=== PATIENT | male | born 1960 | race Caucasian/White ===

== ENCOUNTER 2019-11-27 06:21 | Outpatient (REF) | payer OTHER, SELFPAY ==
[2019-11-27 07:02] LABS: MANUAL DIFF FLAG NO
[2019-11-27 07:06] LABS: Basophils Percent Auto 0.3 % (0-2); Eosinophils Absolute Auto 0.1 X10*3/uL (0.0-0.4); Eosinophils Percent Auto 1.1 % (0-4); Hematocrit 39.8 % (42-52); Hemoglobin 14.1 g/dl (14.0-18.0); Imm Gran Abs Auto 0.03 X10*3/uL (0.00-0.03); Imm Gran Pct Auto 0.4 % (0.0-0.4); Lymphocytes Absolute Auto 1.5 X10*3/uL (1.2-4.9); Lymphocytes Percent Auto 20.4 % (20-40); Mean Corpuscular HGB Conc 35.4 g/dl (31.0-36.0); Mean Corpuscular Hemoglobin 32.8 pg (27.0-33.0); Mean Corpuscular Volume 92.6 fL (80-98); Mean Platelet Volume 10.3 fL (9.4-12.4); Monocytes Absolute Auto 0.7 X10*3/uL (0.1-1.2); Monocytes Percent Auto 9.4 % (2-11); Neutrophils Absolute Auto 4.9 X10*3/uL (2.0-8.3); Neutrophils Percent Auto 68.4 % (45-73); Platelet Count 193 X10*3/uL (160-400); Red Cell Distribution Width 11.6 % (11.0-16.0); White Blood Count 7.1 X10*3/uL (4.8-10.8)
[2019-11-27 07:11] LABS: Glucose Urine UA NEG (NEG); Leukocyte Esterase Urine NEG (NEG); Nitrite Urine NEG (NEG); Specific Gravity - Urine 1.025 (1.005-1.025); Urine Blood NEG (NEG); Urine Ketones NEG (NEG); Urine Protein NEG (NEG-TRACE)
[2019-11-27 07:12] LABS: Appearance Urine CLEAR; Color Urine YELLOW
[2019-11-27 07:33] LABS: Carbon Dioxide 27 mmol/L (22-29); Chloride 104 mmol/L (96-108); Potassium 4.3 mmol/l (3.3-5.1); Sodium 138 mmol/L (135-145)
[2019-11-27 07:34] LABS: Alanine Aminotransferase 32 U/L (0-40); Albumin Level 4.5 g/dL (3.5-5.0); Alkaline Phosphatase 63 U/L (39-117); Anion Gap 11 (12-20); Aspartate Amino Transferase 20 U/L (5-37); Blood Urea Nitrogen 22 mg/dL (9-16); Calcium 9.4 mg/dL (8.4-10.2); Cholesterol 148 mg/dL; Estimated Glomerular Filt Rate > 60; Glucose Fasting 100 mg/dL (60-99); HDL Cholesterol 37 mg/dL; LDL Cholesterol Calculated 91 mg/dl; Total Protein 7.2 g/dL (6.5-8.0); Triglycerides 103 mg/dL
[2019-11-27 07:55] LABS: Prostate Specific Antigen Scr 0.42 ng/mL (<0.05-4.0)
== END 2019-11-27 06:22 | disposition home or self-care (01) ==
LOC: HO.LAB 06:21
PROVIDERS: PCP Internal Medicine; Visit Provider Internal Medicine
DX: Z00.00 Encounter for general adult medical examination without abnormal findings (principal); R79.89 Other specified abnormal findings of blood chemistry; K21.9 Gastro-esophageal reflux disease without esophagitis; I10 Essential (primary) hypertension; E78.00 Pure hypercholesterolemia, unspecified; Z12.5 Encounter for screening for malignant neoplasm of prostate
CPT/HCPCS: 36415; 80053; 80061; 81003; 84153; 85025

== ENCOUNTER 2019-12-04 15:34 | Outpatient (REF) | payer OTHER, SELFPAY ==
--- NOTE | 2019-12-04 15:40 | XR_ITS ---
EXAMINATION: XR CERVICAL SPINE CLINICAL INFORMATION: Neck pain. COMPARISON: None. TECHNIQUE: Cervical spine 5 views; AP, lateral, bilateral oblique and open-mouth views. FINDINGS: Vertebral body heights and alignment are maintained. Atlantoaxial distance is normal. Pezv-jm-[id number] disc space narrowing is noted at C5-C6 and C6-C7. Small marginal endplate osteophytes are noted. Multilevel bilateral facet arthropathy is noted, more severe on the left compared to the right. There is severe neural foraminal narrowing noted on the left at C3-C4 and C4-C5 levels and [id number] neural foraminal narrowing noted at C5-C6. Moderate right neural foraminal stenosis at C5-C6. No evidence of prevertebral soft tissue swelling. Airways patent. Open-mouth view is unremarkable. No evidence of cervical ribs. Visualized lung apices are clear. IMPRESSION: Bilateral facet arthropathy, moderate to severe on the left. Multiple bilateral neural foraminal narrowing as detailed above.
== END 2019-12-04 15:35 | disposition home or self-care (01) ==
LOC: HO.XRAY 15:34
PROVIDERS: PCP Internal Medicine; Visit Provider Internal Medicine
DX: M54.2 Cervicalgia (principal)
CPT/HCPCS: 72050

== ENCOUNTER 2020-12-02 10:39 | Outpatient (REF) | payer OTHER, SELFPAY ==
[2020-12-02 10:44] LABS: MANUAL DIFF FLAG NO
[2020-12-02 10:59] LABS: Basophils Percent Auto 0.1 % (0-2); Eosinophils Absolute Auto 0.1 X10*3/uL (0.0-0.4); Eosinophils Percent Auto 1.2 % (0-4); Hematocrit 40.1 % (42-52); Hemoglobin 13.9 g/dl (14.0-18.0); Imm Gran Abs Auto 0.02 X10*3/uL (0.00-0.03); Imm Gran Pct Auto 0.3 % (0.0-0.4); Lymphocytes Absolute Auto 1.7 X10*3/uL (1.2-4.9); Lymphocytes Percent Auto 24.7 % (20-40); Mean Corpuscular HGB Conc 34.7 g/dl (31.0-36.0); Mean Corpuscular Hemoglobin 32.3 pg (27.0-33.0); Mean Platelet Volume 10.6 fL (9.4-12.4); Monocytes Absolute Auto 0.5 X10*3/uL (0.1-1.2); Monocytes Percent Auto 7.6 % (2-11); Neutrophils Absolute Auto 4.5 X10*3/uL (2.0-8.3); Neutrophils Percent Auto 66.1 % (45-73); Platelet Count 205 X10*3/uL (160-400); Red Blood Count 4.31 X10*6/uL (4.60-5.80); Red Cell Distribution Width 12.1 % (11.0-16.0); White Blood Count 6.9 X10*3/uL (4.8-10.8)
[2020-12-02 11:18] LABS: Alanine Aminotransferase 32 U/L (0-40); Albumin Level 4.4 g/dL (3.5-5.0); Alkaline Phosphatase 63 U/L (39-117); Anion Gap 12 (12-20); Aspartate Amino Transferase 22 U/L (5-37); Blood Urea Nitrogen 12 mg/dL (9-16); Calcium 9.1 mg/dL (8.4-10.2); Carbon Dioxide 27 mmol/L (22-29); Chloride 105 mmol/L (96-108); Cholesterol 163 mg/dL; Estimated Glomerular Filt Rate > 60; Glucose Fasting 110 mg/dL (60-99); HDL Cholesterol 51 mg/dL; LDL Cholesterol Calculated 87 mg/dl; Potassium 4.2 mmol/L (3.3-5.1); Sodium 140 mmol/L (135-145); Total Protein 7.1 g/dL (6.5-8.0); Triglycerides 129 mg/dL
[2020-12-02 11:23] LABS: Reflex LDLD? No
[2020-12-02 11:31] LABS: Appearance Urine CLEAR; Color Urine YELLOW; Glucose Urine UA NEG (NEG); Leukocyte Esterase Urine NEG (NEG); Nitrite Urine NEG (NEG); Specific Gravity - Urine 1.025 (1.005-1.025); Urine Blood NEG (NEG); Urine Ketones NEG (NEG); Urine Protein TRACE MG/DL (NEG-TRACE)
[2020-12-02 11:37] LABS: PSA,Total (Free>4and<10) 0.49 ng/mL (0.00-4.00)
== END 2020-12-02 10:40 | disposition home or self-care (01) ==
LOC: HO.LNP 10:39
PROVIDERS: Visit Provider Internal Medicine
DX: Z00.00 Encounter for general adult medical examination without abnormal findings (principal); Z12.5 Encounter for screening for malignant neoplasm of prostate; I73.00 Raynaud's syndrome without gangrene; R79.89 Other specified abnormal findings of blood chemistry; I10 Essential (primary) hypertension; E78.00 Pure hypercholesterolemia, unspecified
CPT/HCPCS: 80053; 80061; 81003; 84153; 85025

== ENCOUNTER 2021-05-28 11:41 | Outpatient (REF) | payer OTHER, SELFPAY ==
[2021-05-28 12:12] LABS: Alanine Aminotransferase 50 U/L (0-40); Albumin Level 4.2 g/dL (3.5-5.0); Alkaline Phosphatase 76 U/L (39-117); Aspartate Amino Transferase 37 U/L (5-37); Bilirubin Direct 0.4 mg/dL (0.0-0.5); Cholesterol 163 mg/dL; HDL Cholesterol 72 mg/dL; LDL Cholesterol Calculated 82 mg/dl; Total Protein 6.8 g/dL (6.5-8.0); Triglycerides 47 mg/dL
[2021-05-28 12:40] LABS: Reflex LDLD? No
== END 2021-05-28 11:42 | disposition home or self-care (01) ==
LOC: HO.LNP 11:41
PROVIDERS: Visit Provider Internal Medicine
DX: E78.00 Pure hypercholesterolemia, unspecified (principal)
CPT/HCPCS: 80061; 80076

== ENCOUNTER 2021-07-09 16:03 | Outpatient (REF) | payer OTHER, SELFPAY ==
[2021-07-11 05:10] LABS: Lyme Abs Screen <0.90 index
== END 2021-07-09 16:04 | disposition home or self-care (01) ==
LOC: HO.LNP 16:03
PROVIDERS: Visit Provider Internal Medicine
DX: M25.50 Pain in unspecified joint (principal)
CPT/HCPCS: 82550; 86617; 86618

== ENCOUNTER 2021-07-10 12:16 | Outpatient (REF) | payer OTHER, SELFPAY ==
[2021-07-10 13:00] LABS: Erythrocyte Sedimentation Rate 53 MM/HR (0-15)
== END 2021-07-10 12:17 | disposition home or self-care (01) ==
LOC: HO.LNP 12:16
PROVIDERS: Visit Provider Internal Medicine
DX: M25.50 Pain in unspecified joint (principal)
CPT/HCPCS: 85652

== ENCOUNTER 2021-12-03 11:26 | Outpatient (REF) | payer OTHER, SELFPAY ==
[2021-12-03 11:29] LABS: MANUAL DIFF FLAG NO
[2021-12-03 11:49] LABS: Basophils Percent Auto 0.3 % (0-2); Eosinophils Absolute Auto 0.1 X10*3/uL (0.0-0.4); Eosinophils Percent Auto 1.2 % (0-4); Hemoglobin 13.1 g/dl (14.0-18.0); Imm Gran Abs Auto 0.03 X10*3/uL (0.00-0.03); Imm Gran Pct Auto 0.5 % (0.0-0.4); Lymphocytes Percent Auto 34.8 % (20-40); Mean Corpuscular HGB Conc 35.4 g/dl (31.0-36.0); Mean Corpuscular Hemoglobin 32.3 pg (27.0-33.0); Mean Corpuscular Volume 91.1 fL (80.0-98.0); Mean Platelet Volume 10.2 fL (9.4-12.4); Monocytes Absolute Auto 0.6 X10*3/uL (0.1-1.2); Neutrophils Absolute Auto 3.1 x10*3/uL (2.0-8.3); Neutrophils Percent Auto 53.2 % (45-73); Platelet Count 192 X10*3/uL (160-400); Red Blood Count 4.06 X10*6/uL (4.60-5.80); Red Cell Distribution Width 12.3 % (11.0-16.0); White Blood Count 5.8 X10*3/uL (4.8-10.8)
[2021-12-03 11:51] LABS: Appearance Urine Clear; Color Urine Yellow; Glucose Urine UA Negative (Negative); Leukocyte Esterase Urine Negative (Negative); Nitrite Urine Negative (Negative); PH 5.5 (5.0-9.0); Specific Gravity - Urine 1.015 (1.005-1.025); Urine Blood Negative (Negative); Urine Ketones Negative (Negative); Urine Protein Negative (Neg-Trace)
[2021-12-03 11:54] LABS: Bacteria Urine None Seen (None Seen); Hyaline Casts Urine 0-2 /LPF (0-2); RBC Urine 0-2 /HPF (0-2); Squamous Epithelial Cell Urine 0-2 /HPF (0-2); WBC Urine 0-5 /HPF (0-5)
[2021-12-03 12:04] LABS: Alanine Aminotransferase 29 U/L (0-40); Albumin Level 4.4 g/dL (3.5-5.0); Alkaline Phosphatase 67 U/L (39-117); Anion Gap 15 (12-20); Aspartate Amino Transferase 23 U/L (5-37); Bilirubin Total 0.7 mg/dL (0.0-1.0); Blood Urea Nitrogen 13 mg/dL (9-16); Calcium 8.9 mg/dL (8.4-10.2); Carbon Dioxide 25 mmol/L (22-29); Chloride 102 mmol/L (96-108); Cholesterol 166 mg/dL; Estimated Glomerular Filt Rate > 60; Glucose Fasting 74 mg/dL (60-99); HDL Cholesterol 63 mg/dL; LDL Cholesterol Calculated 88 mg/dl; Potassium 3.9 mmol/L (3.3-5.1); Sodium 138 mmol/L (135-145); Total Protein 7.1 g/dL (6.5-8.0); Triglycerides 79 mg/dL
[2021-12-03 12:26] LABS: PSA,Total (Free>4and<10) 0.48 ng/mL (0.00-4.00)
== END 2021-12-03 11:27 | disposition home or self-care (01) ==
LOC: HO.LNP 11:26
PROVIDERS: Visit Provider Internal Medicine
DX: Z00.00 Encounter for general adult medical examination without abnormal findings (principal); Z12.5 Encounter for screening for malignant neoplasm of prostate; R79.89 Other specified abnormal findings of blood chemistry; I10 Essential (primary) hypertension; E78.00 Pure hypercholesterolemia, unspecified
CPT/HCPCS: 80053; 80061; 81001; 84153; 85025

== ENCOUNTER 2022-09-06 12:49 | Outpatient (REF) | payer OTHER, SELFPAY ==
[2022-09-06 13:43] LABS: Cholesterol 203 mg/dL; HDL Cholesterol 80 mg/dL; LDL Cholesterol Calculated 112 mg/dl; Triglycerides 59 mg/dL
[2022-09-06 13:44] LABS: Alanine Aminotransferase 26 U/L (0-40); Albumin Level 4.8 g/dL (3.5-5.0); Alkaline Phosphatase 57 U/L (39-117); Aspartate Amino Transferase 23 U/L (5-37); Bilirubin Direct 0.4 mg/dL (0.0-0.5); Bilirubin Total 1.2 mg/dL (0.0-1.0); Total Protein 7.7 g/dL (6.5-8.0)
[2022-09-06 16:10] LABS: Reflex LDLD? No
== END 2022-09-06 12:50 | disposition home or self-care (01) ==
LOC: HO.LNP 12:49
PROVIDERS: Visit Provider Internal Medicine
DX: E78.00 Pure hypercholesterolemia, unspecified (principal)
CPT/HCPCS: 80061; 80076

== ENCOUNTER 2022-09-12 05:53 | Inpatient (IN) | payer OTHER, SELFPAY ==
[2022-09-12] VITALS (7 sets, daily range): BP systolic 139–196; BP diastolic 61–92; PULSE 91–110; RESP 12–17; TEMP 36.4–37.1; O2SAT 97–100; BMI 27.7; BMI 27.1
--- NOTE | 2022-09-12 | ECG_ITS ---
Test Reason : CHEST PAIN Blood Pressure : / mmHG Vent. Rate : 094 BPM Atrial Rate : 094 BPM P-R Int : 192 ms QRS Dur : 102 ms QT Int : 382 ms P-R-T Axes : 073 033 023 degrees QTc Int : 477 ms Normal sinus rhythm Normal ECG When compared with ECG of 06-MAY-2014 15:55, No significant change was found Referred By: Generic ED Physician Electronically Signed By:Gregory Valera
--- NOTE | ~2022-09-12 | CT_ITS ---
EXAMINATION: CT ABDOMEN AND PELVIS WITH CONTRAST CLINICAL INFORMATION: Epigastric and left upper quadrant pain COMPARISON: Previous CT of the abdomen and pelvis from 2017 TECHNIQUE: Multidetector volumetric images were obtained from the superior aspect of the liver through the pubic symphysis following administration 85 mL of Omnipaque 350 intravenous contrast. Sagittal and coronal reformatted images were obtained on the technologist's workstation. Oral contrast: Yes This CT examination was performed using dose optimization techniques as appropriate, variously including the following: *Automated exposure control *Adjustment of mA and/or kV according to patient size (this includes techniques or standardized protocols for targeted exams where dose is matched to indication/reason for exam; i.e. extremities or head) *Use of iterative reconstruction technique DLP: 570 mGy-cm FINDINGS: LUNG BASES: The visualized lung bases are unremarkable. LIVER, GALLBLADDER, AND BILIARY TREE: The liver is normal in size, shape, and attenuation. No focal hepatic lesion or biliary ductal dilatation is present. The gallbladder is upper normal in size. There are small gallstones. PANCREAS: Stranding of the peripancreatic fat and small amount of fluid suggestive of mild pancreatitis. No mass or duct dilatation. Probable small calcifications in the tail the pancreas. SPLEEN: Unremarkable. ADRENAL GLANDS: Unremarkable. KIDNEYS AND URETERS: The kidneys are normal in size, shape, and attenuation. No hydronephrosis, hydroureter, or calculi seen. No perinephric stranding. BLADDER: Not optimally distended. Question mild diffuse bladder wall thickening. GASTROINTESTINAL TRACT: Diverticulosis of the colon. No evidence of diverticulitis. Cecum located in the right upper quadrant. The small and large bowel are otherwise unremarkable. The appendix is unremarkable. ABDOMINAL WALL: Diastasis of the rectus muscles and mild bulge. LYMPH NODES: Normal. VASCULAR: Unremarkable. PELVIC VISCERA: Unremarkable. OSSEOUS STRUCTURES: Postsurgical changes at L4-L5. Degenerative changes of the spine and hip joints. CT/CT abdomen pelvis w IV con IMPRESSION: Mild pancreatitis. Upper normal-size gallbladder and small gallstones. Diverticulosis. Fleischner guidelines were followed.
[2022-09-12 06:27] LABS: MANUAL DIFF FLAG NO
[2022-09-12 06:32] LABS: Basophils Percent Auto 0.3 % (0-2); Eosinophils Absolute Auto 0.1 X10*3/uL (0.0-0.4); Eosinophils Percent Auto 1.3 % (0-4); Hematocrit 36.1 % (42.0-52.0); Hemoglobin 13.1 g/dl (14.0-18.0); Imm Gran Abs Auto 0.03 X10*3/uL (0.00-0.03); Imm Gran Pct Auto 0.5 % (0.0-0.4); Lymphocytes Percent Auto 32.3 % (20-40); Mean Corpuscular HGB Conc 36.3 g/dl (31.0-36.0); Mean Corpuscular Volume 90.9 fL (80.0-98.0); Mean Platelet Volume 10.1 fL (9.4-12.4); Monocytes Absolute Auto 0.6 X10*3/uL (0.1-1.2); Monocytes Percent Auto 10.2 % (2-11); Neutrophils Absolute Auto 3.4 x10*3/uL (2.0-8.3); Neutrophils Percent Auto 55.4 % (45-73); Platelet Count 186 X10*3/uL (160-400); Red Blood Count 3.97 X10*6/uL (4.60-5.80); Red Cell Distribution Width 12.1 % (11.0-16.0); White Blood Count 6.1 X10*3/uL (4.8-10.8)
[2022-09-12 06:48] LABS: Alanine Aminotransferase 101 U/L (0-40); Albumin Level 4.5 g/dL (3.5-5.0); Alkaline Phosphatase 81 U/L (39-117); Anion Gap 15 (12-20); Aspartate Amino Transferase 201 U/L (5-37); Bilirubin Total 1.1 mg/dL (0.0-1.0); Blood Urea Nitrogen 14 mg/dL (9-16); Calcium 9.6 mg/dL (8.4-10.2); Carbon Dioxide 23 mmol/L (22-29); Chloride 102 mmol/L (96-108); Creatinine Clr Calc Pharmacy 102.8; Estimated Glomerular Filt Rate > 60; Glucose Random 99 mg/dL (60-115); Sodium 136 mmol/L (135-145); Total Protein 7.3 g/dL (6.5-8.0); Troponin-I High Sensitivity < 2.7 ng/L (<3.5-35.0)
--- NOTE | 2022-09-12 06:48 | ED_ITS ---
HPI - Chest Pain General Chief Complaint: Chest Pain Stated Complaint: Chest/Abdominal Pain Time Seen by Provider: 09/12/22 06:39 Source: patient Mode of arrival: ambulatory Limitations: no limitations History of Present Illness HPI narrative: Patient is a 62-year-old male no past medical history presenting via EMS to the emergency department after waking up a little over an hour ago with severe chest pain/epigastric pain descibed as a constant pressure w/ intermittent stabbing. Patient reports he was very sweaty at the time symptoms started. Patient reports that he would try to rest to see if that would help his pain and it did not help so he came to the emergency department. Patient is a current daily drinker reporting 4-5 beers daily and sometimes hard liquor. 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 Patient reports a family history of his father having a heart attack and then getting bypass surgery. Patient denies fever, chills, headache, dizziness, vision changes, nausea, vomiting, shortness of breath, numbness.Not tollerating PO Related Data Allergies Allergy/AdvReac Type Severity Reaction Status Date / Time codeine [CODEINE] Allergy Unknown NAUSEA Unverified 11/08/19 14:42 Codeine Sulfate Allergy Unknown Uncoded 09/01/18 00:00 Review of Systems Review of Systems: Constitutional : No Weight loss, No Fever, No Chills, No Fatigue, No Malaise ENT/Mouth : No sore throat, No Rhinorrhea Eyes: No Eye Pain, No Swelling, No Redness Cardiovascular : + Chest Pain, No SOB, No Dyspnea on Exertion, No Orthopnea, No Edema, No Palpitations Respiratory : No Cough, No Sputum, No Wheezing Gastrointestinal : No Nausea, No Vomiting, No Diarrhea, No Constipation, + abdominal Pain, No Hematochezia, No Melena Genitourinary : No Dysuria, No Urinary Frequency, No Hematuria, Musculoskeletal : No joint pain, No Myalgias, No Joint Swelling Skin : No Skin Lesions, No rash Neuro : No Weakness, No Numbness, No Dizziness, No Headache All other systems reviewed and are negative Yes all other systems are reviewed and are negative [facility] Past Medical History Attestation statement: The following information was validated with the patient. [facility] Narrative: History of heart attack in father Source: old records reviewed and nursing notes reviewed Social History Social History Alcohol intake: current Alcohol intake frequency: a few times a week Smoked in Last 30 Days: No Use of substances other than those prescribed or required for medical reasons: No Advance Directives: No Advance Directives Information Provided: No Physical Exam Vital Signs: Vital Signs: Last Vital Signs Temp 98.0 F 09/12/22 06:17 Pulse 110 H 09/12/22 07:05 Resp 12 09/12/22 07:51 BP 139/61 09/12/22 07:05 Pulse Ox 100 09/12/22 07:05 O2 Del Method Room Air 09/12/22 07:05 BMI result Body Mass Index 27.7 vss Appearance: Alert.? Oriented X3.? No acute distress.? Head: Normocephalic, atraumatic, no step-offs or deformities Eyes: Pupils equal, round and reactive to light.? Neck: Normal inspection.? Neck supple.? CVS: Normal heart rate and rhythm.? Pulses normal.? Respiratory: No respiratory distress.? Breath sounds normal.? Abdomen: Soft and + epigastric pain .? Skin: Skin warm and dry.? Normal skin color.? Normal skin turgor.? Extremities: No lower extremity edema.? No calf ttp. 5/5 strength to bilateral upper and lower extremities Neuro: Oriented X 3.? No motor deficit.? No sensory deficit. CN 2-12 intact Course Reevaluation(s) Reevaluation #1: CBC appears to be around patient's baseline with a normocytic anemia. Chemistry unremarkable, transaminases elevated in a 2-1 fashion, likely secondary to chronic alcohol use, troponin negative, EKG nonischemic unlikely ACS. Patient's lipase 1696 consistent with acute pancreatitis. Time: 07:14 Reevaluation #2: CT with mild case of pancreatitis. At this time patient to be admitted to the hospitalist team. Fluids, morphine for pain and Zofran ordered. Patient tolerating these medications well. Time: 08:23 Medications Administered Discontinued Medications Generic Name Dose Route Start Last Admin Trade Name Freq PRN Reason Stop Dose Admin Al Hydroxide/Mg Hydroxide 15 ml 09/12/22 06:43 09/12/22 07:01 Magnesium Hydrox/Alum Hydrox 30 Ml Oral.Susp PO 09/12/22 06:44 15 ml ONCE ONE Administration Belladonna Alkaloids/Phenobarbital 10 ml 09/12/22 06:43 09/12/22 07:01 Phenobarb/Hyoscy/Atropine/Scop 10 Ml Elixir PO 09/12/22 06:44 10 ml ONCE ONE Administration Sodium Chloride 1,000 mls @ 999 mls/hr 09/12/22 07:15 09/12/22 07:50 Ns IV 09/12/22 08:15 999 mls/hr .Q1H1M [facility] Administration Iohexol 85 ml 09/12/22 07:50 09/12/22 07:50 Iohexol 350 Mg/Ml 100 Ml Infus..Btl IV 09/12/22 07:51 85 ml ONCE ONE Administration Morphine Sulfate 4 mg 09/12/22 07:08 09/12/22 07:51 Morphine Sulfate 4 Mg/Ml Cartridge IVPUSH 09/12/22 07:09 4 mg ONCE ONE Administration Protocol Ondansetron HCl 4 mg 09/12/22 07:08 09/12/22 07:24 Ondansetron Hcl 4 Mg/2 Ml Vial IVPUSH 09/12/22 07:09 4 mg ONCE ONE Administration Medical Decision Making Medical Decision Making MDM Narrative: 62-year-old male presenting with chest pain/ epigastric pain that woke him up this morningat 0500 Physical exam epigastric tenderness. Likely GERD vs pancreatitis Vs angina versus anxiety. Unlikely, ACS, PE, aortic dissection, ruptured aneurysm. Plan: EKG, troponin, labs, chest x-ray Differential Diagnosis Differential Diagnoses: The differential diagnosis associated with the presentation includes Likely GERD vs pancreatitis Vs angina versus anxiety. Unlikely, ACS, PE, aortic dissection, ruptured aneurysm. Admission/Observation Consideration of admission/observation: Escalation of care including admission/observation considered Possible Consult Healthcare Provider Management of the patient was discussed with: Hospitalist Lab Data [facility] Lab Attestation statement: I reviewed the patient's lab results. 09/12/22 06:08 09/12/22 06:08 Labs: Lab Results 09/12/22 09/12/22 09/12/22 Range/Units 06:08 06:08 06:08 WBC 6.1 (4.8-10.8) X10*3/uL RBC 3.97 L (4.60-5.80) X10*6/uL Hgb 13.1 L (14.0-18.0) g/dl Hct 36.1 L (42.0-52.0) % MCV 90.9 (80.0-98.0) fL MCH 33.0 (27.0-33.0) pg MCHC 36.3 H (31.0-36.0) g/dl RDW 12.1 (11.0-16.0) % Plt Count 186 (160-400) X10*3/uL MPV 10.1 (9.4-12.4) fL Immature Gran % (Auto) 0.5 H (0.0-0.4) % Neut % (Auto) 55.4 (45-73) % Lymph % (Auto) 32.3 (20-40) % [place] % (Auto) 10.2 (2-11) % Eos % (Auto) 1.3 (0-4) % Baso % (Auto) 0.3 (0-2) % Lymph # (Auto) 2.0 (1.2-4.9) X10*3/uL [place] # (Auto) 0.6 (0.1-1.2) X10*3/uL Eos # (Auto) 0.1 (0.0-0.4) X10*3/uL Baso # (Auto) 0.0 (0.0-0.2) X10*3/uL Abs Immat Gran (auto) 0.03 (0.00-0.03) X10*3/uL Absolute Neuts (auto) 3.4 (2.0-8.3) x10*3/uL Absolute Nucleated RBC 0.000 (0.0-0.012) X10*3/uL Nucleated RBC % (auto) 0.0 (0.0-0.2) /100WBC Sodium 136 (135-145) mmol/L Potassium 4.0 (3.3-5.1) mmol/L Chloride 102 (96-108) mmol/L Carbon Dioxide 23 (22-29) mmol/L Anion Gap 15 (12-20) BUN 14 (9-16) mg/dL Creatinine 0.82 (0.5-1.4) mg/dL Estim Creat Clear Calc 102.8 Estimated GFR > 60 Random Glucose 99 (60-115) mg/dL Calcium 9.6 D (8.4-10.2) mg/dL Total Bilirubin 1.1 H (0.0-1.0) mg/dL AST 201 H (5-37) U/L ALT 101 H (0-40) U/L Alkaline Phosphatase 81 (39-117) U/L Troponin I High Sens < 2.7 (<3.5-35.0) ng/L Total Protein 7.3 (6.5-8.0) g/dL Albumin 4.5 (3.5-5.0) g/dL Lipase 1696 H (8-78) U/L Independent Interpretation I performed an independent interpretation of an: EKG (94 beats per minute, normal FL interval, normal QRS duration, normal sinus rhythm. No QT or QTC prolongation.) and Plain X-Ray Radiology Impression Discussion of test interpretation with radiology: I have reviewed the radio logist's reading. Core Measures AMI core measures followed: Yes Measure exclusions: not indicated Critical Care Time Critical Care Time Critical Care Time: No Discharge Plan Discharge Clinical Impression: Pancreatitis Patient Disposition: Admitted As Inpatient
[2022-09-12 06:57] LABS: Lipase 1696 U/L (8-78)
[2022-09-12] MEDS: PHENobarb/Hyoscy/Atropine/Scop 10 ML ELIXIR PO (07:01)
[2022-09-12] MEDS: Magnesium Hydrox/Alum Hydrox 30 ML ORAL.SUSP 15 ML PO (07:01)
[2022-09-12] MEDS: ondansetron HCL 4 MG/2 ML VIAL IVPUSH (07:24)
[2022-09-12] MEDS: iohexoL 350 MG/ML 100 ML INFUS..BTL 85 ML IV (07:50)
[2022-09-12] MEDS: 0.9 % Sodium Chloride 1,000 ML 999 ML IV ×3 (07:50→08:58)
[2022-09-12] MEDS: Morphine Sulfate 4 MG/ML CARTRIDGE IVPUSH (07:51)
--- NOTE | 2022-09-12 08:25 | PC.NURSE ---
assumed care of pt at 0700. pt a&o x4, pleasant, calm, and cooperative. pt medicated per apr. resting quietly on stretcher with at bedside. [email or web address]
[2022-09-12 08:42] LABS: Triglycerides 88 mg/dL
--- NOTE | 2022-09-12 09:01 | PHA.MEDREC ---
Pharmacy Consult ? Medication Reconciliation Pharmacy has completed the medication reconciliation. Completed by Teresa Davies
[2022-09-12] MEDS: Lactated Ringers 1,000 ML 100 ML IVCONT ×2 (11:14→22:53)
--- NOTE | 2022-09-12 11:19 | PM.IMHP ---
History of Present Illness Date of Service: 09/12/22 Chief Complaint: Abdominal pain 62 year old man presenting with sharp abdominal pain and nausea that started suddenly last night. He denied any recent illness, improperly cooked foods, recent travel. He reported that he had been in his usual state of health. 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 He denies any history of alcohol withdrawal symptoms or seizures. He denied chest pain, shortness breath, vomiting, diarrhea. Abdominal CT showed mild pancreatitis with lipase of 1696. In the ER, he was given a dose of morphine, IV fluids, Zofran. He will be admitted for further management and treatment of acute pancreatitis. Review of Systems Review of Systems: Denies any recent fever chills or decrease in appetite respiratory denies any shortness of breath coverage production cardiovascular denied chest pain gastrointestinal see HPI genitourinary denies any dysuria frequency or hematuria musculoskeletal denies any joint pain or swelling neuropsych denies any weakness or seizures all other systems reviewed are negative [facility] Medical History (Updated 09/12/22 @ 11:40 by Greta Hsu NP) Hyperlipidemia Hypertension Pertinent family history: Cardiac disease Surgical History (Updated 09/12/22 @ 11:40 by Greta Hsu NP) H/O spinal fusion Social History (Updated 09/12/22 @ 11:41 by Greta Hsu NP) Alcohol intake: current Alcohol intake frequency: 3 or more drinks per day Meds Allergies Allergy/AdvReac Type Severity Reaction Status Date / Time codeine [CODEINE] Allergy Unknown NAUSEA Unverified 11/08/19 14:42 Codeine Sulfate Allergy Unknown Uncoded 09/01/18 00:00 Active Medications: Current Medications Acetaminophen (Acetaminophen 325 Mg Tablet) 650 mg PO Q6H PRN PRN Reason: Pain, Mild (Pain Scale 1-3) Amlodipine Besylate (Amlodipine Besylate 5 Mg Tablet) 5 mg PO DAILY [facility]; Protocol Enoxaparin Sodium (Enoxaparin Sodium 40 Mg/0.4 Ml Syringe) 40 mg SUBCUT Q24H [facility] Last Admin: 09/12/22 11:16 Dose: Not Given Hydrochlorothiazide (Hydrochlorothiazide 12.5 Mg Tablet) 12.5 mg PO DAILY [facility] Lactated Ringer's (Lr) 1,000 mls @ 100 mls/hr IVCONT .Q10H [facility] Last Admin: 09/12/22 11:14 Dose: 100 mls/hr Lisinopril (Lisinopril 20 Mg Tablet) 20 mg PO DAILY [facility] Morphine Sulfate (Morphine Sulfate 2 Mg/Ml Cartridge) 2 mg IVPUSH Q4H PRN; Protocol PRN Reason: Pain, Mild (Pain Scale 1-3) Ondansetron HCl (Ondansetron Hcl 4 Mg/2 Ml Vial) 4 mg IVPUSH Q8H PRN PRN Reason: Nausea and Vomiting Pharmacy Consult (Consult Rx Perform Med Rec) 1 each MISCELLANE ONCE PRN PRN Reason: Consult order Sodium Chloride (0.9 % Sodium Chloride Flush 3 Ml Syringe) 3 ml IVFLUSH QSHIFT [facility] Vitamin D (Cholecalciferol (Vitamin D3) 25 Mcg Tablet) 25 mcg PO DAILY [facility] Home Medications Medication Instructions Recorded Confirmed Last Taken Type amlodipine 5 mg tablet 5 mg PO DAILY 09/12/22 09/12/22 Unknown History atorvastatin 40 mg tablet 40 mg PO DAILY 09/12/22 09/12/22 Unknown History cholecalciferol (vitamin D3) 25 25 mcg PO DAILY 09/12/22 09/12/22 Unknown History mcg (1,000 unit) tablet ibuprofen 800 mg tablet 800 mg PO DAILY PRN Pain 09/12/22 09/12/22 Unknown History lisinopril 20 1 tab PO DAILY 09/12/22 09/12/22 Unknown History mg-hydrochlorothiazide 12.5 mg tablet Physical Exam Vital Signs and Narrative: Vital Signs: Last Vital Signs Temp 98.1 F 09/12/22 11:16 Pulse 98 09/12/22 11:16 Resp 17 09/12/22 11:16 BP 153/68 H 09/12/22 11:16 Pulse Ox 97 09/12/22 11:16 O2 Del Method Room Air 09/12/22 11:16 BMI result Body Mass Index 27.7 Appearing in no acute distress head is normocephalic atraumatic eyes pupils are PERRLA sclera is anicteric mouth throat mucous membranes are intact and moist neck is supple no lymphadenopathy, no JVD noted lung sounds are clear to auscultation heart regular rate rhythm, clear S1, S2 positive bowel sounds, abdomen is soft, nontender neuro patient is alert x3, no focal deficits Results Labs 09/12/22 06:08 09/12/22 06:08 Labs: Laboratory Results - last 24 hr 09/12/22 09/12/22 09/12/22 06:08 06:08 06:08 MCV 90.9 MCH 33.0 MCHC 36.3 H RDW 12.1 Plt Count 186 MPV 10.1 Immature Gran % (Auto) 0.5 H Neut % (Auto) 55.4 Lymph % (Auto) 32.3 [place] % (Auto) 10.2 Eos % (Auto) 1.3 Baso % (Auto) 0.3 Lymph # (Auto) 2.0 [place] # (Auto) 0.6 Eos # (Auto) 0.1 Baso # (Auto) 0.0 Abs Immat Gran (auto) 0.03 Absolute Neuts (auto) 3.4 Absolute Nucleated RBC 0.000 Nucleated RBC % (auto) 0.0 Anion Gap 15 Estim Creat Clear Calc 102.8 Estimated GFR > 60 Random Glucose 99 Calcium 9.6 D Total Bilirubin 1.1 H AST 201 H ALT 101 H Alkaline Phosphatase 81 Troponin I High Sens < 2.7 Total Protein 7.3 Albumin 4.5 Triglycerides 88 Lipase 1696 H Imaging Radiologist's Impressions: Impressions Abdomen/Pelvis CT 09/12/22 07:50 IMPRESSION: Mild pancreatitis. Upper normal-size gallbladder and small gallstones. Diverticulosis. Fleischner guidelines were followed. Assessment and Plan (1) Pancreatitis: Status: Acute Plan 62 year old man admitted with pancreatitis Pancreatitis secondary to alcohol use new onset IV fluids pain management clear liquid diet for now Alcohol use no signs of withdrawal ciwa scale Hypertension continue amlodipine lisinopril/hctz HLD hold statin DVT prophylaxis with Lovenox Full code 2 midnights for treatment of pancreatitis requiring IV fluids and pain medications Time Spent With Patient Time: Total time managing care of this patient today ____ minutes. Quality Stroke Does the patient have a stroke diagnosis?: No VTE Prior VTE?: No VTE Risk Level:: Medical - moderate - high VTE Device Contraindication: Treatment Not Indicated VTE Drug Contraindication: N/A - Med Ordered
[2022-09-13 03:20] VITALS: BP 169/80; PULSE 83; RESP 16; TEMP 36.2; O2SAT 98
[2022-09-13 06:15] LABS: Hematocrit 34.6 % (42.0-52.0); Hemoglobin 12.1 g/dl (14.0-18.0); Mean Corpuscular Hemoglobin 32.4 pg (27.0-33.0); Mean Corpuscular Volume 92.8 fL (80.0-98.0); Mean Platelet Volume 10.4 fL (9.4-12.4); Platelet Count 141 X10*3/uL (160-400); Red Blood Count 3.73 X10*6/uL (4.60-5.80); Red Cell Distribution Width 12.3 % (11.0-16.0); White Blood Count 8.8 X10*3/uL (4.8-10.8)
[2022-09-13 06:31] LABS: Anion Gap 12 (12-20); Blood Urea Nitrogen 6 mg/dL (9-16); Calcium 8.5 mg/dL (8.4-10.2); Carbon Dioxide 24 mmol/L (22-29); Chloride 105 mmol/L (96-108); Creatinine Clr Calc Pharmacy 127.7; Estimated Glomerular Filt Rate > 60; Glucose Random 97 mg/dL (60-115); Potassium 3.6 mmol/L (3.3-5.1); Sodium 137 mmol/L (135-145)
[2022-09-13] MEDS: Lactated Ringers 1,000 ML 100 ML IVCONT ×2 (06:37→15:49)
[2022-09-13] MEDS: Morphine Sulfate 2 MG/ML CARTRIDGE IVPUSH (06:40)
[2022-09-13 07:24] VITALS: BP 157/72; PULSE 80; RESP 18; TEMP 36.8; O2SAT 99
[2022-09-13 08:09] LABS: Lipase 739 U/L (8-78)
[2022-09-13] MEDS: Cholecalciferol (Vitamin D3) 25 MCG TABLET PO (08:11)
[2022-09-13] MEDS: hydroCHLOROthiazide 12.5 MG TABLET PO (08:11)
[2022-09-13] MEDS: amLODIPine Besylate 5 MG TABLET PO (08:11)
[2022-09-13] MEDS: lisinopriL 20 MG TABLET PO (08:11)
--- NOTE | 2022-09-13 08:21 | HO.PM.IMPN ---
Subjective Subjective Date of Service: 09/13/22 Review of Systems Follow up pancreatitis still with some epigastric pain taking clears fine Physical Exam Vital Signs: Vital Signs: Last Vital Signs Temp 98.2 F 09/13/22 07:24 Pulse 80 09/13/22 07:24 Resp 18 09/13/22 07:24 BP 157/72 H 09/13/22 07:24 Pulse Ox 99 09/13/22 07:24 O2 Del Method Room Air 09/13/22 07:24 BMI result Body Mass Index 27.1 Appearing in no acute distress lung sounds are clear to auscultation heart regular rate rhythm, clear S1, S2 positive bowel sounds, abdomen is soft, epigastric tenderness neuro patient is alert x3, no focal deficits Objective Data Active Medications Acetaminophen (Acetaminophen 325 Mg Tablet) 650 mg PO Q6H PRN PRN Reason: Pain, Mild (Pain Scale 1-3) Amlodipine Besylate (Amlodipine Besylate 5 Mg Tablet) 5 mg PO DAILY [facility]; Protocol Last Admin: 09/13/22 08:11 Dose: 5 mg Documented By: EDWINA Enoxaparin Sodium (Enoxaparin Sodium 40 Mg/0.4 Ml Syringe) 40 mg SUBCUT Q24H [facility] Last Admin: 09/12/22 11:16 Dose: Not Given Documented By: ANDREY Non-Admin Reason: Patient Refused Hydrochlorothiazide (Hydrochlorothiazide 12.5 Mg Tablet) 12.5 mg PO DAILY [facility] Last Admin: 09/13/22 08:11 Dose: 12.5 mg Documented By: EDWINA Lactated Ringer's (Lr) 1,000 mls @ 100 mls/hr IVCONT .Q10H [facility] Last Admin: 09/13/22 06:37 Dose: 100 mls/hr Documented By: ALYSON Lisinopril (Lisinopril 20 Mg Tablet) 20 mg PO DAILY [facility] Last Admin: 09/13/22 08:11 Dose: 20 mg Documented By: EDWINA Morphine Sulfate (Morphine Sulfate 2 Mg/Ml Cartridge) 2 mg IVPUSH Q4H PRN; Protocol PRN Reason: Pain, Mild (Pain Scale 1-3) Last Admin: 09/13/22 06:40 Dose: 2 mg Documented By: ALYSON Ondansetron HCl (Ondansetron Hcl 4 Mg/2 Ml Vial) 4 mg IVPUSH Q8H PRN PRN Reason: Nausea and Vomiting Pharmacy Consult (Consult Rx Perform Med Rec) 1 each MISCELLANE ONCE PRN PRN Reason: Consult order Sodium Chloride (0.9 % Sodium Chloride Flush 3 Ml Syringe) 3 ml IVFLUSH QSHIFT [facility] Last Admin: 09/13/22 07:08 Dose: Not Given Documented By: EDWINA Non-Admin Reason: IV Running Vitamin D (Cholecalciferol (Vitamin D3) 25 Mcg Tablet) 25 mcg PO DAILY [facility] Last Admin: 09/13/22 08:11 Dose: 25 mcg Documented By: EDWINA Labs 09/13/22 05:41 09/13/22 05:41 Labs: Laboratory Results - last 24 hr 09/12/22 09/13/22 09/13/22 06:08 05:41 05:41 MCV 92.8 MCH 32.4 MCHC 35.0 RDW 12.3 Plt Count 141 L MPV 10.4 Absolute Nucleated RBC 0.000 Nucleated RBC % (auto) 0.0 Anion Gap 12 Estim Creat Clear Calc 127.7 Estimated GFR > 60 Random Glucose 97 Calcium 8.5 D Triglycerides 88 Lipase 739 H Assessment and Plan (1) Pancreatitis: Status: Acute Plan 62 year old man admitted with acute pancreatitis, likely secondary to alcohol abuse Pancreatitis lipase down to 739 today secondary to alcohol use, drinks 3-4 drinks a day new onset continue IV fluids pain management advance diet to full liquid Alcohol use no signs of withdrawal ciwa scale Hypertension continue amlodipine, lisinopril/hctz HLD hold statin DVT prophylaxis with Lovenox Full code attending Dr. Mcneil continued hospital stay for treatment of pancreatitis requiring IV fluids and pain medications Time Spent With Patient Time: Total time managing care of this patient today ____ minutes. Quality Stroke Does the patient have a stroke diagnosis?: No VTE Prior VTE?: No VTE Risk Level:: Medical - moderate - high VTE Device Contraindication: Treatment Not Indicated VTE Drug Contraindication: N/A - Med Ordered
[2022-09-13] MEDS: Enoxaparin Sodium 40 MG/0.4 ML SYRINGE SUBCUT (10:34)
--- NOTE | 2022-09-13 11:47 | MHC.CM.PN ---
pt lives with is indepedent working no servceis needed will drive self home
[2022-09-13 15:04] VITALS: BP 162/70; PULSE 89; RESP 18; TEMP 37.2; O2SAT 99
[2022-09-13 19:18] VITALS: BP 162/77; PULSE 85; RESP 18; TEMP 37.1; O2SAT 98
[2022-09-14] MEDS: Lactated Ringers 1,000 ML 100 ML IVCONT (00:51)
[2022-09-14] MEDS: Morphine Sulfate 2 MG/ML CARTRIDGE IVPUSH (01:42)
[2022-09-14 04:00] VITALS: BP 157/79; PULSE 96; RESP 18; TEMP 36.9; O2SAT 97
[2022-09-14 06:51] LABS: Alanine Aminotransferase 101 U/L (0-40); Albumin Level 3.4 g/dL (3.5-5.0); Alkaline Phosphatase 90 U/L (39-117); Anion Gap 10 (12-20); Aspartate Amino Transferase 38 U/L (5-37); Bilirubin Direct 0.4 mg/dL (0.0-0.5); Bilirubin Total 1.1 mg/dL (0.0-1.0); Blood Urea Nitrogen 3 mg/dL (9-16); Calcium 8.7 mg/dL (8.4-10.2); Carbon Dioxide 27 mmol/L (22-29); Chloride 101 mmol/L (96-108); Estimated Glomerular Filt Rate > 60; Glucose Random 92 mg/dL (60-115); Lipase 131 U/L (8-78); Potassium 3.2 mmol/L (3.3-5.1); Sodium 135 mmol/L (135-145); Total Protein 5.8 g/dL (6.5-8.0)
[2022-09-14 07:35] VITALS: BP 175/83; PULSE 87; RESP 18; TEMP 37.1; O2SAT 97
[2022-09-14] MEDS: lisinopriL 20 MG TABLET PO (07:57)
[2022-09-14] MEDS: amLODIPine Besylate 5 MG TABLET PO (07:57)
[2022-09-14] MEDS: hydroCHLOROthiazide 12.5 MG TABLET PO (07:57)
[2022-09-14] MEDS: Cholecalciferol (Vitamin D3) 25 MCG TABLET PO (07:57)
[2022-09-14] MEDS: Potassium Chloride ER 20 MEQ TAB.ER.PRT 40 MEQ PO (07:57)
--- NOTE | 2022-09-14 09:09 | PM.DS ---
DS: Providers Provider Date of Service: 09/14/22 Date of admission: 09/12/22 10:53 Primary care physician: Rodrigue Mcdonald MD DS: Diagnosis Discharge Diagnosis (1) Pancreatitis: Status: Acute DS: Summary Hospital Course Hospital Course: 62 year old man presenting with sharp abdominal pain and nausea that started suddenly last night. He denied any recent illness, improperly cooked foods, recent travel.? He reported that he had been in his usual state of health.? 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 He denies any history of alcohol withdrawal symptoms or seizures.? He denied chest pain, shortness breath, vomiting, diarrhea.? Abdominal CT showed mild pancreatitis with lipase of 1696.? In the ER, he was given a dose of morphine, IV fluids, Zofran.? He will be admitted for further management and treatment of acute pancreatitis. 62-year-old man treated for pancreatitis secondary to alcohol use, drinking 3-4 drinks a day. Abdominal CT showed mild pancreatitis with no abscess. Initial lipase 1696 down to 131 today with improvement in his liver enzymes and pain. Patient was placed on regular diet without any issues. Did have an episode of hypokalemia with potassium 3.2, this was repleted and likely secondary to the IV fluids. Patient also has a history of hypertension he may continue his amlodipine, lisinopril and hydrochlorothiazide and atorvastatin for hyperlipidemia. Patient was encouraged to stop drinking alcohol. Time Spent with Patient Time attestation: Total time managing care of this patient today ____ minutes. Discharge coordination time: Greater than 30 minutes Quality: Safe Use of Opioids Does Pt have an Active Cancer Diagnosis on the Problem List?: No Quality: Stroke Does the patient have a stroke diagnosis?: No Physical Exam Vital Signs: Vital Signs: Last Vital Signs Temp 98.8 F 09/14/22 07:35 Pulse 87 09/14/22 07:35 Resp 18 09/14/22 07:35 BP 175/83 H 09/14/22 07:35 Pulse Ox 97 09/14/22 07:35 O2 Del Method Room Air 09/14/22 07:35 BMI result Body Mass Index 27.1 Appearing in no acute distress head is normocephalic atraumatic eyes pupils are PERRLA sclera is anicteric mouth throat mucous membranes are intact and moist neck is supple no lymphadenopathy, no JVD noted lung sounds are clear to auscultation heart regular rate rhythm, clear S1, S2 positive bowel sounds, abdomen is soft, nontender neuro patient is alert x3, no focal deficits DS: Data Data Completed and Pending Labs on day of discharge: Laboratory Results - last 24 hr 09/14/22 09/14/22 05:53 05:53 Sodium 135 Potassium 3.2 L Chloride 101 Carbon Dioxide 27 Anion Gap 10 L BUN 3 L Creatinine 0.68 Estim Creat Clear Calc 124.0 Estimated GFR > 60 Random Glucose 92 Calcium 8.7 Total Bilirubin 1.1 H Cancelled Direct Bilirubin 0.4 Cancelled AST 38 H Cancelled ALT 101 H Cancelled Alkaline Phosphatase 90 Cancelled Total Protein 5.8 L Cancelled Albumin 3.4 L Cancelled Lipase 131 H Cancelled Discharge Plan Discharge Anticipated Discharge Date/Time: 09/14/22 09:07 Patient Disposition: Home, Self-Care Discharge Diagnosis: Pancreatitis Referrals: Rodrigue Mcdonald MD [Primary Care Provider] - 1 Week Discharge Medications: Continued atorvastatin 40 mg tablet 40 mg PO DAILY lisinopril-hydrochlorothiazide 20-12.5 mg tablet 1 tab PO DAILY ibuprofen 800 mg tablet 800 mg PO DAILY PRN (Reason: Pain) amlodipine 5 mg tablet 5 mg PO DAILY cholecalciferol (vitamin D3) 25 mcg (1,000 unit) Tablet 25 mcg PO DAILY Discharge Orders: Discharge Order (Routine); Ordered 09/14/22 Ordered By: Greta Hsu Diet: Advance to usual diet Activity on Discharge: As tolerated Stand Alone Forms: Patient Portal Discharge page Care Plan Goals: Complete resolution of symptoms Health Concerns: Pancreatitis Plan of Treatment: Follow-up with primary care provider as needed Take all medications as prescribed Avoid drinking alcohol Assessment: See discharge summary
--- NOTE | 2022-09-14 09:14 | MHC.CM.PN ---
pt dcd home no skilled services ordered by
== END 2022-09-14 10:40 | disposition home or self-care (01) | DRG 282 ==
LOC: HO.ED 08:24 → HO.EDOVER 11:05 → HO.S3 16:54
PROVIDERS: Physician Assistant; Admitting Provider Nurse Practitioner Acute Care; Emergency Provider Emergency Medicine Emergency Medical Services; PCP Internal Medicine; Visit Provider Nurse Practitioner Acute Care
DX: K85.20 Alcohol induced acute pancreatitis without necrosis or infection (principal); E78.5 Hyperlipidemia, unspecified; I10 Essential (primary) hypertension; F10.90 Alcohol use, unspecified, uncomplicated; E87.6 Hypokalemia; Z98.1 Arthrodesis status; Z79.899 Other long term (current) drug therapy
CPT/HCPCS: 36415; 74177; 80048; 80053; 80076; 83690; 84478; 84484; 85025; 85027; 93005; 99221; 99285; J1650; J2270; J2405; Q9967

== ENCOUNTER → 2022-09-12 06:07 | Outpatient (BNV) | payer OTHER, SELFPAY | PROVIDERS: Admitting Provider Nurse Practitioner Acute Care; Emergency Provider Emergency Medicine Emergency Medical Services; PCP Internal Medicine; Visit Provider Internal Medicine Cardiovascular Disease | DX: R07.9 Chest pain, unspecified (principal) | CPT/HCPCS: 93010 ==

== ENCOUNTER → 2022-09-12 10:53 | Outpatient (BNV) | payer OTHER, SELFPAY | PROVIDERS: Admitting Provider Nurse Practitioner Acute Care; Emergency Provider Emergency Medicine Emergency Medical Services; PCP Internal Medicine; Visit Provider Nurse Practitioner Acute Care | DX: K85.90 Acute pancreatitis without necrosis or infection, unspecified (principal) | CPT/HCPCS: 99223; 99232; 99239 ==

== ENCOUNTER 2022-12-02 11:34 | Outpatient (REF) | payer OTHER, SELFPAY ==
[2022-12-02 11:39] LABS: MANUAL DIFF FLAG NO
[2022-12-02 11:55] LABS: Appearance Urine Clear; Color Urine Yellow; Glucose Urine UA Negative (Negative); Leukocyte Esterase Urine Negative (Negative); Nitrite Urine Negative (Negative); Specific Gravity - Urine 1.015 (1.005-1.025); Urine Blood Negative (Negative); Urine Ketones Negative (Negative); Urine Protein Negative (Neg-Trace)
[2022-12-02 11:58] LABS: Bacteria Urine None Seen (None Seen); Hyaline Casts Urine 0-2 /LPF (0-2); RBC Urine 0-2 /HPF (0-2); Squamous Epithelial Cell Urine 0-2 /HPF (0-2); WBC Urine 0-5 /HPF (0-5)
[2022-12-02 12:04] LABS: Basophils Percent Auto 0.3 % (0-2); Eosinophils Absolute Auto 0.1 X10*3/uL (0.0-0.4); Hematocrit 42.7 % (42.0-52.0); Hemoglobin 14.7 g/dl (14.0-18.0); Imm Gran Abs Auto 0.03 X10*3/uL (0.00-0.03); Imm Gran Pct Auto 0.4 % (0.0-0.4); Lymphocytes Absolute Auto 1.8 X10*3/uL (1.2-4.9); Lymphocytes Percent Auto 25.2 % (20-40); Mean Corpuscular HGB Conc 34.4 g/dl (31.0-36.0); Mean Corpuscular Hemoglobin 31.9 pg (27.0-33.0); Mean Corpuscular Volume 92.6 fL (80.0-98.0); Mean Platelet Volume 10.5 fL (9.4-12.4); Monocytes Absolute Auto 0.5 X10*3/uL (0.1-1.2); Monocytes Percent Auto 7.1 % (2-11); Neutrophils Absolute Auto 4.8 x10*3/uL (2.0-8.3); Platelet Count 202 X10*3/uL (160-400); Red Blood Count 4.61 X10*6/uL (4.60-5.80); Red Cell Distribution Width 12.7 % (11.0-16.0); White Blood Count 7.3 X10*3/uL (4.8-10.8)
[2022-12-02 12:17] LABS: Alanine Aminotransferase 22 U/L (0-40); Albumin Level 4.7 g/dL (3.5-5.0); Alkaline Phosphatase 57 U/L (39-117); Anion Gap 14 (12-20); Aspartate Amino Transferase 20 U/L (5-37); Bilirubin Direct 0.3 mg/dL (0.0-0.5); Bilirubin Total 0.8 mg/dL (0.0-1.0); Blood Urea Nitrogen 14 mg/dL (9-16); Calcium 9.8 mg/dL (8.4-10.2); Carbon Dioxide 26 mmol/L (22-29); Chloride 102 mmol/L (96-108); Cholesterol 151 mg/dL (<200); Estimated Glomerular Filt Rate > 60; Glucose Fasting 106 mg/dL (60-99); HDL Cholesterol 50 mg/dL (>40); LDL Cholesterol Calculated 83 mg/dL (<100); Potassium 3.9 mmol/L (3.3-5.1); Sodium 138 mmol/L (135-145); Total Protein 7.8 g/dL (6.5-8.0); Triglycerides 94 mg/dL (<150)
[2022-12-02 12:36] LABS: PSA,Total (Free>4and<10) 0.56 ng/mL (0.00-4.00)
== END 2022-12-02 11:35 | disposition home or self-care (01) ==
LOC: HO.LNP 11:34
PROVIDERS: Visit Provider Internal Medicine
DX: Z00.00 Encounter for general adult medical examination without abnormal findings (principal); R79.89 Other specified abnormal findings of blood chemistry; I10 Essential (primary) hypertension; E78.00 Pure hypercholesterolemia, unspecified; Z12.5 Encounter for screening for malignant neoplasm of prostate
CPT/HCPCS: 80053; 80061; 80076; 81001; 82248; 84153; 85025

== ENCOUNTER 2023-06-02 10:42 | Outpatient (REF) | payer OTHER, SELFPAY ==
[2023-06-02 11:46] LABS: Alanine Aminotransferase 33 U/L (0-40); Albumin Level 4.4 g/dL (3.5-5.0); Alkaline Phosphatase 62 U/L (39-117); Aspartate Amino Transferase 28 U/L (5-37); Bilirubin Direct 0.4 mg/dL (0.0-0.5); Cholesterol 164 mg/dL (<200); HDL Cholesterol 70 mg/dL (>40); LDL Cholesterol Calculated 78 mg/dL (<100); Total Protein 7.3 g/dL (6.5-8.0); Triglycerides 84 mg/dL (<150)
[2023-06-02 12:10] LABS: Reflex LDLD? No
== END 2023-06-02 10:43 | disposition home or self-care (01) ==
LOC: HO.LNP 10:42
PROVIDERS: Visit Provider Internal Medicine
DX: E78.00 Pure hypercholesterolemia, unspecified (principal)
CPT/HCPCS: 80061; 80076

== ENCOUNTER 2023-09-27 07:08 | Outpatient (REF) | payer OTHER, SELFPAY | END 2023-09-27 07:09 | disposition home or self-care (01) | LOC: HO.MRI 07:08 | PROVIDERS: PCP Internal Medicine; Visit Provider Internal Medicine | DX: Z13.89 Encounter for screening for other disorder (principal) ==

== ENCOUNTER 2023-12-06 10:40 | Outpatient (REF) | payer OTHER, SELFPAY ==
[2023-12-06 10:45] LABS: MANUAL DIFF FLAG NO
[2023-12-06 11:41] LABS: Basophils Percent Auto 0.4 % (0-2); Eosinophils Absolute Auto 0.1 X10*3/uL (0.0-0.4); Eosinophils Percent Auto 1.4 % (0-4); Hematocrit 41.6 % (42.0-52.0); Hemoglobin 14.4 g/dl (14.0-18.0); Imm Gran Abs Auto 0.03 X10*3/uL (0.00-0.03); Imm Gran Pct Auto 0.4 % (0.0-0.4); Lymphocytes Absolute Auto 1.8 X10*3/uL (1.2-4.9); Lymphocytes Percent Auto 23.3 % (20-40); Mean Corpuscular HGB Conc 34.6 g/dl (31.0-36.0); Mean Corpuscular Hemoglobin 33.5 pg (27.0-33.0); Mean Corpuscular Volume 96.7 fL (80.0-98.0); Monocytes Absolute Auto 0.5 X10*3/uL (0.1-1.2); Monocytes Percent Auto 6.8 % (2-11); Neutrophils Absolute Auto 5.2 x10*3/uL (2.0-8.3); Neutrophils Percent Auto 67.7 % (45-73); Platelet Count 186 X10*3/uL (160-400); Red Cell Distribution Width 12.4 % (11.0-16.0); White Blood Count 7.7 X10*3/uL (4.8-10.8)
[2023-12-06 11:47] LABS: Appearance Urine Clear; Color Urine Yellow; Glucose Urine UA Negative (Negative); Leukocyte Esterase Urine Negative (Negative); Nitrite Urine Negative (Negative); Urine Blood Negative (Negative); Urine Ketones Negative (Negative); Urine Protein Negative (Neg-Trace)
[2023-12-06 11:57] LABS: Bacteria Urine None Seen (None Seen); Hyaline Casts Urine 0-2 /LPF (0-2); RBC Urine 0-2 /HPF (0-2); Squamous Epithelial Cell Urine 0-2 /HPF (0-2); WBC Urine 0-5 /HPF (0-5)
[2023-12-06 12:00] LABS: Alanine Aminotransferase 26 U/L (0-40); Albumin Level 4.5 g/dL (3.5-5.0); Alkaline Phosphatase 55 U/L (39-117); Anion Gap 9 (12-20); Aspartate Amino Transferase 21 U/L (5-37); Bilirubin Direct 0.3 mg/dL (0.0-0.5); Bilirubin Total 0.9 mg/dL (0.0-1.0); Blood Urea Nitrogen 14 mg/dL (9-16); Calcium 9.8 mg/dL (8.4-10.2); Carbon Dioxide 30 mmol/L (22-29); Chloride 105 mmol/L (96-108); Cholesterol 172 mg/dL (<200); Estimated Glomerular Filt Rate > 60; Glucose Fasting 104 mg/dL (60-99); HDL Cholesterol 63 mg/dL (>40); LDL Cholesterol Calculated 88 mg/dL (<100); Potassium 3.9 mmol/L (3.3-5.1); Sodium 140 mmol/L (135-145); Total Protein 7.4 g/dL (6.5-8.0); Triglycerides 106 mg/dL (<150)
[2023-12-06 12:10] LABS: PSA,Total (Free>4and<10) 0.47 ng/mL (0.00-4.00)
== END 2023-12-06 10:41 | disposition home or self-care (01) ==
LOC: HO.LNP 10:40
PROVIDERS: Visit Provider Internal Medicine
DX: Z00.00 Encounter for general adult medical examination without abnormal findings (principal); R79.89 Other specified abnormal findings of blood chemistry; I10 Essential (primary) hypertension; E78.00 Pure hypercholesterolemia, unspecified; Z12.5 Encounter for screening for malignant neoplasm of prostate
CPT/HCPCS: 80053; 80061; 80076; 81001; 82248; 84153; 85025

== ENCOUNTER 2023-12-19 10:35 | Outpatient (REF) | payer OTHER, SELFPAY ==
--- NOTE | ~2023-12-19 | XR_ITS ---
EXAMINATION: XR LEFT HIP XR RIGHT HIP CLINICAL INFORMATION: Bilateral hip pain for 2 months. COMPARISON: None available. TECHNIQUE: 2 views of each hip. FINDINGS: RIGHT HIP: Moderate degenerative changes with joint space narrowing and hypertrophic change. Alignment maintained. Moderate degenerative changes on limited views of the sacroiliac joint. LEFT HIP: Moderate degenerative changes with joint space narrowing and hypertrophic change. Alignment maintained. Moderate degenerative changes on the limited views of the sacroiliac joint. XR/XR hip LT min 2V IMPRESSION: Moderate degenerative changes bilateral hips. Electronically signed by: Rukhsana Cisneros MD 12/19/2023 12:22 PM EDT
--- NOTE | ~2023-12-19 | XR_ITS ---
EXAMINATION: XR LEFT HIP XR RIGHT HIP CLINICAL INFORMATION: Bilateral hip pain for 2 months. COMPARISON: None available. TECHNIQUE: 2 views of each hip. FINDINGS: RIGHT HIP: Moderate degenerative changes with joint space narrowing and hypertrophic change. Alignment maintained. Moderate degenerative changes on limited views of the sacroiliac joint. LEFT HIP: Moderate degenerative changes with joint space narrowing and hypertrophic change. Alignment maintained. Moderate degenerative changes on the limited views of the sacroiliac joint. XR/XR hip RT min 2V IMPRESSION: Moderate degenerative changes bilateral hips. Electronically signed by: Rukhsana Cisneros MD 12/19/2023 12:22 PM EDT
== END 2023-12-19 10:36 | disposition home or self-care (01) ==
LOC: HO.XRAY 10:35
PROVIDERS: PCP Internal Medicine; Visit Provider Internal Medicine
DX: M25.551 Pain in right hip (principal); M25.552 Pain in left hip
CPT/HCPCS: 73502

== ENCOUNTER → 2024-01-11 14:53 | Outpatient (REF) | payer OTHER, SELFPAY ==
--- NOTE | 2024-01-11 14:58 | CA_ITS ---
Transthoracic Echocardiogram Patient (Last, First, Middle): Kevin Burrell, Gender: Male Date of : 1960 Age: 63 Procedure Date: 01/11/2024 Procedure Type: Transthoracic Echocardiogram Location: OP Height: 182.88 cm Weight: 94.8 kg BSA: 2.17 m2 Heart Rate: bpm BP: 150 / 70 mmHg Railroad Detective: ERICA Referring MD: Rodrigue Mcdonald MD Ad Operations Coordinator: Yfn Valdez MD Symptoms: R01.1 HEART MURMUR Study Quality: Adequate ECG Rhythm: Sinus Conclusions: - 1. Normal LV ejection fraction of 60 65% with impaired relaxation filling pattern 2. Mild calcific aortic stenosis 3. Mildly dilated ascending aortic root at 3.8 cm 4. No gross pericardial effusion Findings Left Ventricle Normal left ventricular size, thickness, and systolic function. The visually estimated ejection fraction is between 60-65%. Spectral Doppler is indicative of an impaired relaxation filling pattern. E/E prime ratio is between 8 and 15 consistent with indeterminate filling pressures. Right Ventricle Normal right ventricular cavity size and systolic function. Atria Both atria are normal in size. There is lipomatous hypertrophy of the interatrial septum. There is no evidence of interatrial shunt. Aortic Valve The aortic valve was not well visualized. There is moderate calcification of the aortic valve. There is mild aortic valve stenosis. The peak aortic gradient is 28 mmHg.The mean gradient is 13 mmHg. The aortic valve area is 1.58 cm2. There is no aortic valve regurgitation. Mitral Valve There is mild anterior and posterior mitral leaflet thickening. There is mild mitral annular calcification. There is trace mitral valve regurgitation. There is no mitral valve stenosis. Pulmonic Valve The pulmonic valve was not well visualized. Tricuspid Valve Likely normal tricuspid valve structure and function. Tricuspid regurgitation envelope is inadequate for calculation of right ventricular systolic pressure. Great Vessels The pulmonary artery was not well visualized. There is mild dilatation of the sinuses of Valsalva measuring 3.85 cm. Small plaque is seen in the sino tubular ridge. Venous The inferior vena cava is normal in size and collapses greater than 50% with inspiration. Pericardium/Pleural There is no evidence of pericardial effusion. Prior Study Comparison No prior study available for comparison. Measurements 2D Linear Measurements IVSd: 0.99 0.6-0.9/0.6-1.0 cm LVIDd: 5.34 3.9-5.3/4.2-5.9 cm LVIDd Index: 2.46 2.4-3.2/2.2-3.1 cm/m2 LVIDs: 3.66 2.0-3.6 cm LVPWd: 0.94 0.7-1.1 cm LA Diam: 3.40 2.7-3.8/3.0-4.0 cm LAIDs Index: 1.57 1.5-2.3 cm/m2 LV Mass: 240.75 67-162/88-224 g LV Mass Index: 110.95 43-95/49-115 g/m2 LVOT Diam: 2.20 3.0+(-)1.3 cm 2D Systolic Function EF 4C: 58.20 >55% EF 2C: 69.80 >55% EF BiP: 64.00 >55% Mitral Valve MV Pk E: 0.84 MV PK A: 0.90 MV Decel Time: 246.00 E/A: 0.90 E'Lateral: 7.62 E'Medial: 5.66 E/E' Med: 14.80 E/E' Lat: 11.00 PHT: 72.00 MVA PHT: 3.06 Decel [place]: 3.41 Aortic Valve AoV Pk Leobardo: 2.64 AoV Mn Leobardo: 1.66 AoV VTI: 0.63 AoV Pk Grad: 28.00 Aov Mn Grad: 13.00 RADHA Cont.VTI: 1.58 LVOT LVOT Pk Leobardo: 1.21 LVOT Mn Leobardo: 0.85 LVOT VTI: 0.26 LVOT Pk Grad: 6.00 LVOT Mn Grad: 3.00 LVOT Diam: 2.20 LVOT Area: 3.80 Diastolic Function MV Pk E: 0.84 MV Pk A: 0.90 E/A: 0.90 E'Medial: 5.66 E/E' Med: 14.80 E' Laterial: 7.62 E/E' Lat: 11.00 Right Ventricle TAPSE (mm): 30.90 TVS' Leobardo: 14.80 Tricuspid Valve RA Press: 3.00 Great Vessels Aorta Sinus of Valsalva: 3.85 2.0-3.[address] [place]: 2.28 1.7-3.4 cm Ao Asc: 3.30 2.1-3.4 cm Updated in Other Vendor System with Status of Final Yfn Valdez MD electronically signed on 01/11/2024 5:17:49 PM with status of Final
== END ==
LOC: HO.CARD 14:53
PROVIDERS: PCP Internal Medicine; Visit Provider Internal Medicine
DX: R01.1 Cardiac murmur, unspecified (principal)
CPT/HCPCS: 93306

== ENCOUNTER → 2024-01-11 14:58 | Outpatient (BNV) | payer OTHER, SELFPAY | PROVIDERS: PCP Internal Medicine; Visit Provider Internal Medicine Cardiovascular Disease | DX: I35.0 Nonrheumatic aortic (valve) stenosis (principal); I35.8 Other nonrheumatic aortic valve disorders; I34.81 Nonrheumatic mitral (valve) annulus calcification | CPT/HCPCS: 93306 ==

== ENCOUNTER 2024-01-27 22:54 | Emergency (ER) | payer OTHER, SELFPAY ==
[2024-01-27 22:58] VITALS: BP 132/80; BP 188/100; PULSE 97; PULSE 98; RESP 18; TEMP 36.4; O2SAT 97; O2SAT 98; BMI 24.4
--- NOTE | 2024-01-27 23:13 | PC.NURSE ---
pt unloaded into triage room by ems, allowed this RN to take vitals but refused all other care. states i dont even know why they brought me here, im mikayla pt has visitor with him at time of triage. pt insists that he goes home with visitor and does not wish to seek medical attn. zinc furnace charger aware. pt ambulated out of triage room with steady gait, vitals stable.
--- OUTSIDE RECORDS SUMMARY | 2024-02-01 11:31 | XMS_ITS ---
Author Organization Rodrigue Mcdonald MD Address [address] [place] [phone] Care Team Providers Care Booker Name Role Phone Rodrigue Mcdonald Primary Care Provider [phone] ALLERGIES Allergen (clinical drug ingredient) Drug/Non Drug Allergy documented on EMR Reaction Allergy Type Onset Date Status codeine Codeine Sulfate vomiting/headach e Drug Allergy Active REASON FOR VISIT 2 month MEDICATIONS Medication SIG (Take, Route, Frequency, Duration) Notes [...] A DAY Orally every 8 hrs Active PROBLEMS Problem Type ICD Code Onset Dates Problem Status W/U Status Risk SNOMED Code Notes Problem Mild aortic stenosis (I35.0) Active confirmed [id number] VITAL SIGNS BMI 27.15 kg/m2 01/30/2024 Blood pressure systolic 152 mm Hg 01/30/20 24 Blood pressure diastolic 60 mm Hg 024 Height 72.50 in 01/30/2024 Weight 203 lbs 01/30/2024 weight is down 6 pounds [facility] 01-03-24 Encounters Encounter Location Date Provider Diagnosis Rodrigue Mcdonald MD [address] [place], [place] [phone] 01/30/2024 Rodrigue Mcdonald Essential hypertension I10 ; Lumbago with sciatica, right side M54.41 and Mild aortic stenosis I35.0 ASSESSMENTS Encounter Date Diagnosis Assessment Notes Treatment Notes Treatment Clinical Notes 01/30/2024 Essential hypertension (ICD-10 - I10) slighty high, will contnue to monitor and will continue current regiment 01/30/2024 Lumbago with sciatica, right side (ICD-10 - M54.41) waiting to see dr knowles, will continue current regiment 01/30/2024 Mild aortic stenosis (ICD-10 - I35.0) is 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, will continue to monitor PLAN OF TREATMENT Medication Medication Name Sig Start Date Stop [...] 01/29/2025 Next Appt Details Provider Name:Rodrigue chambers, 05/31/2024 07:30:00 AM, [address], [address], [place], [place], [phone], Provider Name:Rodrigue P Ky chambers, 06/07/2024 09:00:00 AM, [address] [place] [address] Drive, [address], [place], [phone], Provider Name:Rodrigue Akins Ky chambers, 12/11/2024 07:00:00 AM, [address] [place] [address], [address], [place], [phone], Provider Name:Rodrigue Tashi Ky chambers, 12/18/2024 09:30:00 AM, [address] [place] [address] Drive, [address], [place], [phone], Progress Notes * Examination Category Sub-Category Detail Notes General Examination GENERAL APPEARANCE: alert, w ell hydrated, in no distress HEART: grade 2/6 systolic m urmur at left sternal border
--- OUTSIDE RECORDS SUMMARY | 2024-02-01 11:32 | XMS_ITS ---
Author Organization Rodrigue Mcdonald MD Address [address] [place] [phone] Care Team Providers Care Senior Account Executive Name Role Phone Rodrigue Mcdonald Primary Care Provider ALLERGIES Allergen (clinical drug ingredient) Drug/Non Drug Allergy documented on EMR Reaction Allergy Type Onset Date Status codeine Codeine Sulfate vomiting/headach e Drug Allergy Active RESULTS Component Value Reference Range Notes Occult Blood, Stool, Guaiac Reviewed date:12/16/2023 11:26:07 AM Interpretation:Negative Performing Lab: Notes/Report: Negative Occult Blood, Stool, Guaiac Neg XR hip LT min 2V Reviewed date:12/19/2023 12:37:43 PM Interpretation: Performing Lab: Notes/Report: [facility] [address] [place] [id number] XRay Report Signed Patient: Kevin Burrell MR#: [id number] 2 : 1960 Acct:[id number] Age/Sex: 63 / M ADM Date: 12/19/23 Loc: HO.XRAY Attending Dr: Rodrigue Mcdonald MD Ordering Physician: Rodrigue Mcdonald MD Date of Service: 12/19/23 Procedure(s): XR hip LT min 2V Accession Number(s): [id number] cc: Rodrigue Mcdonald MD EXAMINATION: XR LEFT [...] 12/19/23 1222 DD/ 1047 TD/TT: 12/19/23 1102 Records Management Associate: XR hip RT min 2V Reviewed date:12/19/2023 12:29:22 PM Interpretation: Performing Lab: Notes/Report: [address] [address] XRay Report Signed Patient: Kevin Burrell MR#: [id number] 2 : 1960 Acct:[id number] Age/Sex: 63 / M ADM Date: 12/19/23 Loc: HO.XRAY Attending Dr: Rodrigue Mcdonald MD Ordering Physician: Rodrigue Mcdonald MD Date of Service: 12/19/23 Procedure(s): XR hip RT min 2V Accession Number(s): [id number] cc: Rodrigue Mcdonald MD EXAMINATION: XR LEFT [...] OV> 12/19/23 1222 DD/ 1048 TD/TT: 12/19/23 1102 Records Management Associate: REASON FOR VISIT annual visits MEDICATIONS Medication SIG (Take, Route, Frequency, Duration) [...] D AILY Orally Once a day Active SOCIAL HISTORY Tobacco Use: Social History Observation Description Date Details (start date - stop date) Never Smoker NA - NA Sex Assigned At : Social History Observation Description Sex Assigned At Unknown Tobacco Use/Smoking Question Answer Notes Patient is [...] Never (0 point) Points 3 Interpretation Negative VITAL SIGNS BMI 27.95 kg/m2 12/16/2023 Blood pressure systolic 172 mm Hg 12/16/19 24 Blood pressure diastolic 68 mm Hg 024 Height 72.50 in 12/16/2023 Weight 209 lbs 12/16/2023 weight is up 6 pounds since 08-12-23 Encounters Encounter Location Date Provider Diagnosis Rodrigue Mcdonald MD [address] [place], [place] [phone] 12/16/2023 Rodrigue Mcdonald Heart murmur R01.1 ; Annual physical exam Z00.00 ; Essential hypertension I10 ; Pure hypercholesterolemia E78.00 ; Lumbago with sciatica, right side M54.41 ; Panic F41.0 ; Pain in right hip M25.551 ; Pain in left hip M25.552 ; Colon cancer screening Z12.11 and Depression screening Z13.31 ASSESSMENTS Encounter Date Diagnosis Assessment Notes Treatment Notes Treatment Clinical Notes 12/16/2023 Heart murmur (ICD-10 - R01.1) [place] [facility] [place] diagnostic testing 12/16/2023 Annual physical exam (ICD-10 - Z00.00) labs reviewed and discused with patient 12/16/2023 Essential hypertensi on (ICD-10 - I10) stable, will continue current regiment 12/16/2023 Pure hypercholestero lemia (ICD-10 - E78.00) doing well, will continue current regiment 12/16/2023 Lumbago with sciatic a, right side (ICD-10 - M54.41) order faxed to [facility] for open MRI, pending diagnostic testing 12/16/2023 Panic (ICD-10 - F41.0) is al ways cholstrophobic. has trouble with the mri. will reschedule with some ativen and open mri 12/16/2023 Pain in right hip (I CD-10 - M25.551) order faxed [place] [facility], pending diagnostic testing 12/16/2023 Pain in left hip (IC D-10 - M25.552) ORDER FAXED TO [facility] 12/16/2023 Colon cancer screeni ng (ICD-10 - Z12.11) guaiac negative 12/16/2023 Depression screening (ICD-10 - Z13.31) negative screen PLAN OF TREATMENT Medication Medication Name Sig [...] Assessment Notes Heart murmur order [place] [facility] [place] [facility] [place], pendnf diagnostic testing Annual physical exam labs reviewed and d iscused with patient Essential hypertension stable, will cont inue current regiment Pure hypercholesterolemia doing well, wi ll continue current regiment Lumbago with sciatica, right side order faxed to [facility] for open MRI, pending diagnostic testing Panic is always cholstroph obic. has trouble with the mri. will reschedule with some ativen and open mri Pain in right hip order faxed [place] [facility] [place] [place] [facility], pending diagnostic testing Pain in left hip ORDER FAXED TO [facility] Colon cancer screening guaiac negative Depression screening negative screen Pending Test Test Name Order Date ECHO 12/16/2023 MR lumbar spine wo con 12/16/2023 Next Appt Details Follow Up: 2 Months, Reason: Provider Name:Rodrigue chambers, 05/31/2024 07:30:00 AM, [address] [place] [address], [address], [place], [place], [phone], Provider Name:Rodrigue chambers, 06/07/2024 09:00:00 AM, [address] [place] [address], [address], [place], [place], [phone], Provider Name:Rodrigue chambers, 12/11/2024 07:00:00 AM, [address] [place] [address], [address], [place], [place], [phone], Provider Name:Rodrigue chambers, 12/18/2024 09:30:00 AM, [address], [address], [place], [place], [phone], Progress Notes * Examination Category Sub-Category Detail Notes General Examination GENERAL APPEARANCE: well dev eloped, well nourished, in no acute distress HEAD: normocephalic, atrau matic EYES: pupils equal, round, reactive to light and accommodation, sclera non- icteric EARS: normal THROAT: clear NECK/THYROID: neck supple, [...] stool guaiac negative ORAL CAVITY: mucosa moist History and Physical Notes * HPI (History of Present Illness) Category Sub-Category Detail Notes Depression Screening PHQ-9 Little inte rest or [...] Total Score: 0 Interpretation and Intervention Depression Scree anita Findings: Negative Follow-Up for Depression: : review [...] Have you had any falls with injury in the past year?: No Have you had two or more falls in the year?: No Communication Needs Communication Needs Does the patient have a hearing impairment: No Does the patient have a vision impairmen t?: Yes ?If yes, what is the vision impairment?: Glasses Does the patient have a cognition impair ment?: No
--- OUTSIDE RECORDS SUMMARY | 2024-02-01 11:32 | XMS_ITS ---
Author Organization Rodrigue Mcdonald MD Address [address] [place] [phone] Care Team Providers Care Lozenge Maker Helper Name Role Phone Rodrigue Mcdonald Primary Care Provider ALLERGIES Allergen (clinical drug ingredient) Drug/Non Drug Allergy documented on EMR Reaction Allergy Type Onset Date Status codeine Codeine Sulfate vomiting/headach e Drug Allergy Active REASON FOR VISIT DISCUSS MRI MEDICATIONS Medication SIG (Take, Route, Frequency, Duration) [...] a day for 1 days 12/16/2023 Active VITAL SIGNS BMI 27.95 kg/m2 01/03/2024 Blood pressure systolic 142 mm Hg 01/03/20 24 Blood pressure diastolic 60 mm Hg 024 Height 72.50 in 01/03/2024 Weight 209 lbs 01/03/2024 Encounters Encounter Location Date Provider Diagnosis Rodrigue Mcdonald MD [address] [place] [phone] 01/03/2024 Rodrigue Mcdonald Spinal stenosis of lumbosacral region M48.07 ASSESSMENTS Encounter Date Diagnosis Assessment Notes Treatment Notes Treatment Clinical Notes 01/03/2024 Spinal stenosis of lumbosacral region (ICD-10 - M48.07) discussed treatment options. is going to call dr knowles PLAN OF TREATMENT Treatment Notes Assessment Notes Spinal stenosis of lumbosacral region di scussed treatment options. is going to call dr knowles Next Appt Details Provider Name:Rodrigue chambers, 05/31/2024 07:30:00 AM, [address] [place] [address], [phone], Provider Name:Rodrigue chambers, 06/07/2024 09:00:00 AM, [address] [place] [address], [phone], Provider Name:Rodrigue chambers, 12/11/2024 07:00:00 AM, [address] [place] [address], [phone], Provider Name:Rodrigue chambers, 12/18/2024 09:30:00 AM, [address] [place] [address], [phone], Progress Notes * Examination Category Sub-Category Detail Notes General Examination GENERAL APPEARANCE: alert, w ell hydrated, in no distress
--- OUTSIDE RECORDS SUMMARY | 2024-02-01 11:32 | XMS_ITS | Patient Health Record ---
Author Organization Rodrigue Mcdonald MD Address [address] [place] [phone] Care Team Providers Care Computer Science Intern Name Role Phone Rodrigue Mcdonald Primary Care Provider ALLERGIES Allergen (clinical drug ingredient) Drug/Non Drug Allergy documented on EMR Reaction Allergy Type Onset Date Status codeine Codeine Sulfate vomiting/headach e Drug Allergy Active RESULTS Component Value Reference Range Notes Glenn Stratton Reviewed date:06/02/2023 01:25:27 PM Interpretation: Performing Lab:[facility], [address] [place] [phone] Notes/Report: Glenn Stratton See Note Specimen held untested for 24 hours; Call to request Chemistry testing. Liver Panel Reviewed date:06/02/2023 01:31:45 PM Interpretation: Performing Lab:[address] [phone] Notes/Report: Bilirubin Total 1.0 0.0-1.0 mg/dL Bilirubin Direct 0.4 0.0-0.5 mg/dL Aspartate Amino Transferase 28 5-37 U/L Alanine Aminotransferase 33 0-40 U/L Total Protein 7.3 6.5-8.0 g/dL Albumin Level 4.4 3.5-5.0 g/dL Alkaline Phosphatase 62 39-117 U/L Lipid Panel with Reflex Reviewed date:06/02/2023 03:18:21 PM Interpretation: Performing Lab:[facility], [address] [place] [phone] Notes/Report: Triglycerides 84 <150 mg/dL Desirable Triglyceride: less than 150 mg/dL Borderline High Triglyceride 150-199 mg/dL High Triglyceride: 200-499 mg/dL Very High Triglyceride: greater than or equal to 5OO mg/dL Cholesterol 164 <200 mg/dL Desirable Cholesterol: less than 200 mg/dL Borderline High Cholesterol: 200-239 mg/dL High Cholesterol: greater than 239 mg/dL LDL Cholesterol Calculated 78 <100 mg/dL Desirable LDL: less than 100 mg/dL Near Optimal/Above Optimal LDL: 110-129 mg/dL Borderline High LDL: 130-159 mg/dL High LDL: 160-189 mg/dL Very High LDL: greater than or equal to 190 mg/dL HDL Cholesterol 70 >40 mg/dL Desirable HDL: greater than 40 mg/dL Note: This HDL assay may give artificially low results in patients with liver disease. Complete Blood Count Auto Di ff Reviewed date:12/07/2023 06:52:37 PM Interpretation: Performing Lab:[facility], [address] [place] [phone] Notes/Report: White Blood Count 7.7 4.8-10.8 X10*3/uL Red Blood Count 4.30 4.60-5.80 X10*6/uL Hemoglobin 14.4 14.0-18.0 g/dl Hematocrit 41.6 42.0-52.0 % Mean Corpuscular Volume 96.7 80.0-98.0 fL Mean Corpuscular Hemoglobin 33.5 27.0-33.0 pg Mean Corpuscular HGB Conc 34.6 31.0-36.0 g/dl Red Cell Distribution Width 12.4 11.0-16.0 % Platelet Count 186 160-400 X10*3/uL Mean Platelet Volume 11.0 9.4-12.4 fL Neutrophils Percent Auto 67.7 45-73 % Imm Gran Pct Auto 0.4 0.0-0.4 % Lymphocytes Percent Auto 23.3 20-40 % Monocytes Percent Auto 6.8 2-11 % Eosinophils Percent Auto 1.4 0-4 % Basophils Percent Auto 0.4 0-2 % NRBC Pct Auto 0.0 0.0-0.2 /100WBC Neutrophils Absolute Auto 5.2 2.0-8.3 x10*3/u L Imm Gran Abs Auto 0.03 0.00-0.03 X10*3/uL Lymphocytes Absolute Auto 1.8 1.2-4.9 X10*3/u L Monocytes Absolute Auto 0.5 0.1-1.2 X10*3/uL Eosinophils Absolute Auto 0.1 0.0-0.4 X10*3/u L Basophils Absolute Auto 0.0 0.0-0.2 X10*3/uL NRBC Abs Auto 0.000 0.0-0.012 X10*3/uL Comprehensive [place]. Panel Fa st Reviewed date:12/07/2023 06:52:04 PM Interpretation: Performing Lab:[facility], [address] [place] [phone] Notes/Report: Sodium 140 135-145 mmol/L Potassium 3.9 3.3-5.1 mmol/L Chloride 105 96-108 mmol/L Carbon Dioxide 30 22-29 mmol/L Anion Gap 9 12-20 Blood Urea Nitrogen 14 9-16 mg/dL Creatinine 0.90 0.5-1.4 mg/dL Estimated Glomerular Filt Rate > 60 NOTE: For -[place] individuals, multiply the result by 1.210. Chronic Kidney Disease: Estimated GFR < 60 mL/min/1.73m2 Severe Kidney Disease: Estimated GFR < 15 mL/min/1.73m2 Glucose Fasting 104 60-99 mg/dL A fasting glucose from 100-125 mg/dl is considered impaired (pre-diabetes). Calcium 9.8 8.4-10.2 mg/dL Bilirubin Total 0.9 0.0-1.0 mg/dL Aspartate Amino Transferase 21 5-37 U/L Alanine Aminotransferase 26 0-40 U/L Total Protein 7.4 6.5-8.0 g/dL Albumin Level 4.5 3.5-5.0 g/dL Alkaline Phosphatase 55 39-117 U/L Liver Panel Reviewed date:12/07/2023 02:20:27 PM Interpretation: Performing Lab:[facility], [address] [place] [phone] Notes/Report: Bilirubin Direct 0.3 0.0-0.5 mg/dL Lipid Panel Reviewed date:12/07/2023 02:20:17 PM Interpretation: Performing Lab:[facility], [address] [place] [phone] Notes/Report: Triglycerides 106 <150 mg/dL Desirable Triglyceride: less than 150 mg/dL Borderline High Triglyceride 150-199 mg/dL High Triglyceride: 200-499 mg/dL Very High Triglyceride: greater than or equal to 5OO mg/dL Cholesterol 172 <200 mg/dL Desirable Cholesterol: less than 200 mg/dL Borderline High Cholesterol: 200-239 mg/dL High Cholesterol: greater than 239 mg/dL LDL Cholesterol Calculated 88 <100 mg/dL Desirable LDL: less than 100 mg/dL Near Optimal/Above Optimal LDL: 110-129 mg/dL Borderline High LDL: 130-159 mg/dL High LDL: 160-189 mg/dL Very High LDL: greater than or equal to 190 mg/dL HDL Cholesterol 63 >40 mg/dL Desirable HDL: greater than 40 mg/dL Note: This HDL assay may give artificially low results in patients with liver disease. PSA,Total (Free>4and<10) Reviewed date:12/07/2023 02:19:48 PM Interpretation: Performing Lab:[facility], [address] [place] [phone] Notes/Report: PSA,Total (Free>4and<10) 0.47 0.00-4.00 ng/mL A Free PSA was not performed: The percentage of Free PSA can be used to enhance the differentiation of prostate cancer from benign prostatic disease in subjects whose PSA levels are between 4.0 and 10.0 ng/mL. For subjects whose PSA levels are below 4.0 or above 10.0 ng/mL, the risk of prostate cancer is determined on the basis of the PSA alone. Therefore the % Free PSA is recommended only for those subjects whose PSA levels are between 4.0 and 10.0 ng/mL. PSA methodology: Wetzel Alinity i Chemiluminescent Microparticle Immunoassay (CMIA) UA ClnCatch+Micro w/rflx Cul t Reviewed date:12/07/2023 06:52:54 PM Interpretation: Performing Lab:[facility], [address] [place] [phone] Notes/Report: Urine, Clean Catch Color Urine Yellow Appearance Urine Clear PH 6.0 5.0-9.0 Glucose Urine UA Negative Negative mg/dL Urine Blood Negative Negative Specific [place] - Urine 1.010 1.005-1.025 Urine Protein Negative Neg-Trace mg/dL Urine Ketones Negative Negative mg/dL Nitrite Urine Negative Negative Leukocyte Esterase Urine Negative Negative RBC Urine 0-2 0-2 /HPF WBC Urine 0-5 0-5 /HPF Squamous Epithelial Cell Urine 0-2 0-2 /HPF Bacteria Urine None Seen None Seen Hyaline Casts Urine 0-2 0-2 /LPF Occult Blood, Stool, Guaiac Reviewed date:12/16/2023 11:26:07 AM Interpretation:Negative Performing Lab: Notes/Report: Negative Occult Blood, Stool, Guaiac Neg XR hip LT min 2V Reviewed date:12/19/2023 12:37:43 PM Interpretation: Performing Lab: Notes/Report: [address] [address] XRay Report Signed Patient: Kevin Burrell MR#: [id number] 2 : 1960 Acct:[id number] Age/Sex: 63 / M ADM Date: 12/19/23 Loc: HO.XRAY Attending Dr: Rodrigue Mcdonald MD Ordering Physician: Rodrigue Mcdonald MD Date of Service: 12/19/23 Procedure(s): XR hip LT min 2V Accession Number(s): [id number] cc: Rodrigue Mcdonald MD EXAMINATION: XR LEFT [...] 12/19/23 1222 DD/ 1047 TD/TT: 12/19/23 1102 Associate Partner: XR hip RT min 2V Reviewed date:12/19/2023 12:29:22 PM Interpretation: Performing Lab: Notes/Report: [address] [address] XRay Report Signed Patient: Kevin Burrell MR#: [id number] 2 : 1960 Acct:[id number] Age/Sex: 63 / M ADM Date: 12/19/23 Loc: HO.XRAY Attending Dr: Rodrigue Mcdonald MD Ordering Physician: Rodrigue Mcdonald MD Date of Service: 12/19/23 Procedure(s): XR hip RT min 2V Accession Number(s): [id number] cc: Rodrigue Mcdonald MD EXAMINATION: XR LEFT [...] 12/19/23 1222 DD/ 1048 TD/TT: 12/19/23 1102 Associate Partner: REASON FOR REFERRAL Reason SPINAL STENOSIS OF L UMBOSCARAL REGION Diagnosis 1 Spinal stenosis of l umbosacral region (M48.07) Referral Organization Rodrigue Mcdonald MD Referring Provider First Name Rodrigue Referring Provider Last Name Harry Referring Provider Speciality Internal M edicine Referred Provider Dakotah Knowles Referred Provider Specialty Neurological Surgery General Notes Juan CSamBethany Hopperjames Ames 01/12/2024 11:45:39 AM EST > REFFERRAL AND NOTES FAXED TO DR PERDOMO OFFICE, Blanche Dumont 01/12/2024 11:48:14 AM EST > REQUEST MADE TO [facility] TO DOWNLOAD MRI TO [facility] AT , NO LONGER USING [facility] Referral Priority Routine Referral Appointment Date 03/15/2024 MEDICATIONS Medication SIG (Take, Route, Frequency, Duration) Notes Start Date End Date Status Lisinopril-hydroCHLOROthi azide 20-12.5 mg TAKE 1 TABLET DAILY Orally Once a day Active Atorvastatin Calcium 40 MG TAKE 1 TABLET BY MOUTH EVERY DAY Active amLODIPine Besylate 5 MG TAKE 1 TABLET [...] A DAY Orally every 8 hrs Active IMMUNIZATIONS Vaccine Route Administration Date Status Comme nts Flu Vaccine IM Intramuscular 01/07/2012 Administered DECLINED, FLU Unknown 04/19/2013 Administered Fluarix Quadrivalent IM Intramuscular 11/20/2013 Administe red Fluarix Quadrivalent IM Intramuscular 12/03/2014 Administe red Fluarix Quadrivalent IM Intramuscular 11/11/2015 Administe red Fluarix Quadrivalent IM Intramuscular 11/30/2016 Administe red PPSV23 (Pnemovax) IM Intramuscular 07/01/2017 Administered Fluarix Quadrivalent IM Intramuscular 01/03/2018 Administe red TDaP Unknown 12/13/2018 Administered [facility] Fluarix Quadrivalent IM Intramuscular 01/02/2019 Administe red Tetanus Unknown 12/13/2018 Administered Fluarix Quadrivalent IM Intramuscular 11/23/2019 Administe red Covid Vaccine Unknown 05/08/2020 Administered Moderna Covid Vaccine Unknown 2020 Administered Moderna SARS-COV-2 Moderna Unknown 2020 Administered Fluarix Quadrivalent IM Intramuscular 12/03/2021 Administe red Fluarix Quadrivalent IM Intramuscular 12/02/2022 Administe red PPSV23 (Pnemovax) Unknown 06/21/2017 Refused Fluarix Quadrivalent Unknown 12/02/2020 Others Flu Vaccine Unknown 11/20/2013 Pending SOCIAL HISTORY Tobacco Use: Social History Observation [...] Never (0 point) Points 3 Interpretation Negative PROBLEMS Problem Type ICD Code Onset Dates Problem Status W/U Status Risk SNOMED Code Notes Problem Lumbago with sciatic a, right side (M54.41) Active confirmed 104514933 Problem Elevated LFTs (R79.89) Active confirmed 419528462 Problem Gastroesophageal reflux disease without esophagitis (K21.9) Active confirmed 734764385 Problem Essential hypertensi on (I10) Active confirmed 00629765 Problem Raynauds phenomenon without gangrene (I73.00) Active confirmed 732505645 Problem Cervical disc diseas e with myelopathy (M50.00) Active confirmed 85972463 Problem Mild aortic stenosis (I35.0) Active confirmed 258677564 Problem Tinea versicolor (B36.0) Active confirmed 90647835 Problem Cervical neuropathy (G54.2) Active confirmed 1770015173956 Problem Sciatica of right si de (M54.31) Active confirmed 473786733514452 Problem Pure hypercholesterolemia (E78.00) Active confirmed 013267760 Problem Arthritis of knee (M17.10) Active confirmed 791865827 Problem Acute idiopathic gou t of left hand (M10.042) Active confirmed Problem Arthritis of both knees (M17.0) Active confirmed Arthritis of both knees (679673022541390 8) Problem Nonrheumatic mitral valve regurgitation (I34.0) Active confirmed 743897793 Problem Raynaud''s phenomeno n without gangrene (I73.00) Active confirmed Raynaud's disease (851447084) VITAL SIGNS Blood pressure diastolic 60 mm Hg 01/30/2024 sylvester ght is down 6 pounds since 01-03-24 Height 72.50 in 01/30/2024 weight is down 6 pounds since 01-03-24 Blood pressure systolic 152 mm Hg 01/30/2024 weig ht is down 6 pounds since 01-03-24 Weight 203 lbs 01/30/2024 weight is down 6 pounds since 01-03-24 BMI 27.15 kg/m2 01/30/2024 weight is down 6 pounds since 01-03-24 Encounters Encounter Location Date Provider Diagnosis Rodrigue Mcdonald MD [address] [place] [id number] 12/16/2023 Rodrigue Mcdonald Heart murmur R01.1 ; Annual physical exam Z00.00 ; Essential hypertension I10 ; Pure hypercholesterolemia E78.00 ; Lumbago with sciatica, right side M54.41 ; Panic F41.0 ; Pain in right hip M25.551 ; Pain in left hip M25.552 ; Colon cancer screening Z12.11 and Depression screening Z13.31 Rodrigue Mcdonald MD [address] [place] [id number] 06/02/2023 Rodrigue Mcdonald Pure hypercholestero lemia E78.00 Rodrigue Mcdonald MD [address] [place] [id number] 12/06/2023 Rodrigue Mcdonald Blood tests for rout ine general physical examination Z00.00 ; Elevated LFTs R79.89 ; Essential hypertension I10 and Pure hypercholesterolemia E78.00 Rodrigue Mcdonald MD [address] [place] [id number] 06/30/2023 Rodrigue Mcdonald Essential hypertensi on I10 and Sciatica of right side M54.31 Rodrigue Mcdonald MD [address] [place] [id number] 07/21/2023 Rodrigue Mcdonald Sciatica of right si de M54.31 Rodrigue Mcdonald MD [address] [place] [id number] 08/12/2023 Rodrigueandrea Mcdonald Sciatica of right si de M54.31 Rodrigue Mcdonald MD [address] [place] [id number] 01/30/2024 Rodrigue Mcdonald Essential hypertensi on I10 ; Lumbago with sciatica, right side M54.41 and Mild aortic stenosis I35.0 Rodrigue Mcdonald MD [address] [place] [id number] 01/03/2024 Rodrigue Mcdonald Spinal stenosis of lumbosacral region M48.07 Rodrigue Mcdonald MD [address] [place] [id number] 07/05/2023 Rodrigue Mcdonald MD [address] [place] [id number] 09/22/2023 Rodrigueandrea Mcdonald Essential hypertensi on I10 Rodrigue Mcdonald MD [address] [place] [address] [id number] 09/29/2023 Rodrigue Mcdonald MD [address] [place] [id number] 11/18/2023 Rodrigue Mcdonald Sciatica of right si de M54.31 Rodrigue Mcdonald MD [address] [place] [id number] 02/17/2023 Rodrigue Mcdonald Essential hypertensi on I10 Rodrigue Mcdonald MD [address] [place] [id number] 08/17/2023 Rodrigue Ferrerardiakbar Arthritis of both kn ees M17.0 Rodrigue Mcdonald MD [address] [place] [id number] 11/17/2023 Rodrigue Ferrerardiakbar Sciatica of right si de M54.31 Rodrigue Mcdonald MD [address] [place] [address] [id number] 11/18/2023 Rodrigue Mcdonald ASSESSMENTS Encounter Date Diagnosis Assessment Notes Treatment Notes Treatment Clinical Notes 12/16/2023 Annual physical exam (ICD-10 - Z00.00) labs reviewed and discused with patient 12/16/2023 Heart murmur (ICD-10 - R01.1) order faxed to [facility], pendnf diagnostic testing 06/02/2023 Pure hypercholestero lemia (ICD-10 - E78.00) 12/06/2023 Elevated LFTs (ICD-1 0 - R79.89) 12/06/[address] ine general physical examination (ICD-10 - Z00.00) 06/30/2023 Essential hypertensi on (ICD-10 - I10) 06/30/2023 Sciatica of right si de (ICD-10 - M54.31) order faxed to [facility], patient verbalized understanding of medication and directions for use 07/21/2023 Sciatica of right si de (ICD-10 - M54.31) has tried and failed gabapentin and steroids / will try for mri, pending diagnostic testing 08/12/2023 Sciatica of right si de (ICD-10 - M54.31) has been over 6 weeks of therapy with no improvement/ auth pending, pending diagnostic testing 01/30/2024 Lumbago with sciatic a, right side (ICD-10 - M54.41) waiting to see dr knowles, will continue current regiment 01/30/2024 Essential hypertensi on (ICD-10 - I10) slighty high, will contnue to monitor and will continue current regiment 01/03/2024 Spinal stenosis of lumbosacral region (ICD-10 - M48.07) discussed treatment options. 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 has trouble with the mri. will reschedule with some ativen and open mri 12/16/2023 Pain in right hip (I CD-10 - M25.551) order faxed to [facility], pending diagnostic testing 12/16/2023 Pain in left hip (IC D-10 - M25.552) ORDER FAXED TO [facility] 12/16/2023 Colon cancer screeni ng (ICD-10 - Z12.11) guaiac negative 12/16/2023 Depression screening (ICD-10 - Z13.31) negative screen PLAN OF TREATMENT Pending Test Test Name Order Date Electrocardiogram (EKG) 06/04/2016 Electrocardiogram (EKG) 07/01/2017 Electrocardiogram (EKG) 03/26/2011 Electrocardiogram (EKG) 04/07/2012 Electrocardiogram (EKG) 05/16/2015 CT CHEST ARTERIOGRAM 05/09/2014 MRI CERVICAL SPINE NO CONTRAST 1 MRI CERVICAL SPINE NO CONTRAST 1 MRI LUMBAR SPINE NO CONTRAST 06/30/2023 MRI LUMBAR SPINE NO CONTRAST 07/21/2023 MRI LUMBAR SPINE NO CONTRAST 08/12/2023 XR CERVICAL SPINE 4+ VIEWS 11/30/2019 ECHO 12/16/2023 MR lumbar spine wo con 12/16/2023 Future Test Test Name Order Date ECHO 01/29/2025 Next Appt Details Provider Name:Rodrigue chambers, 05/31/2024 07:30:00 AM, [address] [facility] [address], [address], [place], [place], [phone], Provider Name:Rodrigue Mcpherson ier, 06/07/2024 09:00:00 AM, [address], [address], [place], [phone], Provider Name:Rodrigue Mcpherson ier, 12/11/2024 07:00:00 AM, [address], [address], [place], [place], [phone], Provider Name:Rodrigue Mcpherson ier, 12/18/2024 09:30:00 AM, [address] [place] [address] Drive, [address], [place], [phone], Insurance Providers Payer Name Payer Address Payer Phone Subscriber Number Group Number Insured Name Patient Relationship to Insured Coverage Start Date Coverage End Date [address] [facility] [phone] [id number] Kevin Burrell Self - patient is the insured MEDICAL (GENERAL) HISTORY Medical History History ICD Code 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 Negron - repeat 10 years have to be on diuretic in cooler months and stop in hot months
== END 2024-01-27 23:25 | disposition left against medical advice (07) ==
LOC: HO.ED 23:16
PROVIDERS: Emergency Provider Emergency Medicine
DX: Z04.1 Encounter for examination and observation following transport accident (principal)
CPT/HCPCS: 99281

== ENCOUNTER 2024-05-31 09:48 | Outpatient (REF) | payer OTHER, SELFPAY ==
[2024-05-31 10:42] LABS: Alanine Aminotransferase 34 U/L (0-40); Albumin Level 4.6 g/dL (3.5-5.0); Alkaline Phosphatase 64 U/L (39-117); Aspartate Amino Transferase 35 U/L (5-37); Bilirubin Direct 0.4 mg/dL (0.0-0.5); Bilirubin Total 1.5 mg/dL (0.0-1.0); Cholesterol 155 mg/dL (<200); HDL Cholesterol 70 mg/dL (>40); LDL Cholesterol Calculated 69 mg/dL (<100); Total Protein 7.5 g/dL (6.5-8.0); Triglycerides 81 mg/dL (<150)
--- OUTSIDE RECORDS SUMMARY | 2024-05-31 11:07 | XMS_ITS | Patient Health Record ---
Author Organization Rodrigue Mcdonald MD Address [address] [place] [phone] Care Team Providers Care Forepart Rounder Name Role Phone Rodrigue Mcdonald Primary Care Provider Allergies Allergen (clinical drug ingredient) Drug/Non Drug Allergy documented on EMR Reaction Allergy Type Onset Date Status codeine Codeine Sulfate vomiting/headach e Drug Allergy Active Results Component Value Reference Range Notes Liver Panel Reviewed date:06/02/2023 01:31:45 PM Interpretation: Performing Lab:[facility], [address] [place] [phone] Notes/Report: Bilirubin Total 1.0 0.0-1.0 mg/dL Bilirubin Direct 0.4 0.0-0.5 mg/dL Aspartate Amino Transferase 28 5-37 U/L Alanine Aminotransferase 33 0-40 U/L Total Protein 7.3 6.5-8.0 g/dL Albumin Level 4.4 3.5-5.0 g/dL Alkaline Phosphatase 62 39-117 U/L Lipid Panel with Reflex Reviewed date:06/02/2023 03:18:21 PM Interpretation: Performing Lab:[facility], [address] [place] [phone] Notes/Report: Triglycerides 84 <150 mg/dL Desirable Triglyceride: [...] ff Reviewed date:12/07/2023 06:52:37 PM Interpretation: Performing Lab:[facility], [address] [place] [phone] Notes/Report: White Blood Count 7.7 4.8-10.8 X10*3/uL [...] NRBC Abs Auto 0.000 0.0-0.012 X10*3/uL Comprehensive Purcell. Panel Fa st Reviewed date:12/07/2023 06:52:04 PM Interpretation: Performing Lab:[facility], [address] [place] [phone] Notes/Report: Sodium 140 135-145 mmol/L Potassium 3.9 3.3-5.1 mmol/L Chloride 105 96-108 mmol/L Carbon Dioxide 30 22-29 mmol/L Anion Gap 9 12-20 Blood Urea Nitrogen 14 9-16 mg/dL Creatinine 0.90 0.5-1.4 mg/dL Estimated Glomerular Filt Rate > 60 NOTE: For -[place]yr[place] individuals, multiply the result by 1.210. Chronic [...] Panel Reviewed date:12/07/2023 02:20:27 PM Interpretation: Performing Lab:[facility], [address] [place] [phone] Notes/Report: Bilirubin Direct 0.3 0.0-0.5 mg/dL Lipid Panel Reviewed date:12/07/2023 02:20:17 PM Interpretation: Performing Lab:[facility], [address] [place] [phone] Notes/Report: Triglycerides 106 <150 mg/dL Desirable Triglyceride: [...] (Free>4and<10) Reviewed date:12/07/2023 02:19:48 PM Interpretation: Performing Lab:[facility], [address] [place] [phone] Notes/Report: PSA,Total (Free>4and<10) 0.47 0.00-4.00 ng/mL A [...] t Reviewed date:12/07/2023 06:52:54 PM Interpretation: Performing Lab:[facility], [address] [place] [phone] Notes/Report: Urine, Clean Catch Color Urine Yellow Appearance Urine Clear PH 6.0 5.0-9.0 Glucose Urine UA Negative Negative mg/dL Urine Blood Negative Negative Specific [place] - Urine 1.010 1.005-1.025 Urine Protein Negative [...] date:12/19/2023 12:37:43 PM Interpretation: Performing Lab: Notes/Report: [address] [address] XRay Report Signed Patient: Kevin Burrell MR#: [id number] 2 : 1960 Acct:[id number] Age/Sex: 63 / M ADM Date: 12/19/23 Loc: HO.XRAY Attending Dr: Rodrigue Mcdonald MD Ordering Physician: Rodrigue Mcdonald MD Date of Service: 12/19/23 Procedure(s): XR hip LT min 2V Accession Number(s): [id number] cc: Rodrigue Mcdonald MD EXAMINATION: XR LEFT [...] 12/19/23 1222 DD/ 1047 TD/TT: 12/19/23 1102 Auto Body Estimator: [address] [address] XRay Report Signed Patient: Parish Burrell MR#: [id number] 2 : 1960 Acct:[id number] Age/Sex: 63 / M ADM Date: 12/19/23 Loc: HO.XRAY Attending Dr: Rodrigue Mcdonald MD Ordering Physician: Rodrigue Mcdonald MD Date of Service: 12/19/23 Procedure(s): XR hip LT min 2V Accession Number(s): [id number] cc: Rodrigue Mcdonald MD EXAMINATION: XR LEFT HIP XR RIGHT HIP CLINICAL INFORMATION: Bilateral hip pain f or 2 months. COMPARISON: None available. TECHNIQUE: 2 views of each hip. FINDINGS: RIGHT HIP: Moderate degenerative changes with joint space narrowing and hypertrophic change. Alignment maintained. Moderate degenerative changes on limited views of the sacroiliac joint. LEFT HIP: Moderate degenerative changes with joint space narrowing and hypertrophic change. Alignment maintained. Moderate degenerative changes on the limit ed views of the sacroiliac joint. XR/XR hip LT min 2V IMPRESSION: Moderate degenerativ e changes bilateral hips. Electronically kurt d by: Rukhsana Cisneros MD 12/19/2023 12:22 PM EDT Dictated By: Rukhsana Cisneros MD Signed By: <Electronically signed by Rukhsana Cisneros MD in OV> 12/19/23 1222 DD/ 1047 TD/TT: 12/19/23 1102 Auto Body Estimator: XR hip RT min 2V Reviewed date:12/19/2023 12:29:22 PM Interpretation: Performing Lab: Notes/Report: [address] [address] XRay Report Signed Patient: Kevin Burrell MR#: [id number] 2 : 1960 Acct:[id number] Age/Sex: 63 / M ADM Date: 12/19/23 Loc: HO.XRAY Attending Dr: Rodrigue Mcdonald MD Ordering Physician: Rodrigue Mcdonald MD Date of Service: 12/19/23 Procedure(s): XR hip RT min 2V Accession Number(s): [id number] cc: Rodrigue Mcdonald MD EXAMINATION: XR LEFT [...] 12/19/23 1222 DD/ 1048 TD/TT: 12/19/23 1102 Auto Body Estimator: [place] [address] XRay Report Signed Patient: Parish Burrell MR#: [id number] 2 : 1960 Acct:[id number] Age/Sex: 63 / M ADM Date: 12/19/23 Loc: HO.[facility] Attending Dr: Rodrigue Mcdonald MD Ordering Physician: Rodrigue Mcdonald MD Date of Service: 12/19/23 Procedure(s): XR hip RT min 2V Accession Number(s): [id number] cc: Rodrigue Mcdonald MD EXAMINATION: XR LEFT HIP XR RIGHT HIP CLINICAL INFORMATION: Bilateral hip pain f or 2 months. COMPARISON: None available. TECHNIQUE: 2 views of each hip. FINDINGS: RIGHT HIP: Moderate degenerative changes with joint space narrowing and hypertrophic change. Alignment maintained. Moderate degenerative changes on limited views of the sacroiliac joint. LEFT HIP: Moderate degenerative changes with joint space narrowing and hypertrophic change. Alignment maintained. Moderate degenerative changes on the limit ed views of the sacroiliac joint. XR/XR hip RT min 2V IMPRESSION: Moderate degenerativ e changes bilateral hips. Electronically kurt d by: Rukhsana Cisneros MD 12/19/2023 12:22 PM EDT RP Dictated By: Rukhsana Cisneros MD Signed By: <Electronically signed by Rukhsana Cisneros MD in OV> 12/19/23 1222 DD/ 1048 TD/TT: 12/19/23 1102 Auto Body Estimator: Glenn Stratton Reviewed date:06/02/2023 01:25:27 PM Interpretation: Performing Lab:[facility], [address] [place] [phone] Notes/Report: Glenn Stratton See Note Specimen held untested for 24 hours; Call to request Chemistry testing. Glenn Stratton (Not yet reviewed by provider) Interpretation: Performing Lab:[facility], [address] [place] [phone] Notes/Report: Glenn Stratton See Note Specimen held untested for 24 hours; Call to request Chemistry testing. Reason For Referral Reason SPINAL STENOSIS OF L UMBOSCARAL REGION Diagnosis 1 Spinal stenosis of l umbosacral region (M48.07) Referral Organization Rodrigue Mcdonald MD Referring Provider First Name Rodrigue Referring Provider Last Name Harry Referring Provider Speciality Internal M edicine Referred Provider Dakotah Knowles Referred Provider Specialty Neurological Surgery General Notes Blanche Dumont 01/12/2024 11:45:39 AM EST > REFFERRAL AND NOTES FAXED TO DR PERDOMO OFFICETim Patti A 01/12/2024 11:48:14 AM EST > REQUEST MADE TO RAY TO DOWNLOAD MRI TO [facility] AT , NO LONGER USING Tim MARQUEZ Patti A 03/15/2024 03:25:23 PM >OFFICE NOTES RECDFROM 03/15/VISIT Referral Priority Routine Referral Appointment Date 03/15/2024 Medications Medication SIG (Take, Route, Frequency, Duration) [...] for 10 days 06/30/2023 Not-Taking Ibuprofen 800 MG TAKE 1 TABLET THREE TIMES A DAY ORALLY EVERY 8 HRS 30 DAYS for 30 Active Immunizations Vaccine Route Administration Date Status Comme nts [...] 12/02/2020 Others Flu Vaccine Unknown 11/20/2013 Pending Social History Tobacco Use: Social History Observation [...] Never (0 point) Points 3 Interpretation Negative Problems Problem Type SNOMED Code ICD Code Onset Dates Problem Status W/U Status Risk Notes Problem 564484152 Lumbago with sci atica, right side (M54.41) Active confirmed Problem 698601896 Elevated LFTs (R79.89) Active confirm ed Problem 696529496 Gastroesophageal reflux disease without esophagitis (K21.9) Active confirmed Problem 44896721 Essential hypert ension (I10) Active confirmed Problem 206533182 Raynauds phenome non without gangrene (I73.00) Active confirmed Problem 53765848 Cervical disc di sease with myelopathy (M50.00) Active confirmed Problem 984116197 Mild aortic sten osis (I35.0) Active confirmed Problem 60490827 Tinea versicolor (B36.0) Active confirmed Problem 1745712570847 Cervical neuropa thy (G54.2) Active confirmed Problem 911475538918006 Sciatica of righ t side (M54.31) Active confirmed Problem 920369240 Pure hypercholesterolemia (E78.00) Active confirmed Problem 160328201 Arthritis of kne e (M17.10) Active confirmed Problem 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) Active confirmed Problem Arthritis of both knees (5406195767112808 ) Arthritis of both knees (M17.0) Active confirmed Problem 300851251 Nonrheumatic mak ral valve regurgitation (I34.0) Active confirmed Problem Raynaud's disease (876317049) Raynaud''s phenomenon without gangrene (I73.00) Active confirmed Vital Signs Blood pressure diastolic 60 mm Hg 01/30/2024 [...] Rodrigue Mcdonald MD [address] [place] [id number] 06/02/2023 Rodrigue Mcdonald Pure hypercholestero lemia E78.00 Rodrigue Mcdonald MD [address] [place] [id number] 05/31/2024 Rodrigue Mcdonald Pure hypercholestero lemia E78.00 Rodrigue Mcdonald MD [address] [place] [id number] 06/30/2023 Rodrigue Mcdonald Essential hypertensi on I10 and Sciatica of right side M54.31 Rodrigue Mcdonald MD [address] [place] [id number] 07/21/2023 Rodrigue Mcdonald Sciatica of right si de M54.31 Rodrigue Mcdonald MD [address] [place] [id number] 08/12/2023 Rodrigue Mcdonald Sciatica of right si de M54.31 Rodrigue Mcdonald MD [address] [place] [id number] 12/06/2023 Rodrigue Mcdonald Blood tests for rout ine general physical examination Z00.00 ; Elevated LFTs R79.89 ; Essential hypertension I10 and Pure hypercholesterolemia E78.00 Rodrigue Mcdonald MD [address] [place] [id number] 12/16/2023 Rodrigue Mcdonald Heart murmur R01.1 ; Annual physical exam Z00.00 ; Essential hypertension I10 ; Pure hypercholesterolemia E78.00 ; Lumbago with sciatica, right side M54.41 ; Panic F41.0 ; Pain in right hip M25.551 ; Pain in left hip M25.552 ; Colon cancer screening Z12.11 and Depression screening Z13.31 Rodrigue Mcdonald MD [address] [place] [id number] 01/03/2024 Rodrigue Mcdonald Spinal stenosis of lumbosacral region M48.07 Rodrigue Mcdonald MD [address] [place] [id number] 01/30/2024 Rodrigue Mcdonald Essential hypertensi on I10 ; Lumbago with sciatica, right side M54.41 and Mild aortic stenosis I35.0 Rodrigue Mcdonald MD [address] [place] [id number] 07/05/2023 Rodrigue Mcdonald MD [address] [place] [id number] 09/22/2023 Rodrigue Mcdonald Essential hypertensi on I10 Rodrigue Mcdonald MD [address] [place] [id number] 09/29/2023 Rodrigue Mcdonald MD [address] [place] [id number] 11/18/2023 Rodrigue Mcdonald Sciatica of right si de M54.31 Rodrigue Mcdonald MD [address] [place] [id number] 08/17/2023 Rodrigue Mcdonald Arthritis of both kn ees M17.0 Rodrigue Mcdonald MD [address] [place] [id number] 11/17/2023 Rodrigue Mcdonald Sciatica of right si de M54.31 Rodrigue Mcdonald MD [address] [place] [id number] 11/18/2023 Rodrigue Mcdonald Assessments Encounter Date Diagnosis (ICD Code) Assessment Notes Treatment Notes Treatment Clinical Notes Section Notes 06/02/2023 Pure hypercholesterolemia (ICD-10 - E78.00) 05/31/2024 Pure hypercholesterolemia (ICD-10 - E78.00) 06/30/2023 Essential hypertensi on (ICD-10 - I10) [...] no improvement/ auth pending, pending diagnostic testing 12/06/[address] ine general physical examination (ICD-10 - Z00.00) 12/06/2023 Elevated LFTs (ICD-1 0 - R79.89) 12/16/2023 Heart murmur (ICD-10 - R01.1) order faxed to [facility], pendnf diagnostic testing 12/16/2023 Annual physical exam (ICD-10 - Z00.00) labs reviewed and discused with patient 01/03/2024 Spinal stenosis of lumbosacral region (ICD-10 - M48.07) discussed treatment options. is going to call dr knowles 01/30/2024 Essential hypertensi on (ICD-10 - I10) slighty high, will contnue to monitor and will continue current regiment 01/30/2024 Lumbago with sciatic a, right side (ICD-10 - M54.41) waiting to see dr knowles, will continue current regiment 09/22/2023 Essential hypertensi on (ICD-10 - I10) 11/18/2023 Sciatica of right si de (ICD-10 - M54.31) 08/17/2023 Arthritis of both kn ees (ICD-10 - M17.0) 11/17/2023 Sciatica of right si de (ICD-10 - M54.31) 12/06/2023 Essential hypertensi on (ICD-10 - I10) 12/16/2023 Essential hypertensi on (ICD-10 - I10) stable, will continue current regiment 01/30/2024 Mild aortic stenosis (ICD-10 - I35.0) is 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, will continue to monitor 12/06/2023 Pure hypercholesterolemia (ICD-10 - E78.00) 12/16/2023 Pure hypercholesterolemia (ICD-10 - E78.00) doing [...] hip (ICD-10 - M25.551) order faxed to [facility], pending diagnostic testing 12/16/2023 Pain in left hip (ICD-10 - M25.552) ORDER FAXED TO [facility] 12/16/2023 Colon cancer screeni ng (ICD-10 - Z12.11) guaiac negative 12/16/2023 Depression screening (ICD-10 - Z13.31) negative screen Plan Of Treatment Pending Test Test Name Order Date Electrocardiogram (EKG) 03/26/2011 Electrocardiogram (EKG) 05/16/2015 Electrocardiogram (EKG) 06/04/2016 Electrocardiogram (EKG) 07/01/2017 Electrocardiogram (EKG) 04/07/2012 CT CHEST ARTERIOGRAM 05/09/2014 MRI CERVICAL SPINE NO CONTRAST 1 MRI CERVICAL SPINE NO CONTRAST 1 MRI LUMBAR SPINE NO CONTRAST 08/12/2023 MRI LUMBAR SPINE NO CONTRAST 06/30/2023 MRI LUMBAR SPINE NO CONTRAST 07/21/2023 XR CERVICAL SPINE 4+ VIEWS 11/30/2019 ECHO 12/16/2023 Liver Panel 05/31/2024 Lipid Panel with Reflex 05/31/2024 Hold Gold 05/31/2024 MR lumbar spine wo con 12/16/2023 Next Appt Details Provider Name:Rodrigue Mcpherson ier, 06/07/2024 07:30:00 AM, [address] [place] [address], [address], [phone], Provider Name:Rodrigue Mcpherson ier, 12/11/2024 07:00:00 AM, [address] [place] [address], [address], [phone], Provider Name:Rodrigue Mcpherson ier, 12/18/2024 09:30:00 AM, [address] [place] [address], [address], [phone], Insurance Providers Payer Name Payer Address Payer Phone Subscriber Number Group Number Insured Name Patient Relationship to Insured Coverage Start Date Coverage End Date [address] [facility] [place] [phone] [id number] Kevin Burrell Self - patient is the insured Medical (General) History Medical History History ICD Code 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 Negron - repeat 10 years have to be on diuretic in cooler months and stop in hot months
--- OUTSIDE RECORDS SUMMARY | 2024-05-31 11:07 | XMS_ITS ---
Author Organization Rodrigue Mcdonald MD Address [address] [place] [phone] Care Team Providers Care Production Planner Scheduler Name Role Phone Rodrigue Mcdonald Primary Care Provider [phone] Allergies Allergen (clinical drug ingredient) Drug/Non Drug [...] Problem Status W/U Status Risk Notes Problem [id number] Mild aortic stenosis (I35.0) Active confirmed Vital Signs Blood pressure systolic 152 mm Hg 01/30/20 24 Blood pressure diastolic 60 mm Hg 024 Height 72.50 in 01/30/2024 Weight 203 lbs 01/30/2024 BMI 27.15 kg/m2 01/30/2024 weight is down 6 pounds [facility] 01-03-24 Encounters Encounter Location Date Provider Diagnosis Rodrigue Mcdonald MD [address] [place], [place] [phone] 01/30/2024 Rodrigue Mcdonald Essential hypertension I10 ; [...] 01/29/2025 Next Appt Details Provider Name:Rodrigue chambers, 06/07/2024 07:30:00 AM, [address], [address], [place], [place], [phone], Provider Name:Rodrigue Mcpherson ier, 12/11/2024 07:00:00 AM, [address], [address], [place], [phone], Provider Name:Rodrigue Mcpherson ier, 12/18/2024 09:30:00 AM, [address], [address], [place], [phone], Progress Notes * INDRA Kevin JrDOB: [birth year] (63 yo M)Acc No.[id number]:01/30/2024 Progress Notes Patient:?Indra Kevin Provider:?Rodrigue Mcdonald MD :1960???Age:63 Y???Sex:Male Hardeep e:01/30/2024 Address:[address] [place], [place] [phone] Subjective: * Chief Complaints: * ???2 month * HPI: ???Symptom(s):? patient is a 63 yo male here for 2 month follow up visit, still with a lot of back pain. is going to see dr knowles in february. * ROS:?General/Constitutional:?Denies?Chills.?Denies?Fatigue.?Denies?Fever.?Denies?Headache.?ENT:?Patient denies?decreased sense of smell , any loss of taste , sore throat.?Denies?Sore throat.?Respiratory:?Denies?Cough.?Denies?Shortness of breath at rest.?Denies?Shortness of breath with exertion.?Gastrointestinal:?Denies?Diarrhea.?Denies?Nausea.?Musculoskeletal:?Patient denies?muscle aches.?Peripheral Vascular:?Patient denies?red and blue toes.? * Medical History:? * Surgical History:? * Hospitalization/Major Diagno stic Procedure:? * Medications:?TakingIbuprofen 800 mg Tablet TAKE 1 TABLET THREE [...] reviewed and reconciled with the patient * Allergies:?Codeine Sulfate: vomiting/headacheyes[Allergies Verified] Objective: * Vitals:?Ht: 72.50, Wt:203, B AR:27.15, BP:152/60, Repeat BP:150/65 weight is down 6 pounds since 01-03-24. * Examination: ???General Examination: ?GENERAL APPEARANCE:?alert, well hydrated, in no distress.?HEART:?grade 2/6 systolic murmur at left sternal border.? Assessment: * Assessment: 1.?Essential hypertension - I10?2.?Lumbago with sciatica, right side - M54.41?3.?Mild aortic stenosis - I35.0? Plan: * Treatment: 2.?Lumbago with sciatica, ri ght side? Continue Ibuprofen Tablet, 800 mg, TAKE 1 TABLET THREE TIMES A DAY, Orally, every 8 hrs;?Continue Gabapentin Tablet, 800 MG, take 1 tablet by mouth twice a day for 30 days, Orally, twice a day.?? Notes: waiting to see dr knowles, will continue current regiment?? 3.?Mild aortic stenosis?Imaging: ECHO (Ordered for 01/29/2025) Notes: is 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, will continue to monitor?? * Procedure Codes:? * * Sign off status: Completed true * Provider:?Rodrigue Mcdonald MD Date:?04/01/2023 Generated for Hong méndez/Annette/Cornellitting on:?05/31/2024 11:07 AM EDT History and Physical Notes * HPI [...]
--- OUTSIDE RECORDS SUMMARY | 2024-05-31 11:07 | XMS_ITS ---
Author Organization Rodrigue Mcdonald MD Address [address] [place] [phone] Care Team Providers Care Chemistry Faculty Member Name Role Phone Rodrigue Mcdonald Primary Care Provider [phone] Allergies Allergen (clinical drug ingredient) Drug/Non Drug [...] Location Date Provider Diagnosis Rodrigue Mcdonald MD [address] [place] [phone] 01/03/2024 Rodrigue Mcdonald Spinal stenosis of lumbosacral [...] knowles Next Appt Details Provider Name:Rodrigue chambers, 06/07/2024 07:30:00 AM, [address] [place] [address], [phone], Provider Name:Rodrigue chambers, 12/11/2024 07:00:00 AM, [address] [place] [address], [phone], Provider Name:Rodrigue chambers, 12/18/2024 09:30:00 AM, [address] [place] [address], [phone], Progress Notes * Kevin BURRELL JrDOB: [birth year] (63 yo M)Acc No.[id number]:01/03/2024 Progress Notes Patient:?Kevin Burrell Provider:?Rodrigue Mcdonald MD :1960???Age:63 Y???Sex:Male Hardeep e:01/03/2024 Address:[address] [place], [place] [phone] Subjective: * Chief Complaints: * ???DISCUSS MRI * HPI: ???Symptom(s):? patient is a 63 yo male here to discuss recent MRI. * ROS:?General/Constitutional:?Denies?Chills.?Denies?Fatigue.?Denies?Fever.?Denies?Headache.?ENT:?Patient denies?decreased sense of smell , any loss of taste , sore throat.?Denies?Sore throat.?Respiratory:?Denies?Cough.?Denies?Shortness of breath at rest.?Denies?Shortness of breath with exertion.?Gastrointestinal:?Denies?Diarrhea.?Denies?Nausea.?Musculoskeletal:?Patient denies?muscle aches.?Peripheral Vascular:?Patient denies?red and blue toes.? * Medical History:? * Surgical History:? * Hospitalization/Major Diagno stic Procedure:? * Medications:?TakingLORazepam 1 MG Tablet 1 tablet at bedtime [...] Sulfate: vomiting/headacheyes[Allergies Verified] Objective: * Vitals:?Ht: 72.50, Wt:209, B MA:27.95, BP:142/60. * Examination: ???General Examination: ?GENERAL APPEARANCE:?alert, well hydrated, in no distress.? Assessment: * Assessment: 1.?Spinal stenosis of lumbos acral region - M48.07 (Primary)? Plan: * Treatment: * Procedure Codes:? * * Sign off status: Completed true * Provider:?Rodrigue Mcdonald MD Date:?1 03/04/2023 Generated for Hong méndez/Annette/eTransmitting on:?05/31/2024 11:07 AM EDT History and Physical Notes * HPI (History of Present Illness) Category Sub-Category Detail Notes Category Not es Symptom(s) patient is a 63 yo male here to discuss recent MRI Examination Category Sub-Category Detail Notes Category Not es General Examination GENERAL APPEARANCE: alert, w ell hydrated, in no distress
--- OUTSIDE RECORDS SUMMARY | 2024-05-31 11:08 | XMS_ITS ---
Author Organization Rodrigue Mcdonald MD Address [address] [facility] [address] [place] [phone] Care Team Providers Care Potline Monitor Name Role Phone Rodrigue Mcdonald Primary Care Provider [phone] REASON FOR VISIT fasting lipids Encounters Encounter Location Date Provider Diagnosis Rodrigue Mcdonald MD [address] [facility] [address] [place] [phone] 05/31/2024 Rodrigue Mcdonald Pure hypercholestero lemia E78.00 Assessments Encounter Date Diagnosis (ICD Code) Assessment Notes Treatment Notes Treatment Clinical Notes Section Notes 05/31/2024 Pure hypercholesterolemia (ICD-10 - E78.00) Plan Of Treatment Pending Test Test Name Order Date Liver Panel 05/31/2024 Lipid Panel with Reflex 05/31/2024 Next Appt Details Provider Name:Rodrigue chambers, 06/07/2024 07:30:00 AM, [address] [facility], [address] [place] [address], [phone], Provider Name:Rodrigue chambers, 12/11/2024 07:00:00 AM, [address] [facility], [address], [place], [place], [phone], Provider Name:Rodrigue Mcpherson ier, 12/18/2024 09:30:00 AM, [address] [facility], [address], [place], [phone], Progress Notes * Kevin BURRELL JrDOB: [birth year] (63 yo M)Acc No.[id number]:05/31/2024 Progress Note Patient:?Kevin BURRELL Jr Provider:?Rodrigue Mcdonald MD :1960???Age:63 Y???Sex:Male Hardeep e:05/31/2024 Address:[address] [place] [address] [place]ia [id number] Subjective: * Chief Complaints: * ???1. Fasting lipids. * Medical History:? Objective: * Vitals:? Assessment: * Assessment: 1.?Pure hypercholesterolemia - E78.00 (Primary)??? Plan: * Treatment: * Procedure Codes:?86725 VENIP UNCT, ROUTINE* * * The named appointment provid er may or may not be the originator of this progress note, and it is not deemed complete until electronically signed by the appointment provider. Sign off status: Pending * Provider:?Rodrigue Mcdonald MD Date:?0 05/31/2024 Generated for Hong méndez/Annette/eTpanchosmitting on:?05/31/2024 11:07 AM EDT
[2024-05-31 11:57] LABS: Reflex LDLD? No
== END 2024-05-31 09:49 | disposition home or self-care (01) ==
LOC: HO.LNP 09:48
PROVIDERS: Visit Provider Internal Medicine
DX: E78.00 Pure hypercholesterolemia, unspecified (principal)
CPT/HCPCS: 80061; 80076

== ENCOUNTER 2024-11-20 20:40 | Inpatient (IN) | payer OTHER, SELFPAY ==
--- OUTSIDE RECORDS SUMMARY | 2023-12-16 04:00 | XMS_ITS ---
Author Organization Rodrigue Mcdonald MD Address [address] [place] [id number] Care Team Providers Care Clinical Trial Coordinator Name Role Phone Rodrigue Mcdonald Primary Care Provider [phone] Allergies Allergen (clinical drug ingredient) Drug/Non Drug Allergy documented on EMR Reaction Allergy Type Onset Date Status Information temporarily unavailable Codeine Sulfate vomiting/headach e Drug Allergy Active Results Component Value Reference Range Notes Occult Blood, Stool, Guaiac Reviewed date:12/16/2023 11:26:07 AM Interpretation:Negative Performing Lab: Notes/Report: Negative Occult Blood, Stool, Guaiac Neg XR hip LT min 2V Reviewed date:12/19/2023 12:37:43 PM Interpretation: Performing Lab: Notes/Report: [facility] [address] [place] [address] XRay Report Signed Patient: Kevin Burrell MR#: [id number] 2 : 1960 Acct:[id number] Age/Sex: 63 / M ADM Date: 12/19/23 Loc: HO.XRAY Attending Dr: Rodrigue Mcdonald MD Ordering Physician: Rodrigue Mcdonald MD Date of Service: 12/19/23 Procedure(s): XR hip LT min 2V Accession Number(s): [id number] cc: Rodrigue Mcdonald MD EXAMINATION: XR LEFT HIP XR RIGHT HIP CLINICAL INFORMATION: Bilateral hip pain for 2 months. COMPARISON: None available. TECHNIQUE: 2 views of each hip. FINDINGS: RIGHT HIP: Moderate degenerative changes with joint space narrowing and hypertrophic change. Alignment maintained. Moderate degenerative changes on limited views of the sacroiliac joint. LEFT HIP: Moderate degenerative changes with joint space narrowing and hypertrophic change. Alignment maintained. Moderate degenerative changes on the limited views of the sacroiliac joint. XR/XR hip LT min 2V IMPRESSION: Moderate degenerative changes bilateral hips. Electronically signed by: Rukhsana Cisneros MD 12/19/2023 12:22 PM EDT RP Dictated By: Rukhsana Cisneros MD Signed By: <Electronically signed by Rukhsana Cisneros MD in OV> 12/19/23 1222 DD/ 1047 TD/TT: 12/19/23 1102 [employer] Assistant Principal: [place] [id number] XRay Report Signed Patient: Parish Burrell MR#: [id number] 2 : 1960 Acct:[id number] Age/Sex: 63 / M ADM Date: 12/19/23 Loc: TUAN Attending Dr: Rodrigue Mcdonald MD Ordering Physician: Rodrigue Mcdonald MD Date of Service: 12/19/23 Procedure(s): XR hip LT min 2V Accession Number(s): [id number] cc: Rodrigue Mcdonald MD EXAMINATION: XR LEFT HIP XR RIGHT HIP CLINICAL INFORMATION: Bilateral hip pain for 2 months. COMPARISON: None available. TECHNIQUE: 2 views of each hip. FINDINGS: RIGHT HIP: Moderate degenerative changes with joint space narrowing and hypertrophic change. Alignment maintained. Moderate degenerative changes on limited v iews of the sacroiliac joint. LEFT HIP: Moderate d egenerative changes with joint space narrowing and hypertrophic change. Alignment maintained. Moderate degenerative changes on the limit ed views of the sacroiliac joint. X R/XR hip LT min 2V IMPRESSION: Moderate degenerativ e changes bilateral hips. Electronically kurt d by: Rukhsana Cisneros MD 12/19/2023 12:22 PM EDT RP Dictated By: Rukhsana Cisneros MD Signed By: <Electron icasandee signed by Rukhsana Cisneros MD in OV> 12/19/23 1222 DD/ 1047 TD/TT: 12/19/23 1102 [employer] Assistant Principal: XR hip RT min 2V Reviewed date:12/19/2023 12:29:22 PM Interpretation: Performing Lab: Notes/Report: [address] [address] XRay Report Signed Patient: Kevin Burrell MR#: [id number] 2 : 1960 Acct:[id number] Age/Sex: 63 / M ADM Date: 12/19/23 Loc: HO.XRAY Attending Dr: Rodrigue Mcdonald MD Ordering Physician: Rodrigue Mcdonald MD Date of Service: 12/19/23 Procedure(s): XR hip RT min 2V Accession Number(s): [id number] cc: Rodrigue Mcdonald MD EXAMINATION: XR LEFT HIP XR RIGHT HIP CLINICAL INFORMATION: Bilateral hip pain for 2 months. COMPARISON: None available. TECHNIQUE: 2 views of each hip. FINDINGS: RIGHT HIP: Moderate degenerative changes with joint space narrowing and hypertrophic change. Alignment maintained. Moderate degenerative changes on limited views of the sacroiliac joint. LEFT HIP: Moderate degenerative changes with joint space narrowing and hypertrophic change. Alignment maintained. Moderate degenerative changes on the limited views of the sacroiliac joint. XR/XR hip RT min 2V IMPRESSION: Moderate degenerative changes bilateral hips. Electronically signed by: Rukhsana Cisneros MD 12/19/2023 12:22 PM EDT RP Dictated By: Rukhsana Cisneros MD Signed By: <Electronically signed by Rukhsana Cisneros MD in OV> 12/19/23 1222 DD/ 1048 TD/TT: 12/19/23 110 [employer] Assistant Principal: [place] [id number] XRay Report Signed Patient: Parish Burrell MR#: [id number] 2 : 1960 Acct:[id number] Age/Sex: 63 / M ADM Date: 12/19/23 Loc: HO.XRAY Attending Dr: Rodrigue Mcdonald MD Ordering Physician: Rodrigue Mcdonald MD Date of Service: 12/19/23 Procedure(s): XR hip RT min 2V Accession Number(s): [id number] cc: Rodrigue Mcdonald MD EXAMINATION: XR LEFT HIP XR RIGHT HIP CLINICAL INFORMATION: Bilateral hip pain for 2 months. COMPARISON: None available. TECHNIQUE: 2 views of each hip. FINDINGS: RIGHT HIP: Moderate degenerative changes with joint space narrowing and hypertrophic change. Alignment maintained. Moderate degenerative changes on limited v iews of the sacroiliac joint. LEFT HIP: Moderate d egenerative changes with joint space narrowing and hypertrophic change. Alignment maintained. Moderate degenerative changes on the limit ed views of the sacroiliac joint. X R/XR hip RT min 2V IMPRESSION: Moderate degenerativ e changes bilateral hips. Electronically ukrt d by: Rukhsana Cisneros MD 12/19/2023 12:22 PM EDT Dictated By: Rukhsana Cisneros MD Signed By: <Stevo francis signed by Rukhsana Cisneros MD in OV> 12/19/23 1222 DD/ 1048 TD/TT: 12/19/23 110 [employer] Assistant Principal: REASON FOR VISIT annual visits Medications Medication SIG (Take, Route, Frequency, Duration) Notes Start Date End Date Status Lisinopril-hydroCHLOROthi azide 20-12.5 mg TAKE 1 TABLET DAILY Orally Once a day Active Atorvastatin Calcium 40 MG TAKE 1 TABLET BY MOUTH EVERY DAY Active Gabapentin 800 MG take 1 tablet by sorin th twice a day for 30 days Orally twice a day Active predniSONE 20 MG 1 tablet Orally Once a day for 10 days 06/30/2023 Not-Taking Colchicine 0.6 MG 1 tablet Orally twic e a day for 10 days 07/11/2017 Not-Taking Ibuprofen 800 mg TAKE 1 TABLET THREE TIMES A DAY Orally every 8 hrs Active LORazepam 1 MG 1 tablet at bedtime as needed Orally Once a day for 1 days 12/16/2023 Active amLODIPine Besylate 5 mg TAKE 1 TABLET D AILY Orally Once a day Active Social History Tobacco Use: Social History Observation Description Date Details (start date - stop date) Never Smoker NA - NA Tobacco Use/Smoking Question Answer Notes Patient is a nonsmoker Additional Findings: Tobacco Non-User Cu rrent non-smoker, currently using no form of tobacco Alcohol Screen Question Answer Notes Did you have a drink contain ing alcohol in the past year? Yes How often did you have a dri nk containing alcohol in the past year? 2 to 3 times a week (3 points) How many drinks did you have on a typical day when you were drinking in the past year? 1 or 2 drinks (0 point) How often did you have 6 or more drinks on one occasion in the past year? Never (0 point) Points 3 Interpretation Negative Vital Signs Blood pressure systolic 172 mm Hg 12/16/19 24 Blood pressure diastolic 68 mm Hg 024 Height 72.50 in 12/16/2023 Weight 209 lbs 12/16/2023 BMI 27.95 kg/m2 12/16/2023 weight is up 6 pounds since 08-12-23 Encounters Encounter Location Date Provider Diagnosis Rodrigue Mcdonald MD [address] [facility] [address] [place], [place] [id number] 12/16/2023 Rodrigue Mcdonald Heart murmur R01.1 ; Annual physical exam Z00.00 ; Essential hypertension I10 ; Pure hypercholesterolemia E78.00 ; Lumbago with sciatica, right side M54.41 ; Panic F41.0 ; Pain in right hip M25.551 ; Pain in left hip M25.552 ; Colon cancer screening Z12.11 and Depression screening Z13.31 Assessments Encounter Date Diagnosis (ICD Code) Assessment Notes Treatment Notes Treatment Clinical Notes Section Notes 12/16/2023 Heart murmur (ICD-10 - R01.1) order faxed to [facility] CS dept, pendnf diagnostic testing 12/16/2023 Annual physical exam (ICD-10 - Z00.00) labs reviewed and discused with patient 12/16/2023 Essential hypertensi on (ICD-10 - I10) stable, will continue current regiment 12/16/2023 Pure hypercholesterolemia (ICD-10 - E78.00) doing well, will continue current regiment 12/16/2023 Lumbago with sciatic a, right side (ICD-10 - M54.41) order faxed to [facility] for open MRI, pending diagnostic testing 12/16/2023 Panic (ICD-10 - F41.0) is al ways cholstrophobi c. has trouble with the mri. will reschedule with some ativen and open mri 12/16/2023 Pain in right hip (ICD-10 - M25.551) order faxed to [facility] PT Reg, pending diagnostic testing 12/16/2023 Pain in left hip (IC D-10 - M25.552) ORDER FAXED TO [facility] PT REG 12/16/2023 Colon cancer screeni ng (ICD-10 - Z12.11) guaiac negative 12/16/2023 Depression screening (ICD-10 - Z13.31) negative screen Plan Of Treatment Medication Medication Name Sig Start Date Stop Date Notes Lisinopril-hydroCHLOROthiazi de 20-12.5 mg TAKE 1 TABLET DAILY Orally Once a day Atorvastatin Calcium 40 MG TAKE 1 TABLET BY MOUTH EVERY DAY Gabapentin 800 MG take 1 tablet by sorin th twice a day for 30 days Orally twice a day Ibuprofen 800 mg TAKE 1 TABLET THREE TIMES A DAY Orally every 8 hrs LORazepam 1 MG 1 tablet at bedtime as needed Orally Once a day for 1 days 12/16/2023 amLODIPine Besylate 5 mg TAKE 1 TABLET D AILY Orally Once a day Treatment Notes Assessment Notes Heart murmur order faxed to [facility] S dept, pendnf diagnostic testing Annual physical exam labs reviewed and d iscused with patient Essential hypertension stable, will cont inue current regiment Pure hypercholesterolemia doing well, wi ll continue current regiment Lumbago with sciatica, right side order faxed to [facility] for open MRI, pending diagnostic testing Panic is always cholstroph obic. has trouble with the mri. will reschedule with some ativen and open mri Pain in right hip order faxed to [facility] P T Reg, pending diagnostic testing Pain in left hip ORDER FAXED TO [facility] P T REG Colon cancer screening guaiac negative Depression screening negative screen Pending Test Test Name Order Date ECHO 12/16/2023 MR lumbar spine wo con 12/16/2023 Next Appt Details Follow Up: 2 Months, Reason: Provider Name:Rodrigue Mcpherson ier, 12/11/2024 07:00:00 AM, [address] [place] [address], [address], [place], [place], [phone], Provider Name:Rodrigue Mcpherson ier, 12/18/2024 09:30:00 AM, [address] [place] [address], [address], [place], [place], [phone], Progress Notes * Kevin BURRELL JrDOB: [birth year] (63 yo M)Acc No.[id number]:12/16/2023 Progress Notes Patient: Kevin Perry Provider: Lilliam Mcdonald MD :1960 A ge:63 Y S ex:Male Date:12/16/2023 Address:[address] [place] [address] [id number] Subjective: * Chief Complaints: * A nnual visits * HPI: D epression Screening: PHQ-9 L ittle interest or pleasure in doing things N ot at all, F eeling down, depressed, or hopeless N ot at all, T rouble falling or staying asleep, or sleeping too much N ot at all, F eeling tired or having little energy N ot at all, P oor appetite or overeating N ot at all, F eeling bad about yourself or that you are a failure, or have let yourself or your family down N ot at all, T rouble concentrating on things, such as reading the newspaper or watching television N ot at all, M oving or speaking so slowly that other people could have noticed; or the opposite, being so fidgety or restless that you have been moving around a lot more than usual N ot at all, T houghts that you would be better off or of hurting yourself in some way N ot at all, T otal Score 0 . I nterpretation and Intervention D epression Screening Findings N egative, F ollow-Up for Depression : review of PHQ-9 found negative result, no follow-up needed. C ommunication Needs: Communication Needs D oes the patient have a hearing impairment N o, D oes the patient have a vision impairment? Y es, I f yes, what is the vision impairment? G lasses, D oes the patient have a cognition impairment? N o. F all Risk: History H ave you had any falls with injury in the past year? N o, H ave you had two or more falls in the past year? N o. S ANDRES Questions: SDOH Questions I n the past year have you been worried about losing housing? N o, I n the past year have you or any family members you live with been unable to get any of the following when it was really needed? Check all that apply: N one. S ymptom(s): patient is a 63 yo male here for yearly exam with review of recent labs and follow up of chronic issues. . has been sick./ had panic attack in the machine. has. * ROS: G eneral/Constitutional: Change in appetite d enies. D enies C hills, d enies. A dmits F atigue. D enies F ever, d enies. D enies H eadache.? O phthalmologic: Blurred vision d enies. D ischarge d enies. P ain d enies. E NT: Patient denies d ecreased sense of smell , any loss of taste , sore throat. P atient complaining of c /o runny nose. D ecreased hearing d enies. D enies S ore throat, d enies. S wollen glands d enies. E ndocrine: Cold intolerance d enies. E xcessive thirst d enies. H eat intolerance d enies. W eight loss d enies. R espiratory: Admits C ough, d enies. D enies S hortness of breath at rest, d enies. D enies S hortness of breath with exertion, d enies. D enies S putum production. W heezing d enies. C ardiovascular: Chest pain at rest d enies. C hest pain with exertion?denies. I rregular heartbeat d enies. S hortness of breath d enies. ? G astrointestinal: Abdominal pain d enies. C hange in bowel habits d enies. D enies D iarrhea, d enies. D enies N ausea, d enies. R ectal bleeding d enies. V omiting d enies . G enitourinary: Blood in urine d enies. D ifficulty urinating d enies. F requent urination d enies. M usculoskeletal: Patient denies m uscle aches. P ainful joints d enies. W eakness d enies. P eripheral Vascular: Patient denies r ed and blue toes. S kin: Dry skin d enies. I tching d enies. D enies?Mole(s), changes in moles, new moles or any lesions of concern. D enies P hotosensitivity. R mae d enies. N eurologic: Dizziness d enies. F ainting d enies. H eadache?denies. * Medical History: * Surgical History: * Hospitalization/Major Diagno stic Procedure: * Family History: F ather: 80 yrs, type II diabetes, coronary artery disease, diagnosed with Diabetes, Hypertension. M other: 86 yrs, diagnosed with Alzheimer disease. P aternal uncle: alive, coronary artery disease. 2 brother(s) , 2 sister(s) - healthy. 1 son(s) , 1 daughter(s) - healthy. . Denies mental health/substance abuse family history, No pertinent family medical history, No pertinent family medical history, No pertinent family medical history. * Social History: T obacco Use: T obacco Use/Smoking P atient is a n onsmoker, A dditional Findings: Tobacco Non-User C urrent non-smoker, currently using no form of tobacco. D rugs/Alcohol: A lcohol Screen D id you have a drink containing alcohol in the past year? Y es, H ow often did you have a drink containing alcohol in the past year? 2 to 3 times a week (3 points), H ow many drinks did you have on a typical day when you were drinking in the past year? 1 or 2 drinks (0 point), H ow often did you have 6 or more drinks on one occasion in the past year? N ever (0 point), P oints 3 , I nterpretation N egative. M iscellaneous: C affeine: yes, frequency:, 1-2 cups per day. Children: yes. Community involvements: yes. no Exercise, none. Home smoke detector use: yes. Housing: owning. Living with: spouse. Marital status: . Occupation: weeks/months/years, works full- time. Pets: cats: dogs:dog. no Travel outside of the [place]. * Medications: T akingamLODIPine Besylate 5 mg Tablet TAKE 1 TABLET DAILY Orally Once a dayIbuprofen 800 mg Tablet TAKE 1 TABLET THREE TIMES A DAY Orally every 8 hrsLisinopril-hydroCHLOROthiazide 20-12.5 mg Tablet TAKE 1 TABLET DAILY Orally Once a dayAtorvastatin Calcium 40 MG Tablet TAKE 1 TABLET BY MOUTH EVERY DAY Gabapentin 800 MG Tablet take 1 tablet by mouth twice a day for 30 days Orally twice a dayTaking amLODIPine Besylate 5 mg Tablet TAKE 1 TABLET DAILY Orally Once a dayTaking Ibuprofen 800 mg Tablet TAKE 1 TABLET THREE TIMES A DAY Orally every 8 hrsTaking Lisinopril-hydroCHLOROthiazide 20-12.5 mg Tablet TAKE 1 TABLET DAILY Orally Once a dayTaking Atorvastatin Calcium 40 MG Tablet TAKE 1 TABLET BY MOUTH EVERY DAY Taking Gabapentin 800 MG Tablet take 1 tablet by mouth twice a day for 30 days Orally twice a dayNot-Taking/PRNpredniSONE 20 MG Tablet 1 tablet Orally Once a dayColchicine 0.6 MG Tablet 1 tablet Orally twice a dayMedication List reviewed and reconciled with the patientNot-Taking/PRN predniSONE 20 MG Tablet 1 tablet Orally Once a dayNot-Taking/PRN Colchicine 0.6 MG Tablet 1 tablet Orally twice a dayMedication List reviewed and reconciled with the patient * Allergies: C odeine Sulfate: vomiting/headacheyes[Allergies Verified] Objective: * Vitals: H t: 72.50, Wt:209, BMI:27.95, BP:172/68, Repeat BP:160/80 weight is up 6 pounds since 08-12-23. * P ast Orders: L ab:Liver Panel (Order Date - 12/06/2023) (Collection Date - 12/06/2023) Value Reference Range Bilirubin Direct 0.3 0.0-0.5 - mg/dL L ab:Lipid Panel (Order Date - 12/06/2023) (Collection Date - 12/06/2023) Value Reference Range Triglycerides 106 <150 - mg/dL Cholesterol 172 <200 - mg/dL LDL Cholesterol Calculated 88 <100 - mg/dL HDL Cholesterol 63 >40 - mg/dL L ab:PSA,Total (Free>4and<10) (Order Date - 12/06/2023) (Collection Date - 12/06/2023) Value Reference Range PSA,Total (Free>4and<10) 0.47 0.00-4.00 - ng/ mL L ab:UA ClnCatch+Micro w/rflx Cult (Order Date - 12/06/2023) (Collection Date - 12/06/2023) Value Reference Range Color Urine Yellow - Appearance Urine Clear - PH 6.0 5.0-9.0 - Glucose Urine UA Negative Negative - mg/dL Urine Blood Negative Negative - Specific [place] - Urine 1.010 1.005-1.025 - Urine Protein Negative Neg-Trace - mg/dL Urine Ketones Negative Negative - mg/dL Nitrite Urine Negative Negative - Leukocyte Esterase Urine Negative Negative - RBC Urine 0-2 0-2 - /HPF WBC Urine 0-5 0-5 - /HPF Squamous Epithelial Cell Urine 0-2 0-2 - /HP F Bacteria Urine None Seen None Seen - Hyaline Casts Urine 0-2 0-2 - /LPF L ab:Complete Blood Count Auto Diff (Order Date - 12/06/2023) (Collection Date - 12/06/2023) Value Reference Range White Blood Count 7.7 4.8-10.8 - X10*3/uL Red Blood Count 4.30 L 4.60-5.80 - X10*6/uL Hemoglobin 14.4 14.0-18.0 - g/dl Hematocrit 41.6 L 42.0-52.0 - % Mean Corpuscular Volume 96.7 80.0-98.0 - fL Mean Corpuscular Hemoglobin 33.5 H 27.0-33.0 - pg Mean Corpuscular HGB Conc 34.6 31.0-36.0 - g/ dl Red Cell Distribution Width 12.4 11.0-16.0 - % Platelet Count 186 160-400 - X10*3/uL Mean Platelet Volume 11.0 9.4-12.4 - fL Neutrophils Percent Auto 67.7 45-73 - % Imm Gran Pct Auto 0.4 0.0-0.4 - % Lymphocytes Percent Auto 23.3 20-40 - % Monocytes Percent Auto 6.8 2-11 - % Eosinophils Percent Auto 1.4 0-4 - % Basophils Percent Auto 0.4 0-2 - % NRBC Pct Auto 0.0 0.0-0.2 - /100WBC Neutrophils Absolute Auto 5.2 2.0-8.3 - x10* 3/uL Imm Gran Abs Auto 0.03 0.00-0.03 - X10*3/uL Lymphocytes Absolute Auto 1.8 1.2-4.9 - X10* 3/uL Monocytes Absolute Auto 0.5 0.1-1.2 - X10*3/ uL Eosinophils Absolute Auto 0.1 0.0-0.4 - X10* 3/uL Basophils Absolute Auto 0.0 0.0-0.2 - X10*3/ uL NRBC Abs Auto 0.000 0.0-0.012 - X10*3/uL L ab:Comprehensive [place]. Panel Fast (Order Date - 12/06/2023) (Collection Date - 12/06/2023) Value Reference Range Sodium 140 135-145 - mmol/L Bilirubin Total 0.9 0.0-1.0 - mg/dL Aspartate Amino Transferase 21 5-37 - U/L Alanine Aminotransferase 26 0-40 - U/L Total Protein 7.4 6.5-8.0 - g/dL Albumin Level 4.5 3.5-5.0 - g/dL Alkaline Phosphatase 55 39-117 - U/L Potassium 3.9 3.3-5.1 - mmol/L Chloride 105 96-108 - mmol/L Carbon Dioxide 30 H 22-29 - mmol/L Anion Gap 9 L 12-20 - Blood Urea Nitrogen 14 9-16 - mg/dL Creatinine 0.90 0.5-1.4 - mg/dL Estimated Glomerular Filt Rate > 60 - Glucose Fasting 104 H 60-99 - mg/dL Calcium 9.8 8.4-10.2 - mg/dL * Examination: G eneral Examination: GENERAL APPEARANCE: w ell developed, well nourished, in no acute distress. HEAD: n ormocephalic, atraumatic. EYES: p upils equal, round, reactive to light and accommodation, sclera non-icteric. EARS: n ormal. ORAL CAVITY: m ucosa moist. THROAT: c lear. NECK/THYROID: n du supple, full range of motion, no cervical lymphadenopathy, no bruits. SKIN: w arm and dry, no suspicious lesions. HEART: r egular rate and rhythm, S1, S2 normal, , abnormal 2/6 irvin . LUNGS: c lear to auscultation bilaterally. ABDOMEN: s oft, nontender, nondistended, bowel sounds present, normal, no organomegaly , no masses palpable. RECTAL EXAM: n ormal tone, no external hemorrhoids, no masses palpable, prostate normal, stool guaiac negative. MALE GENITOURINARY: n ot examined. EXTREMITIES: n o clubbing, cyanosis, or edema. NEUROLOGIC: n onfocal, motor strength normal upper and lower extremities, sensory exam intact. Assessment: * Assessment: 1. A nnual physical exam - Z00.00 (Primary) 2 . H eart murmur - R01.1 3 . E ssential hypertension - I10 4 . P ure hypercholesterolemia - E78.00 5 . L umbago with sciatica, right side - M54.41 6 . P anic - F41.0 7 . P ain in right hip - M25.551 8. P ain in left hip - M25.552 9 . C olon cancer screening - Z12.11 1 0. D epression screening - Z13.31 Plan: * Treatment: 2. H eart murmur I maging: ECHO Notes: order faxed to [facility] CS dept, pendnf diagnostic testing 3. E ssential hypertension Start LORazepam Tablet, 1 MG, 1 tablet at bedtime as needed, Orally, Once a day, 1 days, 2 Tablet;?Continue amLODIPine Besylate Tablet, 5 mg, TAKE 1 TABLET DAILY, Orally, Once a day; C ontinue Lisinopril-hydroCHLOROthiazide Tablet, 20-12.5 mg, TAKE 1 TABLET DAILY, Orally, Once a day. ? Notes: stable, will continue current regiment 4. P ure hypercholesterolemia Continue Atorvastatin Calcium Tablet, 40 MG, TAKE 1 TABLET BY MOUTH EVERY DAY. Notes: doing well, will continue current regiment 5. L umbago with sciatica, right side Continue Gabapentin Tablet, 800 MG, take 1 tablet by mouth twice a day for 30 days, Orally, twice a day. I maging: MR lumbar spine wo con Notes: order faxed to [facility] for open MRI, pending diagnostic testing 6. P anic Notes: is always cholstrophobic. has trouble with the mri. will reschedule with some ativen and open mri 7. P ain in right hip Continue Ibuprofen Tablet, 800 mg, TAKE 1 TABLET THREE TIMES A DAY, Orally, every 8 hrs. I maging: XR hip RT min 2V Notes: order faxed to [facility] PT Reg, pending diagnostic testing 8. P ain in left hip I maging: XR hip LT min 2V Notes: ORDER FAXED TO [facility] PT REG??9.?Colon cancer screening?LAB: Occult Blood, Stool, Guaiac?Negative* Value Reference Range O ccult Blood, Stool, Guaiac Neg Notes: guaiac negative??10.?Depression screening? Notes: negative screen?? * Procedure Codes: 8 2270 TEST FOR BLOOD, FECES * Follow Up: 2 Months * * Sign off status: Completed true * Provider: Lilliam Mcdonald MD Date: Generated for Hong méndez/Annette/eTpanchosmitting on: 0 11/20/2024 09:09 PM EDT History and Physical Notes * HPI (History of Present Illness) Category Sub-Category Detail Notes Category Not es Symptom(s) patient is a 63 yo male here for yearly exam with review of recent labs and follow up of chronic issues. . has been sick./ had panic attack in the machine. has Depression Screening PHQ-9 Little inte rest or pleasure in doing things: Not at all Feeling down, depressed, or hopeless: No t at all Trouble falling or staying asleep, or sl eeping too much: Not at all Feeling tired or having little energy: N ot at all Poor appetite or overeating: Not at all Feeling bad about yourself o r that you are a failure, or have let yourself or your family down: Not at all Trouble concentrating on thi ngs, such as reading the newspaper or watching television: Not at all Moving or speaking so slowly that other people could have noticed; or the opposite, being so fidgety or restless that you have been moving around a lot more than usual: Not at all Thoughts that you would be b dhruv off or of hurting yourself in some way: Not at all Total Score: 0 Interpretation and Intervention Depression Serena howard Findings: Negative Follow-Up for Depression: : review of PH Q-9 found negative result, no follow-up needed SDOH Questions SDOH Questions In the past year have you been worried about losing housing?: No In the past year have you or any family members you live with been unable to get any of the following when it was really needed? Check all that apply:: None Fall Risk History Have you had any falls with injury i n the past year?: No Have you had two or more falls in the year?: No Communication Needs Communication Needs Does the patient have a hearing impairment: No Does the patient have a vision impairmen t?: Yes If yes, what is the vision impairment?: Glasses Does the patient have a cognition impair ment?: No Examination Category Sub-Category Detail Notes Category Not es General Examination GENERAL APPEARANCE: well dev eloped, well nourished, in no acute distress HEAD: normocephalic, atrau matic EYES: pupils equal, round, reactive to light and accommodation, sclera non-icteric EARS: normal THROAT: clear NECK/THYROID: neck supple, full ra nge of motion, no cervical lymphadenopathy, no bruits HEART: regular rate and rhy thm, S1, S2 normal, , abnormal 2/6 irvin LUNGS: clear to auscultatio n bilaterally ABDOMEN: soft, nontender, non distended, bowel sounds present, normal, no organomegaly , no masses palpable NEUROLOGIC: nonfocal, motor stre ngth normal upper and lower extremities, sensory exam intact SKIN: warm and dry, no prosper picious lesions EXTREMITIES: no clubbing, cyanosi s, or edema MALE GENITOURINARY: not examined RECTAL EXAM: normal tone, no exte rnal hemorrhoids, no masses palpable, prostate normal, stool guaiac negative ORAL CAVITY: mucosa moist
--- OUTSIDE RECORDS SUMMARY | 2024-01-03 11:00 | XMS_ITS ---
Author Organization Rodrigue Mcdonald MD Address [address] [place] [phone] Care Team Providers Care Worm Grower Name Role Phone Rodrigue Mcdonald Primary Care [...] Location Date Provider Diagnosis Rodrigue Mcdonald MD [address] [place] [address] [place] [phone] 01/03/2024 Rodrigue Mcdonald Spinal stenosis of lumbosacral [...] knowles Next Appt Details Provider Name:Rodrigue chambers, 12/11/2024 07:00:00 AM, [address] [place] [address], [place] [address], [place], [place], [phone], Provider Name:Rodrigue chambers, 12/18/2024 09:30:00 AM, [address] [place] [address], [place] [address], [place], [place], [phone], Progress Notes * ALEKS Kevin JrDOB: [birth year] (63 yo M)Acc No.[id number]:01/03/2024 Progress Notes Patient: Kevin Perry Provider: Lilliam Mcdonald MD :1960 A ge:63 Y S ex:Male Date:01/03/2024 Address:[address] [place] [address] Gretchen Blayne tonyaANTONY [id number] Subjective: * Chief Complaints: * D ISCUSS [...] true * Provider: Lilliam Mcdonald MD Date: 1 03/04/2023 Generated for Hong méndez/Annette/Cornellitting on: 0 11/20/2024 09:11 PM EDT History and Physical Notes * HPI (History of Present Illness) Category Sub-Category Detail Notes Category Not es Symptom(s) patient is a 63 yo male here to discuss recent MRI Examination Category Sub-Category Detail Notes Category Not es General Examination GENERAL APPEARANCE: alert, w ell hydrated, in no distress
--- OUTSIDE RECORDS SUMMARY | 2024-01-30 04:45 | XMS_ITS ---
Author Organization Rodrigue Mcdonald MD Address [address] [place] [phone] Care Team Providers Care Mortgage Operations Manager Name Role Phone Rodrigue Mcdonald Primary Care [...] Problem Status W/U Status Risk Notes Problem [id number] Mild aortic stenosis (I35.0) Active confirmed Vital Signs Blood pressure systolic 152 mm Hg 01/30/20 24 Blood pressure diastolic 60 mm Hg 024 Height 72.50 in 01/30/2024 Weight 203 lbs 01/30/2024 BMI 27.15 kg/m2 01/30/2024 weight is down 6 pounds [facility] 01-03-24 Encounters Encounter Location Date Provider Diagnosis Rodrigue Mcdonald MD [address] [place], [place] [phone] 01/30/2024 Rodrigue Mcdonald Essential hypertension I10 ; [...] 01/29/2025 Next Appt Details Provider Name:Rodrigue chambers, 12/11/2024 07:00:00 AM, [address], [address], [place], [place], [phone], Provider Name:Rodrigue Mcpherson ier, 12/18/2024 09:30:00 AM, [address], [address], [place], [place], [phone], Progress Notes * Kevin BURRELL JrDOB: [birth year] (63 yo M)Acc No.[id number]:01/30/2024 Progress Notes Patient: Kevin Perry Provider: Lilliam Mcdonald MD :1960 A ge:63 Y S ex:Male Date:01/30/2024 Address:[address] [place], [place] [phone] Subjective: * Chief Complaints: * 2 month [...] * Provider: Lilliam Mcdonald MD Date: 1 04/01/2023 Generated for Hong méndez/Annette/Cornellitting on: 0 11/20/2024 09:12 PM EDT History and Physical Notes * [...]
--- OUTSIDE RECORDS SUMMARY | 2024-05-31 03:30 | XMS_ITS ---
Author Organization Rodrigue Mcdonald MD Address [address] [place] [phone] Care Team Providers Care Business Planning Manager Name Role Phone Rodrigue Mcdonald Primary Care Provider [phone] Results Component Value Reference Range Notes Liver Panel Reviewed date:05/31/2024 06:24:23 PM Interpretation: Performing Lab:[facility], [address] [place] [phone] Notes/Report: Bilirubin Total 1.5 0.0-1.0 mg/dL Bilirubin Direct 0.4 0.0-0.5 mg/dL Aspartate Amino Transferase 35 5-37 U/L Alanine Aminotransferase 34 0-40 U/L Total Protein 7.5 6.5-8.0 g/dL Albumin Level 4.6 3.5-5.0 g/dL Alkaline Phosphatase 64 39-117 U/L Lipid Panel with Reflex Reviewed date:05/31/2024 06:23:58 PM Interpretation: Performing Lab:[facility], [address] [place] [phone] Notes/Report: Triglycerides 81 <150 mg/dL Desirable Triglyceride: [...] Location Date Provider Diagnosis Rodrigue Mcdonald MD [address] [place] [phone] 05/31/2024 Rodrigue Mcdonald Pure hypercholestero lemia E78.00 Assessments Encounter Date Diagnosis (ICD Code) Assessment Notes Treatment Notes Treatment Clinical Notes Section Notes 05/31/2024 Pure hypercholesterolemia (ICD-10 - E78.00) Plan Of Treatment Next Appt Details Provider Name:Rodrigue chambers, 12/11/2024 07:00:00 AM, [address] [place] [address], [address], [phone], Provider Name:Rodrigue chambers, 12/18/2024 09:30:00 AM, [address] [place] [address], [place] [address], [place], [place], [phone], Progress Notes * Kevin BURRELL JrDOB: [birth year] (64 yo M)Acc No.[id number]:05/31/2024 Progress Note Patient: Declan ORTEZKevin Jr Provider: Lilliam Mcdonald MD :1960 A ge:63 Y S ex:Male Date:05/31/2024 Address:[address] [place], [place] [phone] Subjective: * Chief Complaints: * 1 . [...] MD Date: 0 05/31/2024 Generated for Hong méndez/Annette/Noah on: 0 11/20/2024 09:11 PM EDT
--- OUTSIDE RECORDS SUMMARY | 2024-06-07 03:30 | XMS_ITS ---
Author Organization Rodrigue Mcdonald MD Address [address] [place] [phone] Care Team Providers Care Garage Door Service Technician Name Role Phone Rodrigue Mcdonald Primary Care Provider [phone] Allergies Allergen (clinical drug ingredient) Drug/Non Drug [...] Location Date Provider Diagnosis Rodrigue Mcdonald MD [address] [place] [address] Drive [address] [place], [place] [phone] 06/07/2024 Rodrigue Mcodnald Pure hypercholestero lemia E78.00 ; Lumbago with [...] regiment Next Appt Details Provider Name:Rodrigue chambers, 12/11/2024 07:00:00 AM, [address] [place] [address], [address], [place], [place], [phone], Provider Name:Rodrigue chambers, 12/18/2024 09:30:00 AM, [address] [place] [address], [address], [place], [place], [phone], Progress Notes * Kevin BURRELL: [birth year] (64 yo M)Acc No.[id number]:06/07/2024 Progress Notes Patient: Kevin ALFARO Jr Provider: Lilliam Mcdonald MD :1960 A ge:64 Y S ex:Male Date:06/07/2024 Address:[address] [place] [address] [id number] Subjective: * Chief Complaints: * 6 month * HPI: S ymptom(s): patient is a 63 yo malehere for 6 month follow up visit/still with a lot of back pain. * ROS: G eneral/Constitutional: Denies C hills. D enies F atigue. D enies F ever. D enies H eadache. E NT: Denies S ore throat. R espiratory: Denies Declan ough. G astrointestinal: Denies D iarrhea. D [...] MD Date: 0 06/07/2024 Generated for Hong méndez/Annette/Noah on: 0 11/20/2024 09:10 PM EDT History and Physical Notes * [...]
--- NOTE | ~2024-11-20 | US_ITS ---
EXAMINATION: US ABDOMEN LIMITED CLINICAL INFORMATION: Right upper quadrant pain,? Cholelithiasis. COMPARISON: No prior ultrasound. CT abdomen and pelvis 11/20/2024. TECHNIQUE: Real-time imaging of the gallbladder and bile ducts was performed. FINDINGS: GALLBLADDER: Gallbladder is physiologically distended. There are numerous layering gallstones intraluminally. No wall thickening, or pericholecystic fluid collection. Negative sonographic Mar's sign. COMMON BILE DUCT: Normal in caliber measuring 0.5 cm in diameter. FREE FLUID: None. US/US abdomen limited IMPRESSION: 1. Cholelithiasis without evidence of gallbladder inflammation. 2. No biliary dilatation. Electronically signed by: Jama Del Toro MD 11/21/2024 02:09 PM EDT
--- NOTE | ~2024-11-20 | CT_ITS ---
EXAMINATION: CT ABDOMEN AND PELVIS WITH CONTRAST CLINICAL INFORMATION: Concerning peripancreatic abscess. COMPARISON: November 20, 2024 reporting acute pancreatitis. TECHNIQUE: Multidetector volumetric images were obtained from the superior aspect of the liver through the pubic symphysis following administration 85 mL of Omnipaque 350 intravenous contrast. Sagittal and coronal reformatted images were obtained on the technologist's workstation. Oral contrast: No This CT examination was performed using dose optimization techniques as appropriate, variously including the following: *Automated exposure control *Adjustment of mA and/or kV according to patient size (this includes techniques or standardized protocols for targeted exams where dose is matched to indication/reason for exam; i.e. extremities or head) *Use of iterative reconstruction technique DLP: 740 mGy centimeter. FINDINGS: LUNG BASES: Bilateral small pleural effusions and compression atelectasis. LIVER, GALLBLADDER, AND BILIARY TREE: Liver measures 17 cm with decreased enhancement pattern. No focal mass. Main portal veins and hepatic veins and intrahepatic portion of the IVC are patent. Cholelithiasis without pericholecystic fluid collection or gallbladder wall thickening. No intrahepatic or extrahepatic biliary ductal dilatation. PANCREAS: [There is peripancreatic edema pattern. No peripancreatic fluid collections. Enhancement of the pancreatic parenchyma no main pancreatic ductal dilatation. SPLEEN: 11 cm. No focal mass. ADRENAL GLANDS: No nodular lesions. KIDNEYS AND URETERS: No hydronephrosis. No gross nephrolithiasis. No enhancing lesion. Normal enhancement of the renal parenchyma. Bilateral perinephric edema pattern. Extrarenal pelvises, bilaterally. BLADDER: Fluid-filled. GASTROINTESTINAL TRACT: Moderate amount of ascites measuring 15 Hounsfield units, in the pelvic peritoneal cavity without peripheral enhancing fluid collections. Gas and fluid-filled prominent small bowel loops. No pneumatosis intestinalis. Collapsed appearance of the distal ileal loops. Intraluminal fluid in the right hemicolon. Collapsed appearance of the left hemicolon. Numerous diverticula, left hemicolon. No gross pneumoperitoneum. ABDOMINAL WALL: Small fat-containing umbilical hernia. LYMPH NODES: Prominent, less than 11 mm mesenteric and retroperitoneal lymph nodes, likely reactive. VASCULAR: Calcified plaques in the splenic artery without vascular irregularity to suggest pseudoaneurysm and or active leak. Main splenic vein is patent without gross intraluminal filling defects. Calcified plaques in the abdominal aorta wall and iliac arteries without aneurysm or dissection. Calcified plaques in the origin of the celiac trunk, SMA, main renal arteries, KARL. Calcified plaques in the aortic valve. PELVIC VISCERA: Not enlarged prostate gland. OSSEOUS STRUCTURES: Multilevel thoracolumbar spondylosis. Status post bilateral laminectomies and posterior fusion L4-5 with arthrodesis/intervertebral disc spacer placement. No lytic or blastic lesions. Mild degenerative changes in the coxofemoral joints. 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 Regional ileus. Overall worsening since prior exam. No main splenic vein thrombosis. No main splenic artery pseudoaneurysm. Bilateral small volume pleural effusions and compression atelectasis, new. Hepatomegaly, mild and steatosis. Cholelithiasis. Diverticular disease, left hemicolon.. Fleischner guidelines were followed. Electronically signed by: Joseph Chong MD 11/23/2024 02:28 PM EDT
--- NOTE | ~2024-11-20 | CT_ITS ---
CLINICAL HISTORY: epigastric abdominal pain CT abdomen and pelvis with contrast Comparison: CT of the abdomen and pelvis from 09/12/2022. Findings: Mild bibasilar atelectasis and/or pneumonitis. Mild cardiomegaly partially imaged. Iggvbxqf-sg-wqacwa fluid about the pancreas is concerning for acute and/or recurrent pancreatitis. Moderate volume loss of the pancreas as can be seen with chronic and/or prior pancreatitis. The adrenal glands are normal. Spleen approaches the upper limits of normal. Gallbladder is distended with multiple cholelithiasis by CT. Imaged CBD measures [address] Mild fat deposition of the liver. No hydronephrosis. Mild perinephric stranding is nonspecific. Mild small bowel dilatation as can be seen with sentinel loop ileus from adjacent separate inflammation. No small bowel obstruction. Fluid in the large intestine can be seen with diarrhea type illnesses and colitis. Wall thickening of the large intestine is nonspecific and may reflect colitis, including splenic flexure, descending colon, and sigmoid colon. Imaged appendix is within normal limits (image 42 of series 7). Calcified and noncalcified plaque involving the imaged aorta and its branches. The prostate gland measures 5.2 cm transverse. Emrvphxz-hs-pufahs wall thickening of the urinary bladder is nonspecific. No definite hardware loosening of the L4-L5. Adjacent segment changes at L3-L4 and L5-S1. Facet arthropathy is multifocal. 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 IMPRESSION: 1. Fluid surrounding of the pancreas, concerning for acute pancreatitis. 2. Cholelithiasis by CT. 3. Wall thickening of the urinary bladder is nonspecific. This document has been electronically signed by: Facundo Gross MD on 11/20/2024 22:54:27
--- NOTE | 2024-11-20 20:42 | ECG_ITS ---
Test Reason : CP Blood Pressure : */* mmHG Vent. Rate : 59 BPM Atrial Rate : 59 BPM P-R Int : 188 ms QRS Dur : 98 ms QT Int : 450 ms P-R-T Axes : 62 3 25 degrees QTcB Int : 445 ms Sinus bradycardia Cannot rule out Inferior infarct , age undetermined Cannot rule out Anterior infarct , age undetermined Abnormal ECG When compared with ECG of 12-Sep-2022 06:07, Vent. rate has decreased by 35 bpm Minimal criteria for Inferior infarct are now Present Referred By: Generic ED Physician Electronically Signed By: DEREK MENDOZA
--- NOTE | 2024-11-20 20:51 | PC.NURSE ---
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 delay in ekg.
[2024-11-20 20:59] VITALS: BP 108/51; PULSE 72; RESP 13; TEMP 36.6; O2SAT 98; BMI 27.9
--- OUTSIDE RECORDS SUMMARY | 2024-11-20 21:11 | XMS_ITS | Patient Health Record ---
Author Organization [facility] Address [address] [place] [address] Care Team Providers Care Linux Server Administrator Name Role Phone Rodrigue Mcdonald MD Primary Care Provider Je Powell Unavailable [phone] Allergies Allergen (clinical drug ingredient) Drug/Non Drug Allergy documented on EMR Reaction Allergy Type Onset Date Status Information temporarily unavailable Codeine Sulfate Unknown Drug Allergy Active Reason For Referral No Information Medications Medication SIG (Take, Route, Frequency, Duration) Notes Start Date End Date Status Lisinopril-hydroCHLOROthiaz cynthia Active Atorvastatin Calcium Active amLODIPine Besylate Active Ibuprofen 800 MG 1 tablet Orally prn Active Suprep Bowel Prep 1 as directed Orally 1 for 1 dose 12/18/2014 Active Problems Problem Type SNOMED Code ICD Code Onset Dates Problem Status W/U Status Risk Notes Problem 564163869 Colon cancer screening (Z12.11) Active confirmed Problem 728681153 correction current use of non-steroidal anti-inflammato marcelino (NSAID) (Z79.1) Active confirmed Plan Of Treatment Future Test Test Name Order Date COLONOSCOPY 12/18/2014 Insurance Providers Payer Name Payer Address Payer Phone Subscriber Number Group Number Insured Name Patient Relationship to Insured Coverage Start Date Coverage End Date [facility] [address] [place] [phone] [id number] ARLETH FINK Self - patient is the insured Medical (General) History Medical History History ICD Code hypertension Denies DE,DM,CVA,Lung disease,renal dise ase Surgical History Surgery Date(Month/Year) back surgery 2000
--- OUTSIDE RECORDS SUMMARY | 2024-11-20 21:12 | XMS_ITS | Patient Health Record ---
Author Organization Rodrigue Mcdonald MD Address [address] [place] [phone] Care Team Providers Care Photographic Press Screwmaker Name Role Phone Rodrigue Mcdonald Primary Care Provider [phone] Allergies Allergen (clinical drug ingredient) Drug/Non Drug Allergy documented on EMR Reaction Allergy Type Onset Date Status Information temporarily unavailable Codeine Sulfate vomiting/headach e Drug Allergy Active Results Component Value Reference Range Notes Liver Panel Reviewed date:05/31/2024 06:24:23 PM Interpretation: Performing Lab:[facility], [address] [place] [phone] Notes/Report: Bilirubin Total 1.5 0.0-1.0 mg/dL Bilirubin Direct 0.4 0.0-0.5 mg/dL Aspartate Amino Transferase 35 5-37 U/L Alanine Aminotransferase 34 0-40 U/L Total Protein 7.5 6.5-8.0 g/dL Albumin Level 4.6 3.5-5.0 g/dL Alkaline Phosphatase 64 39-117 U/L Lipid Panel with Reflex Reviewed date:05/31/2024 06:23:58 PM Interpretation: Performing Lab:[facility], [address] [place] [phone] Notes/Report: Triglycerides 81 <150 mg/dL Desirable Triglyceride: [...] ff Reviewed date:12/07/2023 06:52:37 PM Interpretation: Performing Lab:[facility], [address] [place] [phone] Notes/Report: White Blood Count 7.7 4.8-10.8 X10*3/uL [...] NRBC Abs Auto 0.000 0.0-0.012 X10*3/uL Comprehensive Hawley. Panel Fa st Reviewed date:12/07/2023 06:52:04 PM Interpretation: Performing Lab:[facility], [address] [place] [phone] Notes/Report: Sodium 140 135-145 mmol/L Potassium 3.9 3.3-5.1 mmol/L Chloride 105 96-108 mmol/L Carbon Dioxide 30 22-29 mmol/L Anion Gap 9 12-20 Blood Urea Nitrogen 14 9-16 mg/dL Creatinine 0.90 0.5-1.4 mg/dL Estimated Glomerular Filt Rate > 60 NOTE: For -[place] Citizen individuals, multiply the result by 1.210. Chronic [...] Panel Reviewed date:12/07/2023 02:20:27 PM Interpretation: Performing Lab:[facility], [address] [place] [phone] Notes/Report: Bilirubin Direct 0.3 0.0-0.5 mg/dL Lipid Panel Reviewed date:12/07/2023 02:20:17 PM Interpretation: Performing Lab:[facility], [address] [place] [phone] Notes/Report: Triglycerides 106 <150 mg/dL Desirable Triglyceride: [...] (Free>4and<10) Reviewed date:12/07/2023 02:19:48 PM Interpretation: Performing Lab:[facility], [address] [place] [phone] Notes/Report: PSA,Total (Free>4and<10) 0.47 0.00-4.00 ng/mL A [...] t Reviewed date:12/07/2023 06:52:54 PM Interpretation: Performing Lab:[facility], [address] [place] [phone] Notes/Report: Urine, Clean Catch Color Urine Yellow Appearance Urine Clear PH 6.0 5.0-9.0 Glucose Urine UA Negative Negative mg/dL Urine Blood Negative Negative Specific Rosman - Urine 1.010 1.005-1.025 Urine Protein Negative [...] date:12/19/2023 12:37:43 PM Interpretation: Performing Lab: Notes/Report: [address] [address] XRay Report Signed Patient: Kevin Burrell MR#: [id number] 2 : 1960 Acct:[id number] Age/Sex: 63 / M ADM Date: 12/19/23 Loc: HO.XRAY Attending Dr: Rodrigue Mcdonald MD Ordering Physician: Rodrigue Mcdonald MD Date of Service: 12/19/23 Procedure(s): XR hip LT min 2V Accession Number(s): [id number] cc: Rodrigue Mcdonald MD EXAMINATION: XR LEFT [...] signed by Rukhsana Cisneros MD in OV> 10/28/24 1222 DD/ 1047 TD/TT: 12/19/23 1102 Movie Extra: [address] [address] XRay Report Signed Patient: Parish Burrell MR#: [id number] 2 : 1960 Acct:[id number] Age/Sex: 63 / M ADM Date: 12/19/23 Loc: HO.XRAY Attending Dr: Rodrigue Mcdonald MD Ordering Physician: Rodrigue Mcdonald MD Date of Service: 12/19/23 Procedure(s): XR hip LT min 2V Accession Number(s): [id number] cc: Rodrigue Mcdonald MD EXAMINATION: XR LEFT [...] 12/19/23 1222 DD/ 1047 TD/TT: 12/19/23 1102 Movie Extra: XR hip RT min 2V Reviewed date:12/19/2023 12:29:22 PM Interpretation: Performing Lab: Notes/Report: [address] [address] XRay Report Signed Patient: Kevin Burrell MR#: [id number] 2 : 1960 Acct:[id number] Age/Sex: 63 / M ADM Date: 12/19/23 Loc: HO.XRAY Attending Dr: Rodrigue Mcdonald MD Ordering Physician: Rodrigue Mcdonald MD Date of Service: 12/19/23 Procedure(s): XR hip RT min 2V Accession Number(s): [id number] cc: Rodrigue Mcdonald MD EXAMINATION: XR LEFT [...] 12/19/23 1222 DD/ 1048 TD/TT: 12/19/23 1102 Movie Extra: [place] [address] XRay Report Signed Patient: Parish Burrell MR#: [id number] 2 : 1960 Acct:[id number] Age/Sex: 63 / M ADM Date: 12/19/23 Loc: HO.MUKESHAY Attending Dr: Rodrigue Mcdonald MD Ordering Physician: Rodrigue Mcdonald MD Date of Service: 12/19/23 Procedure(s): XR hip RT min 2V Accession Number(s): [id number] cc: Rodrigue Mcdonald MD EXAMINATION: XR LEFT [...] 12/19/23 1222 DD/ 1048 TD/TT: 12/19/23 1102 Movie Extra: Glenn Stratton Reviewed date:05/31/2024 06:24:31 PM Interpretation: Performing Lab:[facility], [address] [place] [phone] Notes/Report: Glenn Stratton See Note Specimen held [...] [facility] Tim MARQUEZ Patti A 03/15/2024 03:25:23 PM >OFFICE NOTES RECDFROM 03/15/VISIT Referral Priority Routine Referral Appointment Date 03/15/2024 Medications Medication SIG (Take, Route, Frequency, Duration) Notes Start Date End Date Status amLODIPine Besylate 5 MG TAKE 1 TABLET B Y MOUTH EVERY DAY Active Gabapentin 800 MG take 1 tablet by elaine twice a day for 30 days Orally twice a day Active Colchicine 0.6 MG 1 tablet Orally twic e a day for 10 days 07/11/2017 Not-Taking Lisinopril-hydroCHLOROthi azide 20-12.5 MG TAKE 1 TABLET BY MOUTH EVERY DAY for 90 Active predniSONE 20 MG 1 tablet Orally Once a day for 10 days 06/30/2023 Not-Taking Atorvastatin Calcium 40 MG TAKE 1 TABLET BY MOUTH EVERY DAY Active Ibuprofen 800 MG TAKE 1 TABLET BY ELAINE TH EVERY 8 HOURS FOR 30 DAYS for 30 Active Immunizations Vaccine [...] Problem Status W/U Status Risk Notes Problem 595650040 Lumbago with sci atica, right side (M54.41) Active confirmed Problem 799675406 Elevated LFTs (R79.89) Active confirm ed Problem 414851123 Gastroesophageal reflux disease without esophagitis (K21.9) Active confirmed Problem 53590314 Essential hypert ension (I10) Active confirmed Problem 489085091 Raynauds phenome non without gangrene (I73.00) Active confirmed Problem 51544549 Cervical disc di sease with myelopathy (M50.00) Active confirmed Problem 173928394 Mild aortic sten osis (I35.0) Active confirmed Problem 01092191 Tinea versicolor (B36.0) Active confirmed Problem 8260322246608 Cervical neuropa thy (G54.2) Active confirmed Problem 746118215001448 Sciatica of righ t side (M54.31) Active confirmed Problem 938002543 Pure hypercholesterolemia (E78.00) Active confirmed Problem 602191714 Arthritis of kne e (M17.10) Active confirmed Problem Information temporarily unavailable 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) Active confirmed Problem Information temporarily unavailable Arthritis of both knees (M17.0) Active confirmed Problem 270193429 Nonrheumatic mak ral valve regurgitation (I34.0) Active confirmed Problem Information temporarily unavailable Raynaud''s phenomenon without gangrene (I73.00) Active confirmed Vital Signs Blood pressure diastolic 66 mm Hg 06/07/2024 sylvester ght is up 3 pounds since 01-30-24 Height 72.50 in 06/07/2024 weight is up 3 pounds since 01-30-24 Blood pressure systolic 158 mm Hg 06/07/2024 weig ht is up 3 pounds since 01-30-24 Weight 206 lbs 06/07/2024 weight is up 3 pounds since 01-30-24 BMI 27.55 kg/m2 06/07/2024 weight is up 3 pounds since 01-30-24 Encounters Encounter Location Date Provider Diagnosis Rodrigue Mcdonald MD [address] [place] [id number] 05/31/2024 Rodrigue Mcdonald Pure hypercholestero lemia E78.00 Rodrigue Mcdonald MD [address] [place], [place] [id number] 12/06/2023 Rodrigue Mcdonald Blood tests for rout ine general physical examination Z00.00 ; Elevated LFTs R79.89 ; Essential hypertension I10 and Pure hypercholesterolemia E78.00 Rodrigue Mcdonald MD [address] [place] [id number] 12/16/2023 Rodrigue Mcdonald Heart murmur R01.1 ; Annual physical exam Z00.00 ; Essential hypertension I10 ; Pure hypercholesterolemia E78.00 ; Lumbago with sciatica, right side M54.41 ; Panic F41.0 ; Pain in right hip M25.551 ; Pain in left hip M25.552 ; Colon cancer screening Z12.11 and Depression screening Z13.31 Rodrigue Mcdonald MD [address] [place] [id number] 01/03/2024 Rodrigue Mcdonald Spinal stenosis of lumbosacral region M48.07 Rodrigue Mcdonald MD [address] [place] [address] Drive [address] [place] [id number] 01/30/2024 Rodrigue Mcdonald Essential hypertensi on I10 ; Lumbago with sciatica, right side M54.41 and Mild aortic stenosis I35.0 Rodrigue Mcdonald MD [address] [place] [id number] 06/07/2024 Rodrigue Mcdonald Pure hypercholestero lemia E78.00 ; Lumbago with sciatica, right side M54.41 and Essential hypertension I10 Assessments Encounter Date Diagnosis (ICD Code) Assessment Notes Treatment Notes Treatment Clinical Notes Section Notes 05/31/2024 Pure hypercholesterolemia (ICD-10 - E78.00) 12/06/2023 [address] tests [address] ine general physical examination (ICD-10 - Z00.00) 12/06/2023 Elevated LFTs (ICD-1 0 - R79.89) 12/16/2023 Heart murmur (ICD-10 - R01.1) order faxed to [facility] CS dept, pendnf diagnostic testing 12/16/2023 Annual [...] see dr knowles, will continue current regiment 06/07/2024 Pure hypercholesterolemia (ICD-10 - E78.00) doing well on meds, will continue curent regiment 12/06/2023 Essential hypertensi on (ICD-10 - I10) 12/16/2023 Essential hypertensi on (ICD-10 - I10) stable, will continue current regiment 01/30/2024 Mild aortic stenosis (ICD-10 - I35.0) is 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 has trouble with the mri. will reschedule with some ativen and open mri 12/16/2023 Pain in right hip (ICD-10 - M25.551) order faxed to [facility] PT Reg, pending diagnostic testing 12/16/2023 Pain in left hip (IC D-10 - M25.552) ORDER FAXED TO [facility] PT REG 12/16/2023 Colon cancer screeni ng (ICD-10 - Z12.11) guaiac negative 12/16/2023 Depression screening (ICD-10 - Z13.31) negative screen Plan Of Treatment Pending Test Test Name Order Date Electrocardiogram (EKG) 06/04/2016 Electrocardiogram (EKG) 03/26/2011 Electrocardiogram (EKG) 07/01/2017 Electrocardiogram (EKG) 04/07/2012 Electrocardiogram (EKG) 05/16/2015 CT CHEST ARTERIOGRAM 05/09/2014 MRI CERVICAL SPINE NO CONTRAST 1 MRI CERVICAL SPINE NO CONTRAST 1 MRI LUMBAR SPINE NO CONTRAST 06/30/2023 MRI LUMBAR SPINE NO CONTRAST 07/21/2023 MRI LUMBAR SPINE NO CONTRAST 08/12/2023 XR CERVICAL SPINE 4+ VIEWS 11/30/2019 ECHO 12/16/2023 MR lumbar spine wo con 12/16/2023 Next Appt Details Provider Name:Rodrigue Mcpherson ier, 12/11/2024 07:00:00 AM, [address] [facility], [address], [place], [phone], Provider Name:Rodrigue Mcpherson ier, 12/18/2024 09:30:00 AM, [address] [facility], [address], [place], [phone], Insurance Providers Payer Name Payer Address Payer Phone Subscriber Number Group Number Insured Name Patient Relationship to Insured Coverage Start Date Coverage End Date [facility] [address] [facility] [address] [facility] [place] [phone] [id number] Kevin Burrell Self - patient is the insured Medical (General) History Medical History History ICD Code 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 Negron - repeat 10 years have to be on diuretic in cooler months and stop in hot months
--- NOTE | 2024-11-20 21:16 | ED.CHESTPAIN ---
HPI - Chest Pain General Chief Complaint: Chest Pain Stated Complaint: Chest pain/ Diff breathing/ Vomiting Time Seen by Provider: 11/20/24 21:02 Source: patient, RN notes reviewed and old records reviewed Mode of arrival: ambulatory Limitations: no limitations History of Present Illness ED Provider: Umer ANTOINE narrative: 64-year-old male presents for evaluation of upper abdominal pain. He reports that he developed epigastric abdominal pain around 4:00 p.m. today in his in the center of his upper abdomen. His pain is 10/10. He states that about an hour ago he developed nausea and vomiting prompting him to come to the emergency department. He has a history of a hiatal hernia. He reports drinking alcohol but not daily, his last drink was 3 days ago. He denies any history of alcohol withdrawal. He has never had any abdominal surgeries in the past. No fevers or chills pain Denies any recent travel outside of the [place] His daughter was recently diagnosed with COVID-19 but the patient denies any coughing or shortness of breath. The patient endorses nonbloody diarrhea as well Related Data Home Medications ?Medication ?Instructions ?Recorded ?Confirmed amlodipine 5 mg tablet 5 mg PO DAILY 09/12/22 09/12/22 atorvastatin 40 mg tablet 40 mg PO DAILY 09/12/22 09/12/22 cholecalciferol (vitamin D3) 25 25 mcg PO DAILY 09/12/22 09/12/22 mcg (1,000 unit) tablet ibuprofen 800 mg tablet 800 mg PO DAILY PRN Pain 09/12/22 09/12/22 lisinopril 20 1 tab PO DAILY 09/12/22 09/12/22 mg-hydrochlorothiazide 12.5 mg tablet Allergies Allergy/AdvReac Type Severity Reaction Status Date / Time codeine (CODEINE) Allergy Unknown NAUSEA Verified 11/20/24 21:00 Codeine Sulfate Allergy Unknown Unknown Uncoded 11/20/24 21:00 Review of Systems Constitutional: Constitutional: Denies body ache(s), Denies chills, Denies fever(s), Denies headache(s), Reports malaise and Denies weakness Eyes: Eyes: Denies exophthalmos ENT: Denies vertigo and Denies headache(s) Cardiovascular: Cardiovascular: Denies chest pain and Denies dyspnea on exertion Respiratory: Respiratory: Denies cough and Denies dyspnea on exertion Gastrointestinal: Gastrointestinal: Reports abdominal pain, Denies melena, Denies hematochezia, Denies coffee ground emesis, Reports diarrhea, Reports loose stools, Reports nausea and Reports vomiting Musculoskeletal: Musculoskeletal: Denies back pain Integumentary/Breasts: Skin/Breast: Denies rash Neurologic: Denies vertigo, Denies headache(s) and Denies weakness PMFSH Past Medical History Medical History (Updated 11/21/24 @ 00:06 by Rod Owusu) Hyperlipidemia Hypertension Surgical History (Updated 09/12/22 @ 11:40 by Greta Hsu NP) H/O spinal fusion Social History Social History (Updated 09/12/22 @ 11:41 by Greta Hsu NP) Household Members: Spouse and Children Housing: House Alcohol intake: current Alcohol intake frequency: a few times a week Patient Tobacco Use Status: Never used Tobacco Smoked in Last 30 Days: No e-Cigarette/Vaping Use: Never Used Use of substances other than those prescribed or required for medical reasons: No Advance Directives: No Advance Directives Information Provided: No Do you have a plan to hurt others: No Plan service: No Physical Exam Vital Signs: Vital Signs: Last Vital Signs Temp 97.9 F 11/20/24 22:58 Pulse 68 11/20/24 22:58 Resp 14 11/20/24 22:58 BP 138/62 11/20/24 22:58 Pulse Ox 98 11/20/24 22:58 O2 Del Method Room Air 11/20/24 22:58 BMI result Body Mass Index 27.9 Const: General: cooperative, alert, awake and diaphoretic Nutritional Appearance: well nourished Orientation/consciousness: patient oriented x3 HEENT: Head: Yes normocephalic and Yes atraumatic Eyes: Eyelids: Yes eyelids normal Conjunctivae: conjunctivae normal Sclerae: sclerae normal Corneas: corneas normal Pupils: Equal, round and reactive pupils present EOM: EOMs intact bilaterally Neck: Neck: Yes full ROM Resp: Effort & Inspection: normal respiratory effort, able to speak in complete sentences and not labored Cardio: Rate: regular rate Rhythm: regular rhythm GI: Inspection: No distended Palpation (GI): not firm, Tenderness to palpation present (GI) in the epigastrum, Guarding due to palpation present (GI) and not rigid Auscultation: normoactive bowel sounds Skin: General skin exam: elasticity normal Neuro: General: patient oriented x3 Cranial nerves: Yes Equal, round and reactive pupils present and Yes Bilaterally intact EOM present Cognition (Neuro): normal cognition Medications Administered Generic Name Dose Route Start Last Admin Trade Name Marlene PRN Reason Stop Dose Admin Enoxaparin Sodium 40 mg 11/20/24 23:30 11/21/24 00:00 Enoxaparin Sodium 40 Mg/0.4 Ml Syringe SUBCUT 40 mg Q24H PARKER Administration Lactated Ringer's 1,000 mls @ 125 mls/hr 11/20/24 23:30 11/21/24 00:00 Lr IVCONT 125 mls/hr .Q8H PARKER Administration Piperacillin Sod/Tazobactam 100 mls @ 200 mls/hr 11/20/24 23:30 11/20/24 23:59 Sod 4.5 gm/ Sodium Chloride IV 200 mls/hr Q6H PARKER Administration Sodium Chloride 3 ml 11/21/24 00:00 11/21/24 00:00 0.9 % Sodium Chloride Flush 3 Ml Syringe IVFLUSH Not Given QSHIFT PARKER Discontinued Medications Generic Name Dose Route Start Last Admin Trade Name Marlene PRN Reason Stop Dose Admin Hydromorphone HCl 1 mg 11/20/24 22:46 11/20/24 22:57 Hydromorphone Hcl 1 Mg/Ml Syringe IVPUSH 11/20/24 22:47 1 mg ONCE ONE Administration Protocol Sodium Chloride 1,000 mls @ 999 mls/hr 11/20/24 21:15 11/20/24 22:57 Ns IV 11/20/24 22:15 Infused .Q1H1M PARKER Infusion Lactated Ringer's 1,000 mls @ 999 mls/hr 11/20/24 23:00 11/20/24 23:46 Lr IV 11/21/24 00:00 Infused .Q1H1M PARKER Infusion Iohexol 85 ml 11/20/24 21:57 11/20/24 21:58 Iohexol 350 Mg/Ml 100 Ml Infus..Btl IV 11/20/24 21:58 85 ml ONCE ONE Administration Morphine Sulfate 4 mg 11/20/24 21:06 11/20/24 21:23 Morphine Sulfate 4 Mg/Ml Cartridge IVPUSH 11/20/24 21:07 4 mg ONCE ONE Administration Protocol Ondansetron HCl 4 mg 11/20/24 21:02 11/20/24 21:23 Ondansetron Hcl 4 Mg/2 Ml Vial IVPUSH 11/20/24 21:03 4 mg ONCE ONE Administration Medical Decision Making Medical Decision Making [facility] Narrative: This 64-year-old male past medical history as above presents for evaluation of abdominal pain. He started with pain about 5 hours prior to my evaluation and developed nausea and vomiting about an hour ago. He has no history abdominal surgeries, this is less likely to be an obstruction but not completely ruled out. He does drink alcohol and pancreatitis on differential. His pain is epigastric and could also be biliary colic, cholecystitis or cholelithiasis. His EKG does not appear ischemic and the patient has no chest pain. I feel that ACS is less likely but we will still obtain a troponin. He has a history of hiatal hernia and gastritis. We will treat with IV fluids, morphine and Zofran we will get a CT scan of the abdomen pelvis with IV contrast. Differential Diagnosis Differential Diagnoses: The differential diagnosis associated with the presentation includes As above Admission/Observation Consideration of admission/observation: Escalation of care including admission/observation considered Lab Data [facility] Lab Attestation statement: I reviewed the patient's lab results. Leukocytosis to 15.9 which could be related to vomiting. There was a mild anemia consistent with the patient's baseline with a hemoglobin 13.8 hematocrit 37.7. No significant chemistry abnormalities. The patient's lipase is over 3000 indicative of pancreatitis. Slight elevation of bilirubin to 2.1, 1.1 of in his direct and 1.0 is indirect. Slight elevation of AST and ALT which all could be related to acute pancreatitis 11/20/24 21:21 11/20/24 21:21 Labs: Lab Results 11/20/24 Range/Units 21:21 WBC 15.9 H (4.8-10.8) X10*3/uL RBC 4.23 L (4.60-5.80) X10*6/uL Hgb 13.8 L (14.0-18.0) g/dl Hct 37.7 L (42.0-52.0) % MCV 89.1 (80.0-98.0) fL MCH 32.6 (27.0-33.0) pg MCHC 36.6 H (31.0-36.0) g/dl RDW 12.3 (11.0-16.0) % Plt Count 230 (160-400) X10*3/uL MPV 9.3 L (9.4-12.4) fL Immature Gran % (Auto) 0.4 (0.0-0.4) % Neut % (Auto) 77.8 H (45-73) % Lymph % (Auto) 15.5 L (20-40) % Anson % (Auto) 5.4 (2-11) % Eos % (Auto) 0.6 (0-4) % Baso % (Auto) 0.3 (0-2) % Lymph # (Auto) 2.5 (1.2-4.9) X10*3/uL Anson # (Auto) 0.9 (0.1-1.2) X10*3/uL Eos # (Auto) 0.1 (0.0-0.4) X10*3/uL Baso # (Auto) 0.0 (0.0-0.2) X10*3/uL Abs Immat Gran (auto) 0.06 H (0.00-0.03) X10*3/uL Absolute Neuts (auto) 12.4 H (2.0-8.3) x10*3/uL Absolute Nucleated RBC 0.000 (0.0-0.012) X10*3/uL Nucleated RBC % (auto) 0.0 (0.0-0.2) /100WBC Sodium 137 (135-145) mmol/L Potassium 3.5 (3.3-5.1) mmol/L Chloride 100 (96-108) mmol/L Carbon Dioxide 24 (22-29) mmol/L Anion Gap 17 (12-20) BUN 17 H (9-16) mg/dL Creatinine 1.10 (0.5-1.4) mg/dL Estim Creat Clear Calc 78.4 Estimated GFR > 60 Random Glucose 175 H (60-115) mg/dL Calcium 9.7 (8.4-10.2) mg/dL Magnesium 1.9 (1.6-2.6) mg/dL Total Bilirubin 2.1 H (0.0-1.0) mg/dL Direct Bilirubin 1.1 H (0.0-0.5) mg/dL AST 240 H (5-37) U/L ALT 152 H (0-40) U/L Alkaline Phosphatase 115 (39-117) U/L Troponin I High Sens < 2.7 (<3.5-35.0) ng/L Total Protein 7.4 (6.5-8.0) g/dL Albumin 4.9 (3.5-5.0) g/dL Lipase > 3000 H (8-78) U/L Ethyl Alcohol < 10 mg/dL Independent Interpretation I performed an independent interpretation of an: CT Scan (Peripancreatic inflammation) Radiology Impression Discussion of test interpretation with radiology: I have reviewed the radiologist's reading. Radiologist Impression: Findings: Mild bibasilar atelectasis and/or pneumonitis. Mild cardiomegaly partially imaged. Frdoesjr-pc-iplyef fluid about the pancreas is concerning for acute and/or recurrent pancreatitis. Moderate volume loss of the pancreas as can be seen with chronic and/or prior pancreatitis. The adrenal glands are normal. Spleen approaches the upper limits of normal. Gallbladder is distended with multiple cholelithiasis by CT. Imaged CBD measures [address] Mild fat deposition of the liver. No hydronephrosis. Mild perinephric stranding is nonspecific. Mild small bowel dilatation as can be seen with sentinel loop ileus from adjacent separate inflammation. No small bowel obstruction. Fluid in the large intestine can be seen with diarrhea type illnesses and colitis. Wall thickening of the large intestine is nonspecific and may reflect colitis, including splenic flexure, descending colon, and sigmoid colon. Imaged appendix is within normal limits (image 42 of series 7). Calcified and noncalcified plaque involving the imaged aorta and its branches. The prostate gland measures 5.2 cm transverse. Pnepqlfa-ui-pyakiw wall thickening of the urinary bladder is nonspecific. No definite hardware loosening of the L4-L5. Adjacent segment changes at L3-L4 and L5-S1. Facet arthropathy is multifocal. 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 IMPRESSION: 1. Fluid surrounding of the pancreas, concerning for acute pancreatitis. 2. Cholelithiasis by CT. 3. Wall thickening of the urinary bladder is nonspecific. This document has been electronically signed by: Facundo Gross MD on 11/20/2024 22:54:27 Discharge Plan Discharge Clinical Impression: Acute pancreatitis Patient Disposition: Admitted As Inpatient
[2024-11-20 21:25] LABS: MANUAL DIFF FLAG NO
[2024-11-20 21:28] LABS: Hematocrit 37.7 % (42.0-52.0); Hemoglobin 13.8 g/dl (14.0-18.0); Imm Gran Abs Auto 0.06 X10*3/uL (0.00-0.03); Imm Gran Pct Auto 0.4 % (0.0-0.4); Lymphocytes Absolute Auto 2.5 X10*3/uL (1.2-4.9); Mean Corpuscular HGB Conc 36.6 g/dl (31.0-36.0); Mean Corpuscular Hemoglobin 32.6 pg (27.0-33.0); Mean Corpuscular Volume 89.1 fL (80.0-98.0); NRBC Abs Auto 0.000 X10*3/uL (0.0-0.012); NRBC Pct Auto 0.0 /100WBC (0.0-0.2); Platelet Count 230 X10*3/uL (160-400); Red Blood Count 4.23 X10*6/uL (4.60-5.80); White Blood Count 15.9 X10*3/uL (4.8-10.8)
[2024-11-20 21:41] LABS: Alanine Aminotransferase 152 U/L (0-40); Albumin Level 4.9 g/dL (3.5-5.0); Alkaline Phosphatase 115 U/L (39-117); Anion Gap 17 (12-20); Aspartate Amino Transferase 240 U/L (5-37); Blood Urea Nitrogen 17 mg/dL (9-16); Calcium 9.7 mg/dL (8.4-10.2); Carbon Dioxide 24 mmol/L (22-29); Chloride 100 mmol/L (96-108); Creatinine Clr Calc Pharmacy 78.4; Estimated Glomerular Filt Rate > 60; Magnesium 1.9 mg/dL (1.6-2.6); Potassium 3.5 mmol/L (3.3-5.1); Sodium 137 mmol/L (135-145); Total Protein 7.4 g/dL (6.5-8.0)
[2024-11-20 21:48] LABS: Troponin-I High Sensitivity < 2.7 ng/L (<3.5-35.0)
[2024-11-20 21:54] LABS: Lipase > 3000 U/L (8-78)
[2024-11-20] MEDS: iohexoL 350 MG/ML 100 ML INFUS..BTL 85 ML IV (21:58)
[2024-11-20 22:58] VITALS: BP 138/62; PULSE 68; RESP 14; TEMP 36.6; O2SAT 98
[2024-11-20] MEDS: Lactated Ringers 1,000 ML 999 ML IV (22:58)
--- NOTE | 2024-11-20 23:22 | PM.IMHP ---
History of Present Illness Date of Service: 11/20/24 Attending physician on admission: Yazan Lugo Chief Complaint: chest pain Patient is a 64-year-old male with past medical history hypertension, hyperlipidemia, gout, diverticulosis, all use regularly, acute pancreatitis 2022, cholelithiasis, chronic cervical and lumbar spine degeneration with past cervical fusion and lumbar fusion, chronic neuropathy, sciatica presents to the emergency room with midepigastric abdominal pain and suspected chest pain that started at 16:00 while patient was at work. 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 Patient began vomiting upon arrival at home. Pt was also having intermittent chills, felt warm. Patient called spouse and spouse arrived and drove patient to the ED. Patient lives very close to the emergency department. Patient also had intermittent diarrhea for the last week and denies any diarrhea today. In regards to patient's alcohol use, patient refrains from drinking on Sundays, Mondays and Tuesdays. On all other days patient has max 2 cocktails per day. Patient denies any history of alcohol withdrawal or seizure activity. Workup in the ED identified acute pancreatitis via CT scan of the abdomen with a common bile duct of 8 mm, fluid surrounding the pancreas and cholelithiasis. Fluid also noted in the large intestine indicating possible colitis. Lipase greater than 3000. AST 240, ALT 152, T bili 2.1 and direct bilirubin 1.1. Magnesium 1.9. White count 15.9. Patient states his last drink was this past Tuesday. Cardiac workup negative including negative troponins, EKG with nonischemic changes. Hemodynamics currently stable and no evidence of sepsis. Request for admission for acute pancreatitis likely gallstone induced with history of alcohol use regularly. Review of Systems Review of Systems: Patient currently denies any chest pain or abdominal pain. Patient had received Dilaudid with good effect. Patient denies any current nausea or vomiting. Patient's last episode of vomiting was in the ED during triage. Patient reports chronic back pain occasional numbness to the lower legs which is common. Patient denies any issues with voiding and or burning or pain with urination. Patient is not having any issues with GERD reflux or gout symptoms. Patient denies any issues with dysphagia Yes all other systems are reviewed and are negative [facility] Medical History Anxiety Diverticulosis Alcohol use disorder Cholelithiasis Neuropathy Degenerative joint disease of spine Gout Hyperlipidemia Hypertension Cognitive capacity: Alert and orientated x3 Functional capacity: independent ambulation Surgical History S/P cervical spinal fusion History of lumbar fusion H/O spinal fusion Social History (Updated 11/21/24 @ 00:25 by MARIANA Herrera) Household Members: Spouse and Children Housing: House Alcohol intake: current Alcohol intake frequency: a few times a week Comment: Patient drinks on Tuesday through Tuesday and refrain from using alcohol Patient Tobacco Use Status: Never used Tobacco Smoked in Last 30 Days: No e-Cigarette/Vaping Use: Never Used Use of substances other than those prescribed or required for medical reasons: No Advance Directives: No Advance Directives Information Provided: No Do you have a plan to hurt others: No Plan service: No Ebola Risk: Travel/Contact With Anyone From Affected Area/s: No Has Patient Experienced Ebola Symptoms: No Meds Allergies Allergy/AdvReac Type Severity Reaction Status Date / Time codeine (CODEINE) Allergy Unknown NAUSEA Verified 11/20/24 21:00 Codeine Sulfate Allergy Unknown Unknown Uncoded 11/20/24 21:00 Active Medications: Current Medications Lactated Ringer's (Lr) 1,000 mls @ 999 mls/hr IV .Q1H1M PARKER Stop: 11/21/24 00:00 Last Admin: 11/20/24 22:58 Dose: 999 mls/hr Home Medications ?Medication ?Instructions ?Recorded ?Confirmed ?Last Taken ?Type amlodipine 5 mg tablet 5 mg PO DAILY 09/12/22 09/12/22 Unknown History atorvastatin 40 mg tablet 40 mg PO DAILY 09/12/22 09/12/22 Unknown History cholecalciferol (vitamin D3) 25 25 mcg PO DAILY 09/12/22 09/12/22 Unknown History mcg (1,000 unit) tablet ibuprofen 800 mg tablet 800 mg PO DAILY PRN Pain 09/12/22 09/12/22 Unknown History lisinopril 20 1 tab PO DAILY 09/12/22 09/12/22 Unknown History mg-hydrochlorothiazide 12.5 mg tablet Physical Exam Vital Signs and Narrative: Vital Signs: Last Vital Signs Temp 97.9 F 11/20/24 22:58 Pulse 68 11/20/24 22:58 Resp 14 11/20/24 22:58 BP 138/62 11/20/24 22:58 Pulse Ox 98 11/20/24 22:58 O2 Del Method Room Air 11/20/24 22:58 BMI result Body Mass Index 27.9 Alert and orientated X3, able to give good history. Neuro: CN II-X11 intact, no deficits, visual acuity intact EYES: PERRLA, EOM intact, sclerae nonicteric ENT: hearing intact, no issues with swallowing, uvula midline, lips moist, nares patent no epistaxis Cardiac: S1 S2 RRR, no murmur, no JVD, no edema in Lower ext Pulmonary: lungs clear to auscultation B Abdominal: BS active in all 4 quadrants, no guarding, tenderness, rebounding currently, distention noted MSK: strength 5/5 upper and lower extremities : no CVA tenderness no bladder distension Extremities: no edema in lower extremities, PT and DP pulses palpable +2 Psych: mood stable, judgement and insight good Skin: No new rashes or lesions Results Labs 11/20/24 21:21 11/20/24 21:21 Labs: Laboratory Results - last 24 hr 11/20/24 21:21 MCV 89.1 MCH 32.6 MCHC 36.6 H RDW 12.3 Plt Count 230 MPV 9.3 L Immature Gran % (Auto) 0.4 Neut % (Auto) 77.8 H Lymph % (Auto) 15.5 L [place] % (Auto) 5.4 Eos % (Auto) 0.6 Baso % (Auto) 0.3 Lymph # (Auto) 2.5 [place] # (Auto) 0.9 Eos # (Auto) 0.1 Baso # (Auto) 0.0 Abs Immat Gran (auto) 0.06 H Absolute Neuts (auto) 12.4 H Absolute Nucleated RBC 0.000 Nucleated RBC % (auto) 0.0 Anion Gap 17 Estim Creat Clear Calc 78.4 Estimated GFR > 60 Random Glucose 175 H Calcium 9.7 Magnesium 1.9 Total Bilirubin 2.1 H Direct Bilirubin 1.1 H AST 240 H ALT 152 H Alkaline Phosphatase 115 Troponin I High Sens < 2.7 Total Protein 7.4 Albumin 4.9 Lipase > 3000 H Ethyl Alcohol < 10 Imaging Radiologist's Impressions: CT ABD Findings: Mild bibasilar atelectasis and/or pneumonitis. Mild cardiomegaly partially imaged. Htwibgxz-fk-eaxrnw fluid about the pancreas is concerning for acute and/or recurrent pancreatitis. Moderate volume loss of the pancreas as can be seen with chronic and/or prior pancreatitis. The adrenal glands are normal. Spleen approaches the upper limits of normal. Gallbladder is distended with multiple cholelithiasis by CT. Imaged CBD measures [address] Mild fat deposition of the liver. No hydronephrosis. Mild perinephric stranding is nonspecific. Mild small bowel dilatation as can be seen with sentinel loop ileus from adjacent separate inflammation. No small bowel obstruction. Fluid in the large intestine can be seen with diarrhea type illnesses and colitis. Wall thickening of the large intestine is nonspecific and may reflect colitis, including splenic flexure, descending colon, and sigmoid colon. Imaged appendix is within normal limits (image 42 of series 7). Calcified and noncalcified plaque involving the imaged aorta and its branches. The prostate gland measures 5.2 cm transverse. Ydhgmphq-ee-fsmbmh wall thickening of the urinary bladder is nonspecific. No definite hardware loosening of the L4-L5. Adjacent segment changes at L3-L4 and L5-S1. Facet arthropathy is multifocal. 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 IMPRESSION: 1. Fluid surrounding of the pancreas, concerning for acute pancreatitis. 2. Cholelithiasis by CT. 3. Wall thickening of the urinary bladder is nonspecific. Assessment and Plan (1) Acute pancreatitis: Qualifiers: Acute pancreatitis complication: unspecified Pancreatitis type: unspecified pancreatitis type Qualified Code(s): K85.90 - Acute pancreatitis without necrosis or infection, unspecified Status: Acute (2) Colitis: Status: Acute (3) Cholelithiasis: Qualifiers: Biliary obstruction: with biliary obstruction Cholecystitis acuity: acute and chronic Cholecystitis presence: with cholecystitis Cholelithiasis location: gallbladder and bile duct Qualified Code(s): K80.67 - Calculus of gallbladder and bile duct with acute and chronic cholecystitis with obstruction Status: Acute (4) Alcohol use disorder: Status: Acute Plan Patient is a 64-year-old male with past medical history hypertension, hyperlipidemia, gout, diverticulosis, all use regularly, acute pancreatitis 2022, cholelithiasis, chronic cervical and lumbar spine degeneration with past cervical fusion and lumbar fusion, chronic neuropathy, sciatica presents to the emergency room with midepigastric abdominal pain and suspected chest pain that started at 16:00 while patient was at work. Pt being admitted for acute pancreatitis induced by gallstones, colitis and alcohol use disorder. Acute pancreatitis likely induced by gallstones with known alcohol use disorder, evidence of colitis on CT scan as well Lipase > 3000, trend daily and prn Noted leukocytosis, does not meet criteria for sepsis on admission Zosyn started Q6H, possible colitis on CT scan as well BC X2 pending CBD 8mm via CT GI cosulted Likely MRCP in AM, await review by credit balance specialist IVF bolus and hourly rate NPO Dilaudid for pain, effective for pain relief Antiemetics for nausea Chest pain initial symptom EKG negative for ischemic changes Troponin negative Chest pain currently resolved Alcohol use disorder Patient drinks Tuesday through Tuesday, 2 cocktails per day and patient refrain from drinking on Tuesday through Tuesday Pt deferred need for addictions consultation No history of alcohol withdrawal or seizures CIWA ordered Patient does not require phenobarbital protocol Valium p.r.n. as patient expresses mild anxiety Thiamine and folic acid ordered Telemetry Magnesium 1.9 Uric acid pending noting patient has history of gout although patient is currently asymptomatic Hypertension Continue amlodipine and lisinopril once med rec completed Hyperlipidemia Statin held due to transaminitis secondary to gallstone induced pancreatitis History of gout Uric acid pending Patient does not take allopurinol daily and has had no recent flares DVT prophylaxis: Lovenox Med rec pending Full code status Quality Stroke Does the patient have a stroke diagnosis?: No Reason for No Anti-thrombotic by Day Two: N/A - Med Ordered VTE Prior VTE?: No VTE Risk Level:: Medical - moderate - high VTE Device Contraindication: N/A - Device Ordered VTE Drug Contraindication: N/A - Med Ordered
[2024-11-21] VITALS (13 sets, daily range): BP systolic 133–184; BP diastolic 56–91; PULSE 65–94; RESP 12–21; TEMP 36.6–37.8; O2SAT 94–98; BMI 28.0
[2024-11-21 00:49] LABS: Uric Acid 7.2 mg/dL (3.4-7.0)
[2024-11-21] MEDS: diazePAM 10 MG/2 ML CARTRIDGE IVPUSH ×2 (01:03→14:31)
[2024-11-21 07:13] LABS: Hematocrit 37.2 % (42.0-52.0); Hemoglobin 13.2 g/dl (14.0-18.0); Imm Gran Abs Auto 0.08 X10*3/uL (0.00-0.03); Imm Gran Pct Auto 0.6 % (0.0-0.4); Lymphocytes Absolute Auto 0.6 X10*3/uL (1.2-4.9); MANUAL DIFF FLAG SCAN; Mean Corpuscular HGB Conc 35.5 g/dl (31.0-36.0); Mean Corpuscular Hemoglobin 32.4 pg (27.0-33.0); Mean Corpuscular Volume 91.4 fL (80.0-98.0); NRBC Abs Auto 0.000 X10*3/uL (0.0-0.012); NRBC Pct Auto 0.0 /100WBC (0.0-0.2); Platelet Count 170 X10*3/uL (160-400); Red Blood Count 4.07 X10*6/uL (4.60-5.80); SCAN SMEAR FLAG 1; White Blood Count 13.0 X10*3/uL (4.8-10.8)
[2024-11-21 07:18] LABS: INTERNATIONAL NORM RATIO 1.0 (0.9-1.1); Prothrombin Time 11.0 SEC (10.9-12.4)
[2024-11-21 07:33] LABS: Alanine Aminotransferase 160 U/L (0-40); Albumin Level 4.3 g/dL (3.5-5.0); Alkaline Phosphatase 110 U/L (39-117); Anion Gap 13 (12-20); Aspartate Amino Transferase 133 U/L (5-37); Blood Urea Nitrogen 15 mg/dL (9-16); Calcium 8.6 mg/dL (8.4-10.2); Carbon Dioxide 24 mmol/L (22-29); Chloride 104 mmol/L (96-108); Creatinine Clr Calc Pharmacy 105.1; Estimated Glomerular Filt Rate > 60; Magnesium 1.9 mg/dL (1.6-2.6); Potassium 4.1 mmol/L (3.3-5.1); Sodium 137 mmol/L (135-145); Total Protein 6.8 g/dL (6.5-8.0)
[2024-11-21 07:36] LABS: Lipase 1044 U/L (8-78)
--- NOTE | 2024-11-21 07:56 | PHA.MEDREC ---
Addendum entered by Jordyn Grant [facility] 11/21/24 08:04: reviewed by [facility] Addendum entered by Rosaline Rivera 11/21/24 08:02: Patient states he takes his Ibuprofen 800mg tabs once daily if needed for pain. Original Note: Pharmacy Consult ? Medication Reconciliation Pharmacy has completed the medication reconciliation. Spoke with pt and he confirmed his medications.
[2024-11-21] MEDS: Thiamine HCL 100 MG in 0.9 % Sodium Chloride 100 ML 202 MG IV (08:20)
--- NOTE | 2024-11-21 08:36 | P.PNIM_ITS ---
Subjective Subjective Date of Service: 11/21/24 Interval History: ETOH prophylaxis switched to Phenobarb Pt not the best historian Daughter was in room - she left the room at the time of asking KYM Review of Systems Review of Systems: Yes all other systems are reviewed and are negative Physical Exam 2 Exam: Exam: General: AOx3, mild distress - N/V, tremulous Resp: CTA bilaterally CVS: S1, S2, RRR GI: +BS, NT, no distention Neuro: Motor grossly intact bilaterally Extremities: No edema Psych: Flat and anxious affect Vital Signs: Vital Signs: Last Vital Signs Temp 98.4 F 11/21/24 07:00 Pulse 77 11/21/24 07:00 Resp 19 11/21/24 07:00 BP 156/75 H 11/21/24 07:00 Pulse Ox 96 11/21/24 07:00 O2 Del Method Room Air 11/21/24 07:00 BMI result Body Mass Index 27.9 Objective Data Active Medications Acetaminophen (Acetaminophen 325 Mg Tablet) 650 mg PO Q6H PRN PRN Reason: Pain, Mild 1-3,fever,headache Albuterol/Ipratropium (Albuterol/Iprat 2.5/0.5mg 3 Ml Ampul.Neb) 3 ml INHALE Q4H PRN PRN Reason: Shortness of Breath/Wheezing Calcium Carbonate (Calcium Carbonate 750 Mg Tab.Chew) 750 mg PO Q4H PRN PRN Reason: Heartburn Diazepam (Diazepam 10 Mg/2 Ml Cartridge) 10 mg IVPUSH Q6H PRN PRN Reason: Alcohol Withdrawal Last Admin: 11/21/24 01:03 Dose: 10 mg Documented By: PRABHU Enoxaparin Sodium (Enoxaparin Sodium 40 Mg/0.4 Ml Syringe) 40 mg SUBCUT Q24H PARKER Last Admin: 11/21/24 00:00 Dose: 40 mg Documented By: PRABHU Hydromorphone HCl (Hydromorphone Hcl 1 Mg/Ml Syringe) 1 mg IVPUSH Q4H PRN; Protocol PRN Reason: Pain, Severe (Pain Scale 7-10) Last Admin: 11/21/24 05:22 Dose: 1 mg Documented By: RENEE Lactated Ringer's (Lr) 1,000 mls @ 125 mls/hr IVCONT .Q8H [facility] Last Infusion: 11/21/24 05:53 Dose: 125 mls/hr Documented By: RENEE Piperacillin Sod/Tazobactam (Sod 4.5 gm/ Sodium Chloride) 100 mls @ 200 mls/hr IV Q6H [facility] Last Infusion: 11/21/24 05:53 Dose: Infused Documented By: RENEE Thiamine HCl 100 mg/ Sodium (Chloride) 101 mls @ 202 mls/hr IV DAILY [facility] Last Admin: 11/21/24 08:20 Dose: 202 mls/hr Documented By: CHANTELL Folic Acid 1 mg/ Sodium (Chloride) 50.2 mls @ 100.4 mls/hr IV DAILY [facility] Magnesium Hydroxide (Milk Of Magnesia 30 Ml Oral.Susp) 30 ml PO DAILY PRN PRN Reason: Constipation Melatonin (Melatonin 3 Mg Tablet) 6 mg PO BEDTIME PRN PRN Reason: Insomnia Ondansetron HCl (Ondansetron Hcl 4 Mg/2 Ml Vial) 4 mg IVPUSH Q8H PRN PRN Reason: Nausea and Vomiting Last Admin: 11/21/24 05:27 Dose: 4 mg Documented By: RENEE Polyethylene Glycol (Polyethylene Glycol 3350 17 Gm Powd.Pack) 17 gm PO DAILY PRN PRN Reason: Constipation Sodium Chloride (0.9 % Sodium Chloride Flush 3 Ml Syringe) 3 ml IVFLUSH QSHIFT [facility] Last Admin: 11/21/24 08:27 Dose: Not Given Documented By: CHANTELL Non-Admin Reason: IV Running Labs 11/21/24 06:54 11/21/24 06:54 Labs: Laboratory Results - last 24 hr 11/20/24 11/20/24 11/21/24 21:21 23:56 06:54 MCV 89.1 91.4 MCH 32.6 32.4 MCHC 36.6 H 35.5 RDW 12.3 12.2 Plt Count 230 170 D MPV 9.3 L 10.0 Immature Gran % (Auto) 0.4 0.6 H Neut % (Auto) 77.8 H 90.1 H Lymph % (Auto) 15.5 L 4.8 L [place] % (Auto) 5.4 4.4 Eos % (Auto) 0.6 0.0 Baso % (Auto) 0.3 0.1 Lymph # (Auto) 2.5 0.6 L [place] # (Auto) 0.9 0.6 Eos # (Auto) 0.1 0.0 Baso # (Auto) 0.0 0.0 Abs Immat Gran (auto) 0.06 H 0.08 H Absolute Neuts (auto) 12.4 H 11.7 H Absolute Nucleated RBC 0.000 0.000 Nucleated RBC % (auto) 0.0 0.0 Smear Tech's Comments VERIFIED PT 11.0 INR 1.0 Anion Gap 17 13 Estim Creat Clear Calc 78.4 105.1 Estimated GFR > 60 > 60 Random Glucose 175 H 121 H Lactic Acid 1.2 Uric Acid 7.2 H Calcium 9.7 8.6 D Magnesium 1.9 1.9 Total Bilirubin 2.1 H 1.9 H Direct Bilirubin 1.1 H AST 240 H 133 H ALT 152 H 160 H Alkaline Phosphatase 115 110 Troponin I High Sens < 2.7 C-Reactive Protein 0.41 Total Protein 7.4 6.8 Albumin 4.9 4.3 Lipase > 3000 H 1044 H Ethyl Alcohol < 10 Assessment and Plan (1) Alcohol use disorder: Status: Acute Plan hypertension, hyperlipidemia, gout, diverticulosis, acute pancreatitis 2022, cholelithiasis, chronic cervical and lumbar spine degeneration with past cervical fusion and lumbar fusion, chronic neuropathy, sciatica presented to the ED with [place] onset radiating abd epigastric pain was found to have acute pancreatitis 2/2 cholelithiasis and AUD Epigastric pain 2/2 choledocholithiasis + AUD Cont zosyn 2/2 oncern for gallstone peripancreatic abscess- will deescalate based on response pain control challenge with po intake iv fluids gi consulted by night team - no indication for acute intervention AUD Will escalae to phenobarb 2/2 poor response to Valium Addiction med consult .dvt px with lovenox This note is constructed using voice recognition software. While every effort has been made to ensure accuracy, fig caprifier errors may have been included. Quality Stroke Does the patient have a stroke diagnosis?: No Reason for No Anti-thrombotic by Day Two: N/A - Med Ordered VTE Prior VTE?: No VTE Risk Level:: Medical - moderate - high VTE Device Contraindication: N/A - Device Ordered VTE Drug Contraindication: N/A - Med Ordered
--- NOTE | 2024-11-21 11:34 | PC.NURSE ---
Patient continually bending left arm causing IV fluids to stop infusing. x 2 attempts by previous nurse to place 2nd line unsuccessful. 22g placed in left hand, iv fluids infusing but are behind schedule.
--- NOTE | 2024-11-21 12:24 | PM.GICN ---
History of Present Illness Data of Consult Service Date: 11/21/24 Primary Care Provider: Rodrigue Mcdonald MD HPI Reason for consult: pancreatitis 64-year-old male with hx of hypertension, hyperlipidemia, gout, diverticulosis, acute pancreatitis 2022, cholelithiasis, chronic cervical and lumbar spine degeneration with past cervical fusion and lumbar fusion, chronic neuropathy, sciatica who I am seeing for assessment for pancreatitis. He intially presented with 1 d hx of severe 10/10 crampy epigastric pain without radiation, sudden onset with nausea and worse with food without relieving factors. He had one episode of emesis here in the ED but no blood or coffee grounds seen. He denies constipation or diarrhea, no melena or rectal bleeding, Patient does drink alcohol beers and vodaka but takes breaks during the week. He had pancreatitis in the past but this was worse than before. He also says he avoids greasy and fat foods for a while because it upsets his stomach. He also says his kids had a diarrheal illness last week and he also had few days of diarrhea. Imaging: CT scan of the abdomen with a common bile duct of 8 mm, pancreatitis, with fluid surrounding the pancreas and cholelithiasis, possible colitis. LABS: Lipase greater than 3000. AST 240, ALT 152, T bili 2.1 and direct bilirubin 1.1. Magnesium 1.9. White count 15.9. Review of Systems Review of Systems: Constitutional : No Weight loss, No Fever, No Chills ENT/Mouth : No sore throat, No Rhinorrhea Eyes: No Swelling, No Redness Cardiovascular : No Chest Pain, No SOB, No Edema Respiratory : No Cough, No Sputum, No Wheezing Gastrointestinal : see HPI Genitourinary : NO Dysuria, No Urinary Frequency, No Hematuria, No Urgency Musculoskeletal : no joint pain, No Myalgias, No Joint Swelling Skin : No Skin Lesions, No rash Neuro : No Weakness, No Numbness, No Dizziness, No Headache Psych : No Anxiety/Panic, No Depression Heme/Lymph: No Bruising, No Lymphadenopathy Endocrine : No Polyuria, No Polydipsia All other systems reviewed and are negative. [facility] Past Medical History Medical History Anxiety Diverticulosis Alcohol use disorder Cholelithiasis Neuropathy Degenerative joint disease of spine Gout Hyperlipidemia Hypertension Family History Pertinent family history: no Fh of [pancreas issues Surgical History Surgical History S/P cervical spinal fusion History of lumbar fusion H/O spinal fusion Social History Social History (Updated 11/21/24 @ 00:25 by MARIANA Herrera) Household Members: Spouse and Children Housing: House Alcohol intake: current Alcohol intake frequency: a few times a week Comment: Patient drinks on Tuesday through Tuesday and refrain from using alcohol Patient Tobacco Use Status: Never used Tobacco Smoked in Last 30 Days: No e-Cigarette/Vaping Use: Never Used Use of substances other than those prescribed or required for medical reasons: No Advance Directives: No Advance Directives Information Provided: No Do you have a plan to hurt others: No Plan service: No Travel History Ebola Risk: Travel/Contact With Anyone From Affected Area/s: No Has Patient Experienced Ebola Symptoms: No Meds Allergies Allergy/AdvReac Type Severity Reaction Status Date / Time codeine (CODEINE) Allergy Unknown NAUSEA Verified 11/20/24 21:00 Codeine Sulfate Allergy Unknown Unknown Uncoded 11/20/24 21:00 Active Medications: Current Medications Acetaminophen (Acetaminophen 325 Mg Tablet) 650 mg PO Q6H PRN PRN Reason: Pain, Mild 1-3,fever,headache Albuterol/Ipratropium (Albuterol/Iprat 2.5/0.5mg 3 Ml Ampul.Neb) 3 ml INHALE Q4H PRN PRN Reason: Shortness of Breath/Wheezing Calcium Carbonate (Calcium Carbonate 750 Mg Tab.Chew) 750 mg PO Q4H PRN PRN Reason: Heartburn Diazepam (Diazepam 10 Mg/2 Ml Cartridge) 10 mg IVPUSH Q6H PRN PRN Reason: Alcohol Withdrawal Last Admin: 11/21/24 01:03 Dose: 10 mg Enoxaparin Sodium (Enoxaparin Sodium 40 Mg/0.4 Ml Syringe) 40 mg SUBCUT Q24H [facility] Last Admin: 11/21/24 00:00 Dose: 40 mg Hydromorphone HCl (Hydromorphone Hcl 1 Mg/Ml Syringe) 1 mg IVPUSH Q4H PRN; Protocol PRN Reason: Pain, Severe (Pain Scale 7-10) Last Admin: 11/21/24 05:22 Dose: 1 mg Lactated Ringer's (Lr) 1,000 mls @ 125 mls/hr IVCONT .Q8H [facility] Last Admin: 11/21/24 11:34 Dose: Not Given Piperacillin Sod/Tazobactam (Sod 4.5 gm/ Sodium Chloride) 100 mls @ 200 mls/hr IV Q6H [facility] Last Admin: 11/21/24 12:00 Dose: 200 mls/hr Thiamine HCl 100 mg/ Sodium (Chloride) 101 mls @ 202 mls/hr IV DAILY [facility] Last Infusion: 11/21/24 09:42 Dose: Infused Folic Acid 1 mg/ Sodium (Chloride) 50.2 mls @ 100.4 mls/hr IV DAILY [facility] Last Infusion: 11/21/24 09:42 Dose: Infused Magnesium Hydroxide (Milk Of Magnesia 30 Ml Oral.Susp) 30 ml PO DAILY PRN PRN Reason: Constipation Melatonin (Melatonin 3 Mg Tablet) 6 mg PO BEDTIME PRN PRN Reason: Insomnia Ondansetron HCl (Ondansetron Hcl 4 Mg/2 Ml Vial) 4 mg IVPUSH Q8H PRN PRN Reason: Nausea and Vomiting Last Admin: 11/21/24 05:27 Dose: 4 mg Polyethylene Glycol (Polyethylene Glycol 3350 17 Gm Powd.Pack) 17 gm PO DAILY PRN PRN Reason: Constipation Sodium Chloride (0.9 % Sodium Chloride Flush 3 Ml Syringe) 3 ml IVFLUSH QSHIFT [facility] Last Admin: 11/21/24 08:27 Dose: Not Given Home Medications ?Medication ?Instructions ?Recorded ?Confirmed ?Last Taken ?Type amlodipine 5 mg tablet 5 mg PO DAILY 09/12/22 11/21/24 11/20/24 History atorvastatin 40 mg tablet 40 mg PO DAILY 09/12/22 11/21/24 11/20/24 History cholecalciferol (vitamin D3) 25 25 mcg PO DAILY 09/12/22 11/21/24 11/20/24 History mcg (1,000 unit) tablet ibuprofen 800 mg tablet 800 mg PO DAILY PRN Pain 09/12/22 11/21/24 11/20/24 History lisinopril 20 1 tab PO DAILY 09/12/22 11/21/24 11/20/24 History mg-hydrochlorothiazide 12.5 mg tablet gabapentin 800 mg tablet 800 mg PO BID 11/21/24 11/21/24 11/20/24 History Physical Exam Exam: Exam: EXAM: GENERAL: The patient is well developed and nontoxic. VITAL SIGNS:see workflow HEENT: Nonicteric sclerae, PERRLA, EOMI. Oropharynx clear. Moist mucous membranes. Conjunctivae appear well perfused. No thyroid mass. CHEST: Chest wall is nontender. HEART: Regular rate and rhythm without murmurs. LUNGS: Clear to auscultation bilaterally. ABDOMEN: Soft, positive bowel sounds, nontender, no organomegaly.no flank tenderness SKIN: No rash, no excessive bruising, petechiae, or purpura. NEUROLOGIC: Cranial nerves II-XII intact without motor/sensory deficit. Psych: normal affect Vital Signs: Vital Signs: Last Vital Signs Temp 99 F 11/21/24 12:10 Pulse 81 11/21/24 12:10 Resp 12 11/21/24 12:10 BP 178/82 H 11/21/24 12:10 Pulse Ox 98 11/21/24 12:10 O2 Del Method Room Air 11/21/24 12:10 BMI result Body Mass Index 27.9 Results Labs 11/21/24 06:54 11/21/24 06:54 Labs: Short CBC 11/20/24 11/21/24 Range/Units 21:21 06:54 WBC 15.9 H 13.0 H (4.8-10.8) X10*3/uL Hgb 13.8 L 13.2 L (14.0-18.0) g/dl Hct 37.7 L 37.2 L (42.0-52.0) % Plt Count 230 170 D (160-400) X10*3/uL BMP 11/20/24 11/21/24 21:21 06:54 Sodium 137 137 Potassium 3.5 4.1 Chloride 100 104 Carbon Dioxide 24 24 BUN 17 H 15 Creatinine 1.10 0.82 Calcium 9.7 8.6 D Liver Function 11/20/24 11/21/24 Range/Units 21:21 06:54 Total Bilirubin 2.1 H 1.9 H (0.0-1.0) mg/dL Direct Bilirubin 1.1 H (0.0-0.5) mg/dL AST 240 H 133 H (5-37) U/L ALT 152 H 160 H (0-40) U/L Alkaline Phosphatase 115 110 (39-117) U/L Albumin 4.9 4.3 (3.5-5.0) g/dL Imaging CT scan - abdomen: Attestation: I personally reviewed and interpreted this imaging study as follows: (fluid around pancreas, edema, cholelithiasis ) Assessment and Plan (1) Acute pancreatitis: Qualifiers: Pancreatitis type: biliary Acute pancreatitis complication: unspecified Qualified Code(s): K85.10 - Biliary acute pancreatitis without necrosis or infection Status: Acute Plan 1/ Acute interstitial pancreatitis, likely gallstone related, sounds like he has also been symptomatic from gallstones. LFt elevation may be due to passage of stones, trending down so far PLAN: /1 - cont with fluids, analgesia, PO diet as tolerated 2/ surgical consult 3/ if LFT trending up or pain worsens then MRI--(will need sedation due to claustrophobia) 4/ advised on alcohol moderation Procedures Date of Service Date of Service: 11/21/24
--- NOTE | 2024-11-21 13:08 | MHC.CM.PN ---
Pt. lives with his , PCP confirmed: Rodrigue Gardner, HCP is his [facility], copy requested. Pt. does not use home health services or DME. He can arrange a ride home at [place], DCP: home, self care, CM to follow for DC needs.
--- NOTE | 2024-11-21 14:46 | PC.NURSE ---
Patient tremulous and vomiting, medicated per mar, remains tremulous. Message sent to hospital who stated will order phenobarb
--- NOTE | 2024-11-21 14:49 | PC.NURSE ---
assumed care while primary care was on break, patient noted to be violently vomiting in room. patient noted to be tremulous, anxious, CIWA scored 17. patient medicated per MAR with prn valium. patient is alert and oriented x4, denies any hx of alcohol wd prior to hospitalization.
[2024-11-21] MEDS: Lactated Ringers 1,000 ML 125 ML IVCONT ×2 (16:42)
[2024-11-21] MEDS: PHENobarbitaL sodium 130 MG/ML IM ONCE 310 MG IM (16:53)
--- NOTE | 2024-11-21 17:10 | PC.NURSE ---
Pt has mild headache and nausea (had zofran at 1330). CIWA score is only 3. No other withdrawal sx today except vomiting earlier. Phenobarb given IM after clarifying physician order.
--- NOTE | 2024-11-21 18:36 | PC.NURSE ---
Pt admitted for pancreatitis and ETOH withdrawal. A&Ox4, independent to toilet. Pt c/o abdominal pain, devon after palpation. He has been resting quietly, mild nausea, vomitingx1. Has not scored above 3 on CIWA. IM phenobarb protocol initiated.
[2024-11-21] MEDS: PHENobarbitaL sodium 130 MG/ML VIAL IM Q3Hx2 233 MG IM ×2 (19:39→23:19)
[2024-11-21] MEDS: 0.9 % Sodium Chloride Flush 3 ML SYRINGE IVFLUSH (23:20)
[2024-11-22] VITALS (8 sets, daily range): BP systolic 153–182; BP diastolic 71–85; PULSE 72–88; RESP 14–20; TEMP 36.2–36.8; O2SAT 93–99; BMI 43.9
[2024-11-22] MEDS: Lactated Ringers 1,000 ML 125 ML IVCONT ×3 (02:04→17:56)
--- NOTE | 2024-11-22 07:28 | P.PNIM_ITS ---
Subjective Subjective Date of Service: 11/22/24 Interval History: Patient appeared rather irritable, appears to be noncompliant with care-tele, having poor p.o. intake Initiated diet We will continue phenobarb protocol Initiated home meds if patient is able to tolerate p.o., we will likely be discharged tomorrow Physical Exam 2 Exam: Exam: General: AOx3, no acute distress Resp: CTA bilaterally CVS: S1, S2, RRR GI: +BS, NT, no distention Skin: Warm, dry Neuro: Cranial nerves II-XII grossly intact bilaterally. Motor grossly intact bilaterally Extremities: No edema Psych: Appropriate affect Vital Signs: Vital Signs: Last Vital Signs Temp 97.1 F 11/22/24 07:24 Pulse 76 11/22/24 07:24 Resp 14 11/22/24 07:24 BP 172/79 H 11/22/24 07:24 Pulse Ox 95 11/22/24 07:24 O2 Del Method Room Air 11/22/24 07:24 BMI result Body Mass Index 28.0 Objective Data Active Medications Acetaminophen (Acetaminophen 325 Mg Tablet) 650 mg PO Q6H PRN PRN Reason: Pain, Mild 1-3,fever,headache Last Admin: 11/21/24 18:43 Dose: 650 mg Documented By: CHANTELL Albuterol/Ipratropium (Albuterol/Iprat 2.5/0.5mg 3 Ml Ampul.Neb) 3 ml INHALE Q4H PRN PRN Reason: Shortness of Breath/Wheezing Calcium Carbonate (Calcium Carbonate 750 Mg Tab.Chew) 750 mg PO Q4H PRN PRN Reason: Heartburn Enoxaparin Sodium (Enoxaparin Sodium 40 Mg/0.4 Ml Syringe) 40 mg SUBCUT Q24H [facility] Last Admin: 11/21/24 23:20 Dose: 40 mg Documented By: ISELA Hydromorphone HCl (Hydromorphone Hcl 1 Mg/Ml Syringe) 1 mg IVPUSH Q4H PRN; Protocol PRN Reason: Pain, Severe (Pain Scale 7-10) Last Admin: 11/22/24 06:43 Dose: 1 mg Documented By: ISELA Lactated Ringer's (Lr) 1,000 mls @ 125 mls/hr IVCONT .Q8H [facility] Last Admin: 11/22/24 02:04 Dose: 125 mls/hr Documented By: ISELA Piperacillin Sod/Tazobactam (Sod 4.5 gm/ Sodium Chloride) 100 mls @ 200 mls/hr IV Q6H [facility] Last Admin: 11/22/24 06:19 Dose: 200 mls/hr Documented By: ISELA Thiamine HCl 100 mg/ Sodium (Chloride) 101 mls @ 202 mls/hr IV DAILY [facility] Last Infusion: 11/21/24 09:42 Dose: Infused Documented By: GISELL Folic Acid 1 mg/ Sodium (Chloride) 50.2 mls @ 100.4 mls/hr IV DAILY [facility] Last Infusion: 11/21/24 09:42 Dose: Infused Documented By: GISELL Magnesium Hydroxide (Milk Of Magnesia 30 Ml Oral.Susp) 30 ml PO DAILY PRN PRN Reason: Constipation Melatonin (Melatonin 3 Mg Tablet) 6 mg PO BEDTIME PRN PRN Reason: Insomnia Ondansetron HCl (Ondansetron Hcl 4 Mg/2 Ml Vial) 4 mg IVPUSH Q8H PRN PRN Reason: Nausea and Vomiting Last Admin: 11/22/24 02:03 Dose: 4 mg Documented By: ISLEA Pharmacy Consult (Consult Rx Etoh Phenob Im/Po) 1 each MISCELLANE ONCE PRN; Protocol PRN Reason: Consult order Phenobarbital (Phenobarbital 30 Mg Tablet) 60 mg PO BID [facility] Stop: 11/23/24 21:01 Phenobarbital (Phenobarbital 30 Mg Tablet) 30 mg PO BID [facility] Stop: 11/25/24 21:01 Phenobarbital (Phenobarbital 30 Mg Tablet) 30 mg PO DAILY [facility] Stop: 11/27/24 09:01 Polyethylene Glycol (Polyethylene Glycol 3350 17 Gm Powd.Pack) 17 gm PO DAILY PRN PRN Reason: Constipation Sodium Chloride (0.9 % Sodium Chloride Flush 3 Ml Syringe) 3 ml IVFLUSH QSHIFT [facility] Last Admin: 11/21/24 23:20 Dose: 3 ml Documented By: ISELA Labs 11/22/24 06:32 11/22/24 06:32 Labs: Laboratory Results - last 24 hr 11/21/24 06:54 Immature Gran % (Auto) 0.6 H Neut % (Auto) 90.1 H Lymph % (Auto) 4.8 L [place] % (Auto) 4.4 Eos % (Auto) 0.0 Baso % (Auto) 0.1 Lymph # (Auto) 0.6 L [place] # (Auto) 0.6 Eos # (Auto) 0.0 Baso # (Auto) 0.0 Abs Immat Gran (auto) 0.08 H Absolute Neuts (auto) 11.7 H Absolute Nucleated RBC 0.000 Nucleated RBC % (auto) 0.0 Smear Tech's Comments VERIFIED Anion Gap 13 Estim Creat Clear Calc 105.1 Estimated GFR > 60 Random Glucose 121 H Calcium 8.6 D Magnesium 1.9 Total Bilirubin 1.9 H AST 133 H ALT 160 H Alkaline Phosphatase 110 Total Protein 6.8 Albumin 4.3 Lipase 1044 H Microbiology Microbiology Results: Microbiology 11/20/24 23:57 Blood Culture - Preliminary Blood - Venous No growth after 24 hours. 11/20/24 23:56 Blood Culture - Preliminary Blood - Venous No growth after 24 hours. Assessment and Plan (1) Alcohol use disorder: Status: Acute Plan hypertension, hyperlipidemia, gout, diverticulosis, acute pancreatitis 2022, cholelithiasis, chronic cervical and lumbar spine degeneration with past cervical fusion and lumbar fusion, chronic neuropathy, sciatica presented to the ED with [place] onset radiating abd epigastric pain was found to have acute pancreatitis 2/2 cholelithiasis and AUD Epigastric pain 2/2 choledocholithiasis + AUD resolving with pain meds Up trending leukocytosis unclear etiology-likely reactive as he is hemodynamically stable, quite irritable and otherwise clinically improving Given up trending leukocytosis without obvious etiology, given risk of sepsis, we will continue Zosyn for today, based on clinical status and lab workup, we will DC or deescalate antibiotics Optimizing pain control patient requiring IV pain meds Initiating diet No indication for acute GI intervention or surgical intervention Outpatient surgical follow-up for choledocholithiasis Cont zosyn 2/2 oncern for gallstone peripancreatic abscess- will deescalate based on response AUD Continue to escalae to phenobarb 2/2 poor response to Valium Addiction med consult .dvt px with lovenox This note is constructed using voice recognition software. While every effort has been made to ensure accuracy, biological science aide errors may have been included. Given up trending leukocytosis, and high-risk of decompensation and hemodynamic instability , he will need at least 1-2 more day of hospitalization, close monitoring of lab workup and vitals necessitating ongoing hospitalization Quality Stroke Does the patient have a stroke diagnosis?: No Reason for No Anti-thrombotic by Day Two: N/A - Med Ordered VTE Prior VTE?: No VTE Risk Level:: Medical - moderate - high VTE Device Contraindication: N/A - Device Ordered VTE Drug Contraindication: N/A - Med Ordered
[2024-11-22 07:30] LABS: Hematocrit 34.9 % (42.0-52.0); Hemoglobin 12.9 g/dl (14.0-18.0); Imm Gran Abs Auto 0.19 X10*3/uL (0.00-0.03); Imm Gran Pct Auto 0.9 % (0.0-0.4); Lymphocytes Absolute Auto 0.6 X10*3/uL (1.2-4.9); MANUAL DIFF FLAG SCAN; Mean Corpuscular HGB Conc 37.0 g/dl (31.0-36.0); Mean Corpuscular Hemoglobin 32.4 pg (27.0-33.0); Mean Corpuscular Volume 87.7 fL (80.0-98.0); NRBC Abs Auto 0.000 X10*3/uL (0.0-0.012); NRBC Pct Auto 0.0 /100WBC (0.0-0.2); PLT CLUMP 1; Red Blood Count 3.98 X10*6/uL (4.60-5.80); SCAN SMEAR FLAG 1
[2024-11-22 07:31] LABS: White Blood Count 21.0 X10*3/uL (4.8-10.8)
[2024-11-22 07:43] LABS: Alanine Aminotransferase 89 U/L (0-40); Albumin Level 4.1 g/dL (3.5-5.0); Alkaline Phosphatase 84 U/L (39-117); Anion Gap 14 (12-20); Aspartate Amino Transferase 60 U/L (5-37); Blood Urea Nitrogen 16 mg/dL (9-16); Calcium 8.8 mg/dL (8.4-10.2); Carbon Dioxide 25 mmol/L (22-29); Chloride 103 mmol/L (96-108); Creatinine Clr Calc Pharmacy 123.4; Estimated Glomerular Filt Rate > 60; Magnesium 1.9 mg/dL (1.6-2.6); Potassium 4.1 mmol/L (3.3-5.1); Sodium 138 mmol/L (135-145); Total Protein 6.5 g/dL (6.5-8.0)
[2024-11-22 08:01] LABS: Platelet Count 145 X10*3/uL (160-400)
[2024-11-22] MEDS: Thiamine HCL 100 MG in 0.9 % Sodium Chloride 100 ML 202 MG IV (09:20)
[2024-11-22] MEDS: 0.9 % Sodium Chloride Flush 3 ML SYRINGE IVFLUSH ×2 (09:22→22:50)
--- NOTE | 2024-11-22 14:04 | MHC.RECOVRN ---
Attempted to meet with pt in [id number] following a consult to Addcition Medicine for AUD Intention was to discuss alcohol use and recovery/support options. On approach pt was laying in bed eyes closed, in no apparent distress. Pt denies w/d symptoms. He is guarded with poor eye contact and states, So why are you here? Because I drink? Everyone drinks. It's not a problem Pt declines intervention, JOHN, or appt for tx related to AUD at this time but was agreeable to having resource & education information left at bedside/ TW available as needed
--- NOTE | 2024-11-22 16:55 | PM.EVENT ---
Event Note Date of Service: 11/22/24 Event Note: Addiction consult placed for patient admitted with pancreatitis and concern for AUD Chart reviewed and patient seen by filter pulp washer Phenobarbital taper in place, scoring very low on CIWA Declining consult with ACS, but agreeable to have resources left at bedside. No further intervention at this time Time Spent With Patient Time: Total time managing care of this patient today ____ minutes.
[2024-11-23] VITALS (8 sets, daily range): BP systolic 161–176; BP diastolic 70–78; PULSE 81–87; RESP 16–20; TEMP 36.7–37.3; O2SAT 93–96
[2024-11-23 06:53] LABS: MANUAL DIFF FLAG NO
[2024-11-23 07:10] LABS: Hematocrit 31.8 % (42.0-52.0); Hemoglobin 11.2 g/dl (14.0-18.0); Imm Gran Abs Auto 0.17 X10*3/uL (0.00-0.03); Imm Gran Pct Auto 1.0 % (0.0-0.4); Lymphocytes Absolute Auto 0.7 X10*3/uL (1.2-4.9); Mean Corpuscular HGB Conc 35.2 g/dl (31.0-36.0); Mean Corpuscular Hemoglobin 32.1 pg (27.0-33.0); Mean Corpuscular Volume 91.1 fL (80.0-98.0); NRBC Abs Auto 0.000 X10*3/uL (0.0-0.012); NRBC Pct Auto 0.0 /100WBC (0.0-0.2); Platelet Count 135 X10*3/uL (160-400); Red Blood Count 3.49 X10*6/uL (4.60-5.80); White Blood Count 17.8 X10*3/uL (4.8-10.8)
[2024-11-23 07:18] LABS: Alanine Aminotransferase 53 U/L (0-40); Albumin Level 3.8 g/dL (3.5-5.0); Alkaline Phosphatase 65 U/L (39-117); Aspartate Amino Transferase 41 U/L (5-37); Blood Urea Nitrogen 14 mg/dL (9-16); Calcium 8.5 mg/dL (8.4-10.2); Carbon Dioxide 26 mmol/L (22-29); Chloride 100 mmol/L (96-108); Creatinine Clr Calc Pharmacy 174.4; Estimated Glomerular Filt Rate > 60; Sodium 135 mmol/L (135-145); Total Protein 6.1 g/dL (6.5-8.0)
--- NOTE | 2024-11-23 07:18 | HO.PM.IMPN ---
Subjective Subjective Date of Service: 11/23/24 Interval History: patient was initially deemed to be a very difficult historian, and care has been challenging thus far, We were slightly confused given up trending leukocytosis, patient appears not to be compliant with neuro checks, tele, abdominal exam, very dismissive and rude to the staff Hence we have resorted to repeating a CT abdomen pelvis with contrast to rule out any peripancreatic abscess as abdomen appears to be benign This revealed : Acute interstitial erythematosus pancreatitis with moderate amount of ascites trace peripancreatic fluid edema. Regional ileus. Overall worsening since prior exam. No main splenic vein thrombosis. No main splenic artery pseudoaneurysm. Bilateral small volume pleural effusions and compression atelectasis, new. Hepatomegaly, mild and steatosis.Cholelithiasis. Diverticular disease, left hemicolon.. Surgery consulted awaiting to rule out any ileus/SBO Interestingly, he continues to be hypERtensive which could be secondary to the pain versus sepsis Patient was very angry that he is not being discharged Review of Systems Review of Systems: Yes all other systems are reviewed and are negative and Other (Patient's baseline behavioral issues) Physical Exam Exam: Exam: General: AOx3, rather dismissive and uninterested Resp: CTA bilaterally CVS: S1, S2, RRR GI: bs +, sluggish, no epigastric tenderness, benign exam overall Skin: Warm, dry Neuro: Cranial nerves II-XII grossly intact bilaterally. Motor grossly intact bilaterally Extremities: No edema Psych: Appropriate affect Vital Signs: Vital Signs: Last Vital Signs Temp 98.1 F 11/23/24 03:13 Pulse 81 11/23/24 03:13 Resp 20 11/23/24 03:13 BP 176/77 H 11/23/24 03:13 Pulse Ox 95 11/23/24 03:13 O2 Del Method Room Air 11/23/24 03:13 BMI result Body Mass Index 43.9 Objective Data Active Medications Acetaminophen (Acetaminophen 325 Mg Tablet) 650 mg PO Q6H PRN PRN Reason: Pain, Mild 1-3,fever,headache Last Admin: 11/21/24 18:43 Dose: 650 mg Documented By: CHANTELL Albuterol/Ipratropium (Albuterol/Iprat 2.5/0.5mg 3 Ml Ampul.Neb) 3 ml INHALE Q4H PRN PRN Reason: Shortness of Breath/Wheezing Amlodipine Besylate (Amlodipine Besylate 5 Mg Tablet) 5 mg PO DAILY [facility]; Protocol Last Admin: 11/22/24 16:48 Dose: 5 mg Documented By: JOSEPH Atorvastatin Calcium (Atorvastatin Calcium 40 Mg Tablet) 40 mg PO DAILY [facility] Calcium Carbonate (Calcium Carbonate 750 Mg Tab.Chew) 750 mg PO Q4H PRN PRN Reason: Heartburn Enoxaparin Sodium (Enoxaparin Sodium 40 Mg/0.4 Ml Syringe) 40 mg SUBCUT Q24H [facility] Last Admin: 11/22/24 22:49 Dose: 40 mg Documented By: ISELA Gabapentin (Gabapentin 400 Mg Capsule) 800 mg PO BID [facility] Last Admin: 11/22/24 22:49 Dose: 800 mg Documented By: ISELA Hydrochlorothiazide (Hydrochlorothiazide 12.5 Mg Tablet) 12.5 mg PO DAILY [facility] Hydromorphone HCl (Hydromorphone Hcl 1 Mg/Ml Syringe) 1 mg IVPUSH Q4H PRN; Protocol PRN Reason: Pain, Severe (Pain Scale 7-10) Last Admin: 11/23/24 05:05 Dose: 1 mg Documented By: ISELA Piperacillin Sod/Tazobactam (Sod 4.5 gm/ Sodium Chloride) 100 mls @ 200 mls/hr IV Q6H [facility] Last Infusion: 11/23/24 05:45 Dose: Infused Documented By: ISELA Thiamine HCl 100 mg/ Sodium (Chloride) 101 mls @ 202 mls/hr IV DAILY [facility] Last Infusion: 11/22/24 09:50 Dose: Infused Documented By: JOSEPH Folic Acid 1 mg/ Sodium (Chloride) 50.2 mls @ 100.4 mls/hr IV DAILY [facility] Last Infusion: 11/22/24 10:55 Dose: Infused Documented By: JOSEPH Lisinopril (Lisinopril 20 Mg Tablet) 20 mg PO DAILY [facility] Magnesium Hydroxide (Milk Of Magnesia 30 Ml Oral.Susp) 30 ml PO DAILY PRN PRN Reason: Constipation Melatonin (Melatonin 3 Mg Tablet) 6 mg PO BEDTIME PRN PRN Reason: Insomnia Ondansetron HCl (Ondansetron Hcl 4 Mg/2 Ml Vial) 4 mg IVPUSH Q8H PRN PRN Reason: Nausea and Vomiting Last Admin: 11/23/24 05:11 Dose: 4 mg Documented By: ISELA Pharmacy Consult (Consult Rx Etoh Phenob Im/Po) 1 each MISCELLANE ONCE PRN; Protocol PRN Reason: Consult order Phenobarbital (Phenobarbital 30 Mg Tablet) 60 mg PO BID [facility] Stop: 11/23/24 21:01 Last Admin: 11/22/24 22:49 Dose: 60 mg Documented By: ISELA Phenobarbital (Phenobarbital 30 Mg Tablet) 30 mg PO BID [facility] Stop: 11/25/24 21:01 Phenobarbital (Phenobarbital 30 Mg Tablet) 30 mg PO DAILY [facility] Stop: 11/27/24 09:01 Polyethylene Glycol (Polyethylene Glycol 3350 17 Gm Powd.Pack) 17 gm PO DAILY PRN PRN Reason: Constipation Sodium Chloride (0.9 % Sodium Chloride Flush 3 Ml Syringe) 3 ml IVFLUSH QSHIFT [facility] Last Admin: 11/22/24 22:50 Dose: 3 ml Documented By: ISELA Labs 11/23/24 06:23 11/23/24 06:23 Labs: Laboratory Results - last 24 hr 11/22/24 11/23/24 06:32 06:23 MCV 87.7 91.1 MCH 32.4 32.1 MCHC 37.0 H 35.2 RDW 12.3 12.2 Plt Count 145 L 135 L MPV 10.8 10.3 Immature Gran % (Auto) 0.9 H 1.0 H Neut % (Auto) 91.7 H 89.4 H Lymph % (Auto) 2.8 L 3.8 L [place] % (Auto) 4.5 5.6 Eos % (Auto) 0.0 0.0 Baso % (Auto) 0.1 0.2 Lymph # (Auto) 0.6 L 0.7 L [place] # (Auto) 0.9 1.0 Eos # (Auto) 0.0 0.0 Baso # (Auto) 0.0 0.0 Abs Immat Gran (auto) 0.19 H 0.17 H Absolute Neuts (auto) 19.2 H 15.9 H Absolute Nucleated RBC 0.000 0.000 Nucleated RBC % (auto) 0.0 0.0 Smear Tech's Comments VERIFIED Anion Gap 14 Estim Creat Clear Calc 123.4 174.4 Estimated GFR > 60 > 60 Random Glucose 107 91 Calcium 8.8 8.5 Magnesium 1.9 Total Bilirubin 1.6 H 1.3 H AST 60 H 41 H ALT 89 H 53 H Alkaline Phosphatase 84 65 Total Protein 6.5 6.1 L Albumin 4.1 3.8 Microbiology Microbiology Results: Microbiology 11/20/24 23:57 Blood Culture - Preliminary Blood - Venous No growth after 48 hours. 11/20/24 23:56 Blood Culture - Preliminary Blood - Venous No growth after 48 hours. Assessment and Plan (1) Acute pancreatitis: Status: Acute Plan hypertension, hyperlipidemia, gout, diverticulosis, acute pancreatitis 2022, cholelithiasis, chronic cervical and lumbar spine degeneration with past cervical fusion and lumbar fusion, chronic neuropathy, sciatica presented to the ED with [place] onset radiating abd epigastric pain was found to have acute pancreatitis 2/2 gall stones and AUD Epigastric pain 2/2 choledocholithiasis + AUD resolved with pain meds Up trending leukocytosis unclear etiology-likely reactive as he is hemodynamically stable, quite irritable and otherwise clinically improving We were concerned about peripancreatic abscess given his up trending leukocytosis, however benign exam, bowel movement was last night on 11/22/2024, bowel sounds although sluggish are present, denies any obstipation or constipation. However patient's care has been quite challenging as he is noncompliant with meds denies bowel meds and medication quite irritable and occasionally threatening to rip off his lines and leave AMA if not discharged Patient is relatively pain-free After careful consideration I have repeated a CT abdomen pelvis with contrast which revealed worsening ileus, acute interstitial erythematosus pancreatitis with moderate amount of ascites, trace peripancreatic fluid edema, possible left hemicolon diverticular disease, mild hepatomegaly, cholelithiasis without cholecystitis, Patient deemed appropriate for transitioning to p.o. antibiotics at this stage -Augmentin for 5 more days Surgery consulted for ileus, left hemicolon diverticular disease Patient only tolerating liquid diet hence we will need to challenge him with solid diet prior to discharge Optimizing pain control patient requiring IV pain meds No indication for acute GI intervention or surgical intervention Outpatient surgical follow-up for cholelithiasis Constipation, noncompliant with bowel meds, reports last bowel movement on 11/22/2024- requested that it be documented. Patient refusing bowel meds. Exam conducted in the presence of bedside RN in the evening of 11/23/2024 and continues to be benign, without evidence of epigastric tenderness or any abdominal tenderness Surgery consulted awaiting to rule out any ileus/SBO Interestingly, he continues to be hypERtensive which could be secondary to the pain versus sepsis CTA/P done on 11/23/2024 - small volume pleural effusions compression atelectasis Encouraged the patient to use Acapella valve incentive spirometer and nebulizing treatments Lungs appear clear and not hypoxic on room air hence reassuring-and p.o. antibiotics Patient was very angry that he is not being discharged However appears to be very deconditioned and uninterested name and walking in the room Throughout this hospitalization he has remained bedbound, which I initially attributed to his personality and not being interested However I have requested a PT consult to ensure safe discharge planning AUD Continue phenobarb-last day of protocol is tomorrow Addiction med consult patient deferred, not interested in participating .dvt px with lovenox This note is constructed using voice recognition software. 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 Given up trending leukocytosis, and high-risk of decompensation and hemodynamic instability , he will need at least 1-2 more day of hospitalization, close monitoring of lab workup and vitals necessitating ongoing hospitalization Quality Stroke Does the patient have a stroke diagnosis?: No Reason for No Anti-thrombotic by Day Two: N/A - Med Ordered VTE Prior VTE?: No VTE Risk Level:: Medical - moderate - high VTE Device Contraindication: N/A - Device Ordered VTE Drug Contraindication: N/A - Med Ordered
[2024-11-23 07:24] LABS: Anion Gap 11 (12-20); Potassium 3.1 mmol/L (3.3-5.1)
[2024-11-23] MEDS: Potassium Chloride ER 20 MEQ TAB.ER.PRT 40 MEQ PO (08:02)
[2024-11-23] MEDS: Thiamine HCL 100 MG in 0.9 % Sodium Chloride 100 ML 202 MG IV (08:07)
--- NOTE | 2024-11-23 10:36 | MHC.CM.PN ---
PT MEDICALLY CLEARED FOR DC HOME SELF CARE, PT WILL CONTACT FAMILY FOR TRANSPORT
[2024-11-23] MEDS: iohexoL 350 MG/ML 100 ML INFUS..BTL IV (14:09)
[2024-11-23] MEDS: 0.9 % Sodium Chloride Flush 3 ML SYRINGE IVFLUSH ×2 (15:42→20:32)
--- NOTE | 2024-11-23 15:42 | P.CONGS_ITS ---
History of Present Illness Consult details Consult date: 11/24/24 Requesting physician: Abby Sam Narrative: The patient is a 64-year-old male with pancreatitis most likely alcohol related who comes in and is being treated for this. He is improving however CT scan of his abdomen and pelvis which was repeated shows worsening ileus pattern with more peripancreatic fluid. Patient denies any nausea vomiting denies any significant increase in abdominal pain. He is passing gas he says from below. [facility] Past Medical History Medical History Anxiety Diverticulosis Alcohol use disorder Cholelithiasis Neuropathy Degenerative joint disease of spine Gout Hyperlipidemia Hypertension Surgical History Surgical History S/P cervical spinal fusion History of lumbar fusion H/O spinal fusion Social History Social History (Updated 11/21/24 @ 00:25 by MARIANA Herrera) Household Members: Spouse and Children Housing: House Do you presently have visiting nurse or other home services: No Alcohol intake: current Alcohol intake frequency: a few times a week Comment: Patient drinks on Tuesday through Tuesday and refrain from using alcohol Patient Tobacco Use Status: Never used Tobacco e-Cigarette/Vaping Use: Never Used service: No Travel History Ebola Risk: Travel/Contact With Anyone From Affected Area/s: No Has Patient Experienced Ebola Symptoms: No Meds Allergies Allergy/AdvReac Type Severity Reaction Status Date / Time codeine (CODEINE) Allergy Unknown NAUSEA Verified 11/20/24 21:00 Codeine Sulfate Allergy Unknown Unknown Uncoded 11/20/24 21:00 Active Medications: Current Medications Acetaminophen (Acetaminophen 325 Mg Tablet) 650 mg PO Q6H PRN PRN Reason: Pain, Mild 1-3,fever,headache Last Admin: 11/21/24 18:43 Dose: 650 mg Albuterol/Ipratropium (Albuterol/Iprat 2.5/0.5mg 3 Ml Ampul.Neb) 3 ml INHALE Q4H PRN PRN Reason: Shortness of Breath/Wheezing Amlodipine Besylate (Amlodipine Besylate 5 Mg Tablet) 5 mg PO DAILY [facility]; Protocol Last Admin: 11/23/24 08:03 Dose: 5 mg Atorvastatin Calcium (Atorvastatin Calcium 40 Mg Tablet) 40 mg PO DAILY [facility] Last Admin: 11/23/24 08:03 Dose: 40 mg Calcium Carbonate (Calcium Carbonate 750 Mg Tab.Chew) 750 mg PO Q4H PRN PRN Reason: Heartburn Enoxaparin Sodium (Enoxaparin Sodium 40 Mg/0.4 Ml Syringe) 40 mg SUBCUT Q24H [facility] Last Admin: 11/22/24 22:49 Dose: 40 mg Gabapentin (Gabapentin 400 Mg Capsule) 800 mg PO TID [facility] Last Admin: 11/23/24 15:37 Dose: 800 mg Hydrochlorothiazide (Hydrochlorothiazide 12.5 Mg Tablet) 12.5 mg PO DAILY [facility] Last Admin: 11/23/24 08:02 Dose: 12.5 mg Thiamine HCl 100 mg/ Sodium (Chloride) 101 mls @ 202 mls/hr IV DAILY [facility] Last Infusion: 11/23/24 08:54 Dose: Infused Folic Acid 1 mg/ Sodium (Chloride) 50.2 mls @ 100.4 mls/hr IV DAILY [facility] Last Infusion: 11/23/24 11:40 Dose: Infused Piperacillin Sod/Tazobactam (Sod 3.375 gm/ Sodium Chloride) 50 mls @ 100 mls/hr IV Q6H [facility] Last Admin: 11/23/24 15:37 Dose: 100 mls/hr Lisinopril (Lisinopril 20 Mg Tablet) 20 mg PO DAILY [facility] Last Admin: 11/23/24 08:03 Dose: 20 mg Magnesium Hydroxide (Milk Of Magnesia 30 Ml Oral.Susp) 30 ml PO DAILY PRN PRN Reason: Constipation Melatonin (Melatonin 3 Mg Tablet) 6 mg PO BEDTIME PRN PRN Reason: Insomnia Ondansetron HCl (Ondansetron Hcl 4 Mg/2 Ml Vial) 4 mg IVPUSH Q8H PRN PRN Reason: Nausea and Vomiting Last Admin: 11/23/24 05:11 Dose: 4 mg Pharmacy Consult (Consult Rx Etoh Phenob Im/Po) 1 each MISCELLANE ONCE PRN; Protocol PRN Reason: Consult order Phenobarbital (Phenobarbital 30 Mg Tablet) 60 mg PO BID [facility] Stop: 11/23/24 21:01 Last Admin: 11/23/24 08:03 Dose: 60 mg Phenobarbital (Phenobarbital 30 Mg Tablet) 30 mg PO BID [facility] Stop: 11/25/24 21:01 Phenobarbital (Phenobarbital 30 Mg Tablet) 30 mg PO DAILY [facility] Stop: 11/27/24 09:01 Polyethylene Glycol (Polyethylene Glycol 3350 17 Gm Powd.Pack) 17 gm PO DAILY PRN PRN Reason: Constipation Sodium Chloride (0.9 % Sodium Chloride Flush 3 Ml Syringe) 3 ml IVFLUSH QSHIFT [facility] Last Admin: 11/23/24 08:25 Dose: Not Given Home Medications ?Medication ?Instructions ?Recorded ?Confirmed ?Last Taken ?Type amlodipine 5 mg tablet 5 mg PO DAILY 09/12/2211/2111/20/24 History atorvastatin 40 mg tablet 40 mg PO DAILY 09/12/2203/1711/20/24 History cholecalciferol (vitamin D3) 25 25 mcg PO DAILY 11/21/24 11/20/24 History mcg (1,000 unit) tablet ibuprofen 800 mg tablet 800 mg PO DAILY PRN Pain 11/21/24 11/20/24 History lisinopril 20 1 tab PO DAILY 09/12/2203/1711/20/24 History mg-hydrochlorothiazide 12.5 mg tablet gabapentin 800 mg tablet 800 mg PO BID 11/21/2411/2111/20/24 History Physical Exam 2 Vital Signs: Vital Signs: Last Vital Signs Temp 98.8 F 11/23/24 11:21 Pulse 81 11/23/24 11:21 Resp 18 11/23/24 11:21 BP 169/78 H 11/23/24 11:21 Pulse Ox 93 11/23/24 11:21 O2 Del Method Room Air 11/23/24 11:21 BMI result Body Mass Index 43.9 Const: General: cooperative, healthy appearing, comfortable and no acute distress GI: Other: Abdomen is soft nondistended nontender to deep palpation other than some mild tenderness in the epigastric area. No guarding no rebound no peritoneal signs active bowel sounds. Results Labs 11/23/24 06:23 11/23/24 06:23 Labs: Abnormal lab results 11/23/24 Range/Units 06:23 WBC 17.8 H (4.8-10.8) X10*3/uL RBC 3.49 L (4.60-5.80) X10*6/uL Hgb 11.2 L (14.0-18.0) g/dl Hct 31.8 L (42.0-52.0) % Plt Count 135 L (160-400) X10*3/uL Immature Gran % (Auto) 1.0 H (0.0-0.4) % Neut % (Auto) 89.4 H (45-73) % Lymph % (Auto) 3.8 L (20-40) % Lymph # (Auto) 0.7 L (1.2-4.9) X10*3/uL Abs Immat Gran (auto) 0.17 H (0.00-0.03) X10*3/uL Absolute Neuts (auto) 15.9 H (2.0-8.3) x10*3/uL Potassium 3.1 L D (3.3-5.1) mmol/L Anion Gap 11 L (12-20) Total Bilirubin 1.3 H (0.0-1.0) mg/dL AST 41 H (5-37) U/L ALT 53 H (0-40) U/L Total Protein 6.1 L (6.5-8.0) g/dL Short CBC 11/23/24 Range/Units 06:23 WBC 17.8 H (4.8-10.8) X10*3/uL Hgb 11.2 L (14.0-18.0) g/dl Hct 31.8 L (42.0-52.0) % Plt Count 135 L (160-400) X10*3/uL BMP 11/23/24 06:23 Sodium 135 Potassium 3.1 L D Chloride 100 Carbon Dioxide 26 BUN 14 Creatinine 0.62 Calcium 8.5 Liver Function 11/23/24 Range/Units 06:23 Total Bilirubin 1.3 H (0.0-1.0) mg/dL AST 41 H (5-37) U/L ALT 53 H (0-40) U/L Alkaline Phosphatase 65 (39-117) U/L Albumin 3.8 (3.5-5.0) g/dL All other labs normal. Imaging Abdomen CT scan report/results: report reviewed and image reviewed CT scan - pelvis: report reviewed and image reviewed Additional studies: Patient: Kevin Burrell MR#: [id number] : 1960 Acct:[id number] Age/Sex: 64 / M ADM Date: 11/20/24 Loc: .[facility] 462-[address]: Abby Sam MD Ordering Physician: Abby Sam MD Date of Service: 11/23/24 Procedure(s): CT abdomen pelvis w IV con Accession Number(s): [id number] cc: Abby Sam MD; Rodrigue Mcdonald MD~ Report Number: [id number]: Total DLP = 740.00 mGy-cm Reason for Exam: R/o shanna-pancreatic abscess EXAMINATION: CT ABDOMEN AND PELVIS WITH CONTRAST CLINICAL INFORMATION: Concerning peripancreatic abscess. COMPARISON: November 20, 2024 reporting acute pancreatitis. TECHNIQUE: Multidetector volumetric images were obtained from the superior aspect of the liver through the pubic symphysis following administration 85 mL of Omnipaque 350 intravenous contrast. Sagittal and coronal reformatted images were obtained on the technologist's workstation. Oral contrast: No This CT examination was performed using dose optimization techniques as appropriate, variously including the following: *Automated exposure control *Adjustment of mA and/or kV according to patient size (this includes techniques or standardized protocols for targeted exams where dose is matched to indication/reason for exam; i.e. extremities or head) *Use of iterative reconstruction technique DLP: 740 mGy centimeter. FINDINGS: LUNG BASES: Bilateral small pleural effusions and compression atelectasis. LIVER, GALLBLADDER, AND BILIARY TREE: Liver measures 17 cm with decreased enhancement pattern. No focal mass. Main portal veins and hepatic veins and intrahepatic portion of the IVC are patent. Cholelithiasis without pericholecystic fluid collection or gallbladder wall thickening. No intrahepatic or extrahepatic biliary ductal dilatation. PANCREAS: [There is peripancreatic edema pattern. No peripancreatic fluid collections. Enhancement of the pancreatic parenchyma no main pancreatic ductal dilatation. SPLEEN: 11 cm. No focal mass. ADRENAL GLANDS: No nodular lesions. KIDNEYS AND URETERS: No hydronephrosis. No gross nephrolithiasis. No enhancing lesion. Normal enhancement of the renal parenchyma. Bilateral perinephric edema pattern. Extrarenal pelvises, bilaterally. BLADDER: Fluid-filled. GASTROINTESTINAL TRACT: Moderate amount of ascites measuring 15 Hounsfield units, in the pelvic peritoneal cavity without peripheral enhancing fluid collections. Gas and fluid-filled prominent small bowel loops. No pneumatosis intestinalis. Collapsed appearance of the distal ileal loops. Intraluminal fluid in the right hemicolon. Collapsed appearance of the left hemicolon. Numerous diverticula, left hemicolon. No gross pneumoperitoneum. ABDOMINAL WALL: Small fat-containing umbilical hernia. LYMPH NODES: Prominent, less than 11 mm mesenteric and retroperitoneal lymph nodes, likely reactive. VASCULAR: Calcified plaques in the splenic artery without vascular irregularity to suggest pseudoaneurysm and or active leak. Main splenic vein is patent without gross intraluminal filling defects. Calcified plaques in the abdominal aorta wall and iliac arteries without aneurysm or dissection. Calcified plaques in the origin of the celiac trunk, SMA, main renal arteries, KARL. Calcified plaques in the aortic valve. PELVIC VISCERA: Not enlarged prostate gland. OSSEOUS STRUCTURES: Multilevel thoracolumbar spondylosis. Status post bilateral laminectomies and posterior fusion L4-5 with arthrodesis/intervertebral disc spacer placement. No lytic or blastic lesions. Mild degenerative changes in the coxofemoral joints. 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 Regional ileus. Overall worsening since prior exam. No main splenic vein thrombosis. No main splenic artery pseudoaneurysm. Bilateral small volume pleural effusions and compression atelectasis, new. Hepatomegaly, mild and steatosis. Cholelithiasis. Diverticular disease, left hemicolon.. Fleischner guidelines were followed. Electronically signed by: Joseph Chong MD 11/23/2024 02:28 PM EDT Dictated By: Joseph Sykes MD Signed By: <Electronically signed by Joseph Alvarez MD in OV> 11/23/24 1422 Assessment and Plan (1) Acute pancreatitis: Qualifiers: Pancreatitis type: biliary Acute pancreatitis complication: unspecified Qualified Code(s): K85.10 - Biliary acute pancreatitis without necrosis or infection Status: Acute Plan 64-year-old male admitted and being treated for acute pancreatitis most likely secondary to alcohol intake although he does have gallstones the evidence of choledocholithiasis. Ileus picture noted on CT scan imaging is appreciated however clinically the patient does not have any significant ileus pattern. His abdomen is very distended he has active bowel sounds he is nontender denies any nausea or vomiting is passing gas from below. At this point would just continue to treat the pancreatitis preliminarily and follow along with abdominal exams. Diet advancement should be aimed towards what he can tolerate from his pancreatitis perspective. White count elevation is probably secondary to his pancreatitis and not necessarily secondary to any bowel issue. We will follow along Procedures Date of Service Date of Service: 11/24/24
[2024-11-24] VITALS (7 sets, daily range): BP systolic 160–180; BP diastolic 62–83; PULSE 82–87; RESP 16–20; TEMP 36.1–36.8; O2SAT 93–96
--- NOTE | 2024-11-24 04:36 | PC.NURSE ---
Pt seen on bed alert and oriented, at bedside, calm and cooperative, [id number], pt c/o epig pain, scheduled meds given, pt refused bed alarm, seen ambulating and steady on his feet. Pt came to the RN station around 2300 and asked for additional pain med, Dr. Barfield was notified, Dilaudid 0.5 mg IV given, slept after.
[2024-11-24 07:07] LABS: MANUAL DIFF FLAG NO
--- NOTE | 2024-11-24 07:18 | P.PNIM_ITS ---
Subjective Subjective Date of Service: 11/24/24 Interval History: Patient reports having 2 bowel movements this morning Patient appears to say he will try solid food today Surgery saw the patient Conservative management to relief ileus right now Abdomen continues to remain soft which is reassuring Advised the patient to mobilize, PT, we will request rehab if PT recommends rehab Review of Systems Review of Systems: Yes all other systems are reviewed and are negative Physical Exam 2 Exam: Exam: General: AOx3, dismissive and uninterested Resp: CTA bilaterally CVS: S1, S2, RRR GI: bs +, sluggish, no epigastric tenderness, no signs of acute abdomen or worsening abdominal exam, benign exam overall reassuring, however he is unable to eat unclear etiology if it is secondary to personality versus unable to tolerate p.o. Skin: Warm, dry Neuro: Cranial nerves II-XII grossly intact bilaterally. Motor grossly intact bilaterally Extremities: No edema Psych: Dismissive and uninterested and flat affect Vital Signs: Vital Signs: Last Vital Signs Temp 98.2 F 11/24/24 03:51 Pulse 87 11/24/24 03:51 Resp 16 11/24/24 03:51 BP 164/80 H 11/24/24 03:51 Pulse Ox 94 11/24/24 03:51 O2 Del Method Room Air 11/24/24 03:51 BMI result Body Mass Index 43.9 Objective Data Active Medications Acetaminophen (Acetaminophen 325 Mg Tablet) 650 mg PO Q6H PRN PRN Reason: Pain, Mild 1-3,fever,headache Last Admin: 11/21/24 18:43 Dose: 650 mg Documented By: CHANTELL Albuterol/Ipratropium (Albuterol/Iprat 2.5/0.5mg 3 Ml Ampul.Neb) 3 ml INHALE Q4H PRN PRN Reason: Shortness of Breath/Wheezing Amlodipine Besylate (Amlodipine Besylate 5 Mg Tablet) 5 mg PO DAILY [facility]; Protocol Last Admin: 11/23/24 08:03 Dose: 5 mg Documented By: OZZY Amoxicillin/Clavulanate Potassium (Amoxicillin/Potassium Clav 875 Mg Tablet) 875 mg PO Q12H [facility] Last Admin: 11/23/24 20:31 Dose: 875 mg Documented By: CASTILDanny Atorvastatin Calcium (Atorvastatin Calcium 40 Mg Tablet) 40 mg PO DAILY [facility] Last Admin: 11/23/24 08:03 Dose: 40 mg Documented By: OZZY Calcium Carbonate (Calcium Carbonate 750 Mg Tab.Chew) 750 mg PO Q4H PRN PRN Reason: Heartburn Enoxaparin Sodium (Enoxaparin Sodium 40 Mg/0.4 Ml Syringe) 40 mg SUBCUT Q24H [facility] Last Admin: 11/23/24 22:32 Dose: 40 mg Documented By: CASTILDanny Gabapentin (Gabapentin 400 Mg Capsule) 800 mg PO TID [facility] Last Admin: 11/23/24 20:31 Dose: 800 mg Documented By: CASTILDanny Hydrochlorothiazide (Hydrochlorothiazide 12.5 Mg Tablet) 12.5 mg PO DAILY [facility] Last Admin: 11/23/24 08:02 Dose: 12.5 mg Documented By: OZZY Hydromorphone HCl (Hydromorphone Hcl 0.5 Mg/0.5 Ml Syringe) 0.5 mg IVPUSH Q3H PRN; Protocol PRN Reason: Pain, Severe (Pain Scale 7-10) Last Admin: 11/23/24 23:29 Dose: 0.5 mg Documented By: CHULA Thiamine HCl 100 mg/ Sodium (Chloride) 101 mls @ 202 mls/hr IV DAILY [facility] Last Infusion: 11/23/24 08:54 Dose: Infused Documented By: OZZY Folic Acid 1 mg/ Sodium (Chloride) 50.2 mls @ 100.4 mls/hr IV DAILY [facility] Last Infusion: 11/23/24 11:40 Dose: Infused Documented By: OZZY Lisinopril (Lisinopril 20 Mg Tablet) 20 mg PO DAILY [facility] Last Admin: 11/23/24 08:03 Dose: 20 mg Documented By: OZZY Magnesium Hydroxide (Milk Of Magnesia 30 Ml Oral.Susp) 30 ml PO DAILY PRN PRN Reason: Constipation Melatonin (Melatonin 3 Mg Tablet) 6 mg PO BEDTIME PRN PRN Reason: Insomnia Ondansetron HCl (Ondansetron Hcl 4 Mg/2 Ml Vial) 4 mg IVPUSH Q8H PRN PRN Reason: Nausea and Vomiting Last Admin: 11/23/24 05:11 Dose: 4 mg Documented By: ISELA Pharmacy Consult (Consult Rx Etoh Phenob Im/Po) 1 each MISCELLANE ONCE PRN; Protocol PRN Reason: Consult order Phenobarbital (Phenobarbital 30 Mg Tablet) 30 mg PO BID [facility] Stop: 11/25/24 21:01 Phenobarbital (Phenobarbital 30 Mg Tablet) 30 mg PO DAILY [facility] Stop: 11/27/24 09:01 Polyethylene Glycol (Polyethylene Glycol 3350 17 Gm Powd.Pack) 17 gm PO DAILY PRN PRN Reason: Constipation Sodium Chloride (0.9 % Sodium Chloride Flush 3 Ml Syringe) 3 ml IVFLUSH QSHIFT [facility] Last Admin: 11/23/24 20:32 Dose: 3 ml Documented By: CHULA Labs 11/24/24 06:21 11/24/24 06:21 Labs: Laboratory Results - last 24 hr 11/23/24 06:23 Anion Gap 11 L Estim Creat Clear Calc 174.4 Estimated GFR > 60 Random Glucose 91 Calcium 8.5 Total Bilirubin 1.3 H AST 41 H ALT 53 H Alkaline Phosphatase 65 Total Protein 6.1 L Albumin 3.8 Assessment and Plan (1) Acute pancreatitis: Status: Acute Plan hypertension, hyperlipidemia, gout, diverticulosis, acute pancreatitis 2022, cholelithiasis, chronic cervical and lumbar spine degeneration with past cervical fusion and lumbar fusion, chronic neuropathy, sciatica presented to the ED with [place] onset radiating abd epigastric pain was found to have acute pancreatitis 2/2 gall stones and AUD. Care challenging secondary to patient's personality. Epigastric pain 2/2 choledocholithiasis + AUD resolved with pain meds Leukocytosis slow to downtrend-hence we will continue p.o. antibiotics Conservative management for ileus (secondary to his baseline medical and physical comorbidities) Advised the patient that we on I had to encourage him to have an oral diet as his ileus is likely in the setting of deconditioning Peripancreatic abscess less likely given repeat imaging not suggestive of worsening abscess He does have some worsening ileus per imaging hence surgery consulted, repleting electrolytes to goal and getting him to use bowel meds (thus far has been challenging as he is refusing care) Left hemicolon diverticular disease-continue p.o. antibiotics Outpatient management for follow-up of cholelithiasis Constipation versus ileus Patient reports 2 bowel movements this a.m., advised and encouraged the patient to have bowel meds, diet, and mobilize. Exam conducted in the presence of bedside RN in the evening of 11/23/2024 and continues to be benign, without evidence of epigastric tenderness or any abdominal tenderness Surgery consulted awaiting to rule out any ileus/SBO Interestingly, he continues to be hypERtensive which could be secondary to the pain versus sepsis hence resumed home meds CTA/P done on 11/23/2024 - small volume pleural effusions compression atelectasis Encouraged the patient to use Acapella valve incentive spirometer and nebulizing treatments Lungs appear clear and not hypoxic on room air hence reassuring-and p.o. antibiotics However appears to be very deconditioned and uninterested name and walking in the room Throughout this hospitalization he has remained bedbound, which I initially attributed to his personality and not being interested However I have requested a PT consult to ensure safe discharge planning AUD- Completed phenobarb protocol as of 11/24/2024 Addiction med consult patient deferred, not interested in participating .dvt px with lovenox Given slow downtrending leukocytosis, and worsening ileus and high-risk of decompensation and hemodynamic instability , he will need at least 1-2 more day of hospitalization, close monitoring of lab workup and vitals necessitating ongoing hospitalization This note is constructed using voice recognition software. While every effort has been made to ensure accuracy, machine shorthand teacher errors may have been included. Quality Stroke Does the patient have a stroke diagnosis?: No Reason for No Anti-thrombotic by Day Two: N/A - Med Ordered VTE Prior VTE?: No VTE Risk Level:: Medical - moderate - high VTE Device Contraindication: N/A - Device Ordered VTE Drug Contraindication: N/A - Med Ordered
[2024-11-24 07:29] LABS: Hematocrit 31.7 % (42.0-52.0); Hemoglobin 11.8 g/dl (14.0-18.0); Imm Gran Abs Auto 0.21 X10*3/uL (0.00-0.03); Imm Gran Pct Auto 1.3 % (0.0-0.4); Lymphocytes Absolute Auto 0.7 X10*3/uL (1.2-4.9); Mean Corpuscular HGB Conc 37.2 g/dl (31.0-36.0); Mean Corpuscular Hemoglobin 32.7 pg (27.0-33.0); Mean Corpuscular Volume 87.8 fL (80.0-98.0); NRBC Abs Auto 0.000 X10*3/uL (0.0-0.012); NRBC Pct Auto 0.0 /100WBC (0.0-0.2); Platelet Count 147 X10*3/uL (160-400); Red Blood Count 3.61 X10*6/uL (4.60-5.80); White Blood Count 16.0 X10*3/uL (4.8-10.8)
[2024-11-24 07:47] LABS: Alanine Aminotransferase 44 U/L (0-40); Albumin Level 3.8 g/dL (3.5-5.0); Alkaline Phosphatase 96 U/L (39-117); Anion Gap 14 (12-20); Aspartate Amino Transferase 40 U/L (5-37); Blood Urea Nitrogen 9 mg/dL (9-16); Calcium 8.9 mg/dL (8.4-10.2); Carbon Dioxide 27 mmol/L (22-29); Chloride 96 mmol/L (96-108); Creatinine Clr Calc Pharmacy 166.4; Estimated Glomerular Filt Rate > 60; Potassium 3.2 mmol/L (3.3-5.1); Sodium 134 mmol/L (135-145); Total Protein 6.7 g/dL (6.5-8.0)
[2024-11-24] MEDS: Potassium Chloride ER 20 MEQ TAB.ER.PRT 40 MEQ PO (08:38)
[2024-11-24] MEDS: 0.9 % Sodium Chloride Flush 3 ML SYRINGE IVFLUSH ×2 (08:44→15:20)
[2024-11-24] MEDS: Thiamine HCL 100 MG in 0.9 % Sodium Chloride 100 ML 202 MG IV (09:22)
--- NOTE | 2024-11-24 17:53 | PM.PNGS ---
Subjective Subjective Date of Service: 11/24/24 Interval history: feeling better no nausea, less restless Physical Exam Vital Signs: Vital Signs: Last Vital Signs Temp 98.0 F 11/24/24 15:49 Pulse 86 11/24/24 15:49 Resp 18 11/24/24 15:49 BP 160/76 H 11/24/24 15:49 Pulse Ox 96 11/24/24 15:49 O2 Del Method Room Air 11/24/24 15:49 BMI result Body Mass Index 43.9 Const: General: cooperative, healthy appearing, comfortable and no acute distress GI: Other: abdmen is soft nontender and nondistended no guarding Objective Data Active Medications Acetaminophen (Acetaminophen 325 Mg Tablet) 650 mg PO Q6H PRN PRN Reason: Pain, Mild 1-3,fever,headache Last Admin: 11/21/24 18:43 Dose: 650 mg Documented By: CHANTELL Albuterol/Ipratropium (Albuterol/Iprat 2.5/0.5mg 3 Ml Ampul.Neb) 3 ml INHALE Q4H PRN PRN Reason: Shortness of Breath/Wheezing Amlodipine Besylate (Amlodipine Besylate 10 Mg Tablet) 10 mg PO DAILY [facility]; Protocol Amoxicillin/Clavulanate Potassium (Amoxicillin/Potassium Clav 875 Mg Tablet) 875 mg PO Q12H [facility] Last Admin: 11/24/24 08:38 Dose: 875 mg Documented By: FRANTZ Atorvastatin Calcium (Atorvastatin Calcium 40 Mg Tablet) 40 mg PO DAILY [facility] Last Admin: 11/24/24 08:38 Dose: 40 mg Documented By: FRANTZ Calcium Carbonate (Calcium Carbonate 750 Mg Tab.Chew) 750 mg PO Q4H PRN PRN Reason: Heartburn Enoxaparin Sodium (Enoxaparin Sodium 40 Mg/0.4 Ml Syringe) 40 mg SUBCUT Q24H [facility] Last Admin: 11/23/24 22:32 Dose: 40 mg Documented By: CHULA Gabapentin (Gabapentin 400 Mg Capsule) 800 mg PO TID [facility] Last Admin: 11/24/24 13:23 Dose: 800 mg Documented By: MAURA Hydralazine HCl (Hydralazine Hcl 20 Mg/Ml Vial) 5 mg IVPUSH Q6H PRN; Protocol PRN Reason: SBP > 160 Hydrochlorothiazide (Hydrochlorothiazide 25 Mg Tablet) 25 mg PO DAILY [facility] Last Admin: 11/24/24 13:23 Dose: 25 mg Documented By: MAURA Hydromorphone HCl (Hydromorphone Hcl 0.5 Mg/0.5 Ml Syringe) 0.5 mg IVPUSH Q3H PRN; Protocol PRN Reason: Pain, Severe (Pain Scale 7-10) Last Admin: 11/23/24 23:29 Dose: 0.5 mg Documented By: CHULA Thiamine HCl 100 mg/ Sodium (Chloride) 101 mls @ 202 mls/hr IV DAILY [facility] Last Infusion: 11/24/24 10:55 Dose: Infused Documented By: FRANTZ Folic Acid 1 mg/ Sodium (Chloride) 50.2 mls @ 100.4 mls/hr IV DAILY [facility] Last Infusion: 11/24/24 09:27 Dose: Infused Documented By: FRANTZ Lisinopril (Lisinopril 40 Mg Tablet) 40 mg PO DAILY [facility] Last Admin: 11/24/24 13:23 Dose: 40 mg Documented By: MAURA Magnesium Hydroxide (Milk Of Magnesia 30 Ml Oral.Susp) 30 ml PO DAILY PRN PRN Reason: Constipation Melatonin (Melatonin 3 Mg Tablet) 6 mg PO BEDTIME PRN PRN Reason: Insomnia Ondansetron HCl (Ondansetron Hcl 4 Mg/2 Ml Vial) 4 mg IVPUSH Q8H PRN PRN Reason: Nausea and Vomiting Last Admin: 11/23/24 05:11 Dose: 4 mg Documented By: ISELA Pharmacy Consult (Consult Rx Etoh Phenob Im/Po) 1 each MISCELLANE ONCE PRN; Protocol PRN Reason: Consult order Phenobarbital (Phenobarbital 30 Mg Tablet) 30 mg PO BID [facility] Stop: 11/25/24 21:01 Last Admin: 11/24/24 08:38 Dose: 30 mg Documented By: FRANTZ Phenobarbital (Phenobarbital 30 Mg Tablet) 30 mg PO DAILY [facility] Stop: 11/27/24 09:01 Polyethylene Glycol (Polyethylene Glycol 3350 17 Gm Powd.Pack) 17 gm PO DAILY PRN PRN Reason: Constipation Sodium Chloride (0.9 % Sodium Chloride Flush 3 Ml Syringe) [facility] Last Admin: 11/24/24 15:20 Dose: 3 ml Documented By: MAURA Labs 11/24/24 06:21 11/24/24 06:21 Labs: Laboratory Results - last 24 hr 11/24/24 06:21 MCV 87.8 MCH 32.7 MCHC 37.2 H RDW 11.9 Plt Count 147 L MPV 10.3 Immature Gran % (Auto) 1.3 H Neut % (Auto) 88.3 H Lymph % (Auto) 4.6 L [place] % (Auto) 5.6 Eos % (Auto) 0.1 Baso % (Auto) 0.1 Lymph # (Auto) 0.7 L [place] # (Auto) 0.9 Eos # (Auto) 0.0 Baso # (Auto) 0.0 Abs Immat Gran (auto) 0.21 H Absolute Neuts (auto) 14.1 H Absolute Nucleated RBC 0.000 Nucleated RBC % (auto) 0.0 Anion Gap 14 Estim Creat Clear Calc 166.4 Estimated GFR > 60 Random Glucose 85 Calcium 8.9 Total Bilirubin 1.0 AST 40 H ALT 44 H Alkaline Phosphatase 96 Total Protein 6.7 Albumin 3.8 Procedures Date of Service Date of Service: 11/24/24 Progress Note: A&P Assessment and plan (1) Acute pancreatitis: Status: Acute Plan 64 year old male with pancreatitis and ETOH issues but may also have some influence from cholelithiasis - plan to cont with ivf and increase diet - passing niecy and having bowel movments - clinically no evidence ofr ileus. Time Spent With Patient Time: Total time managing care of this patient today ____ minutes. Quality Stroke Does the patient have a stroke diagnosis?: No Reason for No Anti-thrombotic by Day Two: N/A - Med Ordered VTE Prior VTE?: No VTE Risk Level:: Medical - moderate - high VTE Device Contraindication: N/A - Device Ordered VTE Drug Contraindication: N/A - Med Ordered
[2024-11-25] VITALS: BP 160/80; PULSE 80; RESP 18; TEMP 37.1; O2SAT 95
[2024-11-25] MEDS: 0.9 % Sodium Chloride Flush 3 ML SYRINGE IVFLUSH ×2 (00:06→09:03)
[2024-11-25 04:00] VITALS: BP 170/70; PULSE 79; RESP 18; TEMP 37.3; O2SAT 96
[2024-11-25 07:15] LABS: MANUAL DIFF FLAG NO
[2024-11-25 07:16] VITALS: BP 172/80; PULSE 84; RESP 14; TEMP 36.6; O2SAT 97
--- NOTE | 2024-11-25 07:26 | HO.PM.IMPN ---
Subjective Subjective Date of Service: 11/25/24 Physical Exam Vital Signs: Vital Signs: Last Vital Signs Temp 97.8 F 11/25/24 07:16 Pulse 84 11/25/24 07:16 Resp 14 11/25/24 07:16 BP 172/80 H 11/25/24 07:16 Pulse Ox 97 11/25/24 07:16 O2 Del Method Room Air 11/25/24 07:16 BMI result Body Mass Index 43.9 Objective Data Active Medications Acetaminophen (Acetaminophen 325 Mg Tablet) 650 mg PO Q6H PRN PRN Reason: Pain, Mild 1-3,fever,headache Last Admin: 11/21/24 18:43 Dose: 650 mg Documented By: CHANTELL Albuterol/Ipratropium (Albuterol/Iprat 2.5/0.5mg 3 Ml Ampul.Neb) 3 ml INHALE Q4H PRN PRN Reason: Shortness of Breath/Wheezing Amlodipine Besylate (Amlodipine Besylate 10 Mg Tablet) 10 mg PO DAILY [facility]; Protocol Amoxicillin/Clavulanate Potassium (Amoxicillin/Potassium Clav 875 Mg Tablet) 875 mg PO Q12H [facility] Last Admin: 11/24/24 20:03 Dose: 875 mg Documented By: AIDA Atorvastatin Calcium (Atorvastatin Calcium 40 Mg Tablet) 40 mg PO DAILY [facility] Last Admin: 11/24/24 08:38 Dose: 40 mg Documented By: FRANTZ Calcium Carbonate (Calcium Carbonate 750 Mg Tab.Chew) 750 mg PO Q4H PRN PRN Reason: Heartburn Enoxaparin Sodium (Enoxaparin Sodium 40 Mg/0.4 Ml Syringe) 40 mg SUBCUT Q24H [facility] Last Admin: 11/25/24 00:05 Dose: 40 mg Documented By: AIDA Gabapentin (Gabapentin 400 Mg Capsule) 800 mg PO TID [facility] Last Admin: 11/24/24 20:03 Dose: 800 mg Documented By: AIDA Hydralazine HCl (Hydralazine Hcl 20 Mg/Ml Vial) 5 mg IVPUSH Q6H PRN; Protocol PRN Reason: SBP > 160 Last Admin: 11/24/24 20:03 Dose: 5 mg Documented By: AIDA Hydrochlorothiazide (Hydrochlorothiazide 25 Mg Tablet) 25 mg PO DAILY [facility] Last Admin: 11/24/24 13:23 Dose: 25 mg Documented By: MAURA Hydromorphone HCl (Hydromorphone Hcl 0.5 Mg/0.5 Ml Syringe) 0.5 mg IVPUSH Q3H PRN; Protocol PRN Reason: Pain, Severe (Pain Scale 7-10) Last Admin: 11/23/24 23:29 Dose: 0.5 mg Documented By: CHULA Thiamine HCl 100 mg/ Sodium (Chloride) 101 mls @ 202 mls/hr IV DAILY [facility] Last Infusion: 11/24/24 10:55 Dose: Infused Documented By: FRANTZ Folic Acid 1 mg/ Sodium (Chloride) 50.2 mls @ 100.4 mls/hr IV DAILY [facility] Last Infusion: 11/24/24 09:27 Dose: Infused Documented By: FRANTZ Lisinopril (Lisinopril 40 Mg Tablet) 40 mg PO DAILY [facility] Last Admin: 11/24/24 13:23 Dose: 40 mg Documented By: MAURA Magnesium Hydroxide (Milk Of Magnesia 30 Ml Oral.Susp) 30 ml PO DAILY PRN PRN Reason: Constipation Melatonin (Melatonin 3 Mg Tablet) 6 mg PO BEDTIME PRN PRN Reason: Insomnia Last Admin: 11/25/24 00:04 Dose: 6 mg Documented By: AIDA Ondansetron HCl (Ondansetron Hcl 4 Mg/2 Ml Vial) 4 mg IVPUSH Q8H PRN PRN Reason: Nausea and Vomiting Last Admin: 11/23/24 05:11 Dose: 4 mg Documented By: ISELA Pharmacy Consult (Consult Rx Etoh Phenob Im/Po) 1 each MISCELLANE ONCE PRN; Protocol PRN Reason: Consult order Phenobarbital (Phenobarbital 30 Mg Tablet) 30 mg PO BID [facility] Stop: 11/25/24 21:01 Last Admin: 11/24/24 20:03 Dose: 30 mg Documented By: AIDA Phenobarbital (Phenobarbital 30 Mg Tablet) 30 mg PO DAILY [facility] Stop: 11/27/24 09:01 Polyethylene Glycol (Polyethylene Glycol 3350 17 Gm Powd.Pack) 17 gm PO DAILY PRN PRN Reason: Constipation Sodium Chloride (0.9 % Sodium Chloride Flush 3 Ml Syringe) 3 ml IVFLUSH QSHIFT [facility] Last Admin: 11/25/24 00:06 Dose: 3 ml Documented By: AIDA Labs 11/24/24 06:21 11/24/24 06:21 Labs: Laboratory Results - last 24 hr 11/24/24 06:21 MCV 87.8 MCH 32.7 MCHC 37.2 H RDW 11.9 Plt Count 147 L MPV 10.3 Immature Gran % (Auto) 1.3 H Neut % (Auto) 88.3 H Lymph % (Auto) 4.6 L [place] % (Auto) 5.6 Eos % (Auto) 0.1 Baso % (Auto) 0.1 Lymph # (Auto) 0.7 L [place] # (Auto) 0.9 Eos # (Auto) 0.0 Baso # (Auto) 0.0 Abs Immat Gran (auto) 0.21 H Absolute Neuts (auto) 14.1 H Absolute Nucleated RBC 0.000 Nucleated RBC % (auto) 0.0 Anion Gap 14 Estim Creat Clear Calc 166.4 Estimated GFR > 60 Random Glucose 85 Calcium 8.9 Total Bilirubin 1.0 AST 40 H ALT 44 H Alkaline Phosphatase 96 Total Protein 6.7 Albumin 3.8 Quality Stroke Does the patient have a stroke diagnosis?: No Reason for No Anti-thrombotic by Day Two: N/A - Med Ordered VTE Prior VTE?: No VTE Risk Level:: Medical - moderate - high VTE Device Contraindication: N/A - Device Ordered VTE Drug Contraindication: N/A - Med Ordered
[2024-11-25 07:50] LABS: Hematocrit 32.7 % (42.0-52.0); Imm Gran Abs Auto 0.12 X10*3/uL (0.00-0.03); Imm Gran Pct Auto 0.9 % (0.0-0.4); Lymphocytes Absolute Auto 0.9 X10*3/uL (1.2-4.9); Mean Corpuscular Volume 86.3 fL (80.0-98.0); NRBC Abs Auto 0.000 X10*3/uL (0.0-0.012); NRBC Pct Auto 0.0 /100WBC (0.0-0.2); Platelet Count 179 X10*3/uL (160-400); Red Blood Count 3.79 X10*6/uL (4.60-5.80); SCAN SMEAR FLAG 1; White Blood Count 13.9 X10*3/uL (4.8-10.8)
[2024-11-25 07:53] LABS: Hemoglobin 10.9 g/dl (14.0-18.0)
[2024-11-25 07:54] LABS: Mean Corpuscular HGB Conc 33.3 g/dl (31.0-36.0); Mean Corpuscular Hemoglobin 28.8 pg (27.0-33.0)
[2024-11-25 08:37] LABS: Alanine Aminotransferase 62 U/L (0-40); Albumin Level 3.7 g/dL (3.5-5.0); Alkaline Phosphatase 82 U/L (39-117); Anion Gap 16 (12-20); Aspartate Amino Transferase 55 U/L (5-37); Blood Urea Nitrogen 9 mg/dL (9-16); Calcium 9.0 mg/dL (8.4-10.2); Carbon Dioxide 28 mmol/L (22-29); Chloride 92 mmol/L (96-108); Creatinine Clr Calc Pharmacy 163.8; Estimated Glomerular Filt Rate > 60; Potassium 2.8 mmol/L (3.3-5.1); Sodium 133 mmol/L (135-145); Total Protein 6.6 g/dL (6.5-8.0)
[2024-11-25] MEDS: Thiamine HCL 100 MG in 0.9 % Sodium Chloride 100 ML 202 MG IV (09:01)
[2024-11-25] MEDS: Potassium Chloride ER 20 MEQ TAB.ER.PRT 40 MEQ PO ×2 (09:02→13:40)
[2024-11-25 10:56] VITALS: BP 146/62
[2024-11-25 11:17] VITALS: BP 148/64; PULSE 92; RESP 14; TEMP 36.4; O2SAT 97
--- NOTE | 2024-11-25 12:08 | P.DS_ITS ---
DS: Providers Provider Date of Service: 11/25/24 Date of admission: 11/20/24 23:25 Date of discharge: 11/25/24 Primary care physician: Rodrigue Mcdonald MD Consults: 11/20/24 23:28 Consult to Gastroenterology Routine Consulting Provider: Srini Hand Reason for consultation: acute pancreatitis, gallstones Has provider been notified: No 11/21/24 13:23 Addiction Medicine Provider Routine Consulting Provider: Addiction Covering Reason for consultation: AUD 11/23/24 14:45 Consult to General Surgery Routine Consulting Provider: [facility] [place] [facility] Reason for consultation: worsening ileus2/2 pancreatitis DS: Diagnosis Discharge Diagnosis (1) Acute pancreatitis: Status: Acute DS: Summary Hospital Course Hospital Course: Acute gall stone pancreatitis - resolved with IVF and Abx Epigastric pain 2/2 choledocholithiasis + AUD resolved with pain meds Leukocytosis slow to downtrend-hence we will continue p.o. antibiotics for 2 mroe days Pt is a 64 yo hypertension, hyperlipidemia, gout, diverticulosis, acute pancreatitis 2022, cholelithiasis, chronic cervical and lumbar spine degeneration with past cervical fusion and lumbar fusion, chronic neuropathy, sciatica presented to the ED with [place]uet onset radiating abd epigastric pain was found to have acute pancreatitis 2/2 gall stones and AUD. Care challenging secondary to patient's personality. Patient was initially treated with antibiotics, and leukocytosis was likely higher and we repeated an imaging to rule out any peripancreatic abscess. He was pretty sedentary, secondary to personality, not secondary to sepsis. Patient needs to complete 2 more days of Augmentin. 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 antibiotics for 2 more days of A ugmentin-asymptomatic- Outpatient management for follow-up of cholelithiasis noted by imaging Constipation versus ileus Patient reports 2 bowel movements this a.m., advised and encouraged the patient to have bowel meds, diet, and mobilize. Exam conducted in the presence of bedside RN in the evening of 11/23/2024 and continues to be benign, without evidence of epigastric tenderness or any abdominal tenderness Conservative management for ileus (secondary to his baseline medical and physical comorbidities) - fluids with good response-encouraged the patient to mobilize well. At the time of discharge, patient has been eating and drinking well and has had consistent bowel meds for the past 4 days prior to discharge, soft abdomen, no epigastric tenderness. Constipation-patient's care challenging as the patient consistently was refusing physical exam, and gave him bowel medication. Patient advised to be consistent. Surgery consulted awaiting to rule out any ileus/SBO Interestingly, he continues to be hypERtensive which could be secondary to the pain versus sepsis hence resumed home meds CTA/P done on 11/23/2024 - small volume pleural effusions compression atelectasis Encouraged the patient to use Acapella valve incentive spirometer and nebulizing treatments , Lungs appear clear and not hypoxic on room air hence reassuring-and p.o. antibiotics However appears to be very deconditioned and uninterested name and walking in the room Throughout this hospitalization he has remained mostly sedentary, which we likely believe is his attributed to personality AUD- Completed phenobarb protocol as of 11/24/2024 Addiction med consult patient deferred, not interested in participating .dvt px with lovenox during this hospitalization This note is constructed using voice recognition software. While every effort has been made to ensure accuracy, contact clerk errors may have been included. Time spent discussing smoking cessation with patient: more than 10 minutes Status at Discharge Functional status at discharge: independent ambulation Overall status at discharge: patient is progressing back to baseline Time Attestation Discharge Coordination Time (in mins): 35 Quality: Safe Use of Opioids Does Pt have an Active Cancer Diagnosis on the Problem List?: No Quality: Stroke Does the patient have a stroke diagnosis?: No Physical Exam Exam: Exam: General: AOx3, dismissive and uninterested Resp: CTA bilaterally CVS: S1, S2, RRR GI: bs +, no epigastric tenderness, no signs of acute abdomen or worsening abdominal exam, benign exam overall reassuring, able to tolerate solids as well Skin: Warm, dry Neuro: Cranial nerves II-XII grossly intact bilaterally. Motor grossly intact bilaterally Extremities: No edema Psych: Dismissive and uninterested and flat affect Vital Signs: Vital Signs: Last Vital Signs Temp 97.6 F 11/25/24 11:17 Pulse 92 11/25/24 11:17 Resp 14 11/25/24 11:17 BP 148/64 H 11/25/24 11:17 Pulse Ox 97 11/25/24 11:17 O2 Del Method Room Air 11/25/24 11:17 BMI result Body Mass Index 43.9 DS: Data Data Completed and Pending Labs on day of discharge: Laboratory Results - last 24 hr 11/25/24 06:30 WBC 13.9 H RBC 3.79 L Hgb 10.9 L Hct 32.7 L MCV 86.3 MCH 28.8 MCHC 33.3 RDW 11.9 Plt Count 179 MPV 10.3 Immature Gran % (Auto) 0.9 H Neut % (Auto) 84.3 H Lymph % (Auto) 6.4 L Grimes % (Auto) 8.0 Eos % (Auto) 0.3 Baso % (Auto) 0.1 Lymph # (Auto) 0.9 L Grimes # (Auto) 1.1 Eos # (Auto) 0.0 Baso # (Auto) 0.0 Abs Immat Gran (auto) 0.12 H Absolute Neuts (auto) 11.7 H Absolute Nucleated RBC 0.000 Nucleated RBC % (auto) 0.0 Sodium 133 L Potassium 2.8 L* Chloride 92 L Carbon Dioxide 28 Anion Gap 16 BUN 9 Creatinine 0.66 Estim Creat Clear Calc 163.8 Estimated GFR > 60 Random Glucose 107 Calcium 9.0 Total Bilirubin 0.7 AST 55 H ALT 62 H Alkaline Phosphatase 82 Total Protein 6.6 Albumin 3.7 Preliminary micro results at discharge 11/20/24 23:57 Blood Culture - Preliminary Blood - Venous No growth after 48 hours. 11/20/24 23:56 Blood Culture - Preliminary Blood - Venous No growth after 48 hours. Discharge Plan Discharge Anticipated Discharge Date/Time: 11/25/24 12:05 Patient Disposition: Home, Self-Care Discharge Diagnosis: Acute interstitial gallstone pancreatitis, a UD, ileus Referrals: Rodrigue Mcdonald MD [Primary Care Provider, Medical] - 1 Week Discharge Medications: New amoxicillin-pot clavulanate 875-125 mg Tablet 1 tab PO Q12H 2 Days Qty: 4 0RF Continued atorvastatin 40 mg tablet 40 mg PO DAILY lisinopril-hydrochlorothiazide 20-12.5 mg tablet 1 tab PO DAILY ibuprofen 800 mg tablet 800 mg PO DAILY PRN (Reason: Pain) amlodipine 5 mg tablet 5 mg PO DAILY cholecalciferol (vitamin D3) 25 mcg (1,000 unit) Tablet 25 mcg PO DAILY gabapentin 800 mg tablet 800 mg PO BID Discharge Orders: Discharge Order (Routine); Ordered 11/25/24 Ordered By: Abby Sam Diet: Low salt diet Activity on Discharge: As tolerated Stand Alone Forms: Patient Portal Discharge page Print Language: Telugu Other Ambulatory Orders: Basic Metabolic Panel Fasting (Routine) Timeframe: 2 Days Facility: [facility] - Location: Laboratory Ordered By: Abby Sam Care Plan Goals: Pain controlled, dietary intake Patient deferred addiction medication consult and referral during this admission Patient needed to be escalated to phenobarb protocol for alcohol use radabmby-ngmn-mahn of readmission Gallstone pancreatitis resolving, however if his condition worsens, he has been advised to seek medical care Extensive education about limiting alcohol has been advised Patient deferred medication for mood disorders Patient has been able to eat and drink and has had 1-2 bowel movements, not diarrhea at the time of discharge, surgery was consulted Patient advised to follow up outpatient with his PCP Health Concerns: See above Plan of Treatment: Augmentin for 2 more days, as we do not obviously have a source however we have done a repeat CTA/P with contrast to rule out any peripancreatic abscess prior to discharge. His white count initially on presentation was likely secondary to sepsis, however while the 2nd and 3rd day it continue to trend up and he is being discharged on Augmentin 2 more days Alcohol cessation treatment advised Advised the patient to seek care for his gallstones Assessment: See above
[2024-11-25 13:42] VITALS: BP 141/72; PULSE 93; RESP 16; TEMP 36.4; O2SAT 96
--- NOTE | 2024-11-25 14:55 | MHC.CM.PN ---
PT CLEARED TO DC HOME TODAY WITH NO SERVICES VIA PRIVATE TRANSPORT
== END 2024-11-25 14:00 | disposition home or self-care (01) | DRG 282 ==
LOC: HO.ED 21:28 → HO.EDOVER 23:51 → HO.IMC 11-21 19:09 → HO.S3 11-24 10:53
PROVIDERS: Internal Medicine; Physician Assistant; Admitting Provider Nurse Practitioner Family; Emergency Provider Emergency Medicine; PCP Internal Medicine; Visit Provider Student in an Organized Health Care Education/Training Program
DX: K85.10 Biliary acute pancreatitis without necrosis or infection (principal); K56.7 Ileus, unspecified; E78.5 Hyperlipidemia, unspecified; K80.20 Calculus of gallbladder without cholecystitis without obstruction; K57.30 Diverticulosis of large intestine without perforation or abscess without bleeding; I10 Essential (primary) hypertension; K59.00 Constipation, unspecified; F10.90 Alcohol use, unspecified, uncomplicated; M10.9 Gout, unspecified; Z91.148 Patient's other noncompliance with medication regimen for other reason; Z91.199 Patient's noncompliance with other medical treatment and regimen due to unspecified reason; Z79.899 Other long term (current) drug therapy
CPT/HCPCS: 36415; 74177; 76705; 80048; 80053; 80076; 80307; 83605; 83690; 83735; 84484; 84550; 85025; 85610; 86140; 87040; 93005; 97163; 99285; J0360; J1171; J1650; J1808; J2270; J2405; J2543; J2560; J3360; J3411; J7120; Q9967

== ENCOUNTER → 2024-11-20 20:42 | Outpatient (BNV) | payer OTHER, SELFPAY | PROVIDERS: Admitting Provider Nurse Practitioner Family; Emergency Provider Emergency Medicine; PCP Internal Medicine; Visit Provider Internal Medicine | DX: R00.1 Bradycardia, unspecified (principal) | CPT/HCPCS: 93010 ==

== ENCOUNTER → 2024-11-20 21:06 | Outpatient (BNV) | payer OTHER, SELFPAY | PROVIDERS: Emergency Provider Emergency Medicine; PCP Internal Medicine; Visit Provider Radiology Neuroradiology | DX: K80.20 Calculus of gallbladder without cholecystitis without obstruction (principal); K86.89 Other specified diseases of pancreas | CPT/HCPCS: 74177 ==

== ENCOUNTER 2024-11-20 23:25 | Outpatient (BNV) | payer OTHER, SELFPAY | END 2024-11-21 13:50 | PROVIDERS: Admitting Provider Nurse Practitioner Family; Emergency Provider Emergency Medicine; PCP Internal Medicine; Visit Provider Radiology Diagnostic Radiology | DX: K80.20 Calculus of gallbladder without cholecystitis without obstruction (principal) | CPT/HCPCS: 76705 ==

== ENCOUNTER 2024-11-20 23:25 | Outpatient (BNV) | payer OTHER, SELFPAY | END 2024-11-23 13:40 | PROVIDERS: Admitting Provider Nurse Practitioner Family; Emergency Provider Emergency Medicine; PCP Internal Medicine; Visit Provider Radiology Diagnostic Radiology | DX: K85.90 Acute pancreatitis without necrosis or infection, unspecified (principal); K80.20 Calculus of gallbladder without cholecystitis without obstruction; R16.0 Hepatomegaly, not elsewhere classified; J90 Pleural effusion, not elsewhere classified; J98.11 Atelectasis | CPT/HCPCS: 74177 ==

== ENCOUNTER → 2024-11-20 23:25 | Outpatient (BNV) | payer OTHER, SELFPAY | PROVIDERS: Admitting Provider Nurse Practitioner Family; Emergency Provider Emergency Medicine; PCP Internal Medicine; Visit Provider Surgery | DX: K85.10 Biliary acute pancreatitis without necrosis or infection (principal) | CPT/HCPCS: 99222; 99232 ==

== ENCOUNTER → 2024-11-20 23:25 | Outpatient (BNV) | payer OTHER, SELFPAY | PROVIDERS: Admitting Provider Nurse Practitioner Family; Emergency Provider Emergency Medicine; PCP Internal Medicine; Visit Provider Nurse Practitioner Family | DX: K85.90 Acute pancreatitis without necrosis or infection, unspecified (principal); K52.9 Noninfective gastroenteritis and colitis, unspecified; K80.67 Calculus of gallbladder and bile duct with acute and chronic cholecystitis with obstruction; F10.90 Alcohol use, unspecified, uncomplicated | CPT/HCPCS: 99223; 99232; 99239 ==

== ENCOUNTER → 2024-11-20 23:25 | Outpatient (BNV) | payer OTHER, SELFPAY | PROVIDERS: Admitting Provider Nurse Practitioner Family; Emergency Provider Emergency Medicine; PCP Internal Medicine; Visit Provider Internal Medicine Gastroenterology | DX: K85.10 Biliary acute pancreatitis without necrosis or infection (principal) | CPT/HCPCS: 99223 ==

== ENCOUNTER 2024-11-27 14:33 | Emergency (ER) | payer OTHER, SELFPAY ==
--- NOTE | ~2024-11-27 | XR_ITS ---
EXAMINATION: XR WRIST, LEFT CLINICAL INFORMATION: swelling pain COMPARISON: None available. TECHNIQUE: PA, lateral, oblique, and scaphoid views of the left wrist. FINDINGS: No fracture, dislocation, or suspicious bone lesion. There is normal alignment. There is moderate arthritis in the first CMC joint, with productive bony changes and subchondral cystic changes present. There are mild changes in the STT joints. There is mild narrowing of the radiocarpal joint. There is negative ulnar variance. Soft tissues appear grossly normal. XR/XR wrist LT min 3V IMPRESSION: 1. No acute bony or soft tissue abnormalities of the left wrist. 2. 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 Electronically signed by: Jama Del Toro MD 11/27/2024 03:56 PM EDT
--- NOTE | ~2024-11-27 | US_ITS ---
CLINICAL HISTORY: Left upper extremity pain --- Additional Notes or Special Instructions: pt needs pain meds prior to do US..attempted @4:30pm Venous duplex ultrasound left upper extremity Comparison: None provided Findings: Accessible deep venous segments are fully compressible with normal Doppler color flow and spectral tracings. IMPRESSION: 1. Negative for left upper extremity deep vein thrombosis. This document has been electronically signed by: Rajinder Lawson MD on 11/27/2024 20:15:45
--- NOTE | ~2024-11-27 | XR_ITS ---
EXAMINATION: XR FOREARM, LEFT CLINICAL INFORMATION: Swelling COMPARISON: None available. TECHNIQUE: AP and lateral views of the left forearm were obtained. FINDINGS: Ulnar minus variance is present. There is calcification anterior to the radial head, probably in the joint capsule or related to the coronoid process. On lateral, there is a small bony exostosis at the base of the region of the radial tuberosity. No other abnormality is evident. XR/XR forearm LT 2V IMPRESSION: On lateral, there is a bony prominence dorsal to the base of the radial tuberosity. This could be related to an age indeterminate biceps tendon avulsion fracture. Electronically signed by: Jesus Kimball MD 11/27/2024 03:58 PM EDT
--- NOTE | ~2024-11-27 | XR_ITS ---
EXAMINATION: XR HAND, LEFT CLINICAL INFORMATION: swelling COMPARISON: None available. TECHNIQUE: PA, lateral, and oblique views of the left hand. FINDINGS: There are degenerative changes are noted in the first carpal metacarpal joint with sclerosis, degenerative cystic change, and osteophytes. Marginal osteophytes are present involving the third and fifth DIP joints. There is no joint diastases. On the lateral view, there is longitudinal lucency through the proximal metaphysis of the middle phalanx of third digit. XR/XR hand LT 2V IMPRESSION: Lucency involving the volar base of the middle phalanx of third digit is probably related to trabecular pattern. Correlate for signs symptoms of a fracture. Osteoarthritis Electronically signed by: Jesus Kimball MD 11/27/2024 04:02 PM EDT
[2024-11-27 15:02] VITALS: BP 130/64; PULSE 95; RESP 18; TEMP 37; O2SAT 98; BMI 28.7
--- NOTE | 2024-11-27 15:07 | ED.GENADULT ---
HPI - General Adult General Chief complaint: Extremity Injury, Upper Stated complaint: Swelling L arm Time Seen by Provider: 11/27/24 15:45 Source: patient, RN notes reviewed and old records reviewed Mode of arrival: ambulatory Limitations: no limitations History of Present Illness ED Provider: Esteban ANTOINE narrative: Patient is a 64-year-old male with history of pancreatitis, hypertension, hyperlipidemia, anxiety, colitis, alcohol use disorder presenting to the emergency department with complaint of left arm pain and swelling since this morning. Patient was recently admitted here for pancreatitis. Reports multiple IVs, and straight sticks for lab draws. States he noticed mild pain to his arm yesterday, then this morning pain became severe. He denies fevers/chils. Denies any abdominal pain currently. Denies chest pain, palpitations, or dyspnea. MD complaint: left arm pain Onset (ago): hour(s) Related Data Home Medications ?Medication ?Instructions ?Recorded ?Confirmed amlodipine 5 mg tablet 5 mg PO DAILY 09/12/22 11/21/24 atorvastatin 40 mg tablet 40 mg PO DAILY 09/12/22 11/21/24 cholecalciferol (vitamin D3) 25 25 mcg PO DAILY 09/12/22 11/21/24 mcg (1,000 unit) tablet ibuprofen 800 mg tablet 800 mg PO DAILY PRN Pain 09/12/22 11/21/24 lisinopril 20 1 tab PO DAILY 09/12/22 11/21/24 mg-hydrochlorothiazide 12.5 mg tablet gabapentin 800 mg tablet 800 mg PO BID 11/21/24 11/21/24 Previous Rx's ?Medication ?Instructions ?Recorded amoxicillin 875 mg-potassium 1 tab PO Q12H 2 days #4 tabs 11/25/24 clavulanate 125 mg tablet morphine 15 mg immediate release 15 mg PO Q6H PRN severe pain 11/27/24 tablet (scale score 7-10) #12 tabs Allergies Allergy/AdvReac Type Severity Reaction Status Date / Time codeine (CODEINE) Allergy Unknown NAUSEA Verified 11/27/24 15:02 Codeine Sulfate Allergy Unknown Unknown Uncoded 11/27/24 15:02 Review of Systems Review of Systems: As per HPI Yes all other systems are reviewed and are negative Constitutional: Constitutional: Reports as per HPI PMFSH Past Medical History Medical History Anxiety Diverticulosis Alcohol use disorder Cholelithiasis Neuropathy Degenerative joint disease of spine Gout Hyperlipidemia Hypertension Surgical History S/P cervical spinal fusion History of lumbar fusion H/O spinal fusion Social History Social History (Updated 11/21/24 @ 00:25 by MARIANA Herrera) Household Members: Spouse and Children Housing: House Do you presently have visiting nurse or other home services: No Alcohol intake: current Alcohol intake frequency: a few times a week Comment: Patient drinks on Tuesday through Tuesday and refrain from using alcohol Patient Tobacco Use Status: Never used Tobacco Smoked in Last 30 Days: No e-Cigarette/Vaping Use: Never Used Use of substances other than those prescribed or required for medical reasons: No Advance Directives: No Advance Directives Information Provided: No service: No Physical Exam ED Vital Signs: Vital Signs - 24 hr 11/27/24 15:02 11/27/24 20:36 11/27/24 20:51 Temperature 98.6 F 100.2 F 100.2 F Pulse Rate 95 93 93 Respiratory Rate 18 16 16 Blood Pressure 130/64 101/78 101/78 Pulse Oximetry 98 97 97 Oxygen Delivery Method Room Air Room Air Room Air BMI result Body Mass Index 28.7 Vital signs have been reviewed and appear to be correct. Blood pressure normal. Heart rate normal. Respiratory rate normal. Temperature normal. Oxygen saturation normal. Const General: cooperative and no acute distress Orientation/consciousness: oriented to person, oriented to place, oriented to time and patient oriented x3 Limitations: no limitations [facility] Head: Yes normocephalic and Yes atraumatic Ears: external ears normal General nose exam: Normal external nose present Face and sinus: Yes face symmetric Mouth: oropharynx normal and moist mucous membranes Throat: Yes uvula midline Eyes Pupils: Equal, round and reactive pupils present Neck Neck: Yes normal visual inspection and Yes supple Resp Effort & Inspection: normal respiratory effort and able to speak in complete sentences Auscultation: clear to auscultation bilaterally Cardio Rate: regular rate Rhythm: regular rhythm Heart sounds: S1 normal heart sound present and S2 normal heart sound present GI Palpation (GI): Soft to palpation and nontender Auscultation: normoactive bowel sounds General: Yes no CVA tenderness Back/Spine/Pelvis Back: no CVA tenderness Skin General skin exam: elasticity normal and turgor normal Neuro General: oriented to person, oriented to place, oriented to time, patient oriented x3, moves all extremities, no focal motor deficits and CN's II-XI intact bilaterally Cranial nerves: Yes Equal, round and reactive pupils present Cognition (Neuro): normal cognition Extrem Other: yellow discoloration to bilateral upper arms consistent with healing ecchymosis General: Yes full ROM, Yes no pedal edema and Yes no calf tenderness Left upper extremity: elbow/forearm Details: tenderness Location: of the proximal forearm, abnormal ROM Details: held in an abnormal fashion Details: in flexion and distal pulses intact Psych Mental Status: mental status grossly normal Affect: normal affect Thought process: Normal thought process present Course Course Course Narrative: RME: 64 yold male presents to the ED for left upper extremity swelling and pain since this morning. Patient denies any recent trauma to the area. Patient recently admitted for gallstone pancreatitis but has no abdominal pain. Patient had IV in both arms. That is upper extremity positive for swelling of hand and wrist and forearm area without his tender without any redness or warmth. Vascular neuro exam intact. Motor exam limited due to pain. Labs chest x-ray ultrasound ordered Reevaluation(s) Reevaluation #1: Mostly of the patient's pain is located to the proximal forearm and upper arm which could be related to a tiny avulsion fracture of the biceps tendon. The patient be placed in a sling and will be referred to Orthopedics. I did discuss the hyponatremia with the patient which I discussed with the previous provider and will increase salt intake. He also has no abdominal pain, nausea or vomiting to explain the slight elevation in his AST and ALT. He will follow up with his general surgeon next week Time: 20:31 Reevaluation #2: Patient was to be discharged, his vital signs were retaken in his temp has 100.2 with a repeat of 99.8. His blood pressure was slightly lower than before but still 101/78. I discussed with the patient in his again. He has no abdominal pain, no nausea vomiting, no cough or shortness of breath. He has no urinary symptoms. He does have the left upper extremity pain. His pain started when he woke up this morning, he denies any significant traumatic injury. In his possible this is a developing cellulitis. I offered to draw blood cultures in case the patient's worsening and he would like to be discharged home. He will check his temperature tonight and tomorrow and if his symptoms are worsening or not getting better he will return. He also reports that he will follow up with his primary doctor Time: 20:50 Medications Administered Discontinued Medications Generic Name Dose Route Start Last Admin Trade Name Marlene PRN Reason Stop Dose Admin Morphine Sulfate 4 mg 11/27/24 16:12 11/27/24 17:20 Morphine Sulfate 4 Mg/Ml Cartridge IM 11/27/24 16:13 4 mg ONCE ONE Administration Protocol Medical Decision Making Medical Decision Making [facility] Narrative: Patient is a 64-year-old male with history of pancreatitis, hypertension, hyperlipidemia, anxiety, colitis, alcohol use disorder presenting to the emergency department with complaint of left arm pain and swelling since this morning. On exam patient is awake, A+Ox3, VS WNL, afebrile, normal neurological exam without focal deficits, physical exam findings as above. Given reported symptoms and physical exam findings, initial differential includes but is not limited to DVT, cellulitis. Labs notable for leukocytosis increased from discharge, anemia improved from discharge, mild hyponatremia, and elevated transaminases, normal lipase. He denies current abdominal pain, states has not had abdominal pain since discharge. Reports he has had several normal bowel movements since discharge. States he has not drank any alcohol since discharge. Denies fevers. X-ray left forearm, wrist and hand notable for bony prominent to base of radial tuberosity, as well as lucency to the base of middle phalanx of 3rd digit. Low suspicion for fracture as no bony tenderness to these areas. My interpretation is in agreement with the radiologist's interpretation. Patient signed out to CUONG Ho pending U/S results. Differential Diagnosis Differential Diagnoses: The differential diagnosis associated with the presentation includes as per [facility] Admission/Observation Consideration of admission/observation: Escalation of care including admission/observation considered Patient would have been admitted to the hospital and transferred to appropriate facility had their clinical presentation warranted hospital admission. Lab Data [facility] Lab Attestation statement: I reviewed the patient's lab results. as per [facility] 11/27/24 15:21 11/27/24 15:21 Labs: Lab Results 11/27/24 Range/Units 15:21 WBC 16.2 H (4.8-10.8) X10*3/uL RBC 3.96 L (4.60-5.80) X10*6/uL Hgb 12.8 L (14.0-18.0) g/dl Hct 35.7 L (42.0-52.0) % MCV 90.2 (80.0-98.0) fL MCH 32.3 (27.0-33.0) pg MCHC 35.9 (31.0-36.0) g/dl RDW 12.1 (11.0-16.0) % Plt Count 225 D (160-400) X10*3/uL MPV 9.6 (9.4-12.4) fL Immature Gran % (Auto) 1.5 H (0.0-0.4) % Neut % (Auto) 81.8 H (45-73) % Lymph % (Auto) 6.6 L (20-40) % Lumpkin % (Auto) 9.6 (2-11) % Eos % (Auto) 0.4 (0-4) % Baso % (Auto) 0.1 (0-2) % Lymph # (Auto) 1.1 L (1.2-4.9) X10*3/uL Lumpkin # (Auto) 1.6 H (0.1-1.2) X10*3/uL Eos # (Auto) 0.1 (0.0-0.4) X10*3/uL Baso # (Auto) 0.0 (0.0-0.2) X10*3/uL Abs Immat Gran (auto) 0.25 H (0.00-0.03) X10*3/uL Absolute Neuts (auto) 13.3 H (2.0-8.3) x10*3/uL Absolute Nucleated RBC 0.000 (0.0-0.012) X10*3/uL Nucleated RBC % (auto) 0.0 (0.0-0.2) /100WBC Smear Tech's Comments VERIFIED PT 13.2 H (10.9-12.4) SEC INR 1.2 H (0.9-1.1) APTT 25.0 L (26.7-34.1) SEC Sodium 130 L (135-145) mmol/L Potassium 3.9 D (3.3-5.1) mmol/L Chloride 93 L (96-108) mmol/L Carbon Dioxide 27 (22-29) mmol/L Anion Gap 14 (12-20) BUN 17 H (9-16) mg/dL Creatinine 0.90 (0.5-1.4) mg/dL Estim Creat Clear Calc 88.6 Estimated GFR > 60 Random Glucose 120 H (60-115) mg/dL Uric Acid 6.8 (3.4-7.0) mg/dL Calcium 8.9 (8.4-10.2) mg/dL Total Bilirubin 0.6 (0.0-1.0) mg/dL AST 144 H (5-37) U/L ALT 189 H (0-40) U/L Alkaline Phosphatase 93 (39-117) U/L Total Protein 7.3 (6.5-8.0) g/dL Albumin 4.0 (3.5-5.0) g/dL Lipase 23 (8-78) U/L Independent Interpretation I performed an independent interpretation of an: Plain X-Ray Interpretation: X-ray left forearm, wrist and hand notable for bony prominent to base of radial tuberosity, as well as lucency to the base of middle phalanx of 3rd digit. Radiology Impression Discussion of test interpretation with radiology: I have reviewed the radiologist's reading. Radiologist Impression: XR/XR wrist LT min 3V IMPRESSION: 1. No acute bony or soft tissue abnormalities of the left wrist. 2. 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 XR/XR forearm LT 2V IMPRESSION: On lateral, there is a bony prominence dorsal to the base of the radial tuberosity. This could be related to an age indeterminate biceps tendon avulsion fracture. XR/XR hand LT 2V IMPRESSION: Lucency involving the volar base of the middle phalanx of third digit is probably related to trabecular pattern. Correlate for signs symptoms of a fracture. External Record Review External record reviewed: Inpatient record, Office record and Outpatient record Discharge Plan Discharge Clinical Impression: Arm pain, left, Acute hyponatremia Patient Disposition: Home, Self-Care Instructions: Arm Pain (ED) Additional Instructions: Your workup in the ER today was reassuring. Your ultrasound was negative for a blood clot. One view of the forearm did show an abnormality which could be related to a tiny bicep avulsion fracture. The treatment would be ibuprofen, Tylenol and follow up with Orthopedics as well as wearing a sling while you are up and about. Do not wear the sling overnight Return for new or worsening symptoms Prescriptions: New morphine 15 mg tablet 15 mg PO Q6H PRN (Reason: severe pain (scale score 7-10)) Qty: 12 0RF Rx Instructions: Partial Fill upon patient request. No Action atorvastatin 40 mg tablet 40 mg PO DAILY lisinopril-hydrochlorothiazide 20-12.5 mg tablet 1 tab PO DAILY ibuprofen 800 mg tablet 800 mg PO DAILY PRN (Reason: Pain) amlodipine 5 mg tablet 5 mg PO DAILY cholecalciferol (vitamin D3) 25 mcg (1,000 unit) Tablet 25 mcg PO DAILY gabapentin 800 mg tablet 800 mg PO BID amoxicillin-pot clavulanate 875-125 mg Tablet 1 tab PO Q12H 2 Days Qty: 4 0RF Referrals: [facility] [Provider Group] Referral Note: ? left biceps tendon avulsion Interventions: ED Discharge Assessment Last Done: 11/27/24 20:51 Discharge Date/Time: 11/27/24 20:52 Print Language: Hebrew
[2024-11-27 15:26] LABS: Hematocrit 35.7 % (42.0-52.0); Hemoglobin 12.8 g/dl (14.0-18.0); Imm Gran Abs Auto 0.25 X10*3/uL (0.00-0.03); Imm Gran Pct Auto 1.5 % (0.0-0.4); Lymphocytes Absolute Auto 1.1 X10*3/uL (1.2-4.9); MANUAL DIFF FLAG SCAN; Mean Corpuscular HGB Conc 35.9 g/dl (31.0-36.0); Mean Corpuscular Hemoglobin 32.3 pg (27.0-33.0); Mean Corpuscular Volume 90.2 fL (80.0-98.0); NRBC Abs Auto 0.000 X10*3/uL (0.0-0.012); NRBC Pct Auto 0.0 /100WBC (0.0-0.2); Platelet Count 225 X10*3/uL (160-400); Red Blood Count 3.96 X10*6/uL (4.60-5.80); SCAN SMEAR FLAG 1; White Blood Count 16.2 X10*3/uL (4.8-10.8)
[2024-11-27 15:32] LABS: INTERNATIONAL NORM RATIO 1.2 (0.9-1.1); Prothrombin Time 13.2 SEC (10.9-12.4)
[2024-11-27 15:35] LABS: Partial Thromboplastin Time 25.0 SEC (26.7-34.1)
[2024-11-27 15:44] LABS: Alanine Aminotransferase 189 U/L (0-40); Albumin Level 4.0 g/dL (3.5-5.0); Alkaline Phosphatase 93 U/L (39-117); Anion Gap 14 (12-20); Aspartate Amino Transferase 144 U/L (5-37); Blood Urea Nitrogen 17 mg/dL (9-16); Calcium 8.9 mg/dL (8.4-10.2); Carbon Dioxide 27 mmol/L (22-29); Chloride 93 mmol/L (96-108); Creatinine Clr Calc Pharmacy 88.6; Estimated Glomerular Filt Rate > 60; Potassium 3.9 mmol/L (3.3-5.1); Sodium 130 mmol/L (135-145); Total Protein 7.3 g/dL (6.5-8.0); Uric Acid 6.8 mg/dL (3.4-7.0)
[2024-11-27 16:59] LABS: Lipase 23 U/L (8-78)
[2024-11-27 20:36] VITALS: BP 101/78; PULSE 93; RESP 16; TEMP 37.9; O2SAT 97
--- NOTE | 2024-11-27 20:44 | PC.NURSE ---
physician aware of vitals and back to bedside to re-eval patient
[2024-11-27 20:51] VITALS: BP 101/78; PULSE 93; RESP 16; TEMP 37.9; O2SAT 97
== END 2024-11-27 20:52 | disposition home or self-care (01) ==
PROVIDERS: Physician Assistant; Registered Nurse Emergency; Emergency Provider Emergency Medicine; PCP Internal Medicine
DX: M79.602 Pain in left arm (principal); E87.1 Hypo-osmolality and hyponatremia; I10 Essential (primary) hypertension; Z79.899 Other long term (current) drug therapy; Z88.6 Allergy status to analgesic agent
CPT/HCPCS: 36415; 73090; 73110; 73120; 80053; 83690; 84550; 85025; 85610; 85730; 93971; 96372; 99284; J2270

== ENCOUNTER → 2024-11-27 15:05 | Outpatient (BNV) | payer OTHER, SELFPAY | PROVIDERS: Emergency Provider Emergency Medicine; PCP Internal Medicine; Visit Provider Radiology Diagnostic Radiology | DX: R22.32 Localized swelling, mass and lump, left upper limb (principal); M18.12 Unilateral primary osteoarthritis of first carpometacarpal joint, left hand; M19.042 Primary osteoarthritis, left hand | CPT/HCPCS: 73090; 73110; 73120; 93971 ==

== ENCOUNTER 2024-12-11 07:00 | Outpatient (REF) | payer OTHER, SELFPAY ==
[2024-12-11 11:15] LABS: MANUAL DIFF FLAG NO
[2024-12-11 11:37] LABS: Hematocrit 36.2 % (42.0-52.0); Hemoglobin 12.5 g/dl (14.0-18.0); Imm Gran Abs Auto 0.03 X10*3/uL (0.00-0.03); Imm Gran Pct Auto 0.6 % (0.0-0.4); Lymphocytes Absolute Auto 1.7 X10*3/uL (1.2-4.9); Mean Corpuscular HGB Conc 34.5 g/dl (31.0-36.0); Mean Corpuscular Hemoglobin 31.3 pg (27.0-33.0); Mean Corpuscular Volume 90.7 fL (80.0-98.0); NRBC Abs Auto 0.000 X10*3/uL (0.0-0.012); NRBC Pct Auto 0.0 /100WBC (0.0-0.2); Platelet Count 373 X10*3/uL (160-400); Red Blood Count 3.99 X10*6/uL (4.60-5.80); White Blood Count 4.8 X10*3/uL (4.8-10.8)
[2024-12-11 11:59] LABS: Alanine Aminotransferase 97 U/L (0-40); Albumin Level 4.5 g/dL (3.5-5.0); Alkaline Phosphatase 177 U/L (39-117); Anion Gap 14 (12-20); Aspartate Amino Transferase 38 U/L (5-37); Blood Urea Nitrogen 16 mg/dL (9-16); Calcium 9.6 mg/dL (8.4-10.2); Carbon Dioxide 26 mmol/L (22-29); Chloride 101 mmol/L (96-108); Cholesterol 121 mg/dL (<200); Estimated Glomerular Filt Rate > 60; HDL Cholesterol 29 mg/dL (>40); Potassium 4.5 mmol/L (3.3-5.1); Sodium 136 mmol/L (135-145); Total Protein 7.6 g/dL (6.5-8.0); Triglycerides 113 mg/dL (<150)
[2024-12-11 12:48] LABS: PSA,Total (Free>4and<10) 0.46 ng/mL (0.00-4.00)
[2024-12-11 15:18] LABS: Reflex LDLD? No
== END 2024-12-11 07:01 | disposition home or self-care (01) ==
LOC: HO.LNP 07:00
PROVIDERS: Visit Provider Internal Medicine
DX: Z00.00 Encounter for general adult medical examination without abnormal findings (principal); E78.00 Pure hypercholesterolemia, unspecified; R79.89 Other specified abnormal findings of blood chemistry; I10 Essential (primary) hypertension; Z12.5 Encounter for screening for malignant neoplasm of prostate
CPT/HCPCS: 80053; 80061; 82248; 84153; 85025

== ENCOUNTER 2024-12-18 10:22 | Outpatient (REF) | payer OTHER, SELFPAY ==
--- OUTSIDE RECORDS SUMMARY | 2024-01-03 11:00 | XMS_ITS ---
Author Organization Rodrigue Mcdonald MD Address [address] [place] [phone] Care Team Providers Care [place] Name Role Phone Rodrigue Mcdonald Primary Care Provider [phone] Allergies Allergen (clinical drug ingredient) Drug/Non Drug [...] Location Date Provider Diagnosis Rodrigue Mcdonald MD [address] [place] [address] [phone] 01/03/2024 Rodrigue Mcdonald Spinal stenosis of lumbosacral [...] Details Provider Name:Rodrigue chambers, 01/15/2025 09:15:00 AM, [address] [place] [address], [phone], Provider Name:Rodrigue chambers, 06/14/2025 08:00:00 AM, [address] [place] [address], [phone], Provider Name:Rodrigue chambers, 06/18/2025 10:00:00 AM, [address] [place] [address], [phone], Provider Name:Rodrigue chambers, 12/13/2025 07:30:00 AM, [address] [place] [address], [phone], Provider Name:Rodrigue chambers, 12/20/2025 08:30:00 AM, [address] [place] [address], [phone], Progress Notes * Kevin BURRELL JrDOB: [birth year] (63 yo M)Acc No.[id number]:01/03/2024 Progress Notes Patient: Kevin Perry Provider: Lilliam Mcdonald MD :1960 A ge:63 Y S ex:Male Date:01/03/2024 Address:[address] [facility] Subjective: * Chief Complaints: * D ISCUSS [...] Mcdonald MD Date: 03/04/2023 Generated for Hong méndez/Annette/eTransmitting on: 12:43 PM EDT History and Physical Notes * HPI (History of Present Illness) Category Sub-Category Detail Notes Category Not es Symptom(s) patient is a 63 yo male here to discuss recent MRI Examination Category Sub-Category Detail Notes Category Not es General Examination GENERAL APPEARANCE: alert, w ell hydrated, in no distress
--- OUTSIDE RECORDS SUMMARY | 2024-01-30 04:45 | XMS_ITS ---
Author Organization Rodrigue Mcdonald MD Address [address] [place] [phone] Care Team Providers Care Floral Manager Name Role Phone Rodrigue Mcdonald Primary Care Provider [phone] Allergies Allergen (clinical drug ingredient) Drug/Non Drug [...] Problem Status W/U Status Risk Notes Problem [id number] Mild aortic stenosis (I35.0) Active confirmed Vital Signs Blood pressure systolic 152 mm Hg 01/30/20 24 Blood pressure diastolic 60 mm Hg 024 Height 72.50 in 01/30/2024 Weight 203 lbs 01/30/2024 BMI 27.15 kg/m2 01/30/2024 weight is down 6 pounds [facility] 01-03-24 Encounters Encounter Location Date Provider Diagnosis Rodrigue Mcdonald MD [address] [place], [place] [phone] 01/30/2024 Rodrigue Mcdonald Essential hypertension I10 ; [...] 09:15:00 AM, [address], [address], [place], [place], [phone], Provider Name:Rodrigue Mcpherson ier, 06/14/2025 08:00:00 AM, [address], [address], [place], [place], [phone], Provider Name:Rodrigue Mcpherson ier, 06/18/2025 10:00:00 AM, [address], [address], [place], [place], [phone], Provider Name:Rodrigue Mcpherson ier, 12/13/2025 07:30:00 AM, [address], [address], [place], [place], [phone], Provider Name:Rodrigue Mcpherson ier, 12/20/2025 08:30:00 AM, [address], [address], [place], [place], [phone], Progress Notes * ALEKSParishdy JrDOB: [birth year] (63 yo M)Acc No.[id number]:01/30/2024 Progress Notes Patient: Kevin Perry Provider: Lilliam Mcdonald MD :1960 A ge:63 Y S ex:Male Date:01/30/2024 Address:[address] [place] [address] [id number] Subjective: * Chief Complaints: * 2 month [...] Date: 04/01/2023 Generated for Hong méndez/Annette/Noah on: 12:45 PM EDT History and Physical Notes * [...]
--- OUTSIDE RECORDS SUMMARY | 2024-05-31 03:30 | XMS_ITS ---
Author Organization Rodrigue Mcdonald MD Address [address] [place] [phone] Care Team Providers Care Hydro Plant Site Manager Name Role Phone Rodrigue Mcdonald Primary Care Provider Results Component Value Reference Range Notes Liver Panel Reviewed date:05/31/2024 06:24:23 PM Interpretation: Performing Lab:[facility], [address] [place] [phone] Notes/Report: Bilirubin Total 1.5 0.0-1.0 mg/dL Bilirubin Direct 0.4 0.0-0.5 mg/dL Aspartate Amino Transferase 35 5-37 U/L Alanine Aminotransferase 34 0-40 U/L Total Protein 7.5 6.5-8.0 g/dL Albumin Level 4.6 3.5-5.0 g/dL Alkaline Phosphatase 64 39-117 U/L Lipid Panel with Reflex Reviewed date:05/31/2024 06:23:58 PM Interpretation: Performing Lab:[facility], [address] [place] [phone] Notes/Report: Triglycerides 81 <150 mg/dL Desirable Triglyceride: [...] Location Date Provider Diagnosis Rodrigue Mcdonald MD [address] [place] [phone] 05/31/2024 Rodrigue Mcdonald Pure hypercholestero lemia E78.00 Assessments Encounter Date Diagnosis (ICD Code) Assessment Notes Treatment Notes Treatment Clinical Notes Section Notes 05/31/2024 Pure hypercholesterolemia (ICD-10 - E78.00) Plan Of Treatment Next Appt Details Provider Name:Rodrigue chambers, 01/15/2025 09:15:00 AM, [address] [place] [address], [address], [phone], Provider Name:Rodrigue chambers, 06/14/2025 08:00:00 AM, [address] [place] [address], [phone], Provider Name:Rodrigue chambers, 06/18/2025 10:00:00 AM, [address] [place] [address], [phone], Provider Name:Rodrigue chabmers, 12/13/2025 07:30:00 AM, [address] [place] [address], [phone], Provider Name:Rodrigue chambers, 12/20/2025 08:30:00 AM, [address] [place] [address], [address], [place], [phone], Progress Notes * Kevin BURRELL JrDOB: [birth year] (64 yo M)Acc No.[id number]:05/31/2024 Progress Note Patient: Kevin ALFARO Jr Provider: Lilliam Mcdonald MD :1960 A ge:63 Y S ex:Male Date:05/31/2024 Address:[address] [place] [address] [id number] Subjective: * Chief Complaints: * 1 . [...] 05/31/2024 Generated for Hong méndez/Annette/Cornellitting on: 1 12:43 PM EDT
--- OUTSIDE RECORDS SUMMARY | 2024-06-07 03:30 | XMS_ITS ---
Author Organization Rodrigue Mcdonlad MD Address [address] [place] [phone] Care Team Providers Care Tmr Teacher Name Role Phone Rodrigue Mcdonald Primary Care [...] Date Provider Diagnosis Rodrigue Mcdonald MD [address] [place] [address] [address] [place], [place] [phone] 06/07/2024 Rodrigue Mcdonald Pure hypercholestero lemia E78.00 [...] Details Provider Name:Rodrigue chambers, 01/15/2025 09:15:00 AM, [address] [place] [address], [address], [place], [place], [phone], Provider Name:Rodrigue chambers, 06/14/2025 08:00:00 AM, [address] [place] [address], [address], [place], [place], [phone], Provider Name:Rodrigue chambers, 06/18/2025 10:00:00 AM, [address], [address], [place], [place], [phone], Provider Name:Rodrigue Mcpherson ier, 12/13/2025 07:30:00 AM, [address] [address], [address], [place], [place], [phone], Provider Name:Rodrigue Mcpherson ier, 12/20/2025 08:30:00 AM, [address], [address], [place], [place], [phone], Progress Notes * Kevin BURRELL JrDOB: [birth year] (64 yo M)Acc No.[id number]:06/07/2024 Progress Notes Patient: Kevin ALFARO Provider: Lilliam Mcdonald MD :1960 A ge:64 Y S ex:Male Date:06/07/2024 Address:[address] [place], [place] [phone] Subjective: * Chief Complaints: * 6 month [...] 06/07/2024 Generated for Hong méndez/Annette/Ubaldosmitting on: 1 12:43 PM EDT History and Physical Notes [...]
--- OUTSIDE RECORDS SUMMARY | 2024-11-26 10:07 | XMS_ITS ---
Author Organization Rodrigue Mcdonald MD Address 10 [facility] [address] [place] [phone] Care Team Providers Care Neuro Urologist Name Role Phone Rodrigue Mcdonald Primary Care Provider [phone] REASON FOR VISIT discharge Encounters Encounter Location Date Provider Diagnosis Rodrigue Mcdonald MD 10 [facility] [address] [place] [phone] 11/26/2024 Rodrigue Mcdonald Plan Of Treatment Next Appt Details Provider Name:Rodrigue Mcpherson ier, 01/15/2025 09:15:00 AM, [address] [place] [address], [address], [phone], Provider Name:Rodrigue chambers, 06/14/2025 08:00:00 AM, [address] [place] [address], [address], [phone], Provider Name:Rodrigue chambers, 06/18/2025 10:00:00 AM, [address] [place] [address], [phone], Provider Name:Rodrigue Mcpherson ier, 12/13/2025 07:30:00 AM, [address], [address], [place], [phone], Provider Name:Rodrigue Mcpherson ier, 12/20/2025 08:30:00 AM, [address], [address], [place], [phone], Progress Notes * Kevin BURRELL JrDOB: [birth year] (64 yo M)Acc No.[id number]:11/26/2024 Patient: Declan FERNANDOKevin Rice :1960 A ge:64 Y S ex:Male Address:[address] [place] [address] [place] [address] * true * Date: Generated for Hong méndez/Annette/Ubaldosmitting on: 12:44 PM EDT
--- OUTSIDE RECORDS SUMMARY | 2024-11-26 11:45 | XMS_ITS ---
Author Organization Rodrigue Mcdonald MD Address [address] [place] [phone] Care Team Providers Care Project Superintendent Name Role Phone Harry Rodrigue Primary Care [...] of appt, Blanche Dumont 12/06/2024 03:43:01 PM >[facility] [place] GEN SURGERY HAS R/S APPT Referral Priority Routine Referral Appointment Date 12/31/2024 REASON FOR VISIT PH/TCM, Video [phone] Medications Medication SIG (Take, Route, Frequency, Duration) [...] Location Date Provider Diagnosis Rodrigue Mcdonald MD [address] [place] [address] [phone] 11/26/2024 Rodrigue Mcdonald Gall stone pancreatitis K85.10 [...] Details Provider Name:Rodrigue chambers, 01/15/2025 09:15:00 AM, [address] [place] [address], [address], [phone], Provider Name:Rodirgue chambers, 06/14/2025 08:00:00 AM, [address] [place] [address], [address], [phone], Provider Name:Rodrigue chambers, 06/18/2025 10:00:00 AM, [address] [place] [address], [phone], Provider Name:Rodrigue Mcpherson ier, 12/13/2025 07:30:00 AM, [address], [address], [place], [phone], Provider Name:Rodrigue Mcpherson ier, 12/20/2025 08:30:00 AM, [address], [address], [place], [phone], Progress Notes * Kevin BURRELL JrDOB: [birth year] (64 yo M)Acc No.[id number]:11/26/2024 Patient: Kevin ALFARO Provider: Lilliam Mcdonald MD :1960 A ge:64 Y S ex:Male Date:11/26/2024 Address:[address] [place] [address] [id number] Subjective: * Chief Complaints: * P H/TCMVideo [phone] * HPI: S ymptom(s): pt is a 64 yo male here for follow up had gallstone pancreatitis. Telehealth L ocation of provider rendering services: [address], [address], L ocation of [...] MD Date: Generated for Hong méndez/Annette/Noah on: 12:44 PM EDT History and Physical Notes * [...] Referral Date Referring Provider Referred Provider Not es 11/26/2024 Rodrigue Mcdonald John GALL STON E PANCREATITIS
--- OUTSIDE RECORDS SUMMARY | 2024-11-30 08:03 | XMS_ITS ---
Author Organization Rodrigue Mcdonald MD Address [address] [facility] [address] [place] [phone] Care Team Providers Care Bonsai Culturist Name Role Phone Rodrigue Mcdonald Primary Care Provider REASON FOR VISIT ER Encounters Encounter Location Date Provider Diagnosis Rodrigue Mcdonald MD [address] [facility] [address] [place] [phone] 11/30/2024 Rodrigue Mcdonald Plan Of Treatment Next Appt Details Provider Name:Rodrigue Mcpherson ier, 01/15/2025 09:15:00 AM, [address] [place] [address], [address], [phone], Provider Name:Rodrigue chambers, 06/14/2025 08:00:00 AM, [address] [place] [address], [address], [phone], Provider Name:Rodrigue chambers, 06/18/2025 10:00:00 AM, [address] [place] [address], [phone], Provider Name:Rodrigue Mcpherson ier, 12/13/2025 07:30:00 AM, [address], [address], [place], [phone], Provider Name:Rodrigue Mcpherson ier, 12/20/2025 08:30:00 AM, [address] [facility] [address], [address], [place], [phone], Progress Notes * Kevin BURRELL JrDOB: [birth year] (64 yo M)Acc No.[id number]:11/30/2024 Patient: Declan FERNANDOKevin Rice :1960 A ge:64 Y S ex:Male Address:[address] [place] [address] [place] [id number] * true * Date: Generated for Hong méndez/Annette/Ubalodsmitting on: 12:44 PM EDT
--- OUTSIDE RECORDS SUMMARY | 2024-12-06 10:15 | XMS_ITS ---
Author Organization Rodrigue Mcdonald MD Address [address] [place] [phone] Care Team Providers Care Grades 1 Thru 6 Visiting Teacher Name Role Phone Rodrigue Mcdonald Primary Care Provider [phone] REASON FOR VISIT F/U ERV left arm [...] Location Date Provider Diagnosis Rodrigue Mcdonald MD [address] [place] [address] [place] [phone] 12/06/2024 Rodrigue Mcdonald Gall stone pancreatitis K85.10 and Generalized edema R60.1 Assessments Encounter Date Diagnosis (ICD Code) Assessment Notes Treatment Notes Treatment Clinical Notes Section Notes 12/06/2024 Gall stone pancreatitis (ICD-10 - K85.10) need ct results from 2022/ had appt with dr schmidt and was cancelled and not scheduled until dec 31APPROVAL NEEDED BY [facility] BEFORE FAXING ORDER TO [facility]. CT 2022 REQUESTED FROM HIM 12/06/2024 Generalized edema (ICD-10 - R60.1) has improved. had us and angio and all negative results and has returned to normal Plan Of Treatment Treatment Notes Assessment Notes Gall stone pancreatitis need ct results from 2022/ had appt with dr schmidt and was cancelled and not scheduled until dec 31APPROVAL NEEDED BY [facility] BEFORE FAXING ORDER TO [facility]. CT 2022 REQUESTED FROM HIM Generalized edema has improved. had us and angio and all negative results and has returned to normal Pending Test Test Name Order Date CT ABD & PELVIS WITH CONTRAST 12/06/2024 Next Appt Details Follow Up: 2 Weeks, Reason: Provider Name:Rodrigue chambers, 01/15/2025 09:15:00 AM, [address] [place] [address], [address] [place] [address], [phone], Provider Name:Rodrigue chambers, 06/14/2025 08:00:00 AM, [address] [place] [address], [address] [place] [address], [phone], Provider Name:Rodrigue chambers, 06/18/2025 10:00:00 AM, [address] [place] [address], [address], [phone], Provider Name:Rodrigue chambers, 12/13/2025 07:30:00 AM, [address] [place] [address], [address], [place], [place], [phone], Provider Name:Rodrigue Mcpherson ier, 12/20/2025 08:30:00 AM, [address] [facility], [address], [place], [place], [phone], Progress Notes * Kevin BURRELL JrDOB: [birth year] (64 yo M)Acc No.[id number]:12/06/2024 Progress Notes Patient: Kevin ALFARO Provider: Lilliam Mcdonald MD :1960 A ge:64 Y S ex:Male Date:12/06/2024 Address:[address] [place] [address] ana maria [facility] Subjective: * Chief Complaints: * F /U [...] MD Date: Generated for Hong méndez/Annette/Noah on: 12:45 PM [...]
--- OUTSIDE RECORDS SUMMARY | 2024-12-11 03:00 | XMS_ITS ---
Author Organization Rodrigue Mcdonald MD Address [address] [place] [phone] Care Team Providers Care Leg Assembler Name Role Phone Rodrigue Mcdonald Primary Care Provider [phone] Results Component Value Reference Range Notes Complete Blood Count Auto Di ff Reviewed date:12/11/2024 12:29:52 PM Interpretation: Performing Lab:[facility], [address] [place] [phone] Notes/Report: White Blood Count 4.8 4.8-10.8 X10*3/uL [...] Panel Reviewed date:12/11/2024 03:57:17 PM Interpretation: Performing Lab:[facility], [address] [place] [phone] Notes/Report: Sodium 136 135-145 mmol/L Potassium 4.5 [...] Panel Reviewed date:12/11/2024 03:57:34 PM Interpretation: Performing Lab:[facility], [address] [place] [phone] Notes/Report: Bilirubin Direct 0.2 0.0-0.5 mg/dL Lipid Panel with Reflex Reviewed date:12/11/2024 03:57:26 PM Interpretation: Performing Lab:[facility], [address] [place] [phone] Notes/Report: Triglycerides 113 <150 mg/dL Desirable Triglyceride: [...] (Free>4and<10) Reviewed date:12/11/2024 03:58:47 PM Interpretation: Performing Lab:[facility], [address] [place] [phone] Notes/Report: PSA,Total (Free>4and<10) 0.46 0.00-4.00 ng/mL A [...] between 4.0 and 10.0 ng/mL. PSA methodology: Provident Linknity i Chemiluminescent Microparticle Immunoassay (CMIA) REASON FOR VISIT yearly fasting labs Encounters Encounter Location Date Provider Diagnosis Rodrigue Mcdonald MD [address] [place] [phone] 12/11/2024 Rodrigue Mcdonald Pure hypercholestero lemia E78.00 [...] Provider Name:Rodrigue chambers, 01/15/2025 09:15:00 AM, [address] [place] [address], [phone], Provider Name:Rodrigue chambers, 06/14/2025 08:00:00 AM, [address] [place] [address], [address], [phone], Provider Name:Rodrigue chambers, 06/18/2025 10:00:00 AM, [address] [place] [address], [phone], Provider Name:Rodrigue chambers, 12/13/2025 07:30:00 AM, [address] [place] [address], [phone], Provider Name:Rodrigue chambers, 12/20/2025 08:30:00 AM, [address] [place] [address], [phone], Progress Notes * Kevin BURRELL JrDOB: [birth year] (64 yo M)Acc No.[id number]:12/11/2024 Progress Note Patient: Kevin ALFARO Provider: Lilliam Mcdonald MD :1960 A ge:64 Y S ex:Male Date:12/11/2024 Address:[address] [place], [place] [address]JazlynBlayne Saeed [id number] Subjective: * Chief Complaints: * 1 . [...] Mcdonald MD Date: 1 Generated for Alicei ng/Fabrendag/eTransmitting on: 12:44 PM EDT
--- OUTSIDE RECORDS SUMMARY | 2024-12-18 05:30 | XMS_ITS ---
Author Organization Rodrigue Mcdonald MD Address [address] [place] [phone] Care Team Providers Care Tray Line Supervisor Name Role Phone Rodrigue Mcdonald Primary Care [...] t Reviewed date:12/18/2024 12:27:06 PM Interpretation: Performing Lab:[facility], [address] [place] [phone] Notes/Report: Urine, Clean Catch Color Urine Yellow Appearance Urine Clear PH 6.0 5.0-9.0 Glucose Urine UA Negative Negative mg/dL Urine Blood Negative Negative Specific [place] - Urine 1.015 1.005-1.025 Urine Protein Negative [...] Date Provider Diagnosis Rodrigue Mcdonald MD [address] [place] [address] [place] [phone] 12/18/2024 Rodrigue Mcdonald Adult general medica l [...] Reason: Provider Name:Rodrigue chambers, 01/15/2025 09:15:00 AM, [address] [place] [address], [address], [place], [phone], Provider Name:Rodrigue chambers, 06/14/2025 08:00:00 AM, [address] [place] [address], [address], [place], [phone], Provider Name:Rodrigue chambers, 06/18/2025 10:00:00 AM, [address], [address], [place], [place], [phone], Provider Name:Rodrigue Mcpherson ier, 12/13/2025 07:30:00 AM, [address], [address], [place], [phone], Provider Name:Rodrigue Mcpherson ier, 12/20/2025 08:30:00 AM, [address], [address], [place], [place], [phone], Progress Notes * Kevin BURRELL JrDOB: [birth year] (64 yo M)Acc No.[id number]:12/18/2024 Progress Notes Patient: Kevin ALFARO Jr Provider: Lilliam Mcdonald MD :1960 A ge:64 Y S ex:Male Date:12/18/2024 Address:[address] [place] [address] ana [id number] Subjective: * Chief Complaints: * 1 . Annual visit. * HPI: D epression Screening: PHQ-9 L [...] d enies. H eadache?denies. 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 Negron - repeat 10 years, Have to be on diuretic in cooler months and stop in hot months. * Family History: F ather: 80 yrs, [...] time. Pets: cats: dogs:dog. * Medications: T aking Ibuprofen 800 MG Tablet 1 tablet with food or milk as needed Orally every 8 hrs , Taking Gabapentin 800 MG Tablet take 1 tablet by mouth twice a day for 30 days Orally twice a day , Taking amLODIPine Besylate 5 MG Tablet TAKE 1 TABLET BY MOUTH EVERY DAY , Taking Lisinopril-hydroCHLOROthiazide 20-12.5 MG Tablet TAKE 1 TABLET BY MOUTH EVERY DAY , Taking Atorvastatin Calcium 40 MG Tablet TAKE 1 TABLET BY MOUTH EVERY DAY , Not-Taking/PRN predniSONE 20 MG Tablet 1 tablet Orally Once a day , Not-Taking/PRN Colchicine 0.6 MG Tablet 1 tablet Orally twice a day , Medication List reviewed and reconciled with the patient * Allergies: C odeine Sulfate: vomiting/headache. Objective: * Vitals: H t: 72.50, Wt: [...] for surgery 4. E ssential hypertension Notes: laney, will continue current regiment 5. E ncounter [...] 9 0662 FLU VACC PRSV FREE INC ANTIG, [address] IMMUNIZATION ADMIN, [address] TEST FOR BLOOD, FECES * Preventive Medicine: Counseling: C are goal follow-up plan: C ounseling for abnormal BMI provided?Yes, A fabricio Normal BMI Follow-up G iving encouragement to exercise. * Follow Up: 4 Weeks * * The named appointment provid er may or may not be the originator of this progress note, and it is not deemed complete until electronically signed by the appointment provider. Sign off status: Pending * Provider: Lilliam Mcdonald MD Date: Generated for Hong méndez/Annette/Cornellitting on: 12:43 PM EDT History and Physical [...]
[2024-12-18 11:09] LABS: Appearance Urine Clear; Glucose Urine UA Negative (Negative); PH 6.0 (5.0-9.0); Specific Gravity - Urine 1.015 (1.005-1.025)
--- OUTSIDE RECORDS SUMMARY | 2024-12-18 12:43 | XMS_ITS | Patient Health Record ---
Author Organization [facility] Address [address] [place] [address] Care Team Providers Care Supervisor Carpenters Name Role Phone Rodrigue Mcdonald MD Primary Care Provider Je Powell [phone] Allergies Allergen (clinical drug ingredient) Drug/Non Drug Allergy documented on EMR Reaction Allergy Type Onset Date Status codeine Codeine Sulfate Unknown Drug Allergy A ctive Reason For Referral No Information Medications Medication SIG (Take, Route, Frequency, Duration) Notes Start Date End Date Status Lisinopril-hydroCHLOROthiaz cynthia Active Atorvastatin Calcium Active amLODIPine Besylate Active Ibuprofen 800 MG 1 tablet Orally prn Active Suprep Bowel Prep 1 as directed Orally 1 ; Duration: 1 dose 12/18/2014 Active Problems Problem Type SNOMED Code ICD Code Onset Dates Problem Status W/U Status Risk Notes Problem Colon cancer screening (415084957) Colon cancer screening (Z12.11) Active confirmed Problem long term care pharmacist current use of non-steroidal anti-inflammat ory drug (6432190236006 03) longterm current use of non-steroidal anti-inflammat ories (NSAID) (Z79.1) Active confirmed Plan Of Treatment Future Test Test Name Order Date COLONOSCOPY 12/18/2014 Insurance Providers Payer Name Payer Address Payer Phone Subscriber Number Group Number Insured Name Patient Relationship to Insured Coverage Start Date Coverage End Date [facility] [address] [place] [phone] [id number] ARLETH FINK Self - patient is the insured Medical (General) History Medical History History ICD Code hypertension Denies [place],DM,CVA,Lung disease,renal dise ase Surgical History Surgery Date(Month/Year) back surgery 2000
--- OUTSIDE RECORDS SUMMARY | 2024-12-18 12:45 | XMS_ITS | Patient Health Record ---
Author Organization Rodrigue Mcdonald MD Address [address] [place] [phone] Care Team Providers Care Material Assembler Name Role Phone Rodrigue Mcdonald Primary Care Provider Allergies Allergen (clinical drug ingredient) Drug/Non Drug Allergy documented on EMR Reaction Allergy Type Onset Date Status codeine Codeine Sulfate vomiting/headach e Drug Allergy Active Results Component Value Reference Range Notes Liver Panel Reviewed date:05/31/2024 06:24:23 PM Interpretation: Performing Lab:[facility], [address] [place] [phone] Notes/Report: Bilirubin Total 1.5 0.0-1.0 mg/dL Bilirubin Direct 0.4 0.0-0.5 mg/dL Aspartate Amino Transferase 35 5-37 U/L Alanine Aminotransferase 34 0-40 U/L Total Protein 7.5 6.5-8.0 g/dL Albumin Level 4.6 3.5-5.0 g/dL Alkaline Phosphatase 64 39-117 U/L Lipid Panel with Reflex Reviewed date:05/31/2024 06:23:58 PM Interpretation: Performing Lab:[facility], [address] [place] [phone] Notes/Report: Triglycerides 81 <150 mg/dL Desirable Triglyceride: [...] ff Reviewed date:12/11/2024 12:29:52 PM Interpretation: Performing Lab:[facility], [address] [place] [phone] Notes/Report: White Blood Count 4.8 4.8-10.8 X10*3/uL [...] 0.0-0.2 /100WBC Neutrophils Absolute Auto 2.5 2.0-8.3 x10*3/uL Imm Gran Abs Auto 0.03 0.00-0.03 X10*3/uL Lymphocytes Absolute Auto 1.7 1.2-4.9 X10*3/uL Monocytes Absolute Auto 0.4 0.1-1.2 X10*3/uL Eosinophils Absolute Auto 0.1 0.0-0.4 X10*3/uL Basophils Absolute Auto 0.0 0.0-0.2 X10*3/uL NRBC Abs Auto 0.000 0.0-0.012 X10*3/uL Comprehensive Met. Panel Reviewed date:12/11/2024 03:57:17 PM Interpretation: Performing Lab:[address] [phone] Notes/Report: Sodium 136 135-145 mmol/L Potassium 4.5 [...] Panel Reviewed date:12/11/2024 03:57:34 PM Interpretation: Performing Lab:[address] [address] Notes/Report: Bilirubin Direct 0.2 0.0-0.5 mg/dL Lipid Panel with Reflex Reviewed date:12/11/2024 03:57:26 PM Interpretation: Performing Lab:[address] [phone] Notes/Report: Triglycerides 113 <150 mg/dL Desirable Triglyceride: [...] (Free>4and<10) Reviewed date:12/11/2024 03:58:47 PM Interpretation: Performing Lab:[address] [phone] Notes/Report: PSA,Total (Free>4and<10) 0.46 0.00-4.00 ng/mL A [...] Wetzel Alinity i Chemiluminescent Microparticle Immunoassay (CMIA) Occult Blood, Stool, Guaiac Reviewed date:12/18/2024 12:00:21 PM Interpretation:Negative Performing Lab: Notes/Report: Negative Occult Blood, Stool, Guaiac Neg UA ClnCatch+Micro w/rflx Cul t Reviewed date:12/18/2024 12:27:06 PM Interpretation: Performing Lab:[address] [phone] Notes/Report: Urine, Clean Catch Color Urine Yellow Appearance Urine Clear PH 6.0 5.0-9.0 Glucose Urine UA Negative Negative mg/dL Urine Blood Negative Negative Specific [place] - Urine 1.015 1.005-1.025 Urine Protein Negative Neg-Trace mg/dL Urine Ketones Negative Negative mg/dL Nitrite Urine Negative Negative Leukocyte Esterase Urine Negative Negative RBC Urine 0-2 0-2 /HPF WBC Urine 0-5 0-5 /HPF Squamous Epithelial Cell Urine 0-2 0-2 /HPF Bacteria Urine None Seen None Seen Hyaline Casts Urine 0-2 0-2 /LPF Hold Gold Reviewed date:05/31/2024 06:24:31 PM Interpretation: Performing Lab:[facility], [address] [place] [phone] Notes/Report: Glenn Stratton See Note Specimen held untested for 24 hours; Call to request Chemistry testing. Complete Blood Count Auto Di ff Reviewed date:11/21/2024 03:31:17 PM Interpretation: Performing Lab:[facility], [address] [place] [phone] Notes/Report: White Blood Count 15.9 4.8-10.8 X10*3/uL Red Blood Count 4.23 4.60-5.80 X10*6/uL Hemoglobin 13.8 14.0-18.0 g/dl Hematocrit 37.7 42.0-52.0 % Mean Corpuscular Volume 89.1 80.0-98.0 fL Mean Corpuscular Hemoglobin 32.6 27.0-33.0 pg Mean Corpuscular HGB Conc 36.6 31.0-36.0 g/dl Red Cell Distribution Width 12.3 11.0-16.0 % Platelet Count 230 160-400 X10*3/uL Mean Platelet Volume 9.3 9.4-12.4 fL Neutrophils Percent Auto 77.8 45-73 % Imm Gran Pct Auto 0.4 0.0-0.4 % Lymphocytes Percent Auto 15.5 20-40 % Monocytes Percent Auto 5.4 2-11 % Eosinophils Percent Auto 0.6 0-4 % Basophils Percent Auto 0.3 0-2 % NRBC Pct Auto 0.0 0.0-0.2 /100WBC Neutrophils Absolute Auto 12.4 2.0-8.3 x10*3/uL Imm Gran Abs Auto 0.06 0.00-0.03 X10*3/uL Lymphocytes Absolute Auto 2.5 1.2-4.9 X10*3/uL Monocytes Absolute Auto 0.9 0.1-1.2 X10*3/uL Eosinophils Absolute Auto 0.1 0.0-0.4 X10*3/uL Basophils Absolute Auto 0.0 0.0-0.2 X10*3/uL NRBC Abs Auto 0.000 0.0-0.012 X10*3/uL Liver Panel Reviewed date:11/21/2024 03:27:20 PM Interpretation: Performing Lab:[facility], [address] [place] [phone] Notes/Report: Bilirubin Total 2.1 0.0-1.0 mg/dL Slight Icte isis. Bilirubin Direct 1.1 0.0-0.5 mg/dL Slight Ict erus. Aspartate Amino Transferase 240 5-37 U/L Alanine Aminotransferase 152 0-40 U/L Total Protein 7.4 6.5-8.0 g/dL Albumin Level 4.9 3.5-5.0 g/dL Alkaline Phosphatase 115 39-117 U/L Basic Metabolic Panel Reviewed date:11/21/2024 03:32:00 PM Interpretation: Performing Lab:[facility], [address] [place] [phone] Notes/Report: Sodium 137 135-145 mmol/L Potassium 3.5 3.3-5.1 mmol/L Chloride 100 96-108 mmol/L Carbon Dioxide 24 22-29 mmol/L Anion Gap 17 12-20 Blood Urea Nitrogen 17 9-16 mg/dL Creatinine 1.10 0.5-1.4 mg/dL Creatinine Clr Calc Pharmacy 78.4 eGFR (calculated from the MDRD study equation) and eCrCl (calculated from the Cockcroft-Gault equation) are based on different parameters and may not yield comparable results. If eCrCl result is absurd, please check patient's height/weight. Estimated Glomerular Filt Rate > 60 Chronic Kidney Disease: Estimated GFR < 60 mL/min/1.73m2 Severe Kidney Disease: Estimated GFR < 15 mL/min/1.73m2 Glucose Random 175 60-115 mg/dL Calcium 9.7 8.4-10.2 mg/dL Lactic Acid Reviewed date:11/21/2024 03:24:24 PM Interpretation: Performing Lab:[address] [phone] Notes/Report: Lactic Acid 1.2 0.5-2.0 mmol/L Uric Acid Reviewed date:11/21/2024 03:26:52 PM Interpretation: Performing Lab:[address] [phone] Notes/Report: Uric Acid 7.2 3.4-7.0 mg/dL Magnesium Reviewed date:11/21/2024 03:27:33 PM Interpretation: Performing Lab:[address] [phone] Notes/Report: Magnesium 1.9 1.6-2.6 mg/dL Troponin-I High Sensitivity Reviewed date:11/21/2024 03:30:26 PM Interpretation: Performing Lab:[address] [phone] Notes/Report: Troponin-I High Sensitivity < 2.7 <3.5-35.0 ng/L The Wetzel high sensitivity Troponin-I results should be used in conjunction with other diagnostic information such as ECG, clinical observations and information, and patient symptoms to aid in the diagnosis of NH. Lipase Reviewed date:11/21/2024 03:27:11 PM Interpretation: Performing Lab:[facility], [address] [place] [phone] Notes/Report: Lipase > 3000 8-78 U/L Ethanol Reviewed date:11/21/2024 03:30:18 PM Interpretation: Performing Lab:[address] [address] Notes/Report: Ethanol < 10 Serum/plasma ethanol results are to be used for medical/treatment purposes only. Blood Culture (First) Reviewed date:11/26/2024 12:37:26 PM Interpretation: Performing Lab:[address] [phone] Notes/Report: Blood Culture (First) No growth after 5 days. Blood Culture (Second) Reviewed date:11/26/2024 12:36:32 PM Interpretation: Performing Lab:[facility], [address] [place] [address] Notes/Report: Blood Culture (Second) No growth after [address] abdomen pelvis w con Reviewed date:11/21/2024 03:26:17 PM Interpretation: Performing Lab: Notes/Report: [facility] [address] [place] [address] CT Scan Report Signed Patient: Kevin Burrell MR#: [id number] 2 : 1960 Acct:[id number] Age/Sex: 64 / M ADM Date: 11/20/24 Loc: HO.ED Attending Dr: Ordering Physician: Rod Owusu Date of Service: 11/20/24 Procedure(s): CT abdomen pelvis w IV con Accession Number(s): [id number] cc: Rodrigue Mcdonald MD; Rod Owusu Report Number: [id number]: Total DLP = 642.00 mGy-cm Reason for Exam: epigastric abdominal pain CLINICAL HISTORY: epigastric abdominal pain CT abdomen and pelvis with contrast Comparison: CT of the abdomen and pelvis from 09/12/2022. Findings: Mild bibasilar atelectasis and/or pneumonitis. Mild cardiomegaly partially imaged. Yhtibubu-gp-gzmofq fluid about the pancreas is concerning for acute and/or recurrent pancreatitis. Moderate volume loss of the pancreas as can be seen with chronic and/or prior pancreatitis. The adrenal glands are normal. Spleen approaches the upper limits of normal. Gallbladder is distended with multiple cholelithiasis by CT. Imaged CBD measures [address] Mild fat deposition of the liver. No hydronephrosis. Mild perinephric stranding is nonspecific. Mild small bowel dilatation as can be seen with sentinel loop ileus from adjacent separate inflammation. No small bowel obstruction. Fluid in the large intestine can be seen with diarrhea type illnesses and colitis. Wall thickening of the large intestine is nonspecific and may reflect colitis, including splenic flexure, descending colon, and sigmoid colon. Imaged appendix is within normal limits (image 42 of series 7). Calcified and noncalcified plaque involving the imaged aorta and its branches. The prostate gland measures 5.2 cm transverse. Rojjyhuo-pa-rfxaxw wall thickening of the urinary bladder is nonspecific. No definite hardware loosening of the L4-L5. Adjacent segment changes at L3-L4 and L5-S1. Facet arthropathy is multifocal. 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 IMPRESSION: 1. Fluid surrounding of the pancreas, concerning for acute pancreatitis. 2. Cholelithiasis by CT. 3. Wall thickening of the urinary bladder is nonspecific. This document has been electronically signed by: Facundo Gross MD on 11/20/2024 22:54:27 Dictated By: Facundo Gross MD Signed By: <Electronically signed by Facundo Gross MD in OV> 11/20/242254 DD/ 53 TD/TT: 11/20/242253 Flight Surveyor: [place] [address] CT Scan Report Signed Patient: Parish Burrell MR#: [id number] 2 : 1960 Acct:[id number] Age/Sex: 64 / M ADM Date: 11/20/24 Loc: HO.ED Attending Dr: Ordering Physician: Rod Owusu Date of Service: 11/20/24 Procedure(s): CT abd omen pelvis w IV con Accession Number(s): [id number] cc: Rodrigue Mcdonald MD; Rod Owusu Report Number: [id number]: Total DLP = 642.00 mGy-cm Reason for Exam: epigastric abdominal pain CLINICAL HISTORY: epigastric abdominal pain CT abdomen and pelvi s with contrast Comparison: CT of e abdomen and pelvis from 09/12/2022. Findings: Mild bibasilar atelectasis and/or pneumonitis. Mild cardiomegaly partially imaged. Vjidkwax-gz-ajimvy f luid about the pancreas is concerning for acute and/or recurrent pancreatit is. Moderate volume loss of the pancreas as can be seen with chronic an d/or prior pancreatitis. The adrenal glands are normal. Spleen approaches the upper limits of normal. Gallbladder is distended with multi ple cholelithiasis by CT. Imaged CBD measures [address] Mild fat deposition of the liver. No hydronephrosis. Mild perinephric stranding is nonspecific. Mild small bowel dilatation as can be seen with sentinel loop ileus from adjacent separate inflammation. No small bowel obstruction. Fluid i n the large intestine can be seen with diarrhea type illnesses and coliti s. Wall thickening of the large intestine is nonspecific and may reflect colitis, including splenic flexure, descending colon, and sigmoid colon. Imaged appendix is within normal limits (image 42 of series 7). Calcified and noncalcified plaque involving the imaged aorta and its branches. The prostate gland measures 5.2 cm transverse. Jnamxeny-sn-lspspk wall thickening of the urinary bladder is nonspecific. No definite hardware loosening of the L4-L5. Adjacent segment changes at L3-L4 and L5-S1. Fac et arthropathy is multifocal. 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 IMPRESSION: 1. Fluid surrounding of the pancreas, concerning for acute pancreatitis. 2. Cholelithiasis by CT. 3. Wall thickening o f the urinary bladder is nonspecific. This document has be en electronically signed by: Facundo Gross MD on 11/20/2024 22:54:27 Dictated By: Kenyetta Gross MD Signed By: <Electronically signed by Facundo Gross MD in OV> 11/20/242254 DD/ 53 TD/TT: 11/20/242253 Flight Surveyor: Complete Blood Count Auto Di ff Reviewed date:11/21/2024 03:26:44 PM Interpretation: Performing Lab:[facility], [address] [place] [phone] Notes/Report: White Blood Count 13.0 4.8-10.8 X10*3/uL Red Blood Count 4.07 4.60-5.80 X10*6/uL Hemoglobin 13.2 14.0-18.0 g/dl Hematocrit 37.2 42.0-52.0 % Mean Corpuscular Volume 91.4 80.0-98.0 fL Mean Corpuscular Hemoglobin 32.4 27.0-33.0 pg Mean Corpuscular HGB Conc 35.5 31.0-36.0 g/dl Red Cell Distribution Width 12.2 11.0-16.0 % Platelet Count 170 160-400 X10*3/uL Mean Platelet Volume 10.0 9.4-12.4 fL Neutrophils Percent Auto 90.1 45-73 % Imm Gran Pct Auto 0.6 0.0-0.4 % Lymphocytes Percent Auto 4.8 20-40 % Monocytes Percent Auto 4.4 2-11 % Eosinophils Percent Auto 0.0 0-4 % Basophils Percent Auto 0.1 0-2 % NRBC Pct Auto 0.0 0.0-0.2 /100WBC Neutrophils Absolute Auto 11.7 2.0-8.3 x10*3/uL Imm Gran Abs Auto 0.08 0.00-0.03 X10*3/uL Lymphocytes Absolute Auto 0.6 1.2-4.9 X10*3/uL Monocytes Absolute Auto 0.6 0.1-1.2 X10*3/uL Eosinophils Absolute Auto 0.0 0.0-0.4 X10*3/uL Basophils Absolute Auto 0.0 0.0-0.2 X10*3/uL NRBC Abs Auto 0.000 0.0-0.012 X10*3/uL White Blood Count 13.0 4.8-10.8 X10*3/uL Red Blood Count 4.07 4.60-5.80 X10*6/uL Hemoglobin 13.2 14.0-18.0 g/dl Hematocrit 37.2 42.0-52.0 % Mean Corpuscular Volume 91.4 80.0-98.0 fL Mean Corpuscular Hemoglobin 32.4 27.0-33.0 pg Mean Corpuscular HGB Conc 35.5 31.0-36.0 g/dl Red Cell Distribution Width 12.2 11.0-16.0 % Platelet Count 170 160-400 X10*3/uL Mean Platelet Volume 10.0 9.4-12.4 fL Neutrophils Percent Auto 90.1 45-73 % Imm Gran Pct Auto 0.6 0.0-0.4 % Lymphocytes Percent Auto 4.8 20-40 % Monocytes Percent Auto 4.4 2-11 % Eosinophils Percent Auto 0.0 0-4 % Basophils Percent Auto 0.1 0-2 % NRBC Pct Auto 0.0 0.0-0.2 /100WBC Neutrophils Absolute Auto 11.7 2.0-8.3 x10*3/uL Imm Gran Abs Auto 0.08 0.00-0.03 X10*3/uL Lymphocytes Absolute Auto 0.6 1.2-4.9 X10*3/uL Monocytes Absolute Auto 0.6 0.1-1.2 X10*3/uL Eosinophils Absolute Auto 0.0 0.0-0.4 X10*3/uL Basophils Absolute Auto 0.0 0.0-0.2 X10*3/uL NRBC Abs Auto 0.000 0.0-0.012 X10*3/uL CO RRECTED REPORT CO RRECTED REPORT Prothrombin Time INR Reviewed date:11/21/2024 03:27:41 PM Interpretation: Performing Lab:[address] [address] Notes/Report: Prothrombin Time 11.0 10.9-12.4 SEC INTERNATIONAL NORM RATIO 1.0 0.9-1.1 INTERNATIONAL NORMALIZED RATIO (INR) REFERENCE RANGES Reference Range For patients not on anticoagulant therapy: 0.9 - 1.1 INR ranges for oral anticoagulant therapy: For prevention and treatment of venous thrombosis and pulmonary embolism: 2.0 - 3.0 For acute myocardial infarction with aspirin therapy: 2.0 - 3.0 For acute myocardial infarction without aspirin therapy: 3.0 - 4.0 For patients with mechanical prosthetic heart valves: 2.5 - 3.5 Comprehensive Met. Panel Reviewed date:11/21/2024 03:28:21 PM Interpretation: Performing Lab:[address] [address] Notes/Report: Sodium 137 135-145 mmol/L Potassium 4.1 3.3-5.1 mmol/L Chloride 104 96-108 mmol/L Carbon Dioxide 24 22-29 mmol/L Anion Gap 13 12-20 Blood Urea Nitrogen 15 9-16 mg/dL Creatinine 0.82 0.5-1.4 mg/dL Creatinine Clr Calc Pharmacy 105.1 eGFR (calculated from the MDRD study equation) and eCrCl (calculated from the Cockcroft-Gault equation) are based on different parameters and may not yield comparable results. If eCrCl result is absurd, please check patient's height/weight. Estimated Glomerular Filt Rate > 60 Chronic Kidney Disease: Estimated GFR < 60 mL/min/1.73m2 Severe Kidney Disease: Estimated GFR < 15 mL/min/1.73m2 Glucose Random 121 60-115 mg/dL Calcium 8.6 8.4-10.2 mg/dL Bilirubin Total 1.9 0.0-1.0 mg/dL Aspartate Amino Transferase 133 5-37 U/L Alanine Aminotransferase 160 0-40 U/L Total Protein 6.8 6.5-8.0 g/dL Albumin Level 4.3 3.5-5.0 g/dL Alkaline Phosphatase 110 39-117 U/L Magnesium Reviewed date:11/21/2024 03:28:00 PM Interpretation: Performing Lab:[address] [address] Notes/Report: Magnesium 1.9 1.6-2.6 mg/dL C Reactive Protein Reviewed date:11/21/2024 03:30:33 PM Interpretation: Performing Lab:[facility], [address] [place] [phone] Notes/Report: C Reactive Protein 0.41 < or = 0.50 mg/dL Lipase Reviewed date:11/21/2024 03:24:15 PM Interpretation: Performing Lab:[address] [address] Notes/Report: Lipase 1044 8-78 U/L SLIDE REVIEW Reviewed date:11/21/2024 03:23:10 PM Interpretation: Performing Lab:[address] [address] Notes/Report: SLIDE REVIEW VERIFIED US abdomen limited Reviewed date:11/21/2024 03:23:57 PM Interpretation: Performing Lab: Notes/Report: [address] [address] Ultrasound Report Signed Patient: Kevin Burrell MR#: [id number] 2 : 1960 Acct:[id number] Age/Sex: 64 / M ADM Date: 11/20/24 Loc: [facility]: Abby Kemp MD Ordering Physician: Abby Kemp MD Date of Service: 11/21/24 Procedure(s): US abdomen limited Accession Number(s): [id number] cc: Abby Kemp MD; Rodrigue Mcdonald MD Reason for Exam: ? Cholelithioasis, RUQ pain EXAMINATION: US ABDOMEN LIMITED CLINICAL INFORMATION: Right upper quadrant pain,? Cholelithiasis. COMPARISON: No prior ultrasound. CT abdomen and pelvis 11/20/2024. TECHNIQUE: Real-time imaging of the gallbladder and bile ducts was performed. FINDINGS: GALLBLADDER: Gallbladder is physiologically distended. There are numerous layering gallstones intraluminally. No wall thickening, or pericholecystic fluid collection. Negative sonographic Mar's sign. COMMON BILE DUCT: Normal in caliber measuring 0.5 cm in diameter. FREE FLUID: None. US/US abdomen limited IMPRESSION: 1. Cholelithiasis without evidence of gallbladder inflammation. 2. No biliary dilatation. Electronically signed by: Jama Del Toro MD 11/21/2024 02:09 PM EDT Dictated By: Jama Del Toro MD Signed By: <Electronically signed by Jama Del Toro MD in OV> 11/21/24 1409 DD/ 1350 TD/TT: 11/21/24 1354 Flight Surveyor: [place] [address] Ultrasound Report Signed Patient: Parsih Burrell MR#: [id number] 2 : 1960 Acct:[id number] Age/Sex: 64 / M ADM Date: 11/20/24 Loc: [facility]: Abby Kemp MD Ordering Physician: Abby Kemp MD Date of Service: 11/21/24 Procedure(s): US abd omen limited Accession Number(s): [id number] cc: Abby Kemp MD; Rodrigue Mcdonald MD Reason for Exam: ? Cholelithioasis, RUQ pain EXAMINATION: US ABDOMEN LIMITED CLINICAL INFORMATION: Right upper quadrant pain,? Cholelithiasis. COMPARISON: No prior ultrasound. CT abdomen and pelvi s 11/20/2024. TECHNIQUE: Real-time imaging of the gallbladder and bile ducts was performed. FINDINGS: GALLBLADDER: Gallbla dder is physiologically distended. There are numerous layering gallstones intraluminally. No wall thickening, or pericholecystic flui d collection. Negative sonographic Mar's sign. COMMON BILE DUCT: No rmal in caliber measuring 0.5 cm in diameter. FREE FLUID: None. U S/US abdomen limited IMPRESSION: 1. Cholelithiasis without evidence of gallbladder inflammation. 2. No biliary dilatation. Electronically kurt d by: Jama Del Toro MD 11/21/2024 02:09 PM EDT RP Dictated By: Jama Del Toro MD Signed By: <Electronically signed by Jama Del Toro MD in OV> 11/21/24 1409 DD/ 1350 TD/TT: 11/21/24 1354 Flight Surveyor: Complete Blood Count Auto Di ff Reviewed date:11/22/2024 12:35:46 PM Interpretation: Performing Lab:[facility], [address] [place] [phone] Notes/Report: White Blood Count 21.0 4.8-10.8 X10*3/uL Red Blood Count 3.98 4.60-5.80 X10*6/uL Hemoglobin 12.9 14.0-18.0 g/dl Hematocrit 34.9 42.0-52.0 % Mean Corpuscular Volume 87.7 80.0-98.0 fL Mean Corpuscular Hemoglobin 32.4 27.0-33.0 pg Mean Corpuscular HGB Conc 37.0 31.0-36.0 g/dl Red Cell Distribution Width 12.3 11.0-16.0 % Platelet Count 145 160-400 X10*3/uL Mean Platelet Volume 10.8 9.4-12.4 fL Neutrophils Percent Auto 91.7 45-73 % Imm Gran Pct Auto 0.9 0.0-0.4 % Lymphocytes Percent Auto 2.8 20-40 % Monocytes Percent Auto 4.5 2-11 % Eosinophils Percent Auto 0.0 0-4 % Basophils Percent Auto 0.1 0-2 % NRBC Pct Auto 0.0 0.0-0.2 /100WBC Neutrophils Absolute Auto 19.2 2.0-8.3 x10*3/uL Imm Gran Abs Auto 0.19 0.00-0.03 X10*3/uL Lymphocytes Absolute Auto 0.6 1.2-4.9 X10*3/uL Monocytes Absolute Auto 0.9 0.1-1.2 X10*3/uL Eosinophils Absolute Auto 0.0 0.0-0.4 X10*3/uL Basophils Absolute Auto 0.0 0.0-0.2 X10*3/uL NRBC Abs Auto 0.000 0.0-0.012 X10*3/uL White Blood Count 21.0 4.8-10.8 X10*3/uL Red Blood Count 3.98 4.60-5.80 X10*6/uL Hemoglobin 12.9 14.0-18.0 g/dl Hematocrit 34.9 42.0-52.0 % Mean Corpuscular Volume 87.7 80.0-98.0 fL Mean Corpuscular Hemoglobin 32.4 27.0-33.0 pg Mean Corpuscular HGB Conc 37.0 31.0-36.0 g/dl Red Cell Distribution Width 12.3 11.0-16.0 % Platelet Count 145 160-400 X10*3/uL Mean Platelet Volume 10.8 9.4-12.4 fL Neutrophils Percent Auto 91.7 45-73 % Imm Gran Pct Auto 0.9 0.0-0.4 % Lymphocytes Percent Auto 2.8 20-40 % Monocytes Percent Auto 4.5 2-11 % Eosinophils Percent Auto 0.0 0-4 % Basophils Percent Auto 0.1 0-2 % NRBC Pct Auto 0.0 0.0-0.2 /100WBC Neutrophils Absolute Auto 19.2 2.0-8.3 x10*3/uL Imm Gran Abs Auto 0.19 0.00-0.03 X10*3/uL Lymphocytes Absolute Auto 0.6 1.2-4.9 X10*3/uL Monocytes Absolute Auto 0.9 0.1-1.2 X10*3/uL Eosinophils Absolute Auto 0.0 0.0-0.4 X10*3/uL Basophils Absolute Auto 0.0 0.0-0.2 X10*3/uL NRBC Abs Auto 0.000 0.0-0.012 X10*3/uL CO RRECTED REPORT CO RRECTED REPORT Comprehensive Met. Panel Reviewed date:11/22/2024 12:36:13 PM Interpretation: Performing Lab:[facility], [address] [place] [phone] Notes/Report: Sodium 138 135-145 mmol/L Potassium 4.1 3.3-5.1 mmol/L Slight Hemolysis.Interpret result with caution. Chloride 103 96-108 mmol/L Carbon Dioxide 25 22-29 mmol/L Anion Gap 14 12-20 Blood Urea Nitrogen 16 9-16 mg/dL Creatinine 0.70 0.5-1.4 mg/dL Creatinine Clr Calc Pharmacy 123.4 eGFR (calculated from the MDRD study equation) and eCrCl (calculated from the Cockcroft-Gault equation) are based on different parameters and may not yield comparable results. If eCrCl result is absurd, please check patient's height/weight. Estimated Glomerular Filt Rate > 60 Chronic Kidney Disease: Estimated GFR < 60 mL/min/1.73m2 Severe Kidney Disease: Estimated GFR < 15 mL/min/1.73m2 Glucose Random 107 60-115 mg/dL Calcium 8.8 8.4-10.2 mg/dL Bilirubin Total 1.6 0.0-1.0 mg/dL Aspartate Amino Transferase 60 5-37 U/L Slight Hemolysis.Interpret result with caution. Alanine Aminotransferase 89 0-40 U/L Total Protein 6.5 6.5-8.0 g/dL Albumin Level 4.1 3.5-5.0 g/dL Alkaline Phosphatase 84 39-117 U/L Magnesium Reviewed date:11/22/2024 12:35:54 PM Interpretation: Performing Lab:[facility], [address] [place] [phone] Notes/Report: Magnesium 1.9 1.6-2.6 mg/dL SLIDE REVIEW Reviewed date:11/22/2024 12:35:23 PM Interpretation: Performing Lab:[facility], [address] [place] [phone] Notes/Report: SLIDE REVIEW VERIFIED Complete Blood Count Auto Di ff Reviewed date:11/23/2024 11:44:37 AM Interpretation: Performing Lab:[facility], [address] [place] [phone] Notes/Report: White Blood Count 17.8 4.8-10.8 X10*3/uL Red Blood Count 3.49 4.60-5.80 X10*6/uL Hemoglobin 11.2 14.0-18.0 g/dl Hematocrit 31.8 42.0-52.0 % Mean Corpuscular Volume 91.1 80.0-98.0 fL Mean Corpuscular Hemoglobin 32.1 27.0-33.0 pg Mean Corpuscular HGB Conc 35.2 31.0-36.0 g/dl Red Cell Distribution Width 12.2 11.0-16.0 % Platelet Count 135 160-400 X10*3/uL Mean Platelet Volume 10.3 9.4-12.4 fL Neutrophils Percent Auto 89.4 45-73 % Imm Gran Pct Auto 1.0 0.0-0.4 % Lymphocytes Percent Auto 3.8 20-40 % Monocytes Percent Auto 5.6 2-11 % Eosinophils Percent Auto 0.0 0-4 % Basophils Percent Auto 0.2 0-2 % NRBC Pct Auto 0.0 0.0-0.2 /100WBC Neutrophils Absolute Auto 15.9 2.0-8.3 x10*3/uL Imm Gran Abs Auto 0.17 0.00-0.03 X10*3/uL Lymphocytes Absolute Auto 0.7 1.2-4.9 X10*3/uL Monocytes Absolute Auto 1.0 0.1-1.2 X10*3/uL Eosinophils Absolute Auto 0.0 0.0-0.4 X10*3/uL Basophils Absolute Auto 0.0 0.0-0.2 X10*3/uL NRBC Abs Auto 0.000 0.0-0.012 X10*3/uL Comprehensive Met. Panel Reviewed date:11/23/2024 11:44:10 AM Interpretation: Performing Lab:[facility], [address] [place] [phone] Notes/Report: Sodium 135 135-145 mmol/L Potassium 3.1 3.3-5.1 mmol/L Chloride 100 96-108 mmol/L Carbon Dioxide 26 22-29 mmol/L Anion Gap 11 12-20 Blood Urea Nitrogen 14 9-16 mg/dL Creatinine 0.62 0.5-1.4 mg/dL Creatinine Clr Calc Pharmacy 174.4 eGFR (calculated from the MDRD study equation) and eCrCl (calculated from the Cockcroft-Gault equation) are based on different parameters and may not yield comparable results. If eCrCl result is absurd, please check patient's height/weight. Estimated Glomerular Filt Rate > 60 Chronic Kidney Disease: Estimated GFR < 60 mL/min/1.73m2 Severe Kidney Disease: Estimated GFR < 15 mL/min/1.73m2 Glucose Random 91 60-115 mg/dL Calcium 8.5 8.4-10.2 mg/dL Bilirubin Total 1.3 0.0-1.0 mg/dL Aspartate Amino Transferase 41 5-37 U/L Alanine Aminotransferase 53 0-40 U/L Total Protein 6.1 6.5-8.0 g/dL Albumin Level 3.8 3.5-5.0 g/dL Alkaline Phosphatase 65 39-117 U/L CT abdomen pelvis w con Reviewed date:11/23/2024 03:49:51 PM Interpretation: Performing Lab: Notes/Report: [address] [address] [address] Scan Report Signed Patient: Kevin Burrell MR#: [id number] 2 : 1960 Acct:[id number] Age/Sex: 64 / M ADM Date: 11/20/24 Loc: [facility] 462-[address]: Abby Kemp MD Ordering Physician: Abby Kemp MD Date of Service: 11/23/24 Procedure(s): CT abdomen pelvis w IV con Accession Number(s): [id number] cc: Abby Kemp MD; Rodrigue Mcdonald MD Report Number: [id number]: Total DLP = 740.00 mGy-cm Reason for Exam: R/o shanna-pancreatic abscess EXAMINATION: CT ABDOMEN AND PELVIS WITH CONTRAST CLINICAL INFORMATION: Concerning peripancreatic abscess. COMPARISON: November 20, 2024 reporting acute pancreatitis. TECHNIQUE: Multidetector volumetric images were obtained from the superior aspect of the liver through the pubic symphysis following administration 85 mL of Omnipaque 350 intravenous contrast. Sagittal and coronal reformatted images were obtained on the technologist's workstation. Oral contrast: No This CT examination was performed using dose optimization techniques as appropriate, variously including the following: *Automated exposure control *Adjustment of mA and/or kV according to patient size (this includes techniques or standardized protocols for targeted exams where dose is matched to indication/reason for exam; i.e. extremities or head) *Use of iterative reconstruction technique DLP: 740 mGy centimeter. FINDINGS: LUNG BASES: Bilateral small pleural effusions and compression atelectasis. LIVER, GALLBLADDER, AND BILIARY TREE: Liver measures 17 cm with decreased enhancement pattern. No focal mass. Main portal veins and hepatic veins and intrahepatic portion of the IVC are patent. Cholelithiasis without pericholecystic fluid collection or gallbladder wall thickening. No intrahepatic or extrahepatic biliary ductal dilatation. PANCREAS: [There is peripancreatic edema pattern. No peripancreatic fluid collections. Enhancement of the pancreatic parenchyma no main pancreatic ductal dilatation. SPLEEN: 11 cm. No focal mass. ADRENAL GLANDS: No nodular lesions. KIDNEYS AND URETERS: No hydronephrosis. No gross nephrolithiasis. No enhancing lesion. Normal enhancement of the renal parenchyma. Bilateral perinephric edema pattern. Extrarenal pelvises, bilaterally. BLADDER: Fluid-filled. GASTROINTESTINAL TRACT: Moderate amount of ascites measuring 15 Hounsfield units, in the pelvic peritoneal cavity without peripheral enhancing fluid collections. Gas and fluid-filled prominent small bowel loops. No pneumatosis intestinalis. Collapsed appearance of the distal ileal loops. Intraluminal fluid in the right hemicolon. Collapsed appearance of the left hemicolon. Numerous diverticula, left hemicolon. No gross pneumoperitoneum. ABDOMINAL WALL: Small fat-containing umbilical hernia. LYMPH NODES: Prominent, less than 11 mm mesenteric and retroperitoneal lymph nodes, likely reactive. VASCULAR: Calcified plaques in the splenic artery without vascular irregularity to suggest pseudoaneurysm and or active leak. Main splenic vein is patent without gross intraluminal filling defects. Calcified plaques in the abdominal aorta wall and iliac arteries without aneurysm or dissection. Calcified plaques in the origin of the celiac trunk, SMA, main renal arteries, KARL. Calcified plaques in the aortic valve. PELVIC VISCERA: Not enlarged prostate gland. OSSEOUS STRUCTURES: Multilevel thoracolumbar spondylosis. Status post bilateral laminectomies and posterior fusion L4-5 with arthrodesis/intervertebral disc spacer placement. No lytic or blastic lesions. Mild degenerative changes in the coxofemoral joints. 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 Regional ileus. Overall worsening since prior exam. No main splenic vein thrombosis. No main splenic artery pseudoaneurysm. Bilateral small volume pleural effusions and compression atelectasis, new. Hepatomegaly, mild and steatosis. Cholelithiasis. Diverticular disease, left hemicolon.. Fleischner guidelines were followed. Electronically signed by: Joseph Chong MD 11/23/2024 02:28 PM EDT Dictated By: Joseph Sykes MD Signed By: <Electronically signed by Joseph Alvarez MD in [place]> 11/23/24 1428 DD/ 1356 TD/TT: 11/23/24 1410 Flight Surveyor: [place] [address] CT Scan Report Signed Patient: Parish Burrell MR#: [id number] 2 : 1960 Acct:[id number] Age/Sex: 64 / M ADM Date: 11/20/24 Loc: [facility] 462-[address]: Abby Kemp MD Ordering Physician: Abby Kemp MD Date of Service: 11/23/24 Procedure(s): CT abd omen pelvis w IV con Accession Number(s): [id number] cc: Abby Kemp MD; Rodrigue Mcdonald MD Report Number: [id number]: Total DLP = 740.00 mGy-cm Reason for Exam: R/o shanna-pancreatic abscess EXAMINATION: CT ABDOMEN AND PELVI S WITH CONTRAST CLINICAL INFORMATION: Concerning peripancreatic abscess. COMPARISON: November 20, 2024 reporting acute pancreatitis. TECHNIQUE: Multidetector volume tric images were obtained from the superior aspect of the liver through the pubic symphysis following administration 85 mL of Omnipaque 350 intravenous contrast. Sagittal and coronal reformatted images were obtained on the technologist's workstation. Oral contrast: No This CT examination was performed using dose optimization techniques as appropriate, various ly including the following: *Automated exposure control *Adjustment of mA an d/or kV according to patient size (this includes techniques or standardized protocols for targeted exams where dose is matched to indication/reason for exam; i.e. extremities or head) *Use of iterative reconstruction technique DLP: 740 mGy centimeter. FINDINGS: LUNG BASES: Bilatera l small pleural effusions and compression atelectasis. LIVER, GALLBLADDER, AND BILIARY TREE: Liver measures 17 cm with decreased enhancemen t pattern. No focal mass. Main portal veins and hepatic veins and intrahepatic portion of the IVC are patent. Cholelithiasis witho ut pericholecystic fluid collection or gallbladder wall thickening. No intrahepatic or extrahepatic biliary ductal dilatation. PANCREAS: [There is peripancreatic edema pattern. No peripancreatic fluid collections. Enhancement of the pancreatic parenchyma no main pancreatic ductal dilatation. SPLEEN: 11 cm. No fo adam mass. ADRENAL GLANDS: No nodular lesions. KIDNEYS AND URETERS: No hydronephrosis. No gross nephrolithiasis. No enhancing lesion. No rmal enhancement of the renal parenchyma. Bilateral perinephric edema pattern. Extrarenal pelvises, bilaterally. BLADDER: Fluid-filled. GASTROINTESTINAL TRA CT: Moderate amount of ascites measuring 15 Hounsfield units, in the pelvic peritoneal cavity without peripheral enhancing fluid collections. Gas and fluid-filled prominent small bowel loops. No pneumatosis intestinalis. Collap sed appearance of the distal ileal loops. Intraluminal fluid i n the right hemicolon. Collapsed appearance of the left hemicolon. Nume teresita diverticula, left hemicolon. No gross pneumoperitoneum. ABDOMINAL WALL: Smal l fat-containing umbilical hernia. LYMPH NODES: Promine nt, less than 11 mm mesenteric and retroperitoneal lymph nodes, likely reactive. VASCULAR: Calcified plaques in the splenic artery without vascular irregularity to sugg est pseudoaneurysm and or active leak. Main splenic vein is patent witho ut gross intraluminal filling defects. Calcified plaques in the abdominal aorta wall and iliac arteries without aneurysm or dissection. Calcified plaques in the origin of the celiac trunk, SMA, main renal arteries, KARL. Calci fied plaques in the aortic valve. PELVIC VISCERA: Not enlarged prostate gland. OSSEOUS STRUCTURES: Multilevel thoracolumbar spondylosis. Status post bilatera l laminectomies and posterior fusion L4-5 with arthrodesis/interver tebr al disc spacer placement. No lytic or blastic lesions. Mild degenerative changes in the coxofemoral joints. C T/CT abdomen pelvis w IV con IMPRESSION: Acute interstitial erythematosus pancreatitis with moderate amount of ascites trace peripancreatic fluid edema. Regional ileus. Over all worsening since prior exam. No main splenic vein thrombosis. No main splenic lashay ry pseudoaneurysm. Bilateral small volu me pleural effusions and compression atelectasis, new. Hepatomegaly, mild a nd steatosis. Cholelithiasis. Diverticular disease , left hemicolon.. Fleischner guideline s were followed. Electronically kurt d by: Joseph Chong MD 11/23/2024 02:28 PM EDT RP Dictated By: Joseph Cummins MD Signed By: <Electronically signed by Joseph Alvarez MD in OV> 11/23/24 1428 DD/ 1356 TD/TT: 11/23/24 1410 Flight Surveyor: Complete Blood Count Auto Di ff Reviewed date:11/25/2024 02:26:14 PM Interpretation: Performing Lab:[facility], [address] [place] [phone] Notes/Report: White Blood Count 16.0 4.8-10.8 X10*3/uL Red Blood Count 3.61 4.60-5.80 X10*6/uL Hemoglobin 11.8 14.0-18.0 g/dl Hematocrit 31.7 42.0-52.0 % Mean Corpuscular Volume 87.8 80.0-98.0 fL Mean Corpuscular Hemoglobin 32.7 27.0-33.0 pg Mean Corpuscular HGB Conc 37.2 31.0-36.0 g/dl Red Cell Distribution Width 11.9 11.0-16.0 % Platelet Count 147 160-400 X10*3/uL Mean Platelet Volume 10.3 9.4-12.4 fL Neutrophils Percent Auto 88.3 45-73 % Imm Gran Pct Auto 1.3 0.0-0.4 % Lymphocytes Percent Auto 4.6 20-40 % Monocytes Percent Auto 5.6 2-11 % Eosinophils Percent Auto 0.1 0-4 % Basophils Percent Auto 0.1 0-2 % NRBC Pct Auto 0.0 0.0-0.2 /100WBC Neutrophils Absolute Auto 14.1 2.0-8.3 x10*3/uL Imm Gran Abs Auto 0.21 0.00-0.03 X10*3/uL Lymphocytes Absolute Auto 0.7 1.2-4.9 X10*3/uL Monocytes Absolute Auto 0.9 0.1-1.2 X10*3/uL Eosinophils Absolute Auto 0.0 0.0-0.4 X10*3/uL Basophils Absolute Auto 0.0 0.0-0.2 X10*3/uL NRBC Abs Auto 0.000 0.0-0.012 X10*3/uL Comprehensive Met. Panel Reviewed date:11/25/2024 02:26:41 PM Interpretation: Performing Lab:[facility], [address] [place] [phone] Notes/Report: Sodium 134 135-145 mmol/L Potassium 3.2 3.3-5.1 mmol/L Chloride 96 96-108 mmol/L Carbon Dioxide 27 22-29 mmol/L Anion Gap 14 12-20 Blood Urea Nitrogen 9 9-16 mg/dL Creatinine 0.65 0.5-1.4 mg/dL Creatinine Clr Calc Pharmacy 166.4 eGFR (calculated from the MDRD study equation) and eCrCl (calculated from the Cockcroft-Gault equation) are based on different parameters and may not yield comparable results. If eCrCl result is absurd, please check patient's height/weight. Estimated Glomerular Filt Rate > 60 Chronic Kidney Disease: Estimated GFR < 60 mL/min/1.73m2 Severe Kidney Disease: Estimated GFR < 15 mL/min/1.73m2 Glucose Random 85 60-115 mg/dL Calcium 8.9 8.4-10.2 mg/dL Bilirubin Total 1.0 0.0-1.0 mg/dL Aspartate Amino Transferase 40 5-37 U/L Alanine Aminotransferase 44 0-40 U/L Total Protein 6.7 6.5-8.0 g/dL Albumin Level 3.8 3.5-5.0 g/dL Alkaline Phosphatase 96 39-117 U/L Complete Blood Count Auto Di ff Reviewed date:11/25/2024 02:29:13 PM Interpretation: Performing Lab:[facility], [address] [place] [phone] Notes/Report: White Blood Count 13.9 4.8-10.8 X10*3/uL Red Blood Count 3.79 4.60-5.80 X10*6/uL Hemoglobin 10.9 14.0-18.0 g/dl Hematocrit 32.7 42.0-52.0 % Mean Corpuscular Volume 86.3 80.0-98.0 fL Mean Corpuscular Hemoglobin 28.8 27.0-33.0 pg Mean Corpuscular HGB Conc 33.3 31.0-36.0 g/dl Red Cell Distribution Width 11.9 11.0-16.0 % Platelet Count 179 160-400 X10*3/uL Mean Platelet Volume 10.3 9.4-12.4 fL Neutrophils Percent Auto 84.3 45-73 % Imm Gran Pct Auto 0.9 0.0-0.4 % Lymphocytes Percent Auto 6.4 20-40 % Monocytes Percent Auto 8.0 2-11 % Eosinophils Percent Auto 0.3 0-4 % Basophils Percent Auto 0.1 0-2 % NRBC Pct Auto 0.0 0.0-0.2 /100WBC Neutrophils Absolute Auto 11.7 2.0-8.3 x10*3/uL Imm Gran Abs Auto 0.12 0.00-0.03 X10*3/uL Lymphocytes Absolute Auto 0.9 1.2-4.9 X10*3/uL Monocytes Absolute Auto 1.1 0.1-1.2 X10*3/uL Eosinophils Absolute Auto 0.0 0.0-0.4 X10*3/uL Basophils Absolute Auto 0.0 0.0-0.2 X10*3/uL NRBC Abs Auto 0.000 0.0-0.012 X10*3/uL Comprehensive Met. Panel Reviewed date:11/25/2024 02:28:11 PM Interpretation: Performing Lab:[facility], [address] [place] [phone] Notes/Report: Sodium 133 135-145 mmol/L Potassium 2.8 3.3-5.1 mmol/L Critical [K] sent by a secure message and confirmed by (DR ABBY KEMP AT 08:30 ON 11/25/2024) Tech:SULLIVV Chloride 92 96-108 mmol/L Carbon Dioxide 28 22-29 mmol/L Anion Gap 16 12-20 Blood Urea Nitrogen 9 9-16 mg/dL Creatinine 0.66 0.5-1.4 mg/dL Creatinine Clr Calc Pharmacy 163.8 eGFR (calculated from the MDRD study equation) and eCrCl (calculated from the Cockcroft-Gault equation) are based on different parameters and may not yield comparable results. If eCrCl result is absurd, please check patient's height/weight. Estimated Glomerular Filt Rate > 60 Chronic Kidney Disease: Estimated GFR < 60 mL/min/1.73m2 Severe Kidney Disease: Estimated GFR < 15 mL/min/1.73m2 Glucose Random 107 60-115 mg/dL Calcium 9.0 8.4-10.2 mg/dL Bilirubin Total 0.7 0.0-1.0 mg/dL Aspartate Amino Transferase 55 5-37 U/L Alanine Aminotransferase 62 0-40 U/L Total Protein 6.6 6.5-8.0 g/dL Albumin Level 3.7 3.5-5.0 g/dL Alkaline Phosphatase 82 39-117 U/L Complete Blood Count Auto Di ff Reviewed date:11/28/2024 07:39:14 AM Interpretation: Performing Lab:[facility], [address] [place] [phone] Notes/Report: White Blood Count 16.2 4.8-10.8 X10*3/uL Red Blood Count 3.96 4.60-5.80 X10*6/uL Hemoglobin 12.8 14.0-18.0 g/dl Hematocrit 35.7 42.0-52.0 % Mean Corpuscular Volume 90.2 80.0-98.0 fL Mean Corpuscular Hemoglobin 32.3 27.0-33.0 pg Mean Corpuscular HGB Conc 35.9 31.0-36.0 g/dl Red Cell Distribution Width 12.1 11.0-16.0 % Platelet Count 225 160-400 X10*3/uL Mean Platelet Volume 9.6 9.4-12.4 fL Neutrophils Percent Auto 81.8 45-73 % Imm Gran Pct Auto 1.5 0.0-0.4 % Lymphocytes Percent Auto 6.6 20-40 % Monocytes Percent Auto 9.6 2-11 % Eosinophils Percent Auto 0.4 0-4 % Basophils Percent Auto 0.1 0-2 % NRBC Pct Auto 0.0 0.0-0.2 /100WBC Neutrophils Absolute Auto 13.3 2.0-8.3 x10*3/uL Imm Gran Abs Auto 0.25 0.00-0.03 X10*3/uL Lymphocytes Absolute Auto 1.1 1.2-4.9 X10*3/uL Monocytes Absolute Auto 1.6 0.1-1.2 X10*3/uL Eosinophils Absolute Auto 0.1 0.0-0.4 X10*3/uL Basophils Absolute Auto 0.0 0.0-0.2 X10*3/uL NRBC Abs Auto 0.000 0.0-0.012 X10*3/uL White Blood Count 16.2 4.8-10.8 X10*3/uL Red Blood Count 3.96 4.60-5.80 X10*6/uL Hemoglobin 12.8 14.0-18.0 g/dl Hematocrit 35.7 42.0-52.0 % Mean Corpuscular Volume 90.2 80.0-98.0 fL Mean Corpuscular Hemoglobin 32.3 27.0-33.0 pg Mean Corpuscular HGB Conc 35.9 31.0-36.0 g/dl Red Cell Distribution Width 12.1 11.0-16.0 % Platelet Count 225 160-400 X10*3/uL Mean Platelet Volume 9.6 9.4-12.4 fL Neutrophils Percent Auto 81.8 45-73 % Imm Gran Pct Auto 1.5 0.0-0.4 % Lymphocytes Percent Auto 6.6 20-40 % Monocytes Percent Auto 9.6 2-11 % Eosinophils Percent Auto 0.4 0-4 % Basophils Percent Auto 0.1 0-2 % NRBC Pct Auto 0.0 0.0-0.2 /100WBC Neutrophils Absolute Auto 13.3 2.0-8.3 x10*3/uL Imm Gran Abs Auto 0.25 0.00-0.03 X10*3/uL Lymphocytes Absolute Auto 1.1 1.2-4.9 X10*3/uL Monocytes Absolute Auto 1.6 0.1-1.2 X10*3/uL Eosinophils Absolute Auto 0.1 0.0-0.4 X10*3/uL Basophils Absolute Auto 0.0 0.0-0.2 X10*3/uL NRBC Abs Auto 0.000 0.0-0.012 X10*3/uL CO RRECTED REPORT CO RRECTED REPORT Prothrombin Time INR Reviewed date:11/28/2024 07:37:05 AM Interpretation: Performing Lab:[address] [phone] Notes/Report: Prothrombin Time 13.2 10.9-12.4 SEC INTERNATIONAL NORM RATIO 1.2 0.9-1.1 INTERNATIONAL NORMALIZED RATIO (INR) REFERENCE RANGES Reference Range For patients not on anticoagulant therapy: 0.9 - 1.1 INR ranges for oral anticoagulant therapy: For prevention and treatment of venous thrombosis and pulmonary embolism: 2.0 - 3.0 For acute myocardial infarction with aspirin therapy: 2.0 - 3.0 For acute myocardial infarction without aspirin therapy: 3.0 - 4.0 For patients with mechanical prosthetic heart valves: 2.5 - 3.5 Partial Thromboplastin Time Reviewed date:11/28/2024 07:36:31 AM Interpretation: Performing Lab:[address] [phone] Notes/Report: Partial Thromboplastin Time 25.0 26.7-34.1 SEC Comprehensive Met. Panel Reviewed date:11/28/2024 07:37:56 AM Interpretation: Performing Lab:[address] [address] Notes/Report: Sodium 130 135-145 mmol/L Potassium 3.9 3.3-5.1 mmol/L Chloride 93 96-108 mmol/L Carbon Dioxide 27 22-29 mmol/L Anion Gap 14 12-20 Blood Urea Nitrogen 17 9-16 mg/dL Creatinine 0.90 0.5-1.4 mg/dL Creatinine Clr Calc Pharmacy 88.6 eGFR (calculated from the MDRD study equation) and eCrCl (calculated from the Cockcroft-Gault equation) are based on different parameters and may not yield comparable results. If eCrCl result is absurd, please check patient's height/weight. Estimated Glomerular Filt Rate > 60 Chronic Kidney Disease: Estimated GFR < 60 mL/min/1.73m2 Severe Kidney Disease: Estimated GFR < 15 mL/min/1.73m2 Glucose Random 120 60-115 mg/dL Calcium 8.9 8.4-10.2 mg/dL Bilirubin Total 0.6 0.0-1.0 mg/dL Aspartate Amino Transferase 144 5-37 U/L Alanine Aminotransferase 189 0-40 U/L Total Protein 7.3 6.5-8.0 g/dL Albumin Level 4.0 3.5-5.0 g/dL Alkaline Phosphatase 93 39-117 U/L Uric Acid Reviewed date:11/28/2024 07:36:41 AM Interpretation: Performing Lab:[facility], [address] [place] [phone] Notes/Report: Uric Acid 6.8 3.4-7.0 mg/dL Lipase Reviewed date:11/28/2024 07:34:05 AM Interpretation: Performing Lab:[facility], [address] [place] [phone] Notes/Report: Lipase 23 8-78 U/L SLIDE REVIEW Reviewed date:11/28/2024 07:36:55 AM Interpretation: Performing Lab:[address] [address] Notes/Report: SLIDE REVIEW VERIFIED US venous duplex UE LT Reviewed date:11/28/2024 07:33:57 AM Interpretation: Performing Lab: Notes/Report: [address] [address] Ultrasound Report Signed Patient: Kevin Burrell MR#: [id number] 2 : 1960 Acct:[id number] Age/Sex: 64 / M ADM Date: 11/27/24 Loc: .ED Attending Dr: Ordering Physician: Donis Jane Date of Service: 11/27/24 Procedure(s): US venous duplex UE LT Accession Number(s): [id number] cc: Donis Jane; Rodrigue Mcdonald MD Reason for Exam: Left upper extremity pain CLINICAL HISTORY: Left upper extremity pain --- Additional Notes or Special Instructions: pt needs pain meds prior to do US..attempted @4:30pm Venous duplex ultrasound left upper extremity Comparison: None provided Findings: Accessible deep venous segments are fully compressible with normal Doppler color flow and spectral tracings. IMPRESSION: 1. Negative for left upper extremity deep vein thrombosis. This document has been electronically signed by: Rajinder Lawson MD on 11/27/2024 20:15:45 Dictated By: Rajinder Lawson MD Signed By: <Electronically signed by Rajinder Lawson MD in OV> 11/27/242015 DD/ 14 TD/TT: 11/27/242014 Flight Surveyor: [address] [address] Ultrasound Report Signed Patient: Parish Burrell MR#: [id number] 2 : 1960 Acct:[id number] Age/Sex: 64 / M ADM Date: 11/27/24 Loc: .ED Attending Dr: Ordering Physician: Donis Jane Date of Service: 11/27/24 Procedure(s): US maryann ous duplex UE LT Accession Number(s): [id number] cc: Donis Jane; Rodrigue Mcdonald MD Reason for Exam: Lef t upper extremity pain CLINICAL HISTORY: Le ft upper extremity pain --- Additional Notes or Special Instructions: pt needs pain meds prior to d o US..attempted @4:30pm Venous duplex ultras ound left upper extremity Comparison: None provided Findings: Accessible deep veno us segments are fully compressible with normal Doppler color flow and spect ral tracings. IMPRESSION: 1. Negative for left upper extremity deep vein thrombosis. This document has be en electronically signed by: Rajinder Lawson MD on 11/27/2024 20:15:45 Dictated By: Rajinder Lawson MD Signed By: <Electronically signed by Rajinder Lawson MD in OV> 11/27/242015 DD/ 14 TD/TT: 11/27/242014 Flight Surveyor: XR wrist LT min 3V Reviewed date:11/28/2024 07:36:22 AM Interpretation: Performing Lab: Notes/Report: [address] [address] XRay Report Signed Patient: Kevin Burrell MR#: [id number] 2 : 1960 Acct:[id number] Age/Sex: 64 / M ADM Date: 11/27/24 Loc: HO.ED Attending Dr: Ordering Physician: Donis Jane Date of Service: 11/27/24 Procedure(s): XR wrist LT min 3V Accession Number(s): [id number] cc: Donis Jane; Rodrigue Mcdonald MD Reason for Exam: swelling pain EXAMINATION: XR WRIST, LEFT CLINICAL INFORMATION: swelling pain COMPARISON: None available. TECHNIQUE: PA, lateral, oblique, and scaphoid views of the left wrist. FINDINGS: No fracture, dislocation, or suspicious bone lesion. There is normal alignment. There is moderate arthritis in the first CMC joint, with productive bony changes and subchondral cystic changes present. There are mild changes in the STT joints. There is mild narrowing of the radiocarpal joint. There is negative ulnar variance. Soft tissues appear grossly normal. XR/XR wrist LT min 3V IMPRESSION: 1. No acute bony or soft tissue abnormalities of the left wrist. 2. 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 Electronically signed by: Jama Del Toro MD 11/27/2024 03:56 PM EDT Dictated By: Jama Del Toro MD Signed By: <Electronically signed by Jama Del Toro MD in [place]> 11/27/24 1556 DD/ 1548 TD/TT: 11/27/241549 Flight Surveyor: [address] [address] XRay Report Signed Patient: Parish Burrell MR#: [id number] 2 : 1960 Acct:[id number] Age/Sex: 64 / M ADM Date: 11/27/24 Loc: HO.ED Attending Dr: Ordering Physician: Donis Jane Date of Service: 11/27/24 Procedure(s): XR wri st LT min 3V Accession Number(s): [id number] cc: Donis Jane; Rodrigue Mcdonald MD Reason for Exam: swelling pain EXAMINATION: XR WRIST, LEFT CLINICAL INFORMATION: swelling pain COMPARISON: None available. TECHNIQUE: PA, lateral, oblique , and scaphoid views of the left wrist. FINDINGS: No fracture, dislocation, or suspicious bone lesion. There is normal alignment. There is moderate arthritis in the first CMC joint, with productive bony changes and subchondral cystic changes present. There are mild changes in the STT joints. There is mild narrow ing of the radiocarpal joint. There is negative ul rufino variance. Soft tissues appear grossly normal. X R/XR wrist LT min 3V IMPRESSION: 1. No acute bony or soft tissue abnormalities of the left wrist. 2. 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 Electronically kurt d by: Jama Del Toro MD 11/27/2024 03:56 PM EDT Dictated By: Jama Del Toro MD Signed By: <Electronically signed by Jama Del Toro MD in OV> 11/27/24 1556 DD/ 1548 TD/TT: 11/27/24 1550 Flight Surveyor: XR forearm LT 2V Reviewed date:11/28/2024 07:35:54 AM Interpretation: Performing Lab: Notes/Report: [address] [address] XRay Report Signed Patient: Kevin Burrell MR#: [id number] 2 : 1960 Acct:[id number] Age/Sex: 64 / M ADM Date: 11/27/24 Loc: HO.ED Attending Dr: Ordering Physician: Donis Jane Date of Service: 11/27/24 Procedure(s): XR forearm LT 2V Accession Number(s): [id number] cc: Donis Jane; Rodrigue Mcdonald MD Reason for Exam: Swelling EXAMINATION: XR FOREARM, LEFT CLINICAL INFORMATION: Swelling COMPARISON: None available. TECHNIQUE: AP and lateral views of the left forearm were obtained. FINDINGS: Ulnar minus variance is present. There is calcification anterior to the radial head, probably in the joint capsule or related to the coronoid process. On lateral, there is a small bony exostosis at the base of the region of the radial tuberosity. No other abnormality is evident. XR/XR forearm LT 2V IMPRESSION: On lateral, there is a bony prominence dorsal to the base of the radial tuberosity. This could be related to an age indeterminate biceps tendon avulsion fracture. Electronically signed by: Jesus Kimball MD 11/27/2024 03:58 PM EDT RP Dictated By: Jesus Kimball MD Signed By: <Electronically signed by Jesus Kimball MD in OV> 11/27/24 1558 DD/ 1545 TD/TT: 11/27/24 1550 Flight Surveyor: [place] [address] XRay Report Signed Patient: Parish Burrell MR#: [id number] 2 : 1960 Acct:[id number] Age/Sex: 64 / M ADM Date: 11/27/24 Loc: .ED Attending Dr: Ordering Physician: Donis Jane Date of Service: 11/27/24 Procedure(s): XR for earm LT 2V Accession Number(s): [id number] cc: Donis Jane; Rodrigue Mcdonald MD Reason for Exam: Swelling EXAMINATION: XR FOREARM, LEFT CLINICAL INFORMATION: Swelling COMPARISON: None available. TECHNIQUE: AP and lateral views of the left forearm were obtained. FINDINGS: Ulnar minus variance is present. There is calcificati on anterior to the radial head, probably in the joint capsule or rel ated to the coronoid process. On lateral, there is a small bony exostosis at the base of the region of the radial tuberosity. No other abnormality is evident. X R/XR forearm LT 2V IMPRESSION: On lateral, there is a bony prominence dorsal to the base of the radial tuberosity. This cou ld be related to an age indeterminate biceps tendon avulsion fracture. Electronically kurt d by: Jesus Kimball MD 11/27/2024 03:58 PM EDT RP Dictated By: Jesus Kimball MD Signed By: <Electronically signed by Jesus Kimball MD in OV> 11/27/24 1558 DD/ 1545 TD/TT: 11/27/24 1550 Flight Surveyor: XR hand LT 2V Reviewed date:11/28/2024 07:35:04 AM Interpretation: Performing Lab: Notes/Report: [place] [address] XRay Report Signed Patient: Kevin Burrell MR#: [id number] 2 : 1960 Acct:[id number] Age/Sex: 64 / M ADM Date: 11/27/24 Loc: .ED Attending Dr: Ordering Physician: Donis Jane Date of Service: 11/27/24 Procedure(s): XR hand LT 2V Accession Number(s): [id number] cc: Donis Jane; Rodrigue Mcdonald MD Reason for Exam: swelling EXAMINATION: XR HAND, LEFT CLINICAL INFORMATION: swelling COMPARISON: None available. TECHNIQUE: PA, lateral, and oblique views of the left hand. FINDINGS: There are degenerative changes are noted in the first carpal metacarpal joint with sclerosis, degenerative cystic change, and osteophytes. Marginal osteophytes are present involving the third and fifth DIP joints. There is no joint diastases. On the lateral view, there is longitudinal lucency through the proximal metaphysis of the middle phalanx of third digit. XR/XR hand LT 2V IMPRESSION: Lucency involving the volar base of the middle phalanx of third digit is probably related to trabecular pattern. Correlate for signs symptoms of a fracture. Osteoarthritis Electronically signed by: Jesus Kimball MD 11/27/2024 04:02 PM EDT RP Dictated By: Jesus Kimball MD Signed By: <Electronically signed by Jesus Kimball MD in OV> 11/27/24 1602 DD/ 1530 TD/TT: 11/27/24 1550 Flight Surveyor: [place] [address] XRay Report Signed Patient: Parish Burrell MR#: [id number] 2 : 1960 Acct:[id number] Age/Sex: 64 / M ADM Date: 11/27/24 Loc: .ED Attending Dr: Ordering Physician: Donis Jane Date of Service: 11/27/24 Procedure(s): XR arriola d LT 2V Accession Number(s): [id number] cc: Donis Jane; Rodrigue Mcdonald MD Reason for Exam: swelling EXAMINATION: XR HAND, LEFT CLINICAL INFORMATION: swelling COMPARISON: None available. TECHNIQUE: PA, lateral, and obl ique views of the left hand. FINDINGS: There are degenerati ve changes are noted in the first carpal metacarpal joint with sclerosis , degenerative cystic change, and osteophytes. Marginal osteophytes are present involving the third and fifth DIP joints. There is no joint diastases. On the lateral view, there is longitudinal lucency through the proximal metaphysis of the mi ddle phalanx of third digit. X R/XR hand LT 2V IMPRESSION: Lucency involving th e volar base of the middle phalanx of third digit is probably related to trabecular pattern. Correlate for signs symptoms of a fracture. Osteoarthritis Electronically kurt d by: Jesus Kimball MD 11/27/2024 04:02 PM EDT RP Dictated By: Jesus Kimball MD Signed By: <Electronically signed by Jesus Kimball MD in OV> 11/27/24 1602 DD/ 1530 TD/TT: 11/27/24 1550 Flight Surveyor: Glenn Fonseca - Possible Hematolo gy Reviewed date:12/11/2024 12:30:18 PM Interpretation: Performing Lab:[facility], [address] [place] [address], [place] [address] Notes/Report: Glenn Lav Sam Possible Hematology SEE NOTE Specimen will be held untested for 8 hours. Call Hematology if testing is desired. Reason For Referral Reason SPINAL STENOSIS OF L UMBOSCARAL REGION Diagnosis 1 Spinal stenosis of l umbosacral region (M48.07) Referral Organization Rodrigue Mcdonald MD Referring Provider First Name Rodrigue Referring Provider Last Name Harry Referring Provider Speciality Internal edicine Referred Provider Dakotah Knowles Referred Provider Specialty Neurological Surgery General Notes Blanche Dumont 01/12/2024 11:45:39 AM EST > REFFERRAL AND NOTES FAXED TO DR PERDOMO OFFICE, Blanche Dumont 01/12/2024 11:48:14 AM EST > REQUEST MADE TO RAY TO DOWNLOAD MRI TO [employer] AT , NO LONGER USING Tim MARQUEZ Patti A 03/15/2024 03:25:23 PM >OFFICE NOTES RECDFROM 03/15/VISIT Referral Priority Routine Referral Appointment Date 03/15/2024 Reason GALL STONE PANCREATI TIS Diagnosis 1 Gall stone pancreati tis (K85.10) Referral Organization Rodrigue Mcdonald MD Referring Provider First Name Rodrigue Referring Provider Last Name Harry Referring Provider Speciality Internal edicine Referred Provider Mitchell De Santiago Referred Provider Specialty Surgery General Notes Snehal Leo 1 08:50:05 AM >referral info faxed, Snehal Leo 11/27/2024 09:01:30 AM >patient is aware of apptTim Patti A 12/06/2024 03:43:01 PM >[facility] GEN SURGERY HAS R/S APPT Referral Priority Routine Referral Appointment Date 12/31/2024 Medications Medication SIG (Take, Route, Frequency, Duration) [...] BY MOUTH EVERY DAY for 90 Active Gabapentin 800 MG take 1 tablet by sorin th twice a day for 30 days Orally twice a day Active Ibuprofen 800 MG 1 tablet with food o r milk as needed Orally every 8 hrs Active Immunizations Vaccine Route Administration Date Status [...] Fluarix Quadrivalent IM Intramuscular 12/02/2022 Administe red Influenza High Dose IM Intramuscular 12/18/2024 Administer ed PPSV23 (Pnemovax) Unknown 06/21/2017 Refused Fluarix Quadrivalent [...] Problem Status W/U Status Risk Notes Problem 337521112 Lumbago with sci atica, right side (M54.41) Active confirmed Problem 650131605 Elevated LFTs (R79.89) Active confirm ed Problem 230161037 Gastroesophageal reflux disease without esophagitis (K21.9) Active confirmed Problem 32610873 Essential hypert ension (I10) Active confirmed Problem 028733281 Raynauds phenome non without gangrene (I73.00) Active confirmed Problem 21553763 Cervical disc di sease with myelopathy (M50.00) Active confirmed Problem 996165766 Mild aortic sten osis (I35.0) Active confirmed Problem 27926707 Tinea versicolor (B36.0) Active confirmed Problem 9927895051741 Cervical neuropa thy (G54.2) Active confirmed Problem 265772263254841 Sciatica of righ t side (M54.31) Active confirmed Problem 104125002 Pure hypercholesterolemia (E78.00) Active confirmed Problem 715264845 Arthritis of kne e (M17.10) Active confirmed Problem 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) Active confirmed Problem Arthritis of both knees (8772268619244051 ) Arthritis of both knees (M17.0) Active confirmed Problem 969255369 Nonrheumatic mak ral valve regurgitation (I34.0) Active confirmed Problem Raynaud's disease (438981145) Raynaud''s phenomenon without gangrene (I73.00) Active confirmed Vital Signs Blood pressure diastolic 62 mm Hg 12/18/2024 Height 72.50 in 12/18/2024 Blood pressure systolic 128 mm Hg 12/18/2024 Weight 189 lbs 12/18/2024 BMI 25.28 kg/m2 12/18/2024 Encounters Encounter Location Date Provider Diagnosis Rodrigue Mcdonald MD [address] [place] [address] [id number] 05/31/2024 Rodrigue Mcdonald Pure hypercholestero lemia E78.00 Rodrigue Mcdonadl MD [address] [place] [address] Drive [address] [place] [address] [id number] 12/11/2024 Rodrigue Mcdonald Pure hypercholestero lemia E78.00 ; Blood tests for routine general physical examination Z00.00 ; Elevated LFTs R79.89 and Essential hypertension I10 Rodrigue Mcdonald MD [address] [place] [address] [id number] 12/18/2024 Rodrigue Mcdonald Adult general medica l examination Z00.00 ; Pure hypercholesterolemia E78.00 ; Elevated LFTs R79.89 ; Essential hypertension I10 ; Encounter for administration of vaccine Z23 ; Mild aortic stenosis I35.0 ; Colon cancer screening Z12.11 and Depression screening Z13.31 Rodrigue Mcdonald MD [address] [place] [address] [id number] 01/03/2024 Rodrigue Mcdonald Spinal stenosis of lumbosacral region M48.07 Rodrigue Mcdonald MD [address] [place] [address] [id number] 01/30/2024 Rodrigue Mcdonald Essential hypertensi on I10 ; Lumbago with sciatica, right side M54.41 and Mild aortic stenosis I35.0 Rodrigue Mcdonald MD [address] [place] [address] [id number] 06/07/2024 Rodrigue Mcdonald Pure hypercholestero lemia E78.00 ; Lumbago with sciatica, right side M54.41 and Essential hypertension I10 Rodrigue Mcdonald MD [address] [place] [address] [id number] 11/26/2024 Rodrigue Mcdonald Gall stone pancreati tis K85.10 Rodrigue Mcdonald MD [address] [place] [address] [id number] 12/06/2024 Rodrigue Mcdonald Gall stone pancreati tis K85.10 and Generalized edema R60.1 Rodrigue Mcdonald MD [address] [place] [address] [id number] 11/26/2024 Rodrigue Mcdonald MD [address] [place] [address] [id number] 11/30/2024 Rodrigue Mcdonald Assessments Encounter Date Diagnosis (ICD Code) Assessment Notes Treatment Notes Treatment Clinical Notes Section Notes 05/31/2024 Pure hypercholesterolemia (ICD-10 - E78.00) 12/11/2024 Pure hypercholesterolemia (ICD-10 - E78.00) 12/11/[address] ine general physical examination (ICD-10 - Z00.00) 12/18/2024 Adult general medica l examination (ICD-10 - Z00.00) labs reviewed and discussed with patient 12/18/2024 Pure hypercholesterolemia (ICD-10 - E78.00) doing well on meds, will continue current regiment 01/03/2024 Spinal stenosis [...] well on meds, will continue curent regiment 11/26/2024 Gall stone pancreati tis (ICD-10 - K85.10) make appt with dr dunne / REFERRAL ENTERD FOR DR DE SANTIAGO 12/06/2024 Gall stone pancreati tis (ICD-10 - K85.10) need ct results from 2022/ had appt with dr schmidt and was cancelled and not scheduled until dec 31 /APPROVAL NEEDED BY [facility] BEFORE FAXING ORDER TO [facility]. CT 2022 REQUESTED FROM HIM 12/06/2024 Generalized edema (ICD-10 - R60.1) has improved. had us and angio and all negative results and has returned to normal 12/11/2024 Elevated LFTs (ICD-1 0 - R79.89) 12/18/2024 Elevated LFTs (ICD-1 0 - R79.89) is from the gall stones. is waiting for surgery 01/30/2024 Mild aortic stenosis (ICD-10 - I35.0) is 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, will continue to monitor 06/07/2024 Lumbago with sciatic a, right side (ICD-10 - M54.41) awaiting surgery 12/11/2024 Essential hypertensi on (ICD-10 - I10) 12/18/2024 Essential hypertensi on (ICD-10 - I10) stbale, will continue current regiment 06/07/2024 Essential hypertensi on (ICD-10 - I10) well controlled, will contonue current regiment 12/18/2024 Encounter for administration of [...] Electrocardiogram (EKG) 04/07/2012 Electrocardiogram (EKG) 05/16/2015 CT ABD & PELVIS WITH CONTRAST 12/06/2024 CT CHEST ARTERIOGRAM 05/09/2014 MRI CERVICAL SPINE NO CONTRAST 1 MRI CERVICAL SPINE NO CONTRAST 1 MRI LUMBAR SPINE NO CONTRAST 06/30/2023 MRI LUMBAR SPINE NO CONTRAST 07/21/2023 MRI LUMBAR SPINE NO CONTRAST 08/12/2023 XR CERVICAL SPINE 4+ VIEWS 11/30/2019 ECHO 12/16/2023 MR lumbar spine wo con 12/16/2023 Next Appt Details Provider Name:Rodrigue chambers, 01/15/2025 09:15:00 AM, [address] [place] [address], [address], [phone], Provider Name:Rodrigue chambers, 06/14/2025 08:00:00 AM, [address] [place] [address], [address] [place] [address], [phone], Provider Name:Rodrigue chambers, 06/18/2025 10:00:00 AM, [address] [place] [address], [address], [phone], Provider Name:Rodrigue chambers, 12/13/2025 07:30:00 AM, [address] [place] [address], [address], [phone], Provider Name:Rodrigue lopezr, 12/20/2025 08:30:00 AM, [address], [address], [place], [phone], Insurance Providers Payer Name Payer Address Payer Phone Subscriber Number Group Number Insured Name Patient Relationship to Insured Coverage Start Date Coverage End Date [facility] [address] [facility] [address] [place] [phone] [id number] Kevin Burrell Self - patient is the insured Medical (General) History Medical History History ICD Code 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 Negron - repeat 10 years have to be on diuretic in cooler months and stop in hot months
== END 2024-12-18 10:23 | disposition home or self-care (01) ==
LOC: HO.LNP 10:22
PROVIDERS: Visit Provider Internal Medicine
DX: Z00.00 Encounter for general adult medical examination without abnormal findings (principal)
CPT/HCPCS: 81001

== ENCOUNTER 2024-12-26 14:13 | Outpatient (REF) | payer OTHER, SELFPAY ==
--- OUTSIDE RECORDS SUMMARY | 2024-01-03 10:00 | XMS_ITS ---
Author Organization Rodrigue Mcdonald MD Address [address] [place] [phone] Care Team Providers Care Commercial Underwriter Name Role Phone Rodrigue Mcdonald Primary Care Provider Allergies Allergen (clinical drug ingredient) Drug/Non Drug Allergy documented on EMR Reaction Allergy Type Onset Date Status codeine Codeine Sulfate vomiting/headach e Drug Allergy Active REASON FOR VISIT DISCUSS MRI Medications Medication SIG (Take, Route, Frequency, Duration) Notes Start Date End Date Status Lisinopril-hydroCHLOROthi azide 20-12.5 mg TAKE 1 TABLET DAILY Orally Once a day Active Gabapentin 800 MG take 1 tablet by sorin twice a day for 30 days Orally twice a day Active Atorvastatin Calcium 40 MG TAKE 1 TABLET BY MOUTH EVERY DAY Active Colchicine 0.6 MG 1 tablet Orally twic e a day for 10 days 07/11/2017 Not-Taking predniSONE 20 MG 1 tablet Orally Once a day for 10 days 06/30/2023 Not-Taking Ibuprofen 800 mg TAKE 1 TABLET THREE TIMES A DAY Orally every 8 hrs Active amLODIPine Besylate 5 mg TAKE 1 TABLET D AILY Orally Once a day Active LORazepam 1 MG 1 tablet at bedtime as needed Orally Once a day for 1 days 12/16/2023 Active Vital Signs Blood pressure systolic 142 mm Hg 01/03/20 24 Blood pressure diastolic 60 mm Hg 024 Height 72.50 in 01/03/2024 Weight 209 lbs 01/03/2024 BMI 27.95 kg/m2 01/03/2024 Encounters Encounter Location Date Provider Diagnosis Rodrigue Mdconald MD [address] [place] [phone] 01/03/2024 Rodrigue Mcdonald Spinal stenosis of lumbosacral region M48.07 Assessments Encounter Date Diagnosis (ICD Code) Assessment Notes Treatment Notes Treatment Clinical Notes Section Notes 01/03/2024 Spinal stenosis of lumbosacral region (ICD-10 - M48.07) discussed treatment options. is going to call dr knowles Plan Of Treatment Treatment Notes Assessment Notes Spinal stenosis of lumbosacral region di scussed treatment options. is going to call dr knowles Next Appt Details Provider Name:Rodrigue chambers, 01/15/2025 09:15:00 AM, [address] [place] [address], [phone], Provider Name:Rodrigue chambers, 06/14/2025 08:00:00 AM, [address] [place] [address], [phone], Provider Name:Rodrigue chambers, 06/18/2025 10:00:00 AM, [address] [place] [address], [phone], Provider Name:Rodrigue chambers, 12/13/2025 07:30:00 AM, [address] [place] [address], [phone], Provider Name:Rodrigue chambers, 12/20/2025 08:30:00 AM, [address] [place] [address], [phone], Progress Notes * Kevin BURRELL JrDOB: [birth year] (63 yo M)Acc No.[id number]:01/03/2024 Progress Notes Patient: Kevin Perry Provider: Lilliam Mcdonald MD :1960 A ge:63 Y S ex:Male Date:01/03/2024 Address:[address] [facility] Subjective: * Chief Complaints: * D ISCUSS MRI * HPI: S ymptom(s): patient is a 63 yo male here to discuss recent MRI. * ROS: G eneral/Constitutional: Denies C hills. D enies F atigue. D enies F ever. D enies H eadache. E NT: Patient denies d ecreased sense of smell , any loss of taste , sore throat. D enies S ore throat. R espiratory: Denies C ough. D enies S hortness of breath at rest. D enies S hortness of breath with exertion. G astrointestinal: Denies D iarrhea. D enies N ausea. M usculoskeletal: Patient denies m uscle aches. P eripheral Vascular: Patient denies r ed and blue toes. * Medical History: * Surgical History: * Hospitalization/Major Diagno stic Procedure: * Medications: T akingLORazepam 1 MG Tablet 1 tablet at bedtime as needed Orally Once a dayamLODIPine Besylate 5 mg Tablet TAKE 1 TABLET [...] for 30 days Orally twice a dayTaking LORazepam 1 MG Tablet 1 tablet at bedtime as needed Orally Once a dayTaking amLODIPine Besylate 5 mg Tablet [...] * Vitals: H t: 72.50, Wt:209, BMI:27.95, BP:142/60. * Examination: G eneral Examination: GENERAL APPEARANCE: a lert, well hydrated, in no distress.? Assessment: * Assessment: 1. S maria fernanda stenosis of lumbosacral region - M48.07 (Primary) Plan: * Treatment: * Procedure Codes: * * Sign off status: Completed true * Provider: Lilliam Mcdonald MD Date: 03/04/2023 Generated for Hong méndez/Annette/Ubaldosmitting on: 02/26/2024 05:23 PM EST History and Physical Notes * HPI (History of Present Illness) Category Sub-Category Detail Notes Category Not es Symptom(s) patient is a 63 yo male here to discuss recent MRI Examination Category Sub-Category Detail Notes Category Not es General Examination GENERAL APPEARANCE: alert, w ell hydrated, in no distress
--- OUTSIDE RECORDS SUMMARY | 2024-01-30 03:45 | XMS_ITS ---
Author Organization Rodrigue Mcdonald MD Address [address] [place] [phone] Care Team Providers Care Blindstitch Hemmer Name Role Phone Rodrigue Mcdonald Primary Care Provider Allergies Allergen (clinical drug ingredient) Drug/Non Drug Allergy documented on EMR Reaction Allergy Type Onset Date Status codeine Codeine Sulfate vomiting/headach e Drug Allergy Active REASON FOR VISIT 2 month Medications Medication SIG (Take, Route, Frequency, Duration) Notes Start Date End Date Status amLODIPine Besylate 5 MG TAKE 1 TABLET B Y MOUTH EVERY DAY Active Colchicine 0.6 MG 1 tablet Orally twic e a day for 10 days 07/11/2017 Not-Taking Gabapentin 800 MG take 1 tablet by twice a day for 30 days Orally twice a day Active predniSONE 20 MG 1 tablet Orally Once a day for 10 days 06/30/2023 Not-Taking Lisinopril-hydroCHLOROthi azide 20-12.5 mg TAKE 1 TABLET DAILY Orally Once a day Active Atorvastatin Calcium 40 MG TAKE 1 TABLET BY MOUTH EVERY DAY Active Ibuprofen 800 mg TAKE 1 TABLET THREE TIMES A DAY Orally every 8 hrs Active Problems Problem Type SNOMED Code ICD Code Onset Dates Problem Status W/U Status Risk Notes Problem [id number] Mild aortic stenosis (I35.0) Active confirmed Vital Signs Blood pressure systolic 152 mm Hg 01/30/20 24 Blood pressure diastolic 60 mm Hg 024 Height 72.50 in 01/30/2024 Weight 203 lbs 01/30/2024 BMI 27.15 kg/m2 01/30/2024 weight is down 6 pounds [facility] 01-03-24 Encounters Encounter Location Date Provider Diagnosis Rodrigue Mcdonald MD [address] [place], [place] [phone] 01/30/2024 Rodrigue Mcdonald Essential hypertension I10 ; Lumbago with sciatica, right side M54.41 and Mild aortic stenosis I35.0 Assessments Encounter Date Diagnosis (ICD Code) Assessment Notes Treatment Notes Treatment Clinical Notes Section Notes 01/30/2024 Essential hypertension (ICD-10 - I10) slighty high, will contnue to monitor and will continue current regiment 01/30/2024 Lumbago with sciatica, right side (ICD-10 - M54.41) waiting to see dr knowles, will continue current regiment 01/30/2024 Mild aortic stenosis (ICD-10 - I35.0) is 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, will continue to monitor Plan Of Treatment Medication Medication Name Sig Start Date Stop Date Notes amLODIPine Besylate 5 MG TAKE 1 TABLET B Y MOUTH EVERY DAY Gabapentin 800 MG take 1 tablet by sorin th twice a day for 30 days Orally twice a day Lisinopril-hydroCHLOROthiazi de 20-12.5 mg TAKE 1 TABLET DAILY Orally Once a day Ibuprofen 800 mg TAKE 1 TABLET THREE TIMES A DAY Orally every 8 hrs Treatment Notes Assessment Notes Essential hypertension slighty high, maryam l contnue to monitor and will continue current regiment Lumbago with sciatica, right side waitin g to see dr knowles, will continue current regiment Mild aortic stenosis is mild/ORDER PUT I N FUTURE FOLDER, will continue to monitor Future Test Test Name Order Date ECHO 01/29/2025 Next Appt Details Provider Name:Rodrigue chambers, 01/15/2025 09:15:00 AM, [address], [address], [place], [place], [phone], Provider Name:Rodrigue Mcpherson ier, 06/14/2025 08:00:00 AM, [address], [address], [place], [place], [phone], Provider Name:Rodrigue Mcpherson ier, 06/18/2025 10:00:00 AM, [address], [address], [place], [place], [phone], Provider Name:Rodrigue Mcpherson ier, 12/13/2025 07:30:00 AM, [address], [address], [place], [place], [phone], Provider Name:Rodrigue Mcpherson ier, 12/20/2025 08:30:00 AM, [address], [address], [place], [place], [phone], Progress Notes * ALEKSParishdy JrDOB: [birth year] (63 yo M)Acc No.[id number]:01/30/2024 Progress Notes Patient: Kevin Perry Provider: Lilliam Mcdonald MD :1960 A ge:63 Y S ex:Male Date:01/30/2024 Address:[address] [place] [address] [id number] Subjective: * Chief Complaints: * 2 month * HPI: S ymptom(s): patient is a 63 yo male here for 2 month follow up visit, still with a lot of back pain. is going to see dr knowles in february. * ROS: G eneral/Constitutional: Denies C hills. [...] Hospitalization/Major Diagno stic Procedure: * Medications: T akingIbuprofen 800 mg Tablet TAKE 1 TABLET THREE TIMES A DAY Orally every 8 hrsLisinopril-hydroCHLOROthiazide 20-12.5 mg Tablet TAKE 1 TABLET DAILY Orally Once a dayAtorvastatin Calcium 40 MG Tablet TAKE 1 TABLET BY MOUTH EVERY DAY Gabapentin 800 MG Tablet take 1 tablet by mouth twice a day for 30 days Orally twice a dayamLODIPine Besylate 5 MG Tablet TAKE 1 TABLET BY MOUTH EVERY DAY Taking Ibuprofen 800 mg Tablet TAKE 1 TABLET THREE TIMES A DAY Orally every 8 hrsTaking Lisinopril-hydroCHLOROthiazide 20-12.5 mg Tablet TAKE 1 TABLET DAILY Orally Once a dayTaking Atorvastatin Calcium 40 MG Tablet TAKE 1 TABLET BY MOUTH EVERY DAY Taking Gabapentin 800 MG Tablet take 1 tablet by mouth twice a day for 30 days Orally twice a dayTaking amLODIPine Besylate 5 MG Tablet TAKE 1 TABLET BY MOUTH EVERY DAY Not-Taking/PRNpredniSONE 20 MG Tablet 1 tablet Orally Once a dayColchicine 0.6 MG Tablet 1 tablet Orally twice a dayNot-Taking/PRN predniSONE 20 MG Tablet 1 tablet Orally Once a dayNot-Taking/PRN Colchicine 0.6 MG Tablet 1 tablet Orally twice a dayDiscontinuedLORazepam 1 MG Tablet 1 tablet at bedtime as needed Orally Once a dayMedication List reviewed and reconciled with the patientDiscontinued LORazepam 1 MG Tablet 1 tablet at bedtime as needed Orally Once a dayMedication List reviewed and reconciled with the patient * Allergies: C odeine Sulfate: vomiting/headacheyes[Allergies Verified] Objective: * Vitals: H t: 72.50, Wt:203, BMI:27.15, BP:152/60, Repeat BP:150/65 weight is down 6 pounds since 01-03-24. * Examination: G eneral Examination: GENERAL APPEARANCE: a lert, well hydrated, in no distress.? HEART: g rade 2/6 systolic murmur at left sternal border.? Assessment: * Assessment: 1. E ssential hypertension - I10 2 . L umbago with sciatica, right side - M54.41 3 . M ild aortic stenosis - I35.0 Plan: * Treatment: 2. L umbago with sciatica, right side Continue Ibuprofen Tablet, 800 mg, TAKE 1 TABLET THREE TIMES A DAY, Orally, every 8 hrs; C ontinue Gabapentin Tablet, 800 MG, take 1 tablet by mouth twice a day for 30 days, Orally, twice a day.? Notes: waiting to see dr knowles, will continue current regiment 3. 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 is going to see dr knowles in february Examination Category Sub-Category Detail Notes Category Not es General Examination GENERAL APPEARANCE: alert, w ell hydrated, in no distress HEART: grade 2/6 systolic m urmur at left sternal border
--- OUTSIDE RECORDS SUMMARY | 2024-05-31 02:30 | XMS_ITS ---
Author Organization Rodrigue Mcdonald MD Address [address] [place] [phone] Care Team Providers Care Caponizer Name Role Phone Rodrigue Mcdonald Primary Care Provider Results Component Value Reference Range Notes Liver Panel Reviewed date:05/31/2024 06:24:23 PM Interpretation: Performing Lab:[facility], [address] [place] [phone] Notes/Report: Bilirubin Total 1.5 0.0-1.0 mg/dL Bilirubin Direct 0.4 0.0-0.5 mg/dL Aspartate Amino Transferase 35 5-37 U/L Alanine Aminotransferase 34 0-40 U/L Total Protein 7.5 6.5-8.0 g/dL Albumin Level 4.6 3.5-5.0 g/dL Alkaline Phosphatase 64 39-117 U/L Lipid Panel with Reflex Reviewed date:05/31/2024 06:23:58 PM Interpretation: Performing Lab:[facility], [address] [place] [phone] Notes/Report: Triglycerides 81 <150 mg/dL Desirable Triglyceride: less than 150 mg/dL Borderline High Triglyceride 150-199 mg/dL High Triglyceride: 200-499 mg/dL Very High Triglyceride: greater than or equal to 5OO mg/dL Cholesterol 155 <200 mg/dL Desirable Cholesterol: less than 200 mg/dL Borderline High Cholesterol: 200-239 mg/dL High Cholesterol: greater than 239 mg/dL LDL Cholesterol Calculated 69 <100 mg/dL Desirable LDL: less than 100 mg/dL Near Optimal/Above Optimal LDL: 110-129 mg/dL Borderline High LDL: 130-159 mg/dL High LDL: 160-189 mg/dL Very High LDL: greater than or equal to 190 mg/dL HDL Cholesterol 70 >40 mg/dL Desirable HDL: greater than 40 mg/dL Note: This HDL assay may give artificially low results in patients with liver disease. REASON FOR VISIT fasting lipids Encounters Encounter Location Date Provider Diagnosis Rodrigue Mcdonald MD [address] [place] [phone] 05/31/2024 Rodrigue Mcdonald Pure hypercholestero lemia E78.00 Assessments Encounter Date Diagnosis (ICD Code) Assessment Notes Treatment Notes Treatment Clinical Notes Section Notes 05/31/2024 Pure hypercholesterolemia (ICD-10 - E78.00) Plan Of Treatment Next Appt Details Provider Name:oRdrigue chambers, 01/15/2025 09:15:00 AM, [address] [place] [address], [address], [phone], Provider Name:Rodrigue chambers, 06/14/2025 08:00:00 AM, [address] [place] [address], [phone], Provider Name:Rodrigue chambers, 06/18/2025 10:00:00 AM, [address] [place] [address], [phone], Provider Name:Rodrigue chambers, 12/13/2025 07:30:00 AM, [address] [place] [address], [phone], Provider Name:Rodrigue chambers, 12/20/2025 08:30:00 AM, [address] [place] [address], [address], [place], [phone], Progress Notes * Kevin BURRELL JrDOB: [birth year] (64 yo M)Acc No.[id number]:05/31/2024 Progress Note Patient: Kevin ALFARO Jr Provider: Lilliam Mcdonald MD :1960 A ge:63 Y S ex:Male Date:05/31/2024 Address:[address] [place] [address] [id number] Subjective: * Chief Complaints: * 1 . Fasting lipids. * Medical History: Objective: * Vitals: Assessment: * Assessment: 1. P ure hypercholesterolemia - E78.00 (Primary) Plan: * Treatment: * Procedure Codes: 3 6415 VENIPUNCT, ROUTINE* * * The named appointment provid er may or may not be the originator of this progress note, and it is not deemed complete until electronically signed by the appointment provider. Sign off status: Pending * Provider: Lilliam Mcdonald MD Date: 0 05/31/2024 Generated for Hong méndez/Annette/Cornellitting on: 1 02/26/2024 05:24 PM EST
--- OUTSIDE RECORDS SUMMARY | 2024-06-07 02:30 | XMS_ITS ---
Author Organization Rodrigue Mcdonald MD Address [address] [place] [phone] Care Team Providers Care Facilities Clerk Name Role Phone Rodrigue Mcdonald Primary Care Provider Allergies Allergen (clinical drug ingredient) Drug/Non Drug Allergy documented on EMR Reaction Allergy Type Onset Date Status codeine Codeine Sulfate vomiting/headach e Drug Allergy Active REASON FOR VISIT 6 month Medications Medication SIG (Take, Route, Frequency, Duration) Notes Start Date End Date Status Ibuprofen 800 MG TAKE 1 TABLET THREE TIMES A DAY ORALLY EVERY 8 HRS 30 DAYS Active amLODIPine Besylate 5 MG TAKE 1 TABLET B Y MOUTH EVERY DAY Active Gabapentin 800 MG take 1 tablet by sorin twice a day for 30 days Orally twice a day Active Colchicine 0.6 MG 1 tablet Orally twic e a day for 10 days 07/11/2017 Not-Taking predniSONE 20 MG 1 tablet Orally Once a day for 10 days 06/30/2023 Not-Taking Lisinopril-hydroCHLOROthi azide 20-12.5 mg TAKE 1 TABLET DAILY Orally Once a day Active Atorvastatin Calcium 40 MG TAKE 1 TABLET BY MOUTH EVERY DAY Active Vital Signs Blood pressure systolic 158 mm Hg 06/08/19 25 Blood pressure diastolic 66 mm Hg 025 Height 72.50 in 06/07/2024 Weight 206 lbs 06/07/2024 BMI 27.55 kg/m2 06/07/2024 weight is up 3 pounds since 01-30-24 Encounters Encounter Location Date Provider Diagnosis Rodrigue Mcdonald MD [address] [place] [address] [address] [place], [place] [phone] 06/07/2024 Rodrigue Mcdonald Pure hypercholestero lemia E78.00 ; Lumbago with sciatica, right side M54.41 and Essential hypertension I10 Assessments Encounter Date Diagnosis (ICD Code) Assessment Notes Treatment Notes Treatment Clinical Notes Section Notes 06/07/2024 Pure hypercholesterolemia (ICD-10 - E78.00) doing well on meds, will continue curent regiment 06/07/2024 Lumbago with sciatic a, right side (ICD-10 - M54.41) awaiting surgery 06/07/2024 Essential hypertensi on (ICD-10 - I10) well controlled, will contonue current regiment Plan Of Treatment Medication Medication Name Sig Start Date Stop Date Notes Ibuprofen 800 MG TAKE 1 TABLET THREE TIMES A DAY ORALLY EVERY 8 HRS 30 DAYS amLODIPine Besylate 5 MG TAKE 1 TABLET B Y MOUTH EVERY DAY Gabapentin 800 MG take 1 tablet by sorin th twice a day for 30 days Orally twice a day Lisinopril-hydroCHLOROthiazi de 20-12.5 mg TAKE 1 TABLET DAILY Orally Once a day Atorvastatin Calcium 40 MG TAKE 1 TABLET BY MOUTH EVERY DAY Treatment Notes Assessment Notes Pure hypercholesterolemia doing well on meds, will continue curent regiment Lumbago with sciatica, right side awaiti ng surgery Essential hypertension well controlled, will contonue current regiment Next Appt Details Provider Name:Rodrigue chambers, 01/15/2025 09:15:00 AM, [address] [place] [address], [address], [place], [place], [phone], Provider Name:Rodrigue chambers, 06/14/2025 08:00:00 AM, [address] [place] [address], [address], [place], [place], [phone], Provider Name:Rodrigue chambers, 06/18/2025 10:00:00 AM, [address], [address], [place], [place], [phone], Provider Name:Rodrigue Mcpherson ier, 12/13/2025 07:30:00 AM, [address], [address], [place], [place], [phone], Provider Name:Rodrigue Mcpherson ier, 12/20/2025 08:30:00 AM, [address], [address], [place], [place], [phone], Progress Notes * Kevin BURRELL JrDOB: [birth year] (64 yo M)Acc No.[id number]:06/07/2024 Progress Notes Patient: Kevin ALFARO Provider: Lilliam Mcdonald MD :1960 A ge:64 Y S ex:Male Date:06/07/2024 Address:[address] [place], [place] [phone] Subjective: * Chief Complaints: * 6 month * HPI: S ymptom(s): patient is a 63 yo malehere for 6 month follow up visit/still with a lot of back pain. * ROS: G eneral/Constitutional: Denies Declan hills. D enies F atigue. D enies F ever. D enies H eadache. E NT: Denies S ore throat. R espiratory: Denies C ough. G astrointestinal: Denies D iarrhea. D enies N ausea. * Medical History: * Surgical History: * Hospitalization/Major Diagno stic Procedure: * Medications: T akingAtorvastatin Calcium 40 MG Tablet TAKE 1 TABLET BY MOUTH EVERY DAY Lisinopril-hydroCHLOROthiazide 20-12.5 mg Tablet TAKE 1 TABLET DAILY Orally Once a day Gabapentin 800 MG Tablet take 1 tablet by mouth twice a day for 30 days Orally twice a day amLODIPine Besylate 5 MG Tablet TAKE 1 TABLET BY MOUTH EVERY DAY Ibuprofen 800 MG Tablet TAKE 1 TABLET THREE TIMES A DAY ORALLY EVERY 8 HRS 30 DAYS Taking Atorvastatin Calcium 40 MG Tablet TAKE 1 TABLET BY MOUTH EVERY DAY Taking Lisinopril-hydroCHLOROthiazide 20-12.5 mg Tablet TAKE 1 TABLET DAILY Orally Once a day Taking Gabapentin 800 MG Tablet take 1 tablet by mouth twice a day for 30 days Orally twice a day Taking amLODIPine Besylate 5 MG Tablet TAKE 1 TABLET BY MOUTH EVERY DAY Taking Ibuprofen 800 MG Tablet TAKE 1 TABLET THREE TIMES A DAY ORALLY EVERY 8 HRS 30 DAYS Not-Taking/PRNpredniSONE 20 MG Tablet 1 tablet Orally Once a day Colchicine 0.6 MG Tablet 1 tablet Orally twice a day Medication List reviewed and reconciled with the patientNot-Taking/PRN predniSONE 20 MG Tablet 1 tablet Orally Once a day Not-Taking/PRN Colchicine 0.6 MG Tablet 1 tablet Orally twice a day Medication List reviewed and reconciled with the patient * Allergies: C odeine Sulfate: vomiting/headacheyes[Allergies Verified] Objective: * Vitals: H t: 72.50, Wt: 206, BMI:27.55, BP:158/66, Repeat BP:130/75, Wt-k.44. weight is up 3 pounds since 01-30-24. * P ast Orders: L ab:Liver Panel (Order Date - 05/31/2024) (Collection Date & Time - 05/31/2024 07:30 AM) Value Reference Range Bilirubin Total 1.5 H 0.0-1.0 - mg/dL Bilirubin Direct 0.4 0.0-0.5 - mg/dL Aspartate Amino Transferase 35 5-37 - U/L Alanine Aminotransferase 34 0-40 - U/L Total Protein 7.5 6.5-8.0 - g/dL Albumin Level 4.6 3.5-5.0 - g/dL Alkaline Phosphatase 64 39-117 - U/L L ab:Lipid Panel with Reflex (Order Date - 05/31/2024) (Collection Date & Time - 05/31/2024 07:30 AM) Value Reference Range Triglycerides 81 <150 - mg/dL Cholesterol 155 <200 - mg/dL LDL Cholesterol Calculated 69 <100 - mg/dL HDL Cholesterol 70 >40 - mg/dL * Examination: G eneral Examination: GENERAL APPEARANCE: a lert, well hydrated, in no distress.? HEAD: n ormocephalic. SKIN: g ood turgor. HEART: g rade 2/6 systolic murmur at left sternal border.? LUNGS: n o wheezes, rales, rhonchi, good air movement, clear to auscultation bilaterally. Assessment: * Assessment: 1. P ure hypercholesterolemia - E78.00 (Primary) 2 . L umbago with sciatica, right side - M54.41 3 . E ssential hypertension - I10 Plan: * Treatment: 2. L umbago with sciatica, right side Continue Gabapentin Tablet, 800 MG, take 1 tablet by mouth twice a day for 30 days, Orally, twice a day; C ontinue Ibuprofen Tablet, 800 MG, TAKE 1 TABLET THREE TIMES A DAY ORALLY EVERY 8 HRS 30 DAYS. Notes: awaiting surgery 3. E ssential hypertension Continue Lisinopril-hydroCHLOROthiazide Tablet, 20-12.5 mg, TAKE 1 TABLET DAILY, Orally, Once a day; C ontinue amLODIPine Besylate Tablet, 5 MG, TAKE 1 TABLET BY MOUTH EVERY DAY. Notes: well controlled, will contonue current regiment * Procedure Codes: * * Sign off status: Completed true * Provider: Lilliam Mcdonald MD Date: 0 06/07/2024 Generated for Hong méndez/Annette/Ubaldosmitting on: 1 02/26/2024 05:22 PM EST History and Physical Notes * HPI (History of Present Illness) Category Sub-Category Detail Notes Category Not es Symptom(s) patient is a 63 yo malehere for 6 month follow up visit/still with a lot of back pain Examination Category Sub-Category Detail Notes Category Not es General Examination GENERAL APPEARANCE: alert, w ell hydrated, in no distress HEAD: normocephalic HEART: grade 2/6 systolic m urmur at left sternal border LUNGS: no wheezes, rales, r honchi, good air movement, clear to auscultation bilaterally SKIN: good turgor
--- OUTSIDE RECORDS SUMMARY | 2024-11-26 09:07 | XMS_ITS ---
Author Organization Rodrigue Mcdonald MD Address 10 [facility] [address] [place] [phone] Care Team Providers Care Coil Cutter Name Role Phone Rodrigue Mcdonald Primary Care Provider [phone] REASON FOR VISIT discharge Encounters Encounter Location Date Provider Diagnosis Rodrigue Mcdonald MD [address] [facility] [address] [place] [phone] 11/26/2024 Rodrigue Mcdonald Plan Of Treatment Next Appt Details Provider Name:Rodrigue Mcpherson ier, 01/15/2025 09:15:00 AM, [address] [place] [address], [address], [phone], Provider Name:Rodrigue chambers, 06/14/2025 08:00:00 AM, [address] [place] [address], [address], [phone], Provider Name:Rodrigue chambers, 06/18/2025 10:00:00 AM, [address] [place] [address], [phone], Provider Name:Rodrigue Mcpherson ier, 12/13/2025 07:30:00 AM, [address], [address], [place], [phone], Provider Name:Rodrigue Mcpherson ier, 12/20/2025 08:30:00 AM, [address], [address], [place], [phone], Progress Notes * Kevin BURRELL JrDOB: [birth year] (64 yo M)Acc No.[id number]:11/26/2024 Patient: Declan FERNANDOKevin Rice :1960 A ge:64 Y S ex:Male Address:[address] [place] [address] [place] [id number] * true * Date: Generated for Hong méndez/Annette/Ubaldosmitting on: 02/26/2024 05:22 PM EST
--- OUTSIDE RECORDS SUMMARY | 2024-11-26 10:45 | XMS_ITS ---
Author Organization Rodrigue Mcdonald MD Address [address] [place] [phone] Care Team Providers Care Process Stripper Name Role Phone Harry Rodrigue Primary Care Provider [phone] Allergies Allergen (clinical drug ingredient) Drug/Non Drug Allergy documented on EMR Reaction Allergy Type Onset Date Status codeine Codeine Sulfate vomiting/headach e Drug Allergy Active Reason For Referral Reason GALL STONE PANCREATI TIS Diagnosis 1 Gall stone pancreati tis (K85.10) Referral Organization Rodrigue Mcdonald MD Referring Provider First Name Rodrigue Referring Provider Last Name Harry Referring Provider Speciality Internal M edicine Referred Provider Mitchell De Santiago Referred Provider Specialty Surgery General Notes Snehal Leo 1 08:50:05 AM >referral info faxedFelipa Annette 11/27/2024 09:01:30 AM >patient is aware of appt, Blanche Dumont 12/06/2024 03:43:01 PM >[facility] [place] [facility] HAS R/S APPT Referral Priority Routine Referral Appointment Date 12/31/2024 REASON FOR VISIT PH/TCM, Video [phone] Medications Medication SIG (Take, Route, Frequency, Duration) Notes Start Date End Date Status Lisinopril-hydroCHLOROthi azide 20-12.5 MG TAKE 1 TABLET BY MOUTH EVERY DAY for 90 Active predniSONE 20 MG 1 tablet Orally Once a day for 10 days 06/30/2023 Not-Taking Colchicine 0.6 MG 1 tablet Orally twic e a day for 10 days 07/11/2017 Not-Taking amLODIPine Besylate 5 MG TAKE 1 TABLET B Y MOUTH EVERY DAY Active Gabapentin 800 MG take 1 tablet by sorin th twice a day for 30 days Orally twice a day Active Atorvastatin Calcium 40 MG TAKE 1 TABLET BY MOUTH EVERY DAY Active Amoxicillin-Pot Clavulanate 875-125 MG 1 tablet Orally every 12 hrs Active Vital Signs Height 72.50 in 11/26/2024 patient will weigh before Te lehelth visit BP not taken no temp Encounters Encounter Location Date Provider Diagnosis Rodrigue Mcdonald MD [address] [place] [phone] 11/26/2024 Rodrigue Mcdonald Gall stone pancreatitis K85.10 Assessments Encounter Date Diagnosis (ICD Code) Assessment Notes Treatment Notes Treatment Clinical Notes Section Notes 11/26/2024 Gall stone pancreatitis (ICD-10 - K85.10) make appt with dr dunne / REFERRAL ENTERD FOR DR DE SANTIAGO Plan Of Treatment Treatment Notes Assessment Notes Gall stone pancreatitis make appt with geoff dunne / REFERRAL ENTERD FOR DR DE SANTIAGO Referrals Referral Date Details 11/26/2024 11/26/2024, GALL STO NE PANCREATITIS, Mitchell De Santiago Next Appt Details Provider Name:Rodrigue chambers, 01/15/2025 09:15:00 AM, [address] [place] [address], [address], [phone], Provider Name:Rodrigue chambers, 06/14/2025 08:00:00 AM, [address] [place] [address], [address], [phone], Provider Name:Rodrigue chambers, 06/18/2025 10:00:00 AM, [address] [place] [address], [phone], Provider Name:Rodrigue Mcpherson ier, 12/13/2025 07:30:00 AM, [address], [address], [place], [phone], Provider Name:Rodrigue Mcpherson ier, 12/20/2025 08:30:00 AM, [address], [address], [place], [phone], Progress Notes * Kevin BURRELL JrDOB: [birth year] (64 yo M)Acc No.[id number]:11/26/2024 Patient: Kevin ALFARO Provider: Lilliam Mcdonald MD :1960 A ge:64 Y S ex:Male Date:11/26/2024 Address:[address] [place] [address] [place] Subjective: * Chief Complaints: * P H/TCMVideo [phone] * HPI: S ymptom(s): pt is a 64 yo male here for follow up had gallstone pancreatitis. Telehealth L ocation of provider rendering services: [address], [address], L ocation of patient: a t address listed in demographics for today's visit, P atient identification confirmed using: CARLTON Rice ame, T elehealth method: T elephone only. Patient not visible to care provider., C onsent: P atient verbally consented to treatment, Patient verbally consented to billing insurance company, Patient informed of any privacy concerns related to method of visit, T otal time spend talking with patient (minutes) 1 7. * ROS: G eneral/Constitutional: Denies C hills. A dmits F atigue. D enies F ever. D enies H eadache. E NT: Denies S ore throat. R espiratory: Denies C ough. D enies S hortness of breath at rest. D enies S hortness of breath with exertion. G astrointestinal: Denies A bdominal pain. D enies D iarrhea. A dmits N ausea. * Medical History: * Surgical History: * Hospitalization/Major Diagno stic Procedure: * Medications: T akingAmoxicillin-Pot Clavulanate 875-125 MG Tablet 1 tablet Orally every 12 hrs Atorvastatin Calcium 40 MG Tablet TAKE 1 TABLET BY MOUTH EVERY DAY Gabapentin 800 MG Tablet take 1 tablet by mouth twice a day for 30 days Orally twice a day amLODIPine Besylate 5 MG Tablet TAKE 1 TABLET BY MOUTH EVERY DAY Lisinopril- hydroCHLOROthiazide 20-12.5 MG Tablet TAKE 1 TABLET BY MOUTH EVERY DAY Taking Amoxicillin-Pot Clavulanate 875-125 MG Tablet 1 tablet Orally every 12 hrs Taking Atorvastatin Calcium 40 MG Tablet TAKE 1 TABLET BY MOUTH EVERY DAY Taking Gabapentin 800 MG Tablet take 1 tablet by mouth twice a day for 30 days Orally twice a day Taking amLODIPine Besylate 5 MG Tablet TAKE 1 TABLET BY MOUTH EVERY DAY Taking Lisinopril-hydroCHLOROthiazide 20-12.5 MG Tablet TAKE 1 TABLET BY MOUTH EVERY DAY Not-Taking/PRNpredniSONE 20 MG Tablet 1 tablet Orally Once a day Colchicine 0.6 MG Tablet 1 tablet Orally twice a day Not-Taking/PRN predniSONE 20 MG Tablet 1 tablet Orally Once a day Not-Taking/PRN Colchicine 0.6 MG Tablet 1 tablet Orally twice a day DiscontinuedIbuprofen 800 MG Tablet TAKE 1 TABLET BY MOUTH EVERY 8 HOURS FOR 30 DAYS Medication List reviewed and reconciled with the patientDiscontinued Ibuprofen 800 MG Tablet TAKE 1 TABLET BY MOUTH EVERY 8 HOURS FOR 30 DAYS Medication List reviewed and reconciled with the patient * Allergies: C odeine Sulfate: vomiting/headacheyes[Allergies Verified] Objective: * Vitals: H t: 72.50. patient will weigh before Telehelth visit BP not taken no temp. Assessment: * Assessment: 1. G all stone pancreatitis - K85.10 (Primary) Plan: * Treatment: * Procedure Codes: * * Sign off status: Completed true * Provider: Lilliam Mcdonald MD Date: Generated for Hong méndez/Annette/Noah on: 02/26/2024 05:22 PM EST History and Physical Notes * HPI (History of Present Illness) Category Sub-Category Detail Notes Category Not es Symptom(s) Telehealth Location of prov ider rendering services:: [address], [address] Location of patient:: at address listed in demographics for today's visit Patient identification confirmed using:: Name, Telehealth method:: Telephone only. Erin ent not visible to care provider. Consent:: Patient verbally c onsented to treatment, Patient verbally consented to billing insurance company, Patient informed of any privacy concerns related to method of visit Total time spend talking with patient (m inutes): 17 Consultation Request Notes Referral Date Referring Provider Referred Provider Jakob macias 11/26/2024 Rodrigue Mcdonald John GALL STON E PANCREATITIS
--- OUTSIDE RECORDS SUMMARY | 2024-11-30 07:03 | XMS_ITS ---
Author Organization Rodrigue Mcdonald MD Address [address] [facility] [address] [place] [phone] Care Team Providers Care Ict Analyst Name Role Phone Rodrigue Mcdonald Primary Care Provider [phone] REASON FOR VISIT ER Encounters Encounter Location Date Provider Diagnosis Rodrigue Mcdonald MD [address] [facility] [address] [place] [phone] 11/30/2024 Rodrigue Mcdonald Plan Of Treatment Next Appt Details Provider Name:Rodrigue cMpherson ier, 01/15/2025 09:15:00 AM, [address] [place] [address], [address], [phone], Provider Name:Rodrigue chambers, 06/14/2025 08:00:00 AM, [address] [place] [address], [address], [phone], Provider Name:Rodrigue chambers, 06/18/2025 10:00:00 AM, [address] [place] [address], [phone], Provider Name:Rodrigue Mcpherson ier, 12/13/2025 07:30:00 AM, [address], [address], [place], [phone], Provider Name:Rodrigue Mcpherson ier, 12/20/2025 08:30:00 AM, [address], [address], [place], [phone], Progress Notes * Kevin BURRELL JrDOB: [birth year] (64 yo M)Acc No.[id number]:11/30/2024 Patient: Declan FERNANDOKevin Rice Jr :1960 A ge:64 Y S ex:Male Address:[address] [place] [address] [place] [id number] * true * Date: Generated for Hong méndez/Annette/Ubaldosmitting on: 02/26/2024 05:22 PM EST
--- OUTSIDE RECORDS SUMMARY | 2024-12-06 09:15 | XMS_ITS ---
Author Organization Rodrigue Mcdonald MD Address [address] [place] [phone] Care Team Providers Care Tongue Presser Name Role Phone Rodrigue Mcdonald Primary Care Provider REASON FOR VISIT F/U ERV left arm [...] Location Date Provider Diagnosis Rodrigue Mcdonald MD [address] [place] [address] [place] [phone] 12/06/2024 Rodrigue Mcdonald Gall stone pancreatitis K85.10 and Generalized edema R60.1 Assessments Encounter Date Diagnosis (ICD Code) Assessment Notes Treatment Notes Treatment Clinical Notes Section Notes 12/06/2024 Gall stone pancreatitis (ICD-10 - K85.10) need ct results from 2022/ had appt with dr schmidt and was cancelled and not scheduled until dec 31APPROVAL NEEDED BY [facility] BEFORE FAXING ORDER TO [facility]. CT 2022 REQUESTED FROM HIM 12/06/2024 Generalized edema (ICD-10 - R60.1) has improved. had us and angio and all negative results and has returned to normal Plan Of Treatment Treatment Notes Assessment Notes Gall stone pancreatitis need ct results from 2022/ had appt with dr schmidt and was cancelled and not scheduled until dec 31APPROVAL NEEDED BY [facility] BEFORE FAXING ORDER TO [facility]. CT 2022 REQUESTED FROM HIM Generalized edema has improved. had us and angio and all negative results and has returned to normal Pending Test Test Name Order Date CT ABD & PELVIS WITH CONTRAST 12/06/2024 Next Appt Details Follow Up: 2 Weeks, Reason: Provider Name:Rodrigue chambers, 01/15/2025 09:15:00 AM, [address] [place] [address], [address] [place] [address], [phone], Provider Name:Rodrigue chambers, 06/14/2025 08:00:00 AM, [address] [place] [address], [address] [place] [address], [phone], Provider Name:Rodrigue chambers, 06/18/2025 10:00:00 AM, [address] [place] [address], [address], [phone], Provider Name:Rodrigue chambers, 12/13/2025 07:30:00 AM, [address] [place] [address], [address], [place], [place], [phone], Provider Name:Rodrigue Mcpherson ier, 12/20/2025 08:30:00 AM, [address] [facility], [address], [place], [place], [phone], Progress Notes * Kevin BURRELL JrDOB: [birth year] (64 yo M)Acc No.[id number]:12/06/2024 Progress Notes Patient: Kevin ALFARO Provider: Lilliam Mcdonald MD :1960 A ge:64 Y S ex:Male Date:12/06/2024 Address:[address] [place] [address] ana maria [facility] Subjective: * Chief Complaints: * F /U ERV left arm pain * HPI: S ymptom(s): patient is a 64 yo male here for follow up recent ER visit, and complaint of left arm pain. * ROS: G eneral/Constitutional: Admits C hills. D enies F atigue. D [...]
--- OUTSIDE RECORDS SUMMARY | 2024-12-11 02:00 | XMS_ITS ---
Author Organization Rodrigue Mcdonald MD Address [address] [place] [phone] Care Team Providers Care Military Analyst Name Role Phone Rodrigue Mcdonald Primary Care Provider [phone] Results Component Value Reference Range Notes Complete Blood Count Auto Di ff Reviewed date:12/11/2024 12:29:52 PM Interpretation: Performing Lab:[facility], [address] [place] [phone] Notes/Report: White Blood Count 4.8 4.8-10.8 X10*3/uL [...] Panel Reviewed date:12/11/2024 03:57:17 PM Interpretation: Performing Lab:[facility], [address] [place] [phone] Notes/Report: Sodium 136 135-145 mmol/L Potassium 4.5 [...] Panel Reviewed date:12/11/2024 03:57:34 PM Interpretation: Performing Lab:[facility], [address] [place] [phone] Notes/Report: Bilirubin Direct 0.2 0.0-0.5 mg/dL Lipid Panel with Reflex Reviewed date:12/11/2024 03:57:26 PM Interpretation: Performing Lab:[facility], [address] [place] [phone] Notes/Report: Triglycerides 113 <150 mg/dL Desirable Triglyceride: [...] (Free>4and<10) Reviewed date:12/11/2024 03:58:47 PM Interpretation: Performing Lab:[facility], [address] [place] [phone] Notes/Report: PSA,Total (Free>4and<10) 0.46 0.00-4.00 ng/mL A [...] between 4.0 and 10.0 ng/mL. PSA methodology: idemamanity i Chemiluminescent Microparticle Immunoassay (CMIA) REASON FOR VISIT yearly fasting labs Encounters Encounter Location Date Provider Diagnosis Rodrigue Mcdonald MD [address] [place] [phone] 12/11/2024 Rodrigue Mcdonald Pure hypercholestero lemia E78.00 [...] Details Provider Name:Rodrigue chambers, 01/15/2025 09:15:00 AM, [address] [place] [address], [phone], Provider Name:Rodrigue chambers, 06/14/2025 08:00:00 AM, [address] [place] [address], [address], [phone], Provider Name:Rodrigue chambers, 06/18/2025 10:00:00 AM, [address] [place] [address], [phone], Provider Name:Rodrigue chambers, 12/13/2025 07:30:00 AM, [address] [place] [address], [phone], Provider Name:Rodrigue chambers, 12/20/2025 08:30:00 AM, [address] [place] [address], [phone], Progress Notes * Kevin BURRELL JrDOB: [birth year] (64 yo M)Acc No.[id number]:12/11/2024 Progress Note Patient: Kevin ALFARO Provider: Lilliam Mcdonald MD :1960 A ge:64 Y S ex:Male Date:12/11/2024 Address: [address] [facility] Subjective: * Chief Complaints: * 1 . [...] Pending * Provider: Lilliam Mcdonald MD Date: 1 Generated for Alicei ng/Annette/eTransmitting on: 02/26/2024 05:23 PM EST
--- OUTSIDE RECORDS SUMMARY | 2024-12-18 04:30 | XMS_ITS ---
Author Organization Rodrigue Mcdonald MD Address [address] [place] [phone] Care Team Providers Care Torts Law Professor Name Role Phone Rodrigue Mcdonald Primary Care [...] t Reviewed date:12/18/2024 12:27:06 PM Interpretation: Performing Lab:[facility], [address] [place] [phone] Notes/Report: Urine, Clean Catch Color Urine Yellow Appearance Urine Clear PH 6.0 5.0-9.0 Glucose Urine UA Negative Negative mg/dL Urine Blood Negative Negative Specific [place] - Urine 1.015 1.005-1.025 Urine Protein Negative [...] Location Date Provider Diagnosis Rodrigue Mcdonald MD [address] [place] [address] [place] [phone] 12/18/2024 Rodrigue Mcdonald Adult general medica l [...] Up: 4 Weeks, Reason: Provider Name:Rodrigue chambers, 01/15/2025 09:15:00 AM, [address] [place] [address], [address], [place], [phone], Provider Name:Rodrigue chambers, 06/14/2025 08:00:00 AM, [address] [place] [address], [address], [place], [phone], Provider Name:Rodrigue chambers, 06/18/2025 10:00:00 AM, [address], [address], [place], [place], [phone], Provider Name:Rodrigue Mcpherson ier, 12/13/2025 07:30:00 AM, [address], [address], [place], [phone], Provider Name:Rodrigue Mcpherson ier, 12/20/2025 08:30:00 AM, [address], [address], [place], [phone], Progress Notes * Kevin BURRELL JrDOB: [birth year] (64 yo M)Acc No.[id number]:12/18/2024 Progress Notes Patient: Kevin ALFARO Provider: Lilliam Mcdonald MD :1960 A ge:64 Y S ex:Male Date:12/18/2024 Address:[address] [place] [address] [id number] Subjective: * Chief Complaints: * A nnual [...] 9 0662 FLU VACC PRSV FREE INC [id number] IMMUNIZATION [id number] TEST FOR BLOOD, FECES * Preventive Medicine: Counseling: C are goal follow-up plan: C ounseling for abnormal BMI provided?Yes, A fabricio Normal BMI Follow-up G celine encouragement to exercise. * Follow Up: 4 Weeks * * Sign off status: Completed true * Provider: Lilliam Mcdonald MD Date: Generated for Hong méndez/Annette/Cornellitting on: 02/26/2024 05:22 PM EST History and [...] Total Score: 0 Interpretation and Intervention Depression Zoyaaman anita Findings: Negative Follow-Up for Depression: : [...] had two or more falls in the st year?: No Communication Needs Communication Needs Does [...]
--- NOTE | ~2024-12-26 | CT_ITS ---
CLINICAL HISTORY: BILIARY ACUTE PARCREATITIS CT abdomen and pelvis with contrast Comparison: CT/SR - CT ABDOMEN PELVIS WITH IV CONTRAST - 11/23/24 13:[address]/SR - CT ABDOMEN PELVIS W IV CON - 11/20/24 21:52 EDT Findings: The visualized portions of the lungs are normal in appearance. The liver is normal in size without suspicious focal hepatic lesions. No intrahepatic or extrahepatic ductal dilatation is seen. The hepatic and portal veins are patent. There are gallstones in the gallbladder. Spleen and adrenals are normal in appearance. Mild fat stranding surrounding the pancreas. The enhancement of the pancreas is preserved. No pseudocyst. No suspicious focal lesion of the kidneys. No hydronephrosis or calculi. The abdominal aorta demonstrates no evidence of aneurysmal dilatation or dissection. Atherosclerosis calcification of the aorta. Colonic diverticulosis. No evidence of bowel obstruction. Appendix is not visualized. The pelvic organs are within normal limits. No intraperitoneal free air or fluid is visualized. No pathologic lymphadenopathy is seen. Lumbar spinal fusion. IMPRESSION: Compared to the prior CT, there is interval improvement of the fat stranding and edema surrounding the pancreas. Cholelithiasis. Additional findings as above. This document has been electronically signed by: Miguel Gay MD on 12/27/2024 15:48:35
[2024-12-26] MEDS: iohexoL 350 MG/ML 100 ML INFUS..BTL 85 ML IV (14:49)
--- OUTSIDE RECORDS SUMMARY | 2024-12-26 17:23 | XMS_ITS | Patient Health Record ---
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 of non-steroidal anti-inflammat ory drug (2195553815925 03) prison current use of non-steroidal anti-inflammat ories (NSAID) (Z79.1) Active confirmed Plan Of Treatment Future Test Test Name Order Date COLONOSCOPY 12/18/2014 Insurance Providers Payer Name Payer Address Payer Phone Subscriber Number Group Number Insured Name Patient Relationship to Insured Coverage Start Date Coverage End Date [facility] [address] [facility] [place] [phone] [id number] ARLETH FINK Self - patient is the insured Medical (General) History Medical History History ICD Code hypertension Denies VT,DM,CVA,Lung disease,renal dise ase Surgical History Surgery Date(Month/Year) back surgery 2000
--- OUTSIDE RECORDS SUMMARY | 2024-12-26 17:24 | XMS_ITS | Patient Health Record ---
Author Organization Rodrigue Mcdonald MD Address [address] [place] [phone] Care Team Providers Care Lumber Checker Name Role Phone Rodrigue Mcdonald Primary Care Provider Allergies Allergen (clinical drug ingredient) Drug/Non Drug Allergy documented on EMR Reaction Allergy Type Onset Date Status codeine Codeine Sulfate vomiting/headach e Drug Allergy Active Results Component Value Reference Range Notes Liver Panel Reviewed date:05/31/2024 06:24:23 PM Interpretation: Performing Lab:[facility], [address] [place] [phone] Notes/Report: Bilirubin Total 1.5 0.0-1.0 mg/dL Bilirubin Direct 0.4 0.0-0.5 mg/dL Aspartate Amino Transferase 35 5-37 U/L Alanine Aminotransferase 34 0-40 U/L Total Protein 7.5 6.5-8.0 g/dL Albumin Level 4.6 3.5-5.0 g/dL Alkaline Phosphatase 64 39-117 U/L Lipid Panel with Reflex Reviewed date:05/31/2024 06:23:58 PM Interpretation: Performing Lab:[facility], [address] [place] [address] Notes/Report: Triglycerides 81 <150 mg/dL Desirable Triglyceride: [...] ff Reviewed date:12/11/2024 12:29:52 PM Interpretation: Performing Lab:[facility], [address] [place] [phone] Notes/Report: White Blood Count 4.8 4.8-10.8 X10*3/uL [...] Panel Reviewed date:12/11/2024 03:57:17 PM Interpretation: Performing Lab:[address] [address] Notes/Report: Sodium 136 135-145 mmol/L Potassium 4.5 [...] Panel Reviewed date:12/11/2024 03:57:34 PM Interpretation: Performing Lab:[address] [address] Notes/Report: Bilirubin Direct 0.2 0.0-0.5 mg/dL Lipid Panel with Reflex Reviewed date:12/11/2024 03:57:26 PM Interpretation: Performing Lab:[address] [address] Notes/Report: Triglycerides 113 <150 mg/dL Desirable Triglyceride: [...] (Free>4and<10) Reviewed date:12/11/2024 03:58:47 PM Interpretation: Performing Lab:[address] [address] Notes/Report: PSA,Total (Free>4and<10) 0.46 0.00-4.00 ng/mL A [...] t Reviewed date:12/18/2024 12:27:06 PM Interpretation: Performing Lab:[address] [address] Notes/Report: Urine, Clean Catch Color Urine Yellow Appearance Urine Clear PH 6.0 5.0-9.0 Glucose Urine UA Negative Negative mg/dL Urine Blood Negative Negative Specific [place] - Urine 1.015 1.005-1.025 Urine Protein Negative Neg-Trace mg/dL Urine Ketones Negative Negative mg/dL Nitrite Urine Negative Negative Leukocyte Esterase Urine Negative Negative RBC Urine 0-2 0-2 /HPF WBC Urine 0-5 0-5 /HPF Squamous Epithelial Cell Urine 0-2 0-2 /HPF Bacteria Urine None Seen None Seen Hyaline Casts Urine 0-2 0-2 /LPF Hold Gold Reviewed date:05/31/2024 06:24:31 PM Interpretation: Performing Lab:[facility], [address] [place] [phone] Notes/Report: Glenn Stratton See Note Specimen held untested for 24 hours; Call to request Chemistry testing. Complete Blood Count Auto Di ff Reviewed date:11/21/2024 03:31:17 PM Interpretation: Performing Lab:[facility], [address] [place] [phone] Notes/Report: White Blood Count 15.9 4.8-10.8 X10*3/uL [...] Panel Reviewed date:11/21/2024 03:27:20 PM Interpretation: Performing Lab:[facility], [address] [place] [phone] Notes/Report: Bilirubin Total 2.1 0.0-1.0 mg/dL Slight Icte isis. Bilirubin Direct 1.1 0.0-0.5 mg/dL Slight Ict erus. Aspartate Amino Transferase 240 5-37 U/L Alanine Aminotransferase 152 0-40 U/L Total Protein 7.4 6.5-8.0 g/dL Albumin Level 4.9 3.5-5.0 g/dL Alkaline Phosphatase 115 39-117 U/L Basic Metabolic Panel Reviewed date:11/21/2024 03:32:00 PM Interpretation: Performing Lab:[facility], [address] [place] [phone] Notes/Report: Sodium 137 135-145 mmol/L Potassium 3.5 [...] Acid Reviewed date:11/21/2024 03:24:24 PM Interpretation: Performing Lab:[address] [address] Notes/Report: Lactic Acid 1.2 0.5-2.0 mmol/L Uric Acid Reviewed date:11/21/2024 03:26:52 PM Interpretation: Performing Lab:[address] [address] Notes/Report: Uric Acid 7.2 3.4-7.0 mg/dL Magnesium Reviewed date:11/21/2024 03:27:33 PM Interpretation: Performing Lab:[address] [address] Notes/Report: Magnesium 1.9 1.6-2.6 mg/dL Troponin-I High Sensitivity Reviewed date:11/21/2024 03:30:26 PM Interpretation: Performing Lab:[address] [address] Notes/Report: Troponin-I High Sensitivity < 2.7 <3.5-35.0 ng/L The [place] high sensitivity Troponin-I results should be used in conjunction with other diagnostic information such as ECG, clinical observations and information, and patient symptoms to aid in the diagnosis of [place]. Lipase Reviewed date:11/21/2024 03:27:11 PM Interpretation: Performing Lab:[facility], [address] [place] [phone] Notes/Report: Lipase > 3000 8-78 U/L Ethanol Reviewed date:11/21/2024 03:30:18 PM Interpretation: Performing Lab:[address] [address] Notes/Report: Ethanol < 10 Serum/plasma ethanol results are to be used for medical/treatment purposes only. Blood Culture (First) Reviewed date:11/26/2024 12:37:26 PM Interpretation: Performing Lab:[address] [address] Notes/Report: Blood Culture (First) No growth after 5 days. Blood Culture (Second) Reviewed date:11/26/2024 12:36:32 PM Interpretation: Performing Lab:[facility], [address] [place] [address] Notes/Report: Blood Culture (Second) No growth after [address] abdomen pelvis w con Reviewed date:11/21/2024 03:26:17 PM Interpretation: Performing Lab: Notes/Report: [facility] [address] [facility] [place] [address] CT Scan Report Signed Patient: Kevin Burrell MR#: [id number] 2 : 1960 Acct:[id number] Age/Sex: 64 / M ADM Date: 11/20/24 Loc: HO.ED Attending Dr: Ordering Physician: Rod Owusu Date of Service: 11/20/24 Procedure(s): CT abdomen pelvis w IV con Accession Number(s): [id number] cc: Rodrigue Mcdonald MD; Rod Owusu Report Number: [id number]: Total DLP = 642.00 mGy-cm Reason for Exam: epigastric abdominal pain CLINICAL HISTORY: epigastric abdominal pain CT abdomen and pelvis with contrast Comparison: CT of the abdomen and pelvis from 09/12/2022. Findings: Mild bibasilar atelectasis and/or pneumonitis. Mild cardiomegaly partially imaged. Ytofxurd-dq-faltda fluid about the pancreas is concerning for [...] The prostate gland measures 5.2 cm transverse. Nluparrv-ul-iazveo wall thickening of the urinary bladder is [...] in OV> 11/20/242254 DD/ 53 TD/TT: 11/20/242253 [employer] And [employer] Delivery Specialist: [place] [address] [address] Scan Report Signed Patient: Parish Burrell MR#: [id number] 2 : 1960 Acct:[id number] Age/Sex: 64 / M ADM Date: 11/20/24 Loc: HO.ED Attending Dr: Ordering Physician: Rod Owusu Date of Service: 11/20/24 Procedure(s): CT abd omen pelvis w IV con Accession Number(s): [id number] cc: Rodrigue Mcdonald MD; Rod Owusu Report Number: [id number]: Total DLP = 642.00 mGy-cm Reason for Exam: epigastric abdominal pain CLINICAL HISTORY: epigastric abdominal pain CT abdomen and pelvi s with contrast Comparison: CT of e abdomen and pelvis from 09/12/2022. Findings: Mild bibasilar atelectasis and/or pneumonitis. Mild cardiomegaly partially imaged. Wwdgrncv-bt-arhxmu f luid about the pancreas is concerning [...] The prostate gland measures 5.2 cm transverse. Cbekcwgu-uj-hielum wall thickening of the urinary bladder is [...] in OV> 11/20/242254 DD/ 53 TD/TT: 11/20/242253 [employer] And [employer] Delivery Specialist: Complete Blood Count Auto Di ff Reviewed date:11/21/2024 03:26:44 PM Interpretation: Performing Lab:[facility], [address] [place] [phone] Notes/Report: White Blood Count 13.0 4.8-10.8 X10*3/uL [...] INR Reviewed date:11/21/2024 03:27:41 PM Interpretation: Performing Lab:[address] [address] Notes/Report: Prothrombin Time 11.0 10.9-12.4 SEC INTERNATIONAL [...] Panel Reviewed date:11/21/2024 03:28:21 PM Interpretation: Performing Lab:[address] [address] Notes/Report: Sodium 137 135-145 mmol/L Potassium 4.1 [...] Magnesium Reviewed date:11/21/2024 03:28:00 PM Interpretation: Performing Lab:[address] [address] Notes/Report: Magnesium 1.9 1.6-2.6 mg/dL C Reactive Protein Reviewed date:11/21/2024 03:30:33 PM Interpretation: Performing Lab:[facility], [address] [place] [phone] Notes/Report: C Reactive Protein 0.41 < or = 0.50 mg/dL Lipase Reviewed date:11/21/2024 03:24:15 PM Interpretation: Performing Lab:[address] [address] Notes/Report: Lipase 1044 8-78 U/L SLIDE REVIEW Reviewed date:11/21/2024 03:23:10 PM Interpretation: Performing Lab:[address] [address] Notes/Report: SLIDE REVIEW VERIFIED US abdomen limited Reviewed date:11/21/2024 03:23:57 PM Interpretation: Performing Lab: Notes/Report: [address] [address] Ultrasound Report Signed Patient: Kevin Burrell MR#: [id number] 2 : 1960 Acct:[id number] Age/Sex: 64 / M ADM Date: 11/20/24 Loc: [facility]: Abby Kemp MD Ordering Physician: Abby Kemp MD Date of Service: 11/21/24 Procedure(s): US abdomen limited Accession Number(s): [id number] cc: Abby Kemp MD; Rodrigue Mcdonald MD [...] 11/21/24 1409 DD/ 1350 TD/TT: 11/21/24 1354 [employer] And [employer] Delivery Specialist: [place] [address] Ultrasound Report Signed Patient: Parish Burrell MR#: [id number] 2 : 1960 Acct:[id number] Age/Sex: 64 / M ADM Date: 11/20/24 Loc: [facility]-[address]: Abby Kemp MD Ordering Physician: Abby Kemp MD Date of Service: 11/21/24 Procedure(s): US abd omen limited Accession Number(s): [id number] cc: Abby Kemp MD; Rodrigue Mcdonald MD [...] 11/21/24 1409 DD/ 1350 TD/TT: 11/21/24 1354 [employer] Delivery Specialist: Complete Blood Count Auto Di ff Reviewed date:11/22/2024 12:35:46 PM Interpretation: Performing Lab:[facility], [address] [place] [phone] Notes/Report: White Blood Count 21.0 4.8-10.8 X10*3/uL [...] Panel Reviewed date:11/22/2024 12:36:13 PM Interpretation: Performing Lab:[facility], [address] [place] [address] Notes/Report: Sodium 138 135-145 mmol/L Potassium 4.1 [...] Magnesium Reviewed date:11/22/2024 12:35:54 PM Interpretation: Performing Lab:[facility], [address] [place] [address] Notes/Report: Magnesium 1.9 1.6-2.6 mg/dL SLIDE REVIEW Reviewed date:11/22/2024 12:35:23 PM Interpretation: Performing Lab:[facility], [address] [place] [phone] Notes/Report: SLIDE REVIEW VERIFIED Complete Blood Count Auto Di ff Reviewed date:11/23/2024 11:44:37 AM Interpretation: Performing Lab:[facility], [address] [place] [phone] Notes/Report: White Blood Count 17.8 4.8-10.8 X10*3/uL [...] Panel Reviewed date:11/23/2024 11:44:10 AM Interpretation: Performing Lab:[facility], [address] [place] [phone] Notes/Report: Sodium 135 135-145 mmol/L Potassium 3.1 [...] date:11/23/2024 03:49:51 PM Interpretation: Performing Lab: Notes/Report: [address] [address] [address] Scan Report Signed Patient: Kevin Burrell MR#: [id number] 2 : 1960 Acct:[id number] Age/Sex: 64 / M ADM Date: 11/20/24 Loc: [facility] 462-[address]: Abby Kemp MD Ordering Physician: Abby Kemp MD Date of Service: 11/23/24 Procedure(s): CT abdomen pelvis w IV con Accession Number(s): [id number] cc: Abby Kemp MD; Rodrigue Mcdonald MD Report Number: [id number]: Total DLP = 740.00 mGy-cm Reason for [...] 11/23/24 1428 DD/ 1356 TD/TT: 11/23/24 1410 [employer] Delivery Specialist: [place] [address] [address] Scan Report Signed Patient: Parish Burrell MR#: [id number] 2 : 1960 Acct:[id number] Age/Sex: 64 / M ADM Date: 11/20/24 Loc: [facility] 462-[address]: Abby Kemp MD Ordering Physician: Abby Kemp MD Date of Service: 11/23/24 Procedure(s): CT abd omen pelvis w IV con Accession Number(s): [id number] cc: Abby Kemp MD; Rodrigue Mcdonald MD Report Number: [id number]: Total DLP = 740.00 mGy-cm Reason for [...] 11/23/24 1428 DD/ 1356 TD/TT: 11/23/24 1410 [employer] And [employer] Delivery Specialist: Complete Blood Count Auto Di ff Reviewed date:11/25/2024 02:26:14 PM Interpretation: Performing Lab:[facility], [address] [place] [phone] Notes/Report: White Blood Count 16.0 4.8-10.8 X10*3/uL [...] Panel Reviewed date:11/25/2024 02:26:41 PM Interpretation: Performing Lab:[facility], [address] [place] [phone] Notes/Report: Sodium 134 135-145 mmol/L Potassium 3.2 [...] ff Reviewed date:11/25/2024 02:29:13 PM Interpretation: Performing Lab:[facility], [address] [place] [address] Notes/Report: White Blood Count 13.9 4.8-10.8 X10*3/uL [...] Panel Reviewed date:11/25/2024 02:28:11 PM Interpretation: Performing Lab:[facility], [address] [place] [address] Notes/Report: Sodium 133 135-145 mmol/L Potassium 2.8 [...] ff Reviewed date:11/28/2024 07:39:14 AM Interpretation: Performing Lab:[facility], [address] [place] [phone] Notes/Report: White Blood Count 16.2 4.8-10.8 X10*3/uL [...] INR Reviewed date:11/28/2024 07:37:05 AM Interpretation: Performing Lab:[address] [address] Notes/Report: Prothrombin Time 13.2 10.9-12.4 SEC INTERNATIONAL [...] Time Reviewed date:11/28/2024 07:36:31 AM Interpretation: Performing Lab:[address] [address] Notes/Report: Partial Thromboplastin Time 25.0 26.7-34.1 SEC Comprehensive Met. Panel Reviewed date:11/28/2024 07:37:56 AM Interpretation: Performing Lab:[address] [address] Notes/Report: Sodium 130 135-145 mmol/L Potassium 3.9 [...] Acid Reviewed date:11/28/2024 07:36:41 AM Interpretation: Performing Lab:[facility], [address] [place] [phone] Notes/Report: Uric Acid 6.8 3.4-7.0 mg/dL Lipase Reviewed date:11/28/2024 07:34:05 AM Interpretation: Performing Lab:[facility], [address] [place] [phone] Notes/Report: Lipase 23 8-78 U/L SLIDE REVIEW Reviewed date:11/28/2024 07:36:55 AM Interpretation: Performing Lab:[address] [address] Notes/Report: SLIDE REVIEW VERIFIED US venous duplex UE LT Reviewed date:11/28/2024 07:33:57 AM Interpretation: Performing Lab: Notes/Report: [address] [address] Ultrasound Report Signed Patient: Kevin Burrell MR#: [id number] 2 : 1960 Acct:[id number] Age/Sex: 64 / M ADM Date: 11/27/24 Loc: .ED Attending Dr: Ordering Physician: Donis Jane Date of Service: 11/27/24 Procedure(s): US venous duplex UE LT Accession Number(s): [id number] cc: Donis Jane; Rodrigue Mcdonald MD Reason [...] in OV> 11/27/242015 DD/ 14 TD/TT: 11/27/242014 [employer] Delivery Specialist: [address] [address] Ultrasound Report Signed Patient: Parish Burrell MR#: [id number] 2 : 1960 Acct:[id number] Age/Sex: 64 / M ADM Date: 11/27/24 Loc: .ED Attending Dr: Ordering Physician: Donis Jane Date of Service: 11/27/24 Procedure(s): US maryann ous duplex UE LT Accession Number(s): [id number] cc: Donis Jane; Rodrigue Mcdonald MD Reason [...] in OV> 11/27/242015 DD/ 14 TD/TT: 11/27/242014 [employer] And Air Delivery Specialist: XR wrist LT min 3V Reviewed date:11/28/2024 07:36:22 AM Interpretation: Performing Lab: Notes/Report: [address] [address] XRay Report Signed Patient: Kevin Burrell MR#: [id number] 2 : 1960 Acct:[id number] Age/Sex: 64 / M ADM Date: 11/27/24 Loc: HO.ED Attending Dr: Ordering Physician: Donis Jane Date of Service: 11/27/24 Procedure(s): XR wrist LT min 3V Accession Number(s): [id number] cc: Donis Jane; Rodrigue Mcdonald MD Reason [...] OV> 11/27/24 1556 DD/ 1548 TD/TT: 11/27/241549 [employer] And [employer] Delivery Specialist: [address] [address] XRay Report Signed Patient: Parish Burrell MR#: [id number] 2 : 1960 Acct:[id number] Age/Sex: 64 / M ADM Date: 11/27/24 Loc: HO.ED Attending Dr: Ordering Physician: Donis Jane Date of Service: 11/27/24 Procedure(s): XR wri st LT min 3V Accession Number(s): [id number] cc: Donis Jane; Rodrigue Mcdonald MD Reason [...] 11/27/24 1556 DD/ 1548 TD/TT: 11/27/24 1550 [employer] And Air Delivery Specialist: XR forearm LT 2V Reviewed date:11/28/2024 07:35:54 AM Interpretation: Performing Lab: Notes/Report: [address] [address] XRay Report Signed Patient: Kevin Burrell MR#: [id number] 2 : 1960 Acct:[id number] Age/Sex: 64 / M ADM Date: 11/27/24 Loc: HO.ED Attending Dr: Ordering Physician: Donis Jane Date of Service: 11/27/24 Procedure(s): XR forearm LT 2V Accession Number(s): [id number] cc: Donis Jane; Rodrigue Mcdonald MD Reason [...] 11/27/24 1558 DD/ 1545 TD/TT: 11/27/24 1550 [employer] And [employer] Delivery Specialist: [place] [address] XRay Report Signed Patient: Parish Burrell MR#: [id number] 2 : 1960 Acct:[id number] Age/Sex: 64 / M ADM Date: 11/27/24 Loc: .ED Attending Dr: Ordering Physician: Donis Jane Date of Service: 11/27/24 Procedure(s): XR for earm LT 2V Accession Number(s): [id number] cc: Donis Jane; Rodrigue Mcdonald MD Reason [...] 11/27/24 1558 DD/ 1545 TD/TT: 11/27/24 1550 [employer] And Air Delivery Specialist: XR hand LT 2V Reviewed date:11/28/2024 07:35:04 AM Interpretation: Performing Lab: Notes/Report: [place] [address] XRay Report Signed Patient: Kevin Burrell MR#: [id number] 2 : 1960 Acct:[id number] Age/Sex: 64 / M ADM Date: 11/27/24 Loc: .ED Attending Dr: Ordering Physician: Donis Jane Date of Service: 11/27/24 Procedure(s): XR hand LT 2V Accession Number(s): [id number] cc: Donis Jane; Rodrigue Mcdonald MD Reason [...] 11/27/24 1602 DD/ 1530 TD/TT: 11/27/24 1550 Airborne And [employer] Delivery Specialist: [place] [address] XRay Report Signed Patient: Parish Burrell MR#: [id number] 2 : 1960 Acct:[id number] Age/Sex: 64 / M ADM Date: 11/27/24 Loc: .ED Attending Dr: Ordering Physician: Donis Jane Date of Service: 11/27/24 Procedure(s): XR arriola d LT 2V Accession Number(s): [id number] cc: Donis Jane; Rodrigue Mcdonald MD Reason [...] 11/27/24 1602 DD/ 1530 TD/TT: 11/27/24 1550 [employer] Delivery Specialist: Glenn Fonseca - Possible Hematolo gy Reviewed date:12/11/2024 12:30:18 PM Interpretation: Performing Lab:[facility], [address] [place] [address], [place] [address] Notes/Report: Glenn Lav Sam Possible Hematology SEE [...] MADE TO RAY TO DOWNLOAD MRI TO [employer] AT , NO LONGER USING Tim MARQUEZ Patti A 03/15/2024 03:25:23 PM >OFFICE NOTES RECDFROM 03/15/VISIT Referral Priority Routine Referral Appointment Date 03/15/2024 Reason GALL STONE PANCREATI TIS Diagnosis 1 Gall stone pancreati tis (K85.10) Referral Organization Rodrigue Mcdonald MD Referring Provider First Name Rodrigue Referring Provider Last Name aHrry Referring Provider Speciality Internal edicine Referred Provider Mitchell De Santiago Referred Provider Specialty Surgery General Notes Snehal Leo 1 08:50:05 AM >referral info faxed, Snehal Leo 11/27/2024 09:01:30 AM >patient is aware of apptTim Patti A 12/06/2024 03:43:01 PM >[facility] HAS R/S APPT Referral [...] Problem Status W/U Status Risk Notes Problem 075945515 Lumbago with sci atica, right side (M54.41) Active confirmed Problem 279383502 Elevated LFTs (R79.89) Active confirm ed Problem 571830706 Gastroesophageal reflux disease without esophagitis (K21.9) Active confirmed Problem 09922875 Essential hypert ension (I10) Active confirmed Problem 044564912 Raynauds phenome non without gangrene (I73.00) Active confirmed Problem 47293718 Cervical disc di sease with myelopathy (M50.00) Active confirmed Problem 118956825 Mild aortic sten osis (I35.0) Active confirmed Problem 13194639 Tinea versicolor (B36.0) Active confirmed Problem 0721769470867 Cervical neuropa thy (G54.2) Active confirmed Problem 207754051485336 Sciatica of righ t side (M54.31) Active confirmed Problem 014574316 Pure hypercholesterolemia (E78.00) Active confirmed Problem 115506188 Arthritis of kne e (M17.10) Active confirmed Problem 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) Active confirmed Problem Arthritis of both knees (4756339570657236 ) Arthritis of both knees (M17.0) Active confirmed Problem 788020085 Nonrheumatic mak ral valve regurgitation (I34.0) Active confirmed Problem Raynaud's disease (174822030) Raynaud''s phenomenon without gangrene (I73.00) Active confirmed Vital Signs Blood pressure diastolic 62 mm Hg 12/18/2024 Height 72.50 in 12/18/2024 Blood pressure systolic 128 mm Hg 12/18/2024 Weight 189 lbs 12/18/2024 BMI 25.28 kg/m2 12/18/2024 Encounters Encounter Location Date Provider Diagnosis Rodrigue Mcdonald MD [address] [place] [id number] 05/31/2024 Rodrigue Mcdonald Pure hypercholestero lemia E78.00 Rodrigue Mcdonald MD [address] [place] [address] Drive [address] [place] [id number] 12/11/2024 Rodrigue Mcdonald Pure hypercholestero lemia E78.00 ; Blood tests for routine general physical examination Z00.00 ; Elevated LFTs R79.89 and Essential hypertension I10 Rodrigue Mcdonald MD [address] [place] [address] [id number] 01/03/2024 Rodrigue Mcdonald Spinal stenosis of lumbosacral region M48.07 Rodrigue Mcdonald MD [address] [place] [address] [id number] 01/30/2024 Rodrigue Mcdonald Essential hypertensi on I10 ; Lumbago with sciatica, right side M54.41 and Mild aortic stenosis I35.0 Rodrigue Mcdonald MD [address] [place] [id number] 06/07/2024 Rodrigue Mcdonald Pure hypercholestero lemia E78.00 ; Lumbago with sciatica, right side M54.41 and Essential hypertension I10 Rodrigue Mcdonald MD [address] [place] [address] [id number] 11/26/2024 Rodrigue Mcdonald Gall stone pancreati tis K85.10 Rodrigue Mcdonald MD [address] [place] [id number] 12/06/2024 Rodrigue Mcdonald Gall stone pancreati tis K85.10 and Generalized edema R60.1 Rodrigue Mcdonald MD [address] [place] [address] [id number] 12/18/2024 Rodrigue Mcdonald Adult general medica l examination Z00.00 ; Pure hypercholesterolemia E78.00 ; Elevated LFTs R79.89 ; Essential hypertension I10 ; Encounter for administration of vaccine Z23 ; Mild aortic stenosis I35.0 ; Colon cancer screening Z12.11 and Depression screening Z13.31 Rodrigue Mcdonald MD [address] [place] [id number] 11/26/2024 Rodrigue Mcdonald MD [address] [place] [address] [id number] 11/30/2024 Rodrigue Mcdonald Assessments Encounter Date Diagnosis (ICD Code) Assessment Notes Treatment Notes Treatment Clinical Notes Section Notes 05/31/2024 Pure hypercholesterolemia (ICD-10 - E78.00) 12/11/2024 Pure hypercholesterolemia (ICD-10 - E78.00) 12/11/[address] ine general physical examination (ICD-10 - Z00.00) 01/03/2024 Spinal stenosis of lumbosacral region (ICD-10 [...] scheduled until dec 31 /APPROVAL NEEDED BY [facility] BEFORE FAXING ORDER TO [facility]. CT 2022 REQUESTED FROM HIM 12/06/2024 Generalized edema (ICD-10 - R60.1) has improved. 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 is waiting for surgery 12/11/2024 Essential hypertensi on (ICD-10 - I10) 06/07/2024 Essential hypertensi on (ICD-10 - I10) well controlled, will contonue current regiment 12/18/2024 Essential hypertensi on (ICD-10 - I10) [...] Details Provider Name:Rodrigue chambers, 01/15/2025 09:15:00 AM, [address] [place] [address], [address], [phone], Provider Name:Rodrigue chambers, 06/14/2025 08:00:00 AM, [address] [place] [address], [address] [place] [address], [phone], Provider Name:Rodrigue chambers, 06/18/2025 10:00:00 AM, [address] [place] [address], [address], [phone], Provider Name:Rodrigue chambers, 12/13/2025 07:30:00 AM, [address] [place] [address], [address], [phone], Provider Name:Rodrigue lopezr, 12/20/2025 08:30:00 AM, [address], [address], [place], [phone], Insurance Providers Payer Name Payer Address Payer Phone Subscriber Number Group Number Insured Name Patient Relationship to Insured Coverage Start Date Coverage End Date [facility] [address] [place] [phone] [id number] Kevin Burrell Self - patient is the insured Medical (General) History Medical History History ICD Code 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 Negron - repeat 10 years have to be on diuretic in cooler months and stop in hot months
== END 2024-12-26 14:14 | disposition home or self-care (01) ==
LOC: HO.CT 14:13
PROVIDERS: PCP Internal Medicine; Visit Provider Internal Medicine
DX: K85.10 Biliary acute pancreatitis without necrosis or infection (principal)
CPT/HCPCS: 74177; Q9967

== ENCOUNTER → 2024-12-26 14:34 | Outpatient (BNV) | payer OTHER, SELFPAY | PROVIDERS: PCP Internal Medicine; Visit Provider Nuclear Medicine | DX: K57.30 Diverticulosis of large intestine without perforation or abscess without bleeding (principal); K80.20 Calculus of gallbladder without cholecystitis without obstruction | CPT/HCPCS: 74177 ==

== ENCOUNTER 2024-12-31 15:22 | Outpatient (AMB) | payer OTHER, SELFPAY ==
--- NOTE | 2024-12-31 15:25 | MHC.OFFVIS ---
Vital Signs 12/31/24 15:35 Height 5 ft 9 in Weight 195 lb BMI 28.8 BP 177/74 H Blood Pressure Location Lt brachial Position Sitting Pulse 80 Intake Visit Reasons: gallstone pancreatitis Intake Note: Patient is seen in office for evaluation of gallstones. 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 He was recently admitted on 11/23/2024 with pancreatitis. The patient was found to have multiple gallstones within the gallbladder and presumably past a stone because the pancreatitis. Subsequent CT scans reveal resolution of the pancreatitis and he now reports feeling somewhat improved but does occasionally have some discomfort. He has been avoiding rich foods which he really loves and presents today to discuss possible elective cholecystectomy. He denies any previous abdominal surgeries. [facility] Medical History Anxiety Diverticulosis Alcohol use disorder Cholelithiasis Neuropathy Degenerative joint disease of spine Gout Hyperlipidemia Hypertension Surgical History S/P cervical spinal fusion History of lumbar fusion H/O spinal fusion Social History Household Members: Spouse and Children Housing: House Do you presently have visiting nurse or other home services: No Alcohol intake: current Alcohol intake frequency: a few times a week Comment: Patient drinks on Tuesday through Tuesday and refrain from using alcohol Patient Tobacco Use Status: Never used Tobacco e-Cigarette/Vaping Use: Never Used service: No Review of Systems Const All systems reviewed & are unremarkable except as noted in HPI and below Physical Exam Vital Signs: Last Vital Signs Pulse 80 12/31/24 15:35 BP 177/74 H 12/31/24 15:35 BMI result Body Mass Index 28.8 Const General: cooperative and no acute distress Nutritional Appearance: well nourished Orientation/consciousness: patient oriented x3 Limitations: no limitations HEENT Head: Yes normocephalic and Yes atraumatic Ears: hearing grossly normal bilaterally Resp Effort & Inspection: normal respiratory effort, no audible wheezes, no cough and no respiratory distress Cardio Jugular venous distension: no JVD GI Other: Soft and nondistended, no rebound, guarding or rigidity. No palpable mass. Negative Mar sign. Inspection: Yes normal to inspection Skin Other: Warm, dry, no rash Neuro General: patient oriented x3 Extrem General: Yes no clubbing, cyanosis or edema Assessment & Plan Assessment & Plan (1) Gallstone pancreatitis: Code(s): K85.10 - Biliary acute pancreatitis without necrosis or infection Category: Medical Plan 64-year-old male patient with a prior history of gallstone pancreatitis noted to have multiple gallstones in the gallbladder. He presents today feeling improved but has been modifying his diet. I reviewed the options of laparoscopic or possible open cholecystectomy to prevent further episodes of cholecystitis/pancreatitis. After discussion of the procedure, risks, and alternatives, he consents to the laparoscopic or possible open cholecystectomy. He will be scheduled as a short-stay surgery. Medications: Discontinued amoxicillin-pot clavulanate 875-125 mg Discontinued Reason: Patient Refused 1 tab PO Q12H 2 days 4 tabs 0RF morphine Partial Fill upon patient request. Discontinued Reason: Patient Completed Course 15 mg PO Q6H PRN 12 tabs 0RF severe pain (scale score 7-10) Coding Level of Care Code New Pt Level 4 (91803) Diagnoses Gallstone pancreatitis K85.10
[2024-12-31 15:35] VITALS: BP 177/74; PULSE 80; BMI 28.8
== END 2024-12-31 15:46 | disposition home or self-care (01) ==
LOC: HO.HGS 15:22
PROVIDERS: PCP Internal Medicine; Visit Provider Surgery
DX: K85.10 Biliary acute pancreatitis without necrosis or infection (principal)
CPT/HCPCS: 99204

== ENCOUNTER 2025-01-30 05:52 | Day surgery (SDC) | payer OTHER, SELFPAY ==
--- NOTE | 2025-01-28 10:03 | HO.ANESPROP2 ---
Documented by User: Shirley Finney NP 01/28/25 10:11 HPI - Anesthesia Eval Consult details Narrative: 64 yr old male for Cholecystectomy Laparoscopic,possible open ETOH use disorder: INR 1.2 on 12/11/24, LFTs AST/ALT 38/97; declined addiction consult at 11/20/24 admission. Mild aortic stenosis: echo 12/2023, The mean gradient is 13 mmHg; aortic valve area is 1.58 cm2. [facility] Active Problems Active Problems: All Active Problems Gallstone pancreatitis (Acute) Hypokalemia (Acute) Anxiety (Acute) Hyperlipidemia (Acute) Hypertension (Acute) Alcohol use disorder (Acute) Cholelithiasis (Acute) Neuropathy (Acute) Degenerative joint disease of spine (Acute) Gallstones (Acute) Past Medical History Medical History Sleep apnea Anxiety Diverticulosis Alcohol use disorder Cholelithiasis Neuropathy Degenerative joint disease of spine Gout Hyperlipidemia Hypertension Surgical History Surgical History H/O colonoscopy S/P cervical spinal fusion History of lumbar fusion Social History Social History Household Members: Spouse and Children Housing: House Do you presently have visiting nurse or other home services: No Alcohol intake: current Alcohol intake frequency: former alcohol drinker Comment: correct count Patient Tobacco Use Status: Never used Tobacco e-Cigarette/Vaping Use: Never Used Use of substances other than those prescribed or required for medical reasons: No Are you DNR?: No Advance Directives: No Advance Directives Information Provided: Yes service: No Meds Allergies Allergy/AdvReac Type Severity Reaction Status Date / Time codeine (CODEINE) Allergy Unknown NAUSEA Verified 12/31/24 15:34 Codeine Sulfate Allergy Unknown Unknown Uncoded 12/31/24 15:34 Home Medications ?Medication ?Instructions ?Recorded ?Confirmed ?Last Taken ?Type atorvastatin 40 mg tablet 40 mg PO DAILY 09/12/22 01/30/25 11/20/24 History ibuprofen 800 mg tablet 800 mg PO DAILY PRN Pain 09/12/22 01/30/25 01/24/25 History lisinopril 20 1 tab PO DAILY 09/12/22 01/30/25 11/20/24 History mg-hydrochlorothiazide 12.5 mg tablet gabapentin 800 mg tablet 800 mg PO BID 11/21/24 01/30/25 11/20/24 History amlodipine 5 mg tablet 5 mg PO DAILY 01/30/25 01/30/25 Unknown History Exam Pertinent Lab Results Pertinent Lab Results: Laboratory Tests 12/11/24 07:00 WBC 4.8 RBC 3.99 L Hgb 12.5 L Hct 36.2 L Plt Count 373 D Sodium 136 Potassium 4.5 BUN 16 Creatinine 0.92 Narrative Narrative: ECHO 12/2023, ordered by PCP for heart murmur Conclusions: - 1. Normal LV ejection fraction of 60 65% with impaired relaxation filling pattern 2. Mild calcific aortic stenosis 3. Mildly dilated ascending aortic root at 3.8 cm 4. No gross pericardial effusion EKG 11/20/24 Vent. Rate : 59 BPM Atrial Rate : 59 BPM P-R Int : 188 ms QRS Dur : 98 ms QT Int : 450 ms P-R-T Axes : 62 3 25 degrees QTcB Int : 445 ms Sinus bradycardia Cannot rule out Inferior infarct , age undetermined Cannot rule out Anterior infarct , age undetermined Abnormal ECG When compared with ECG of 12-Sep-2022 06:07, Vent. rate has decreased by 35 bpm Minimal criteria for Inferior infarct are now Present Documented by User: Wendi Fregoso MD 01/30/25 08:49 [facility] Past Medical History Medical History Sleep apnea Anxiety Diverticulosis Alcohol use disorder Cholelithiasis Neuropathy Degenerative joint disease of spine Gout Hyperlipidemia Hypertension Family History Family history of problems with anesthesia: No Surgical History Surgical History H/O colonoscopy S/P cervical spinal fusion History of lumbar fusion History of Problems with Anesthesia: No Social History Social History Household Members: Spouse and Children Housing: House Do you presently have visiting nurse or other home services: No Alcohol intake: current Alcohol intake frequency: former alcohol drinker Comment: correct count Patient Tobacco Use Status: Never used Tobacco e-Cigarette/Vaping Use: Never Used Use of substances other than those prescribed or required for medical reasons: No Are you DNR?: No Advance Directives: No Advance Directives Information Provided: Yes service: No Meds Allergies Allergy/AdvReac Type Severity Reaction Status Date / Time codeine (CODEINE) Allergy Unknown NAUSEA Verified 12/31/24 15:34 Codeine Sulfate Allergy Unknown Unknown Uncoded 12/31/24 15:34 Home Medications ?Medication ?Instructions ?Recorded ?Confirmed ?Last Taken ?Type atorvastatin 40 mg tablet 40 mg PO DAILY 09/12/22 01/30/25 11/20/24 History ibuprofen 800 mg tablet 800 mg PO DAILY PRN Pain 09/12/22 01/30/25 01/24/25 History lisinopril 20 1 tab PO DAILY 09/12/22 01/30/25 11/20/24 History mg-hydrochlorothiazide 12.5 mg tablet gabapentin 800 mg tablet 800 mg PO BID 11/21/24 01/30/25 11/20/24 History amlodipine 5 mg tablet 5 mg PO DAILY 01/30/25 01/30/25 Unknown History Exam Airway Mallampati Class: II TM Dist: >3cm Neck ROM: Full Heart: rrr Lungs: cta Assessment and Plan Assessment Anesthesia Assessment: Anesthesia Plan Discussed and Chart Reviewed Final Anesthetic Review Family History of Problems with Anesthesia: No History of Problems with Anesthesia: No NPO: Yes ASA Class: III Final Preanesthetic Review: No Changes in Pt Med Stat, Meds/Allgs Chart Reviewed, Consent Obtained/Reviewed and Anes Risks/Benef Reviewed Patient Risk: Intermediate Procedure Risk: Intermediate Anesthetic Plan Anesthetic Plan: GA and Agree w/ Assess. and Plan Disposition: Standard PACU
[2025-01-28 10:16] VITALS: BMI 28.8
[2025-01-30 06:07] VITALS: BMI 25.2
[2025-01-30 06:21] VITALS: BP 148/75; PULSE 96; RESP 15; TEMP 37; O2SAT 98
[2025-01-30] MEDS: Lactated Ringers 1,000 ML 100 ML IVCONT (06:40)
--- NOTE | 2025-01-30 07:26 | P.HPSUR_ITS ---
Pre-Procedural Eval Section A - 24 Hr Update-Section A only Date of Service: 01/30/25 The patient is an INPATIENT: No Changes since office visit: Yes Patient answered all questions; No Cold of Flu in the past 2 weeks, No New Medical Problems and No Changes in Medication Section B - Complete if H&P > 30 days Chief Complaint: Biliary acute pancreatitis without necrosis Details of Present Illness: No change in patient's abdominal symptoms, reports nausea Relevant Family History (Specify if Yes): No Relevant Social History: None Present Medications: see Short Stay Collaborative assessment Medical History: No relevant PMH History of Previous Operations: No relevant previous surgery Allergies: Allergies Allergy/AdvReac Type Severity Reaction Status Date / Time codeine (CODEINE) Allergy Unknown NAUSEA Verified 12/31/24 15:34 Codeine Sulfate Allergy Unknown Unknown Uncoded 12/31/24 15:34 Review of Systems Sugical H&P ROS: Negative: Constitution, Cardiovascular, Respiratory, Neurol ogical, Psychiatric, Hem-Onc, Allergic/Immunologic, Gastrointestinal, Genitourinary, Musculoskeletal, Integumentary, Endocrine and Eyes/Ears/Nose/Throat Exam Surgical H&P Exam: Normal: HEENT, Normal: Heart, Normal: Lungs, Normal: Extremities, Normal: Abdomen, Normal: Skin and Normal: Neurological Plan Diagnosis/Plan: Unchanged I have reviewed the history and physical and performed a pertinent physical examination on my patient. No changes have occurred unless specified. Time Spent With Patient Time: Total time managing care of this patient today ____ minutes.
[2025-01-30] MEDS: cefoTEtan disodium 2 GM VIAL IVPUSH (07:57)
--- NOTE | 2025-01-30 08:34 | W.PM.OPN ---
Operative Note Operative Note Date of Service: 01/30/25 Narrative: Preoperative diagnosis: Gallstone pancreatitis Postoperative diagnosis: Same Procedure: Laparoscopic cholecystectomy Surgeon: Mitchell De Santiago MD Wick And Base Assembler: Olive Chacon PA-C Anesthesia: General endotracheal Indications for procedure: 64-year-old male patient presenting with a prior history of gallstone pancreatitis found to have residual gallstones within the gallbladder presenting now for an elective laparoscopic or possible open cholecystectomy. Operative findings: Normal-appearing gallbladder with small gallstones/biliary sludge Specimen: gallbladder Estimated blood loss: 5 mL Complications: None Procedure details: Patient was brought to the OR and placed in a supine position. After administering general anesthesia the patient's abdomen was prepped with ChloraPrep and draped in a sterile fashion. A surgical time-out was called the consent confirmed. Patient received preoperative antibiotics and Venodyne boots were in place. Local anesthesia consisting of 0.5% Sensorcaine without epinephrine was infiltrated in a periumbilical region. A 5 mm incision was made above the umbilicus in a transverse fashion. The Veress needle was then inserted while elevating abdominal cavity with towel clips. After positive drop test the abdomen was insufflated to a pressure of 15 mm of mercury. The Veress needle was then removed and a 5 mm trocar inserted. The camera was inserted in the abdomen explored. A 12 mm trocar was then placed in the epigastrium. Two 5 mm trocars placed in the right upper quadrant by the assistant chief of police. The patient was placed in reverse Trendelenburg positioning and rotated to the left. The gallbladder was grasped with the fundus and retracted cephalad by the assistant chief of police. The infundibulum was then grasped and retracted away from the liver bed, also by the assistant chief of police. The Dolphin dissected was then used by the surgeon to dissect the peritoneum off the infundibulum to reveal the junction with the cystic duct. Cystic artery was noted slightly medial and posterior to the cystic duct. After obtaining a critical view the cystic duct was doubly clipped and divided. The cystic artery was then doubly clipped and divided. The gallbladder was then dissected off the liver bed using electrocautery with an L hook. Hemostasis was assured all times using the electrocautery. When the gallbladder is completely dissected off the liver bed was placed in an Endo-Catch bag and brought out through the epigastric incision. The gallbladder was sent to pathology for further examination. The abdomen was then re-examined. The liver bed was irrigated and suctioned dry. No bleeding or bile leak could be identified. CO2 was then evacuated and all trocars removed. Fascia was closed at the epigastric incision using a [id number] 0 Polysorb suture. Skin was closed in all incisions using a subcuticular 4 0 Polysorb suture by both the surgeon and assistant chief of police. Sterile dressings consisting of Steri-Strips, 2 x 2 gauze, and Tegaderm were then applied. The patient tolerated the procedure well. Sponge instrument and needle counts reported as correct. The patient was transferred to PACU in stable condition.
[2025-01-30 08:36] VITALS: BP 153/77; PULSE 80; RESP 12; TEMP 36.1; O2SAT 97
[2025-01-30 08:41] VITALS: BP 157/78; PULSE 79; RESP 18; O2SAT 100
[2025-01-30 08:46] VITALS: BP 143/67; PULSE 80; RESP 16; O2SAT 100
[2025-01-30 08:51] VITALS: BP 146/72; PULSE 83; RESP 16; O2SAT 97
[2025-01-30 09:07] VITALS: BP 144/71; PULSE 83; RESP 18; TEMP 36.2; O2SAT 97
== END 2025-01-30 09:45 | disposition home or self-care (01) ==
PROVIDERS: PCP Internal Medicine; Visit Provider Surgery
PROC: 0FT44ZZ Resection of Gallbladder, Percutaneous Endoscopic Approach (ICD-10-PCS; CPT 47562; principal; 2025-01-30 07:30)
DX: K80.10 Calculus of gallbladder with chronic cholecystitis without obstruction (principal); R11.2 Nausea with vomiting, unspecified; K57.30 Diverticulosis of large intestine without perforation or abscess without bleeding; G62.9 Polyneuropathy, unspecified; I10 Essential (primary) hypertension; E78.5 Hyperlipidemia, unspecified; M10.9 Gout, unspecified; F41.9 Anxiety disorder, unspecified; M47.9 Spondylosis, unspecified; F10.90 Alcohol use, unspecified, uncomplicated; Z79.1 Long term (current) use of non-steroidal anti-inflammatories (NSAID); Z79.899 Other long term (current) drug therapy; Z88.5 Allergy status to narcotic agent; Z98.1 Arthrodesis status
CPT/HCPCS: 47562; 88304; J0131; J0525; J1100; J2003; J2250; J2405; J2704; J3010

== ENCOUNTER → 2025-01-30 05:52 | Outpatient (BNV) | payer OTHER, SELFPAY | PROVIDERS: PCP Internal Medicine; Visit Provider Surgery | DX: K85.10 Biliary acute pancreatitis without necrosis or infection (principal) | CPT/HCPCS: 47562 ==

== ENCOUNTER 2025-02-06 13:33 | Outpatient (AMB) | payer OTHER, SELFPAY ==
--- OUTSIDE RECORDS SUMMARY | 2024-05-31 02:30 | XMS_ITS ---
Author Organization Rodrigue Mcdonald MD Address [address] [place] [phone] Care Team Providers Care Occupational Health Manager Name Role Phone Rodrigue Mcdonald Primary Care Provider Results Component Value Reference Range Notes Liver Panel Reviewed date:05/31/2024 06:24:23 PM Interpretation: Performing Lab:[facility], [address] [place] [phone] Notes/Report: Bilirubin Total 1.5 0.0-1.0 mg/dL Bilirubin Direct 0.4 0.0-0.5 mg/dL Aspartate Amino Transferase 35 5-37 U/L Alanine Aminotransferase 34 0-40 U/L Total Protein 7.5 6.5-8.0 g/dL Albumin Level 4.6 3.5-5.0 g/dL Alkaline Phosphatase 64 39-117 U/L Lipid Panel with Reflex Reviewed date:05/31/2024 06:23:58 PM Interpretation: Performing Lab:[facility], [address] [place] [phone] Notes/Report: Triglycerides 81 <150 mg/dL Desirable Triglyceride: [...] Location Date Provider Diagnosis Rodrigue Mcdonald MD [address] [place] [phone] 05/31/2024 Rodrigue Mcdonald Pure hypercholestero lemia E78.00 Assessments Encounter Date Diagnosis (ICD Code) Assessment Notes Treatment Notes Treatment Clinical Notes Section Notes 05/31/2024 Pure hypercholesterolemia (ICD-10 - E78.00) Plan Of Treatment Next Appt Details Provider Name:Rodrigue chambers, 06/14/2025 08:00:00 AM, [address] [place] [address], [address], [phone], Provider Name:Rodrigue chambers, 06/18/2025 10:00:00 AM, [address] [place] [address], [address], [phone], Provider Name:Rodrigue chambers, 12/13/2025 07:30:00 AM, [address] [place] [address], [phone], Provider Name:Rodrigue chambers, 12/20/2025 08:30:00 AM, [address] [place] [address], [address], [phone], Progress Notes * Kevin BURRELL JrDOB: [birth year] (64 yo M)Acc No.[id number]:05/31/2024 Progress Note Patient: Kevin ALFARO Jr Provider: Lilliam Mcdonald MD :1960 A ge:63 Y S ex:Male Date:05/31/2024 Address:[address] [place] [address] Subjective: * Chief Complaints: * 1 . [...] 05/31/2024 Generated for Hong méndez/Annette/Cornellitting on: 1 04/09/2024 06:05 PM EST
--- OUTSIDE RECORDS SUMMARY | 2024-06-07 02:30 | XMS_ITS ---
Author Organization Rodrigue Mcdonald MD Address [address] [place] [phone] Care Team Providers Care Geomagnetician Name Role Phone Rodrigue Mcdonald Primary Care [...] Location Date Provider Diagnosis Rodrigue Mcdonald MD [address] [place] [address] Drive [address] [place], [place] [phone] 06/07/2024 Rodrigue Mcdonald Pure hypercholestero lemia E78.00 [...] regiment Next Appt Details Provider Name:Rodrigue chambers, 06/14/2025 08:00:00 AM, [address] [place] [address], [address], [place], [place], [phone], Provider Name:Rodrigue chambers, 06/18/2025 10:00:00 AM, [address] [place] [address], [address], [place], [place], [phone], Provider Name:Rodrigue chambers, 12/13/2025 07:30:00 AM, [address], [address], [place], [place], [phone], Provider Name:Rodrigue Mcpherson ier, 12/20/2025 08:30:00 AM, [address], [address], [place], [phone], Progress Notes * Kevin BURRELL JrDOB: [birth year] (64 yo M)Acc No.[id number]:06/07/2024 Progress Notes Patient: Kevin ALFARO Jr Provider: Lilliam Mcdonald MD :1960 A ge:64 Y S ex:Male Date:06/07/2024 Address:[address] [place] [address] ana maria [id number] Subjective: * Chief Complaints: * 6 month * HPI: S ymptom(s): patient is a 63 yo malehere for 6 month follow up visit/still with a lot of back pain. * ROS: G eneral/Constitutional: Denies C hills. [...] MD Date: 0 06/07/2024 Generated for Hong méndez/Annette/Cornellitting on: 1 04/09/2024 06:02 PM EST History and Physical Notes * [...]
--- OUTSIDE RECORDS SUMMARY | 2024-11-26 09:07 | XMS_ITS ---
Author Organization Rodrigue Mcdonald MD Address 10 [facility] [address] [place] [phone] Care Team Providers Care Simulation Software Engineer Name Role Phone Rodrigue Mcdonald Primary Care Provider REASON FOR VISIT discharge Encounters Encounter Location Date Provider Diagnosis Rodrigue Mcdonald MD 10 [facility] [address] [place] [phone] 11/26/2024 Rodrigue Mcdonald Plan Of Treatment Next Appt Details Provider Name:Rodrigue chambers, 06/14/2025 08:00:00 AM, [address] [place] [address], [address], [phone], Provider Name:Rodrigue chambers, 06/18/2025 10:00:00 AM, [address] [place] [address], [address], [phone], Provider Name:Rodrigue chambers, 12/13/2025 07:30:00 AM, [address] [place] [address], [address], [phone], Provider Name:Rodrigue Mcpherson ier, 12/20/2025 08:30:00 AM, [address], [address], [place], [phone], Progress Notes * Kevin BURRELL JrDOB: [birth year] (64 yo M)Acc No.[id number]:11/26/2024 Patient: Kevin ALFARO Jr :1960 A ge:64 Y S ex:Male Address:[address] [place] [address] [place] [address] * true * Date: Generated for Hong méndez/Annette/Cornellitting on: 04/09/2024 06:03 PM EST
--- OUTSIDE RECORDS SUMMARY | 2024-11-26 10:45 | XMS_ITS ---
Author Organization Rodrigue Mcdonald MD Address [address] [place] [phone] Care Team Providers Care Slasher Runner Name Role Phone Harry Rodrigue Primary Care Provider Allergies Allergen (clinical drug [...] Snehal Leo 1 08:50:05 AM >referral info faxed, Snehal Leo 11/27/2024 09:01:30 AM >patient is aware of Tim aaron Patti A 12/06/2024 03:43:01 PM >[facility] [place] [facility] [place] [facility]S Tim AARON Patti Hui 01/21/2025 09:55:24 AM >OFFICE NOTES RECD Referral Priority Routine Referral Appointment Date 12/31/2024 REASON FOR VISIT PH/TCM, Video [phone] Medications Medication SIG (Take, Route, Frequency, Duration) [...] in 11/26/2024 patient will weigh before [facility] BP not taken no temp Encounters Encounter Location Date Provider Diagnosis Rodrigue Mcdonald MD [address] [place] [address] Drive [address] [place] [phone] 11/26/2024 Rodrigue Mcdonald Gall stone pancreatitis K85.10 [...] Santiago Next Appt Details Provider Name:Rodrigue chambers, 06/14/2025 08:00:00 AM, [address] [place] [address], [address], [place], [place], [phone], Provider Name:Rodrigue chambers, 06/18/2025 10:00:00 AM, [address] [place] [address], [address], [place], [place], [phone], Provider Name:Rodrigue chambers, 12/13/2025 07:30:00 AM, [address], [address], [place], [place], [phone], Provider Name:Rodrigue Mcpherson ier, 12/20/2025 08:30:00 AM, [address], [address], [place], [phone], Progress Notes * Kevin BURRELL JrDOB: [birth year] (64 yo M)Acc No.[id number]:11/26/2024 Patient: Kevin ALFARO Jr Provider: Lilliam Mcdonald MD :1960 A ge:64 Y S ex:Male Date:11/26/2024 Address:[address] [place], [place] [id number] Subjective: * Chief Complaints: * P H/TCMVideo [phone] * HPI: S ymptom(s): pt is a 64 yo male here for follow up had gallstone pancreatitis. Telehealth L ocation of provider rendering services: [address], [address], L ocation of [...] MD Date: Generated for Hong méndez/Annette/Noah on: 04/09/2024 06:04 PM EST History and Physical Notes * HPI (History of Present Illness) Category Sub-Category Detail Notes Category Not es Symptom(s) [facility] [address] [place] [address], [address] Location of patient:: at address [...] Notes Referral Date Referring Provider Referred Provider Not colleen 11/26/2024 Rodrigue Mcdonald John GALL STON E PANCREATITIS
--- OUTSIDE RECORDS SUMMARY | 2024-11-30 07:03 | XMS_ITS ---
Author Organization Rodrigue Mcdonald MD Address [address] [facility] [address] [place] [phone] Care Team Providers Care Pigment Processor Name Role Phone Rodrigue Mcdonald Primary Care Provider REASON FOR VISIT ER Encounters Encounter Location Date Provider Diagnosis Rodrigue Mcdonald MD [address] [facility] [address] [place] [phone] 11/30/2024 Rodrigue Mcdonald Plan Of Treatment Next Appt Details Provider Name:Rodrigue chambers, 06/14/2025 08:00:00 AM, [address] [place] [address], [address], [phone], Provider Name:Rodrigue chambers, 06/18/2025 10:00:00 AM, [address] [place] [address], [address], [phone], Provider Name:Rodrigue chambers, 12/13/2025 07:30:00 AM, [address] [place] [address], [address], [phone], Provider Name:Rodrigue Mcpherson ier, 12/20/2025 08:30:00 AM, [address], [address], [place], [phone], Progress Notes * Kevin BURRELL JrDOB: [birth year] (64 yo M)Acc No.[id number]:11/30/2024 Patient: Kevin ALFARO Jr :1960 A ge:64 Y S ex:Male Address:[address] [place] [address] [place] [id number] * true * Date: Generated for Hong méndez/Annette/Cornellitting on: 04/09/2024 06:02 PM EST
--- OUTSIDE RECORDS SUMMARY | 2024-12-06 09:15 | XMS_ITS ---
Author Organization Rodrigue Mcdonald MD Address [address] [place] [address] [phone] Care Team Providers Care Building Dismantler Name Role Phone Rodrigue Mcdonald Primary Care Provider [phone] REASON FOR VISIT F/U ERV left arm pain Medications Medication SIG (Take, Route, Frequency, Duration) Notes Start Date End Date Status Gabapentin 800 MG take 1 tablet by sorin twice a day for 30 days Orally twice a day Active amLODIPine Besylate 5 MG TAKE 1 TABLET B Y MOUTH EVERY DAY Active Lisinopril-hydroCHLOROthi azide 20-12.5 MG TAKE 1 TABLET BY MOUTH EVERY DAY for 90 Active Ibuprofen 800 MG 1 tablet with food o r milk as needed Orally every 8 hrs Active Atorvastatin Calcium 40 MG TAKE 1 TABLET BY MOUTH EVERY DAY for 90 Active predniSONE 20 MG 1 tablet Orally Once a day for 10 days 06/30/2023 Not-Taking Colchicine 0.6 MG 1 tablet Orally twic e a day for 10 days 07/11/2017 Not-Taking Vital Signs Blood pressure systolic 108 mm Hg 12/07/19 25 Blood pressure diastolic 60 mm Hg 025 Height 72.50 in 12/06/2024 Weight 189 lbs 12/06/2024 BMI 25.28 kg/m2 12/06/2024 weight is down 17 pounds sin 06-07-24 Encounters Encounter Location Date Provider Diagnosis Rodrigue Mcdonald MD [address] [place] [address] [place] [phone] 12/06/2024 Rodrigue Mcdonald Gall stone pancreatitis K85.10 and Generalized edema R60.1 Assessments Encounter Date Diagnosis (ICD Code) Assessment Notes Treatment Notes Treatment Clinical Notes Section Notes 12/06/2024 Gall stone pancreatitis (ICD-10 - K85.10) need ct results from 2022/ had appt with dr schmidt and was cancelled and not scheduled until dec 31APPROVAL NEEDED BY [facility] BEFORE FAXING ORDER TO [facility]. CT 2022 REQUESTED FROM HIM 12/06/2024 Generalized edema (ICD-10 - R60.1) has improved. had us and angio and all negative results and has returned to normal Plan Of Treatment Treatment Notes Assessment Notes Gall stone pancreatitis need ct results from 2022/ had appt with dr schmidt and was cancelled and not scheduled until dec 31APPROVAL NEEDED BY [facility] BEFORE FAXING ORDER TO [facility]. CT 2022 REQUESTED FROM HIM Generalized edema has improved. had us and angio and all negative results and has returned to normal Pending Test Test Name Order Date CT ABD & PELVIS WITH CONTRAST 12/06/2024 Next Appt Details Follow Up: 2 Weeks, Reason: Provider Name:Rodrigue chambers, 06/14/2025 08:00:00 AM, [address] [place] [address], [address] [place] [address], [phone], Provider Name:Rodrigue chambers, 06/18/2025 10:00:00 AM, [address] [place] [address], [address] [place] [address], [phone], Provider Name:Rodrigue chambers, 12/13/2025 07:30:00 AM, [address] [place] [address], [address], [phone], Provider Name:Rodrigue chambers, 12/20/2025 08:30:00 AM, [address] [place] [address], [address], [place], [place], [phone], Progress Notes * Kevin BURRELL JrDOB: [birth year] (64 yo M)Acc No.[id number]:12/06/2024 Progress Notes Patient: Kevin ALFARO Jr Provider: Lilliam Mcdonald MD :1960 A ge:64 Y S ex:Male Date:12/06/2024 Address:[address] [place] [address] [id number] Subjective: * Chief Complaints: * F /U ERV left arm pain * HPI: S ymptom(s): patient is a 64 yo male here for follow up recent ER visit, and complaint of left arm pain. * ROS: G eneral/Constitutional: Admits Declan brady. D enies F atigue. D enies F ever. D enies H eadache. E NT: Denies S ore throat. R espiratory: Denies C ough. D enies S hortness of breath at rest. D enies S hortness of breath with exertion. G astrointestinal: Denies C onstipation. D enies D iarrhea. D enies N ausea. D enies V omiting. * Medical History: * Surgical History: * Hospitalization/Major Diagno stic Procedure: * Medications: T akingIbuprofen 800 MG Tablet 1 tablet with food or milk as needed Orally every 8 hrs Gabapentin 800 MG Tablet take 1 tablet by mouth twice a day for 30 days Orally twice a day amLODIPine Besylate 5 MG Tablet TAKE 1 TABLET BY MOUTH EVERY DAY Lisinopril-hydroCHLOROthiazide 20-12.5 MG Tablet TAKE 1 TABLET BY MOUTH EVERY DAY Atorvastatin Calcium 40 MG Tablet TAKE 1 TABLET BY MOUTH EVERY DAY Taking Ibuprofen 800 MG Tablet 1 tablet with food or milk as needed Orally every 8 hrs Taking Gabapentin 800 MG Tablet take 1 tablet by mouth twice a day for 30 days Orally twice a day Taking amLODIPine Besylate 5 MG Tablet TAKE 1 TABLET BY MOUTH EVERY DAY Taking Lisinopril-hydroCHLOROthiazide 20-12.5 MG Tablet TAKE 1 TABLET BY MOUTH EVERY DAY Taking Atorvastatin Calcium 40 MG Tablet TAKE 1 TABLET BY MOUTH EVERY DAY Not-Taking/PRNpredniSONE 20 MG Tablet 1 tablet Orally Once a day Colchicine 0.6 MG Tablet 1 tablet Orally twice a day Not-Taking/PRN predniSONE 20 MG Tablet 1 tablet Orally Once a day Not-Taking/PRN Colchicine 0.6 MG Tablet 1 tablet Orally twice a day DiscontinuedAmoxicillin-Pot Clavulanate 875-125 MG Tablet 1 tablet Orally every 12 hrs Medication List reviewed and reconciled with the patientDiscontinued Amoxicillin-Pot Clavulanate 875-125 MG Tablet 1 tablet Orally every 12 hrs Medication List reviewed and reconciled with the patient Objective: * Vitals: H t: 72.50, Wt: 189, BMI:25.28, BP:108/60, Wt-k.73. weight is down 17 pounds since 06-07-24. * Examination: G eneral Examination: GENERAL APPEARANCE: a lert, well hydrated, in no distress.? HEAD: n ormocephalic. SKIN: g ood turgor. HEART: r egular rate and rhythm, no murmurs, rubs, gallops.? LUNGS: n o wheezes, rales, rhonchi, good air movement, clear to auscultation bilaterally. ABDOMEN: n o hepatosplenomegaly, no guarding or rigidity, no hepatosplenomegaly. Assessment: * Assessment: 1. G all stone pancreatitis - K85.10 (Primary) 2 . G eneralized edema - R60.1 Plan: * Treatment: 2. G eneralized edema Notes: has improved. had us and angio and all negative results and has returned to normal ? * Procedure Codes: * Follow Up: 2 Weeks * * Sign off status: Completed true * Provider: Lilliam Mcdonald MD Date: 1 Generated for Hong méndez/Annette/Noah on: 04/09/2024 06:03 PM EST History and Physical Notes * HPI (History of Present Illness) Category Sub-Category Detail Notes Category Not es Symptom(s) patient is a 64 yo male here for follow up recent ER visit, and complaint of left arm pain Examination Category Sub-Category Detail Notes Category Not es General Examination GENERAL APPEARANCE: alert, w ell hydrated, in no distress HEAD: normocephalic HEART: regular rate and rhy thm, no murmurs, rubs, gallops LUNGS: no wheezes, rales, r honchi, good air movement, clear to auscultation bilaterally ABDOMEN: no hepatosplenomegal y, no guarding or rigidity, no hepatosplenomegaly SKIN: good turgor
--- OUTSIDE RECORDS SUMMARY | 2024-12-11 02:00 | XMS_ITS ---
Author Organization Rodrigue Mcdonald MD Address [address] [place] [phone] Care Team Providers Care Academic Interventionist Name Role Phone Rodrigue Mcdonald Primary Care Provider Results Component Value Reference Range Notes Complete Blood Count Auto Di ff Reviewed date:12/11/2024 12:29:52 PM Interpretation: Performing Lab:[facility], [address] [place] [phone] Notes/Report: White Blood Count 4.8 4.8-10.8 X10*3/uL Red Blood Count 3.99 4.60-5.80 X10*6/uL Hemoglobin 12.5 14.0-18.0 g/dl Hematocrit 36.2 42.0-52.0 % Mean Corpuscular Volume 90.7 80.0-98.0 fL Mean Corpuscular Hemoglobin 31.3 27.0-33.0 pg Mean Corpuscular HGB Conc 34.5 31.0-36.0 g/dl Red Cell Distribution Width 12.0 11.0-16.0 % Platelet Count 373 160-400 X10*3/uL Mean Platelet Volume 10.5 9.4-12.4 fL Neutrophils Percent Auto 52.3 45-73 % Imm Gran Pct Auto 0.6 0.0-0.4 % Lymphocytes Percent Auto 35.5 20-40 % Monocytes Percent Auto 8.9 2-11 % Eosinophils Percent Auto 2.1 0-4 % Basophils Percent Auto 0.6 0-2 % NRBC Pct Auto 0.0 0.0-0.2 /100WBC Neutrophils Absolute Auto 2.5 2.0-8.3 x10*3/u L Imm Gran Abs Auto 0.03 0.00-0.03 X10*3/uL Lymphocytes Absolute Auto 1.7 1.2-4.9 X10*3/u L Monocytes Absolute Auto 0.4 0.1-1.2 X10*3/uL Eosinophils Absolute Auto 0.1 0.0-0.4 X10*3/u L Basophils Absolute Auto 0.0 0.0-0.2 X10*3/uL NRBC Abs Auto 0.000 0.0-0.012 X10*3/uL Comprehensive Met. Panel Reviewed date:12/11/2024 03:57:17 PM Interpretation: Performing Lab:[facility], [address] [place] [phone] Notes/Report: Sodium 136 135-145 mmol/L Potassium 4.5 3.3-5.1 mmol/L Chloride 101 96-108 mmol/L Carbon Dioxide 26 22-29 mmol/L Anion Gap 14 12-20 Blood Urea Nitrogen 16 9-16 mg/dL Creatinine 0.92 0.5-1.4 mg/dL Estimated Glomerular Filt Rate > 60 Chronic Kidney Disease: Estimated GFR < 60 mL/min/1.73m2 Severe Kidney Disease: Estimated GFR < 15 mL/min/1.73m2 Glucose Random 101 60-115 mg/dL Calcium 9.6 8.4-10.2 mg/dL Bilirubin Total 0.6 0.0-1.0 mg/dL Aspartate Amino Transferase 38 5-37 U/L Alanine Aminotransferase 97 0-40 U/L Total Protein 7.6 6.5-8.0 g/dL Albumin Level 4.5 3.5-5.0 g/dL Alkaline Phosphatase 177 39-117 U/L Liver Panel Reviewed date:12/11/2024 03:57:34 PM Interpretation: Performing Lab:[facility], [address] [place] [phone] Notes/Report: Bilirubin Direct 0.2 0.0-0.5 mg/dL Lipid Panel with Reflex Reviewed date:12/11/2024 03:57:26 PM Interpretation: Performing Lab:[facility], [address] [place] [phone] Notes/Report: Triglycerides 113 <150 mg/dL Desirable Triglyceride: less than 150 mg/dL Borderline High Triglyceride 150-199 mg/dL High Triglyceride: 200-499 mg/dL Very High Triglyceride: greater than or equal to 5OO mg/dL Cholesterol 121 <200 mg/dL Desirable Cholesterol: less than 200 mg/dL Borderline High Cholesterol: 200-239 mg/dL High Cholesterol: greater than 239 mg/dL LDL Cholesterol Calculated 70 <100 mg/dL Desirable LDL: less than 100 mg/dL Near Optimal/Above Optimal LDL: 110-129 mg/dL Borderline High LDL: 130-159 mg/dL High LDL: 160-189 mg/dL Very High LDL: greater than or equal to 190 mg/dL HDL Cholesterol 29 >40 mg/dL Desirable HDL: greater than 40 mg/dL Note: This HDL assay may give artificially low results in patients with liver disease. PSA,Total (Free>4and<10) Reviewed date:12/11/2024 03:58:47 PM Interpretation: Performing Lab:[facility], [address] [place] [phone] Notes/Report: PSA,Total (Free>4and<10) 0.46 0.00-4.00 ng/mL A Free PSA was not [...] between 4.0 and 10.0 ng/mL. PSA methodology: SnappyTVnity i Chemiluminescent Microparticle Immunoassay (CMIA) REASON FOR VISIT yearly fasting labs Encounters Encounter Location Date Provider Diagnosis Rodrigue Mcdonald MD [address] [place] [address] [place] [phone] 12/11/2024 Rodrigue Mcdonald Pure hypercholestero lemia E78.00 ; Blood tests for routine general physical examination Z00.00 ; Elevated LFTs R79.89 and Essential hypertension I10 Assessments Encounter Date Diagnosis (ICD Code) Assessment Notes Treatment Notes Treatment Clinical Notes Section Notes 12/11/2024 Pure hypercholesterolemia (ICD-10 - E78.00) 12/11/[address] ine general physical examination (ICD-10 - Z00.00) 12/11/2024 Elevated LFTs (ICD-1 0 - R79.89) 12/11/2024 Essential hypertensi on (ICD-10 - I10) Plan Of Treatment Next Appt Details Provider Name:Rodrigue chambers, 06/14/2025 08:00:00 AM, [address] [place] [address], [address], [phone], Provider Name:Rodrigue chamebrs, 06/18/2025 10:00:00 AM, [address] [place] [address], [address], [phone], Provider Name:Rodrigue chambers, 12/13/2025 07:30:00 AM, [address] [place] [address], [address], [phone], Provider Name:Rodrigue chambers, 12/20/2025 08:30:00 AM, [address] [place] [address], [address], [phone], Progress Notes * Kevin BURRELL JrDOB: [birth year] (64 yo M)Acc No.[id number]:12/11/2024 Progress Note Patient: Declan FERNANDOKevin Rice Jr Provider: Lilliam Mcdonald MD :1960 A ge:64 Y S ex:Male Date:12/11/2024 Address:[address] [place], [place] [phone] Subjective: * Chief Complaints: * 1 . Yearly fasting labs. * Medical History: Objective: * Vitals: Assessment: * Assessment: 1. P ure hypercholesterolemia - E78.00 (Primary) 2 . B lood tests for routine general physical examination - Z00.00 3 . E levated LFTs - R79.89 ?4. E ssential hypertension - I10 Plan: * Treatment: 2. B lood tests for routine general physical examination L AB: Complete Blood Count Auto Diff (Collection Date & Time - 12/11/2024 07:00 AM) L AB: Comprehensive Met. Panel (Collection Date & Time - 12/11/2024 07:00 AM) L AB: PSA,Total (Free>4and<10) (Collection Date & Time - 12/11/2024 07:00 AM) 3. E levated LFTs L AB: Complete Blood Count Auto Diff (Collection Date & Time - 12/11/2024 07:00 AM) L AB: Comprehensive Met. Panel (Collection Date & Time - 12/11/2024 07:00 AM) L AB: PSA,Total (Free>4and<10) (Collection Date & Time - 12/11/2024 07:00 AM) 4. E ssential hypertension L AB: Complete Blood Count Auto Diff (Collection Date & Time - 12/11/2024 07:00 AM) L AB: Comprehensive Met. Panel (Collection Date & Time - 12/11/2024 07:00 AM) L AB: PSA,Total (Free>4and<10) (Collection Date & Time - 12/11/2024 07:00 AM) * Procedure Codes: 3 6415 VENIPUNCT, ROUTINE* * * The named appointment provid er may or may not be the originator of this progress note, and it is not deemed complete until electronically signed by the appointment provider. Sign off status: Pending * Provider: Lilliam Mcdonald MD Date: Generated for Hong méndez/Annette/Cornellitting on: 04/09/2024 06:04 PM EST
--- OUTSIDE RECORDS SUMMARY | 2024-12-18 04:30 | XMS_ITS ---
Author Organization Rodrigue Mcdonald MD Address [address] [place] [phone] Care Team Providers Care Shift Leader Name Role Phone Rodrigue Mcdonald Primary Care Provider Allergies Allergen (clinical drug ingredient) Drug/Non Drug Allergy documented on EMR Reaction Allergy Type Onset Date Status codeine Codeine Sulfate vomiting/headach e Drug Allergy Active Results Component Value Reference Range Notes Occult Blood, Stool, Guaiac Reviewed date:12/18/2024 12:00:21 PM Interpretation:Negative Performing Lab: Notes/Report: Negative Occult Blood, Stool, Guaiac Neg UA ClnCatch+Micro w/rflx Cul t Reviewed date:12/18/2024 12:27:06 PM Interpretation: Performing Lab:[facility], [address] [place] [phone] Notes/Report: Urine, Clean Catch Color Urine Yellow Appearance Urine Clear PH 6.0 5.0-9.0 Glucose Urine UA Negative Negative mg/dL Urine Blood Negative Negative Specific [place] - Urine 1.015 1.005-1.025 Urine Protein Negative Neg-Trace mg/dL Urine Ketones Negative Negative mg/dL Nitrite Urine Negative Negative Leukocyte Esterase Urine Negative Negative RBC Urine 0-2 0-2 /HPF WBC Urine 0-5 0-5 /HPF Squamous Epithelial Cell Urine 0-2 0-2 /HPF Bacteria Urine None Seen None Seen Hyaline Casts Urine 0-2 0-2 /LPF REASON FOR VISIT annual visit Medications Medication SIG (Take, Route, Frequency, Duration) Notes Start Date End Date Status Colchicine 0.6 MG 1 tablet Orally twic e a day for 10 days 07/11/2017 Not-Taking predniSONE 20 MG 1 tablet Orally Once a day for 10 days 06/30/2023 Not-Taking Gabapentin 800 MG take 1 tablet by sorin th twice a day for 30 days Orally twice a day Active Ibuprofen 800 MG 1 tablet with food o r milk as needed Orally every 8 hrs Active Atorvastatin Calcium 40 MG TAKE 1 TABLET BY MOUTH EVERY DAY for 90 Active Lisinopril-hydroCHLOROthi azide 20-12.5 MG TAKE 1 TABLET BY MOUTH EVERY DAY for 90 Active Immunizations Vaccine Route Administration Date Status Comme nts Influenza High Dose IM Intramuscular 12/18/2024 Administer ed Social History Tobacco Use: Social History Observation [...] Interpretation Negative Vital Signs Blood pressure systolic 128 mm Hg 12/19/19 25 Blood pressure diastolic 62 mm Hg 025 Height 72.50 in 12/18/2024 Weight 189 lbs 12/18/2024 BMI 25.28 kg/m2 12/18/2024 Encounters Encounter Location Date Provider Diagnosis Rodrigue Mcdonald MD [address] [place] [address] [place] [phone] 12/18/2024 Rodrigue Mcdonald Adult general medica l examination Z00.00 ; Pure hypercholesterolemia E78.00 ; Elevated LFTs R79.89 ; Essential hypertension I10 ; Encounter for administration of vaccine Z23 ; Mild aortic stenosis I35.0 ; Colon cancer screening Z12.11 and Depression screening Z13.31 Assessments Encounter Date Diagnosis (ICD Code) Assessment Notes Treatment Notes Treatment Clinical Notes Section Notes 12/18/2024 Adult general medica l examination (ICD-10 - Z00.00) labs reviewed and discussed with patient 12/18/2024 Pure hypercholesterolemia (ICD-10 - E78.00) doing well on meds, will continue current regiment 12/18/2024 Elevated LFTs (ICD-1 0 - R79.89) is from the gall stones. is waiting for surgery 12/18/2024 Essential hypertensi on (ICD-10 - I10) stbale, will continue current regiment 12/18/2024 Encounter for administration of vaccine (ICD-10 - Z23) flu vaccine administered 12/18/2024 Mild aortic stenosis (ICD-10 - I35.0) 12/18/2024 Colon cancer screeni ng (ICD-10 - Z12.11) guaiac negative 12/18/2024 Depression screening (ICD-10 - Z13.31) negative screen Plan Of Treatment Medication Medication Name Sig Start Date Stop Date Notes amLODIPine Besylate 5 MG TAKE 1 TABLET BY MOUTH EVERY DAY Treatment Notes Assessment Notes Adult general medical examination labs r eviewed and discussed with patient Pure hypercholesterolemia doing well on meds, will continue current regiment Elevated LFTs is from the gall sto ulises. is waiting for surgery Essential hypertension stbale, will cont inue current regiment Encounter for administration of vaccine flu vaccine administered Colon cancer screening guaiac negative Depression screening negative screen Next Appt Details Follow Up: 4 Weeks, Reason: Provider Name:Rodrigue chambers, 06/14/2025 08:00:00 AM, [address] [place] [address], [address], [place], [phone], Provider Name:Rodrigeu chambers, 06/18/2025 10:00:00 AM, [address] [place] [address], [address], [place], [place], [phone], Provider Name:Rodrigue chambers, 12/13/2025 07:30:00 AM, [address], [address], [place], [place], [phone], Provider Name:Rodrigue Mcpherson ier, 12/20/2025 08:30:00 AM, [address], [address], [place], [place], [phone], Progress Notes * Kevin BURRELL JrDOB: [birth year] (64 yo M)Acc No.[id number]:12/18/2024 Progress Notes Patient: Kevin ALFARO Jr Provider: Lilliam Mcdonald MD :1960 A ge:64 Y S ex:Male Date:12/18/2024 Address:[address] [place], [place] [address]Blayne [id number] Subjective: * Chief Complaints: * A nnual visit * HPI: D epression Screening: PHQ-9 L [...] N one. S ymptom(s): patient is a 64 yo male her for annual visit with review of recent labs and follow up of chronic issues s till getting light headed and nausea. has lost 17 pounds. * ROS: G eneral/Constitutional: Change in appetite d enies. C hills d enies. F ever d enies. O phthalmologic: Blurred vision d enies. D ischarge d enies. P ain d enies. E NT: Decreased hearing d enies. S ore throat d enies.?Swollen glands d enies. E ndocrine: Cold intolerance d enies. E xcessive thirst d enies. H eat intolerance d enies. W eight loss d enies. R espiratory: Cough d enies. S hortness of breath at rest d enies. S hortness of breath with exertion d enies. W heezing d enies. C ardiovascular: Chest pain at rest d enies. C hest pain with exertion?denies. I rregular heartbeat d enies. S hortness of breath d enies. ? G astrointestinal: Abdominal pain d enies. C hange in bowel habits d enies. D iarrhea d enies. N ausea d enies. R ectal bleeding d enies. V omiting d enies . G enitourinary: Blood in urine d enies. D ifficulty urinating d enies. F requent urination d enies. M usculoskeletal: Painful joints d enies. W eakness d enies. ? S kin: Dry skin d enies. I [...] II diabetes, coronary artery disease, diagnosed with Hypertension, Diabetes. M other: 84 yrs, diagnosed with Alzheimer disease. P aternal uncle: alive, coronary artery disease. 2 brother(s) , 2 sister(s) - healthy. 1 son(s) , 1 daughter(s) - healthy. . Denies mental health/substance abuse family history, No pertinent family medical history, No pertinent family medical history, No pertinent family medical history. * Social History: T obacco Use: T obacco Use/Smoking P atdaryl is a n onsmoker, A dditional Findings: [...] per day. Children: yes. Community involvements: yes. Exercise: no, none. Home smoke detector use: yes. Housing: owning. Living with: spouse. Marital status: . Occupation: weeks/months/years, works full- time. Pets: cats: dogs:dog. * Medications: T akingIbuprofen 800 MG Tablet [...] Vitals: H t: 72.50, Wt: 189, BMI:25.28, BP:128/62, Wt-k.73. * P ast Orders: L ab:PSA,Total (Free>4and<10) (Order Date - 12/11/2024) (Collection Date & Time - 12/11/2024 07:00 AM) Value Reference Range PSA,Total (Free>4and<10) 0.46 0.00-4.00 - ng/ mL L ab:Complete Blood Count Auto Diff (Order Date - 12/11/2024) (Collection Date & Time - 12/11/2024 07:00 AM) Value Reference Range White Blood Count 4.8 4.8-10.8 - X10*3/uL Red Blood Count 3.99 L 4.60-5.80 - X10*6/uL Hemoglobin 12.5 L 14.0-18.0 - g/dl Hematocrit 36.2 L 42.0-52.0 - % Mean Corpuscular Volume 90.7 80.0-98.0 - fL Mean Corpuscular Hemoglobin 31.3 27.0-33.0 - pg Mean Corpuscular HGB Conc 34.5 31.0-36.0 - g/ dl Red Cell Distribution Width 12.0 11.0-16.0 - % Platelet Count 373 160-400 - X10*3/uL Mean Platelet Volume 10.5 9.4-12.4 - fL Neutrophils Percent Auto 52.3 45-73 - % Imm Gran Pct Auto 0.6 H 0.0-0.4 - % Lymphocytes Percent Auto 35.5 20-40 - % Monocytes Percent Auto 8.9 2-11 - % Eosinophils Percent Auto 2.1 0-4 - % Basophils Percent Auto 0.6 0-2 - % NRBC Pct Auto 0.0 0.0-0.2 - /100WBC Neutrophils Absolute Auto 2.5 2.0-8.3 - x10* 3/uL Imm Gran Abs Auto 0.03 0.00-0.03 - X10*3/uL Lymphocytes Absolute Auto 1.7 1.2-4.9 - X10* 3/uL Monocytes Absolute Auto 0.4 0.1-1.2 - X10*3/ uL Eosinophils Absolute Auto 0.1 0.0-0.4 - X10* 3/uL Basophils Absolute Auto 0.0 0.0-0.2 - X10*3/ uL NRBC Abs Auto 0.000 0.0-0.012 - X10*3/uL L ab:Liver Panel (Order Date - 12/11/2024) (Collection Date & Time - 12/11/2024 07:00 AM) Value Reference Range Bilirubin Direct 0.2 0.0-0.5 - mg/dL L ab:Comprehensive Met. Panel (Order Date - 12/11/2024) (Collection Date & Time - 12/11/2024 07:00 AM) Value Reference Range Sodium 136 135-145 - mmol/L Bilirubin Total 0.6 0.0-1.0 - mg/dL Aspartate Amino Transferase 38 H 5-37 - U/L Alanine Aminotransferase 97 H 0-40 - U/L Total Protein 7.6 6.5-8.0 - g/dL Albumin Level 4.5 3.5-5.0 - g/dL Alkaline Phosphatase 177 H 39-117 - U/L Potassium 4.5 3.3-5.1 - mmol/L Chloride 101 96-108 - mmol/L Carbon Dioxide 26 22-29 - mmol/L Anion Gap 14 12-20 - Blood Urea Nitrogen 16 9-16 - mg/dL Creatinine 0.92 0.5-1.4 - mg/dL Estimated Glomerular Filt Rate > 60 - Glucose Random 101 60-115 - mg/dL Calcium 9.6 8.4-10.2 - mg/dL L ab:Lipid Panel with Reflex (Order Date - 12/11/2024) (Collection Date & Time - 12/11/2024 07:00 AM) Value Reference Range Triglycerides 113 <150 - mg/dL Cholesterol 121 <200 - mg/dL LDL Cholesterol Calculated 70 <100 - mg/dL HDL Cholesterol 29 L >40 - mg/dL * Examination: G eneral Examination: GENERAL APPEARANCE: w ell developed, well nourished, in no acute distress. HEAD: n ormocephalic, atraumatic. EYES: p upils equal, round, reactive to light and accommodation, sclera non-icteric. EARS: n ormal. ORAL CAVITY: m ucosa moist. THROAT: c lear. NECK/THYROID: n du supple, full range of motion, no cervical lymphadenopathy, no bruits, abnormal with heart murmer radiating into rt carotid. SKIN: w arm and dry, no suspicious lesions. HEART: r egular rate and rhythm, S1, S2 normal, 2/6 MAC.? LUNGS: c lear to auscultation bilaterally. ABDOMEN: s oft, nontender, nondistended, bowel sounds present, normal, no organomegaly , no masses palpable. RECTAL EXAM: n ormal tone, no external hemorrhoids, no masses palpable, prostate normal, stool guaiac negative. MALE GENITOURINARY: c ircumcised, no penile lesions or discharge, testes descended bilaterally. EXTREMITIES: n o clubbing, cyanosis, or edema. NEUROLOGIC: n onfocal, motor strength normal upper and lower extremities, sensory exam intact. Assessment: * Assessment: 1. A dult general medical examination - Z00.00 (Primary) 2 . P ure hypercholesterolemia - E78.00 3 . E levated LFTs - R79.89 4 . E ssential hypertension - I10 5 . E ncounter for administration of vaccine - Z23 & #160; 6 . M ild aortic stenosis - I35.0 7 . C olon cancer screening - Z12.11 8 . D epression screening - Z13.31 Plan: * Treatment: 2. P ure hypercholesterolemia Notes: doing well on meds, will continue current regiment 3. E levated LFTs Notes: is from the gall stones. is waiting for surgery 4. E ssential hypertension Notes: stbale, will continue current regiment 5. E ncounter for administration of vaccine Notes: flu vaccine administered 6. C olon cancer screening L AB: Occult Blood, Stool, Guaiac (Collection Date & Time - 12/18/2024) N egative Value Reference Range O ccult Blood, Stool, Guaiac Neg Notes: guaiac negative??7.?Depression screening? Notes: negative screen?? * Immunizations: Influenza High Dose : 0.5 mL (Dose No:1) (Route: Intramuscular) given by Ladan Leslie , Office Staff on Right Deltoid * Procedure Codes: 9 0662 FLU VACC PRSV FREE INC [id number] IMMUNIZATION [id number] TEST FOR BLOOD, FECES * Preventive Medicine: Counseling: C are goal follow-up plan: Declan de la cruz for abnormal BMI provided?Yes, Hui regalado Normal BMI Follow-up Lilliam berger encouragement to exercise. * Follow Up: 4 Weeks * * Sign off status: Completed true * Provider: Lilliam Mcdonald MD Date: 1 Generated for Hong méndez/Annette/Cornellitting on: 04/09/2024 06:03 PM EST History and Physical Notes * HPI (History of Present Illness) Category Sub-Category Detail Notes Category Not es Symptom(s) patient is a 64 yo male her for annual visit with review of recent labs and follow up of chronic issues still getting light headed and nausea. has lost 17 pounds Depression Screening PHQ-9 Little inte rest or [...] nge of motion, no cervical lymphadenopathy, no bruits, abnormal with heart murmer radiating into rt carotid HEART: regular rate and rhy thm, S1, S2 normal, 2/6 MAC LUNGS: clear to auscultatio n bilaterally ABDOMEN: soft, nontender, non distended, bowel sounds present, normal, no organomegaly , no masses palpable NEUROLOGIC: nonfocal, motor stre ngth normal upper and lower extremities, sensory exam intact SKIN: warm and dry, no prosper picious lesions EXTREMITIES: no clubbing, cyanosi s, or edema MALE GENITOURINARY: circumcised, no peni le lesions or discharge, testes descended bilaterally RECTAL EXAM: normal tone, no exte rnal hemorrhoids, no masses palpable, prostate normal, stool guaiac negative ORAL CAVITY: mucosa moist
--- OUTSIDE RECORDS SUMMARY | 2025-01-15 04:15 | XMS_ITS ---
Author Organization Rodrigue Mcdonald MD Address [address] [place] [phone] Care Team Providers Care Regional Sales Associate Name Role Phone Rodrigue Mcdonald Primary Care Provider Allergies Allergen (clinical drug ingredient) Drug/Non Drug Allergy documented on EMR Reaction Allergy Type Onset Date Status codeine Codeine Sulfate vomiting/headach e Drug Allergy Active REASON FOR VISIT 4 WEEK Medications Medication SIG (Take, Route, Frequency, Duration) [...] 1 TABLET BY MOUTH EVERY DAY Active predniSONE 20 MG 1 tablet Orally Once a day for 10 days 06/30/2023 Not-Taking Ibuprofen 800 MG 1 tablet with food o r milk as needed Orally every 8 hrs Active Problems Problem Type SNOMED Code ICD Code Onset Dates Problem Status W/U Status Risk Notes Problem Gallstone (175614132) Gall stones (K80.20) Active confirmed Problem Disorder of lumbar disc (141600226) Lumbar disc disease (M51.9) Active confirmed Vital Signs Blood pressure systolic 122 mm Hg 01/16/20 25 Blood pressure diastolic 60 mm Hg 025 Height 72.50 in 01/15/2025 Weight 191 lbs 01/15/2025 BMI 25.55 kg/m2 01/15/2025 Encounters Encounter Location Date Provider Diagnosis Rodrigue Mcdonald MD [address] [place] [address] Drive [address] [place] [phone] 01/15/2025 Rodrigue Mcdonald Essential hypertension I10 ; Gall stones K80.20 and Lumbar disc disease M51.9 Assessments Encounter Date Diagnosis (ICD Code) Assessment Notes Treatment Notes Treatment Clinical Notes Section Notes 01/15/2025 Essential hypertension (ICD-10 - I10) well controlled, will continue current regiment 01/15/2025 Gall stones (ICD-10 - K80.20) having surgery 01/3001/15/2025 Lumbar disc disease (ICD-10 - M51.9) having back surgery march 04 need mri report last week at [facility]/ Patient is having Dr. JUAREZ office fax us a copy Plan Of Treatment Medication Medication Name Sig Start Date Stop Date Notes Gabapentin 800 MG take 1 tablet by sorin th twice a day for 30 days Orally twice a day Lisinopril-hydroCHLOROthiazi de 20-12.5 MG TAKE 1 TABLET BY MOUTH EVERY DAY Ibuprofen 800 MG 1 tablet with food o r milk as needed Orally every 8 hrs Treatment Notes Assessment Notes Essential hypertension well controlled, will continue current regiment Gall stones having surgery 01/30 Lumbar disc disease having back surgery march 04 need mri report last week at [facility]/ Patient is having Dr. JUAREZ office fax us a copy Next Appt Details Follow Up: 3 Months, Reason: Provider Name:Rodrigue chambers, 06/14/2025 08:00:00 AM, [address] [place] [address], [address] [place] [address], [phone], Provider Name:Rodrigue chambers, 06/18/2025 10:00:00 AM, [address] [place] [address], Suite [facility], [place], [place], [phone], Provider Name:Rodrigue Mcpherson ier, 12/13/2025 07:30:00 AM, [address], [address], [place], [place], [phone], Provider Name:Rodrigue Mcpherson ier, 12/20/2025 08:30:00 AM, [address], [address], [place], [phone], Progress Notes * ALEKSParishdy JrDOB: [birth year] (64 yo M)Acc No.[id number]:01/15/2025 Progress Notes Patient: Declan ORTEZ Kevin Provider: Lilliam Mcdonald MD :1960 A ge:64 Y S ex:Male Date:01/15/2025 Address:[address] [place], [place] [phone] Subjective: * Chief Complaints: * 4 WEEK * HPI: S ymptom(s): patient is a 64 yo male her for 4 wek follow up visit/ here for follow up. getting nausea at times. sometimes a little pain. * ROS: G eneral/Constitutional: Denies C [...] for 30 days Orally twice a day Lisinopril-hydroCHLOROthiazide 20-12.5 MG Tablet TAKE 1 TABLET BY MOUTH EVERY DAY Atorvastatin Calcium 40 MG Tablet TAKE 1 TABLET BY MOUTH EVERY DAY Taking Ibuprofen 800 MG Tablet 1 tablet with food or milk as needed Orally every 8 hrs Taking Gabapentin 800 MG Tablet take 1 tablet by mouth twice a day for 30 days Orally twice a day Taking Lisinopril-hydroCHLOROthiazide 20-12.5 MG Tablet TAKE 1 [...] Objective: * Vitals: H t: 72.50, Wt: 191, BMI:25.55, BP:122/60, Wt-k.64. * Examination: G eneral Examination: GENERAL APPEARANCE: a lert, well hydrated, in no distress.? SKIN: g ood turgor. HEART: r egular rate and rhythm, no murmurs, rubs, gallops.? LUNGS: n o wheezes, rales, rhonchi. ABDOMEN: s oft, nontender, nondistended. ? Assessment: * Assessment: 1. E ssential hypertension - I10 (Primary) 2 . G all stones - K80.20 ? 3 . L umbar disc disease - M51.9 Plan: * Treatment: 2. G all stones Notes: having surgery 01/30 3. L umbar disc disease Continue Ibuprofen Tablet, 800 MG, 1 tablet with food or milk as needed, Orally, every 8 hrs; C ontinue Gabapentin Tablet, 800 MG, take 1 tablet by mouth twice a day for 30 days, Orally, twice a day. Notes: having back surgery march 04/ need mri report last week at [facility]/ Patient is having Dr. JUAREZ office fax us a copy * Procedure Codes: * Follow Up: 3 Months * * Sign off status: Completed true * Provider: Lilliam Mcdonald MD Date: 03/17/2024 Generated for Hong méndez/Annette/eTonel on: 04/09/2024 06:03 PM EST History and Physical Notes * HPI (History of Present Illness) Category Sub-Category Detail Notes Category Not es Symptom(s) patient is a 64 yo male her for 4 wek follow up visit/ here for follow up. getting nausea at times. sometimes a little pain. Examination Category Sub-Category Detail Notes Category Not es General Examination GENERAL APPEARANCE: alert, w ell hydrated, in no distress HEART: regular rate and rhy thm, no murmurs, rubs, gallops LUNGS: no wheezes, rales, r honchi ABDOMEN: soft, nontender, non distended SKIN: good turgor
--- OUTSIDE RECORDS SUMMARY | 2025-01-21 07:14 | XMS_ITS ---
Author Organization Rodrigue Mcdonald MD Address [address] [facility] [address] [place] [phone] Care Team Providers Care Radiographer Mammographer Name Role Phone Rodrigue Mcdonald Primary Care Provider REASON FOR VISIT Echo due Encounters Encounter Location Date Provider Diagnosis Rodrigue Mcdonald MD [address] [facility] [address] [place] [phone] 01/21/2025 Rodrigue Mcdonald Plan Of Treatment Next Appt Details Provider Name:Rodrigue chambers, 06/14/2025 08:00:00 AM, [address] [place] [address], [address], [phone], Provider Name:Rodrigue chambers, 06/18/2025 10:00:00 AM, [address] [place] [address], [address], [phone], Provider Name:Rodrigue chambers, 12/13/2025 07:30:00 AM, [address], [address], [phone], Provider Name:Rodrigue Mcpherson trish, 12/20/2025 08:30:00 AM, [address] [facility] [address], [address], [place], [phone], Progress Notes * Kevin BURRELL JrDOB: [birth year] (64 yo M)Acc No.[id number]:01/21/2025 Patient: Kevin ALFARO Jr :1960 A ge:64 Y S ex:Male Address:[address] [place] [address] [place] [address] * * Date:
--- NOTE | 2025-02-06 13:36 | A.OFFVIS_ITS ---
Intake Visit Reasons: s/p Lap radha Intake Note: Patient here s/p Laparoscopic cholecystectomy. Patient c/o: reports incisions healing well. Normal BM. Denies constipation. 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 has no complaints. reports eating well, has good daily bowel movements. Denies fevers at home. Denies nausea or vomiting. Denies drainage from incision sites. Denies redness surrounding incision site. [facility] Medical History Sleep apnea Anxiety Diverticulosis Alcohol use disorder Cholelithiasis Neuropathy Degenerative joint disease of spine Gout Hyperlipidemia Hypertension Surgical History (Updated 02/06/25 @ 16:10 by Marino Kinsey PA-C) S/P laparoscopic cholecystectomy (01/30/25) H/O colonoscopy S/P cervical spinal fusion History of lumbar fusion Social History Household Members: Spouse and Children Housing: House Do you presently have visiting nurse or other home services: No Alcohol intake: current Alcohol intake frequency: former alcohol drinker Comment: correct count Patient Tobacco Use Status: Never used Tobacco e-Cigarette/Vaping Use: Never Used service: No Physical Exam Const General: comfortable and no acute distress Orientation/consciousness: patient oriented x3 Resp Effort & Inspection: normal respiratory effort and able to speak in complete sentences GI Other: Incisions clean dry intact, well healed Inspection: No distended Palpation (GI): Soft to palpation and nontender Neuro General: patient oriented x3 Assessment & Plan Assessment & Plan (1) S/P laparoscopic cholecystectomy: Onset Date: 01/30/25 Comment: Laparoscopic cholecystectomy Mitchell Cox Code(s): Z90.49 - Acquired absence of other specified parts of digestive tract Category: Medical Plan 64 year old male s/p laparoscopic cholecystectomy on 01/30/[address] De Santiago. He is returning to the office for routine follow up. Overall things have been going well, pain minimal. His diet is good in his bowel function is adequate. Having daily bowel movements. Denying nausea or vomiting. Denies drainage from incision sites. Denies fevers at home. On exam his abdomen is soft and benign, incision sites appear to be healing well there was no evidence of infection at this time. 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 We will continue with activity restrictions for 2 more weeks. Starting February 21 he can return to activity, recommended returning slowly at about half of his baseline and progressing towards his baseline level of activity. He can follow up as needed as he is doing well. He is to call or reach out with any concerns in the future. Coding Level of Care Code Global (99079) Diagnoses S/P laparoscopic cholecystectomy Z90.49
--- OUTSIDE RECORDS SUMMARY | 2025-02-06 18:04 | XMS_ITS | Patient Health Record ---
Author Organization [facility] Address [address] [place] [address] Care Team Providers Care Eeo Officer Name Role Phone Rodrigue Mcdonald MD Primary Care Provider Je Powell [phone] Allergies Allergen (clinical drug ingredient) Drug/Non Drug Allergy documented on EMR Reaction Allergy Type Onset Date Status codeine Codeine Sulfate Unknown Drug Allergy A ctive Reason For Referral No Information Medications Medication SIG (Take, Route, Frequency, Duration) Notes Start Date End Date Status Lisinopril-hydroCHLOROthiaz cynthia Active Atorvastatin Calcium Active amLODIPine Besylate Active Ibuprofen 800 MG Tablet 1 tablet Orally prn Active Suprep Bowel Prep 1 Solution as directed Orally 1; Duration: 1 dose 12/18/2014 Active Social History Social History Additional Details Category Social Info Options Details Miscellaneous: Marital status: 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 Problems Problem Type SNOMED Code ICD Code Onset Dates Problem Status W/U Status Risk Notes Problem Colon cancer screening (105512555) Colon cancer screening (Z12.11) Active confirmed Problem halfway current use of non-steroidal anti-inflammat ory drug ([id number] 03) 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 current use of non-steroidal anti-inflammat ories (NSAID) (Z79.1) Active confirmed Plan Of Treatment Future Test Test Name Order Date COLONOSCOPY 12/18/2014 Insurance Providers Payer Name Payer Address Payer Phone Subscriber Number Group Number Insured Name Patient Relationship to Insured Coverage Start Date Coverage End Date [facility] [address] [place] [phone] [id number] ARLETH FINK Self - patient is the insured Medical (General) History Medical History History ICD Code hypertension Denies OR,DM,CVA,Lung disease,renal dise ase Surgical History Surgery Date(Month/Year) back surgery 2000
--- OUTSIDE RECORDS SUMMARY | 2025-02-06 18:05 | XMS_ITS | Patient Health Record ---
Author Organization Rodrigue Mcdonald MD Address [address] [place] [phone] Care Team Providers Care Acid Changer Name Role Phone Rodrigue Mcdonald Primary Care Provider [phone] Allergies Allergen (clinical drug ingredient) Drug/Non Drug Allergy documented on EMR Reaction Allergy Type Onset Date Status codeine Codeine Sulfate vomiting/headach e Drug Allergy Active Results Component Value Reference Range Notes Liver Panel Reviewed date:05/31/2024 06:24:23 PM Interpretation: Performing Lab:[facility], [address] [place] [phone] Notes/Report: Bilirubin Total 1.5 0.0-1.0 mg/dL Bilirubin Direct 0.4 0.0-0.5 mg/dL Aspartate Amino Transferase 35 5-37 U/L Alanine Aminotransferase 34 0-40 U/L Total Protein 7.5 6.5-8.0 g/dL Albumin Level 4.6 3.5-5.0 g/dL Alkaline Phosphatase 64 39-117 U/L Lipid Panel with Reflex Reviewed date:05/31/2024 06:23:58 PM Interpretation: Performing Lab:[facility], [address] [place] [phone] Notes/Report: Triglycerides 81 <150 mg/dL Desirable Triglyceride: [...] ff Reviewed date:12/11/2024 12:29:52 PM Interpretation: Performing Lab:[facility], [address] [place] [phone] Notes/Report: White Blood Count 4.8 4.8-10.8 X10*3/uL [...] Panel Reviewed date:12/11/2024 03:57:17 PM Interpretation: Performing Lab:[address] [phone] Notes/Report: Sodium 136 135-145 mmol/L Potassium 4.5 [...] Panel Reviewed date:12/11/2024 03:57:34 PM Interpretation: Performing Lab:[address] [address] Notes/Report: Bilirubin Direct 0.2 0.0-0.5 mg/dL Lipid Panel with Reflex Reviewed date:12/11/2024 03:57:26 PM Interpretation: Performing Lab:[address] [address] Notes/Report: Triglycerides 113 <150 mg/dL Desirable Triglyceride: [...] (Free>4and<10) Reviewed date:12/11/2024 03:58:47 PM Interpretation: Performing Lab:[address] [address] Notes/Report: PSA,Total (Free>4and<10) 0.46 0.00-4.00 ng/mL A [...] t Reviewed date:12/18/2024 12:27:06 PM Interpretation: Performing Lab:[address] [address] Notes/Report: Urine, Clean Catch Color Urine Yellow Appearance Urine Clear PH 6.0 5.0-9.0 Glucose Urine UA Negative Negative mg/dL Urine Blood Negative Negative Specific Shelby - Urine 1.015 1.005-1.025 Urine Protein Negative Neg-Trace mg/dL Urine Ketones Negative Negative mg/dL Nitrite Urine Negative Negative Leukocyte Esterase Urine Negative Negative RBC Urine 0-2 0-2 /HPF WBC Urine 0-5 0-5 /HPF Squamous Epithelial Cell Urine 0-2 0-2 /HPF Bacteria Urine None Seen None Seen Hyaline Casts Urine 0-2 0-2 /LPF Hold Gold Reviewed date:05/31/2024 06:24:31 PM Interpretation: Performing Lab:[facility], [address] [place] [phone] Notes/Report: Glenn Stratton See Note Specimen held untested for 24 hours; Call to request Chemistry testing. Complete Blood Count Auto Di ff Reviewed date:11/21/2024 03:31:17 PM Interpretation: Performing Lab:[facility], [address] [place] [phone] Notes/Report: White Blood Count 15.9 4.8-10.8 X10*3/uL [...] Panel Reviewed date:11/21/2024 03:27:20 PM Interpretation: Performing Lab:[facility], [address] [place] [phone] Notes/Report: Bilirubin Total 2.1 0.0-1.0 mg/dL Slight Icte isis. Bilirubin Direct 1.1 0.0-0.5 mg/dL Slight Ict erus. Aspartate Amino Transferase 240 5-37 U/L Alanine Aminotransferase 152 0-40 U/L Total Protein 7.4 6.5-8.0 g/dL Albumin Level 4.9 3.5-5.0 g/dL Alkaline Phosphatase 115 39-117 U/L Basic Metabolic Panel Reviewed date:11/21/2024 03:32:00 PM Interpretation: Performing Lab:[facility], [address] [place] [phone] Notes/Report: Sodium 137 135-145 mmol/L Potassium 3.5 [...] Acid Reviewed date:11/21/2024 03:24:24 PM Interpretation: Performing Lab:[address] [phone] Notes/Report: Lactic Acid 1.2 0.5-2.0 mmol/L Uric Acid Reviewed date:11/21/2024 03:26:52 PM Interpretation: Performing Lab:[address] [phone] Notes/Report: Uric Acid 7.2 3.4-7.0 mg/dL Magnesium Reviewed date:11/21/2024 03:27:33 PM Interpretation: Performing Lab:[address] [phone] Notes/Report: Magnesium 1.9 1.6-2.6 mg/dL Troponin-I High Sensitivity Reviewed date:11/21/2024 03:30:26 PM Interpretation: Performing Lab:[address] [address] Notes/Report: Troponin-I High Sensitivity < 2.7 <3.5-35.0 ng/L The [place] high sensitivity Troponin-I results should be used in conjunction with other diagnostic information such as ECG, clinical observations and information, and patient symptoms to aid in the diagnosis of HI. Lipase Reviewed date:11/21/2024 03:27:11 PM Interpretation: Performing Lab:[facility], [address] [place] [phone] Notes/Report: Lipase > 3000 8-78 U/L Ethanol Reviewed date:11/21/2024 03:30:18 PM Interpretation: Performing Lab:[address] [address] Notes/Report: Ethanol < 10 Serum/plasma ethanol results are to be used for medical/treatment purposes only. Blood Culture (First) Reviewed date:11/26/2024 12:37:26 PM Interpretation: Performing Lab:[address] [phone] Notes/Report: Blood Culture (First) No growth after 5 days. Blood Culture (Second) Reviewed date:11/26/2024 12:36:32 PM Interpretation: Performing Lab:[facility], [address] [place] [address] Notes/Report: Blood Culture (Second) No growth after [address] abdomen pelvis w con Reviewed date:11/21/2024 03:26:17 PM Interpretation: Performing Lab: Notes/Report: [facility] [address] [place] [address] CT Scan Report Signed Patient: Kevin Burrell MR#: [id number] 2 : 1960 Acct:[id number] Age/Sex: 64 / M ADM Date: 11/20/24 Loc: HO.ED Attending Dr: Ordering Physician: Rod Owusu Date of Service: 11/20/24 Procedure(s): CT abdomen pelvis w IV con Accession Number(s): [id number] cc: Rodrigue Mcdonald MD; Rod Owusu Report Number: [id number]: Total DLP = 642.00 mGy-cm Reason for Exam: epigastric abdominal pain CLINICAL HISTORY: epigastric abdominal pain CT abdomen and pelvis with contrast Comparison: CT of the abdomen and pelvis from 09/12/2022. Findings: Mild bibasilar atelectasis and/or pneumonitis. Mild cardiomegaly partially imaged. Ajitkoxx-uk-xcbtmr fluid about the pancreas is concerning for [...] The prostate gland measures 5.2 cm transverse. Lotfxqkz-cf-hpdeog wall thickening of the urinary bladder is [...] in OV> 11/20/242254 DD/ 53 TD/TT: 11/20/242253 Strike Planning Applications: [place] [address] [address] Scan Report Signed Patient: Parish Burrell MR#: [id number] 2 : 1960 Acct:[id number] Age/Sex: 64 / M ADM Date: 11/20/24 Loc: HO.ED Attending Dr: Ordering Physician: Rod Owusu Date of Service: 11/20/24 Procedure(s): CT abd omen pelvis w IV con Accession Number(s): [id number] cc: Rodrigue Mcdonald MD; Rod Owusu Report Number: [id number]: Total DLP = 642.00 mGy-cm Reason for Exam: epigastric abdominal pain CLINICAL HISTORY: epigastric abdominal pain CT abdomen and pelvi s with contrast Comparison: CT of e abdomen and pelvis from 09/12/2022. Findings: Mild bibasilar atele ctasis and/or pneumonitis. Mild cardiomegaly partially imaged. Jlinesrw-mz-rhdrwe f luid about the pancreas is concerning for acute and/or recurrent pancreatit is. Moderate volume loss of the pancreas as can be seen with chronic an d/or prior pancreatitis. The adrenal glands are normal. Spleen appro aches the upper limits of normal. Gallbladder is distended with multi ple cholelithiasis by CT. Imaged CBD measures [address] Mild fat deposition of the liver. No hydronephrosis. Mild perinephric stranding is nonspec ific. Mild small bowel dilatation as can be seen with sentinel loop ileus from adjacent separate inflammation. No small bowel obstruction. Fluid i n the large intestine can be seen with diarrhea type illnesses and coliti s. Wall thickening of the large intestine is nonspecific and may reflect colitis, including splenic flexure, descending colon, and sigmoid colon. Imaged appendix is w ithin normal limits (image 42 of series 7). Calcified and noncal cified plaque involving the imaged aorta and its branches. The prostate gland measures 5.2 cm transverse. Alfmwozj-av-gtylai wall thickening of the ur inary bladder is nonspecific. No definite hardware loosening [...] Dictated By: Facundo Gross MD Signed By: <Electron ically signed by Facundo Gross MD in OV> 11/20/242254 DD/ 53 TD/TT: 11/20/242253 Strike Planning Applications: Complete Blood Count Auto Di ff Reviewed date:11/21/2024 03:26:44 PM Interpretation: Performing Lab:[facility], [address] [place] [phone] Notes/Report: White Blood Count 13.0 4.8-10.8 X10*3/uL [...] X10*3/uL NRBC Abs Auto 0.000 0.0-0.012 X10*3/uL SANDRA ECTED REPORT SANDRA ECTED REPORT Prothrombin Time INR Reviewed date:11/21/2024 03:27:41 PM Interpretation: Performing Lab:[address] [address] Notes/Report: Prothrombin Time 11.0 10.9-12.4 SEC INTERNATIONAL [...] Panel Reviewed date:11/21/2024 03:28:21 PM Interpretation: Performing Lab:[address] [phone] Notes/Report: Sodium 137 135-145 mmol/L Potassium 4.1 [...] Magnesium Reviewed date:11/21/2024 03:28:00 PM Interpretation: Performing Lab:[facility], [address] [place] [phone] Notes/Report: Magnesium 1.9 1.6-2.6 mg/dL C Reactive Protein Reviewed date:11/21/2024 03:30:33 PM Interpretation: Performing Lab:[facility], [address] [place] [phone] Notes/Report: C Reactive Protein 0.41 < or = 0.50 mg/dL Lipase Reviewed date:11/21/2024 03:24:15 PM Interpretation: Performing Lab:[facility], [address] [place] [address] Notes/Report: Lipase 1044 8-78 U/L SLIDE REVIEW Reviewed date:11/21/2024 03:23:10 PM Interpretation: Performing Lab:[facility], [address] [place] [address] Notes/Report: SLIDE REVIEW VERIFIED US abdomen limited Reviewed date:11/21/2024 03:23:57 PM Interpretation: Performing Lab: Notes/Report: [address] [address] Ultrasound Report Signed Patient: Kevin Burrell MR#: [id number] 2 : 1960 Acct:[id number] Age/Sex: 64 / M ADM Date: 11/20/24 Loc: [facility]: Abby Kemp MD Ordering Physician: Abby Kemp MD Date of Service: 11/21/24 Procedure(s): US abdomen limited Accession Number(s): [id number] cc: Abby Kemp MD; Rodrigue Mcdonald MD [...] 11/21/24 1409 DD/ 1350 TD/TT: 11/21/24 1354 Strike Planning Applications: [place] [address] Ultrasound Report Signed Patient: Parish Burrell MR#: [id number] 2 : 1960 Acct:[id number] Age/Sex: 64 / M ADM Date: 11/20/24 Loc: [facility] Attending Dr: Abby Kemp MD Ordering Physician: Abby Kemp MD Date of Service: 11/21/24 Procedure(s): US abd omen limited Accession Number(s): [id number] cc: Abby Kemp MD; Rodrigue Mcdonald MD [...] U S/US abdomen limited IMPRESSION: 1. Cholelithiasis wi thout evidence of gallbladder inflammation. 2. No biliary dilatation. Electronically kurt d by: Jama Del Toro MD 11/21/2024 02:09 PM EDT RP Dictated By: Jama Zhong MD Signed By: <Electron ically signed by Jama Del Toro MD in OV> 11/21/24 1409 DD/ 1350 TD/TT: 11/21/24 1354 Strike Planning Applications: Complete Blood Count Auto Di ff Reviewed date:11/22/2024 12:35:46 PM Interpretation: Performing Lab:[facility], [address] [place] [phone] Notes/Report: White Blood Count 21.0 4.8-10.8 X10*3/uL [...] X10*3/uL NRBC Abs Auto 0.000 0.0-0.012 X10*3/uL SANDRA ECTED REPORT SANDRA ECTED REPORT Comprehensive Met. Panel Reviewed date:11/22/2024 12:36:13 PM Interpretation: Performing Lab:[address] [address] Notes/Report: Sodium 138 135-145 mmol/L Potassium 4.1 [...] Magnesium Reviewed date:11/22/2024 12:35:54 PM Interpretation: Performing Lab:[address] [place] [address] Notes/Report: Magnesium 1.9 1.6-2.6 mg/dL SLIDE REVIEW Reviewed date:11/22/2024 12:35:23 PM Interpretation: Performing Lab:[facility], [address] [place] [phone] Notes/Report: SLIDE REVIEW VERIFIED Complete Blood Count Auto Di ff Reviewed date:11/23/2024 11:44:37 AM Interpretation: Performing Lab:[facility], [address] [place] [phone] Notes/Report: White Blood Count 17.8 4.8-10.8 X10*3/uL [...] Panel Reviewed date:11/23/2024 11:44:10 AM Interpretation: Performing Lab:[facility], [address] [place] [address] Notes/Report: Sodium 135 135-145 mmol/L Potassium 3.1 [...] date:11/23/2024 03:49:51 PM Interpretation: Performing Lab: Notes/Report: [address] [address] [address] Scan Report Signed Patient: Kevin Burrell MR#: [id number] 2 : 1960 Acct:[id number] Age/Sex: 64 / M ADM Date: 11/20/24 Loc: [facility] [address]: Abby Kemp MD Ordering Physician: Abby Kemp MD Date of Service: 11/23/24 Procedure(s): CT abdomen pelvis w IV con Accession Number(s): [id number] cc: Abby Kemp MD; Rodrigue Mcdonald MD Report Number: [id number]: Total DLP = 740.00 mGy-cm Reason for [...] 11/23/24 1428 DD/ 1356 TD/TT: 11/23/24 1410 Strike Planning Applications: [place] [address] CT Scan Report Signed Patient: Parish Burrell MR#: [id number] 2 : 1960 Acct:[id number] Age/Sex: 64 / M ADM Date: 11/20/24 Loc: [facility] 462-[address]: Abby Kemp MD Ordering Physician: Abby Kemp MD Date of Service: 11/23/24 Procedure(s): CT abd omen pelvis w IV con Accession Number(s): [id number] cc: Abby Kemp MD; Rodrigue Mcdonald MD Report Number: [id number]: Total DLP = 740.00 mGy-cm Reason for Exam: R/o shanna-pancreatic abscess EXAMINATION: CT ABDOMEN AND PELVI S WITH CONTRAST CLINICAL INFORMATION: Concerning peripancr eatic abscess. COMPARISON: November 20, 2024 reporting acute [...] to patient size (this includes techniques or standa rdized protocols for targeted exams where dose is [...] No fo adam mass. ADRENAL GLANDS: No n odular lesions. KIDNEYS AND URETERS: No hydronephrosis. No gross nephrolithiasis. No enhancing lesion. No rmal enhancement of the renal parenchyma. Bilateral perinephric edema pa ttern. Extrarenal pelvises, bilaterally. BLADDER: Fluid-filled. GASTROINTESTINAL TRA [...] laminectomies and posterior fusion L4-5 with arthrodesis/interver tebral disc spacer placement. No lytic or blastic [...] 11/23/2024 02:28 PM EDT Dictated By: Joseph Cummins MD Signed By: <Electron ically signed by Joseph Alvarez MD in OV> 11/23/24 1428 DD/ 1356 TD/TT: 11/23/24 1410 Strike Planning Applications: Complete Blood Count Auto Di ff Reviewed date:11/25/2024 02:26:14 PM Interpretation: Performing Lab:[facility], [address] [place] [address] Notes/Report: White Blood Count 16.0 4.8-10.8 X10*3/uL [...] Panel Reviewed date:11/25/2024 02:26:41 PM Interpretation: Performing Lab:[facility], [address] [place] [phone] Notes/Report: Sodium 134 135-145 mmol/L Potassium 3.2 [...] ff Reviewed date:11/25/2024 02:29:13 PM Interpretation: Performing Lab:[facility], [address] [place] [phone] Notes/Report: White Blood Count 13.9 4.8-10.8 X10*3/uL [...] Panel Reviewed date:11/25/2024 02:28:11 PM Interpretation: Performing Lab:[facility], [address] [place] [phone] Notes/Report: Sodium 133 135-145 mmol/L Potassium 2.8 [...] ff Reviewed date:11/28/2024 07:39:14 AM Interpretation: Performing Lab:[facility], [address] [place] [address] Notes/Report: White Blood Count 16.2 4.8-10.8 X10*3/uL [...] X10*3/uL NRBC Abs Auto 0.000 0.0-0.012 X10*3/uL SANDRA ECTED REPORT SANDRA ECTED REPORT Prothrombin Time INR Reviewed date:11/28/2024 07:37:05 AM Interpretation: Performing Lab:[address] [address] Notes/Report: Prothrombin Time 13.2 10.9-12.4 SEC INTERNATIONAL [...] Time Reviewed date:11/28/2024 07:36:31 AM Interpretation: Performing Lab:[address] [phone] Notes/Report: Partial Thromboplastin Time 25.0 26.7-34.1 SEC Comprehensive Met. Panel Reviewed date:11/28/2024 07:37:56 AM Interpretation: Performing Lab:[facility], [address] [place] [phone] Notes/Report: Sodium 130 135-145 mmol/L Potassium 3.9 [...] Acid Reviewed date:11/28/2024 07:36:41 AM Interpretation: Performing Lab:[facility], [address] [place] [address] Notes/Report: Uric Acid 6.8 3.4-7.0 mg/dL Lipase Reviewed date:11/28/2024 07:34:05 AM Interpretation: Performing Lab:[facility], [address] [place] [address] Notes/Report: Lipase 23 8-78 U/L SLIDE REVIEW Reviewed date:11/28/2024 07:36:55 AM Interpretation: Performing Lab:[facility], [address] [place] [phone] Notes/Report: SLIDE REVIEW VERIFIED US venous duplex UE LT Reviewed date:11/28/2024 07:33:57 AM Interpretation: Performing Lab: Notes/Report: [address] [address] Ultrasound Report Signed Patient: Kevin Burrell MR#: [id number] 2 : 1960 Acct:[id number] Age/Sex: 64 / M ADM Date: 11/27/24 Loc: HO.ED Attending Dr: Ordering Physician: Donis Jane Date of Service: 11/27/24 Procedure(s): US venous duplex UE LT Accession Number(s): [id number] cc: Donis Jane; Rodrigue Mcdonald MD Reason [...] in OV> 11/27/242015 DD/ 14 TD/TT: 11/27/242014 Strike Planning Applications: [address] [address] Ultrasound Report Signed Patient: Parish Burrell MR#: [id number] 2 : 1960 Acct:[id number] Age/Sex: 64 / M ADM Date: 11/27/24 Loc: .ED Attending Dr: Ordering Physician: Donis Jane Date of Service: 11/27/24 Procedure(s): US maryann ous duplex UE LT Accession Number(s): [id number] cc: Donis Jane; Rodrigue Mcdonald MD Reason [...] Dictated By: Rajinder Lawson MD Signed By: <Stevo icallhan signed by Rajinder Lawson MD in OV> 11/27/242015 DD/ 14 TD/TT: 11/27/242014 Strike Planning Applications: XR wrist LT min 3V Reviewed date:11/28/2024 07:36:22 AM Interpretation: Performing Lab: Notes/Report: [address] [address] XRay Report Signed Patient: Kevin Burrell MR#: [id number] 2 : 1960 Acct:[id number] Age/Sex: 64 / M ADM Date: 11/27/24 Loc: .ED Attending Dr: Ordering Physician: Donis Jane Date of Service: 11/27/24 Procedure(s): XR wrist LT min 3V Accession Number(s): [id number] cc: Donis Jane; Rodrigue Mcdonald MD Reason [...] Del Toro MD 11/27/2024 03:56 PM EDT RP Dictated By: Jama Del Toro MD Signed By: <Electronically signed by Jama Del Toro MD in OV> 11/27/241555 DD/ 47 TD/TT: 11/27/241549 Strike Planning Applications: [address] [address] XRay Report Signed Patient: Parish Burrell MR#: [id number] 2 : 1960 Acct:[id number] Age/Sex: 64 / M ADM Date: 11/27/24 Loc: HO.ED Attending Dr: Ordering Physician: Donis Jane Date of Service: 11/27/24 Procedure(s): XR wri st LT min 3V Accession Number(s): [id number] cc: Donis Jane; Rodrigue Mcdonald MD Reason for Exam: swe lling pain EXAMINATION: XR WRIST, LEFT CLINICAL INFORMATION: swelling pain COMPARISON: None available. TECHNIQUE: PA, lateral, oblique , and scaphoid views of the left wrist. FINDINGS: No fracture, disloca tion, or suspicious bone lesion. There is normal [...] abnormalities of the left wrist. 2. Moderate osteoart hritis in the first CMC joint. Electronically kurt d by: Jama Del Toro MD 11/27/2024 03:56 PM EDT Dictated By: Jama Zhong MD Signed By: <Electron ically signed by Jama Del Toro MD in OV> 11/27/241555 DD/ 47 TD/TT: 11/27/241549 Strike Planning Applications: XR forearm LT 2V Reviewed date:11/28/2024 07:35:54 AM Interpretation: Performing Lab: Notes/Report: [address] [address] XRay Report Signed Patient: Kevin Burrell MR#: [id number] 2 : 1960 Acct:[id number] Age/Sex: 64 / M ADM Date: 11/27/24 Loc: .ED Attending Dr: Ordering Physician: Donis Jane Date of Service: 11/27/24 Procedure(s): XR forearm LT 2V Accession Number(s): [id number] cc: Donis Jane; Rodrigue Mcdonald MD Reason [...] 11/27/24 1558 DD/ 1545 TD/TT: 11/27/24 1550 Strike Planning Applications: [place] [address] XRay Report Signed Patient: Parish Burrell MR#: [id number] 2 : 1960 Acct:[id number] Age/Sex: 64 / M ADM Date: 11/27/24 Loc: .ED Attending Dr: Ordering Physician: Donis Jane Date of Service: 11/27/24 Procedure(s): XR for earm LT 2V Accession Number(s): [id number] cc: oDnis Jane; Rodrigue Mcdonald MD Reason for Exam: [...] Dictated By: Jesus Kimball MD Signed By: <Stevo icallhan signed by Jesus Kimball MD in OV> 11/27/24 1558 DD/ 1545 TD/TT: 11/27/24 1550 Strike Planning Applications: XR hand LT 2V Reviewed date:11/28/2024 07:35:04 AM Interpretation: Performing Lab: Notes/Report: [address] [address] XRay Report Signed Patient: Kevin Burrell MR#: [id number] 2 : 1960 Acct:[id number] Age/Sex: 64 / M ADM Date: 11/27/24 Loc: .ED Attending Dr: Ordering Physician: Donis Jane Date of Service: 11/27/24 Procedure(s): XR hand LT 2V Accession Number(s): [id number] cc: Donis Jane; Rodrigeu Mcdonald MD Reason for Exam: swelling EXAMINATION: [...] 11/27/24 1602 DD/ 1530 TD/TT: 11/27/24 1550 Strike Planning Applications: [place] [address] XRay Report Signed Patient: Parish Burrell MR#: [id number] 2 : 1960 Acct:[id number] Age/Sex: 64 / M ADM Date: 11/27/24 Loc: HO.ED Attending Dr: Ordering Physician: Donis Jane Date of Service: 11/27/24 Procedure(s): XR arriola d LT 2V Accession Number(s): [id number] cc: Donis Jane; Rodrigue Mcdonald MD Reason [...] Dictated By: Jesus Kimball MD Signed By: <Electron ically signed by Jesus Kimball MD in OV> 11/27/24 1602 DD/ 1530 TD/TT: 11/27/24 1550 Strike Planning Applications: Glenn Fonseca - Possible Hematolo gy Reviewed date:12/11/2024 12:30:18 PM Interpretation: Performing Lab:[facility], [address] [place] [phone] Notes/Report: Hold Lav - Possible Hematology SEE NOTE Specimen will be held untested for 8 hours. Call Hematology if testing is desired. CT abdomen pelvis w con Reviewed date:12/27/2024 05:03:04 PM Interpretation: Performing Lab: Notes/Report: [address] [address] [address] Scan Report Signed Patient: Kevin Burrell MR#: [id number] 2 : 1960 Acct:[id number] Age/Sex: 64 / M ADM Date: 12/26/24 Loc: HO.CT Attending Dr: Rodrigue Mcdonald MD Ordering Physician: Rodrigue Mcdonald MD Date of Service: 12/26/24 Procedure(s): CT abdomen pelvis w IV con Accession Number(s): [id number] cc: Rodrigue Mcdonald MD Report Number: [id number]: Total DLP = 487.00 mGy-cm Reason for Exam: BILIARY ACUTE PARCREATITIS CLINICAL HISTORY: BILIARY ACUTE PARCREATITIS CT abdomen and pelvis with contrast Comparison: CT/SR - CT ABDOMEN PELVIS WITH IV CONTRAST - 11/23/24 13:[address]/SR - CT ABDOMEN PELVIS W IV CON - 11/20/24 21:52 EDT Findings: The visualized portions of the lungs are normal in appearance. The liver is normal in size without suspicious focal hepatic lesions. No intrahepatic or extrahepatic ductal dilatation is seen. The hepatic and portal veins are patent. There are gallstones in the gallbladder. Spleen and adrenals are normal in appearance. Mild fat stranding surrounding the pancreas. The enhancement of the pancreas is preserved. No pseudocyst. No suspicious focal lesion of the kidneys. No hydronephrosis or calculi. The abdominal aorta demonstrates no evidence of aneurysmal dilatation or dissection. Atherosclerosis calcification of the aorta. Colonic diverticulosis. No evidence of bowel obstruction. Appendix is not visualized. The pelvic organs are within normal limits. No intraperitoneal free air or fluid is visualized. No pathologic lymphadenopathy is seen. Lumbar spinal fusion. IMPRESSION: Compared to the prior CT, there is interval improvement of the fat stranding and edema surrounding the pancreas. Cholelithiasis. Additional findings as above. This document has been electronically signed by: Miguel Gay MD on 12/27/2024 15:48:35 Dictated By: Miguel Gay MD Signed By: <Electronically signed by Miguel Gay MD in OV> 12/27/24 1548 DD/ 47 TD/TT: 12/27/241547 Strike Planning Applications: [place] [address] CT Scan Report Signed Patient: Parish Burrell MR#: [id number] 2 : 1960 Acct:[id number] Age/Sex: 64 / M ADM Date: 12/26/24 Loc: HO.CT Attending Dr: Rodrigue Mcdonald MD Ordering Physician: Rodrigue Mcdonald MD Date of Service: 12/26/24 Procedure(s): CT abd omen pelvis w IV con Accession Number(s): [id number] cc: Rodrigue Mcdonald MD Report Number: [id number]: Total DLP = 487.00 mGy-cm Reason for Exam: YASMANY IARY ACUTE PARCREATITIS CLINICAL HISTORY: BI LIARY ACUTE PARCREATITIS CT abdomen and pelvi s with contrast Comparison: CT/SR - CT ABDOMEN PELVIS WITH IV CONTRAST - 11/23/24 13:[address]/SR - CT ABDOMEN P CELINE W IV CON - 11/20/24 21:52 EDT Findings: The visualized porti ons of the lungs are normal in appearance. The liver is normal in size without suspicious focal hepatic lesions. No intrahepatic or extrahepatic ductal dilatation is seen. The hepatic and portal veins are pat ent. There are gallstones in the gallbladder. Spleen and adrenals are normal in appearance. Mild fat stranding surrounding the panc reas. The enhancement of the pancreas is preserved. No pseudocyst. No suspicious focal lesion of the kidneys. No hydronephrosis or calculi. The abdominal aorta demonstrates no evidence of aneurysmal dilatation or dissection. Atherosclerosis calcification of the aorta. Colonic diverticulos is. No evidence of bowel obstruction. Appendix is not visualized. The pelvic organs ar e within normal limits. No intraperitoneal f ree air or fluid is visualized. No pathologic lymphadenopathy is seen. Lumbar spinal fusion. IMPRESSION: Compared to the prio r CT, there is interval improvement of the fat stranding and edema surrounding the pancreas. Cholelithiasis. Additional findings as above. This document has be en electronically signed by: Miguel Gay MD on 12/27/2024 15:48:35 Dictated By: Han Gay MD Signed By: <Stevo francis signed by Miguel Gay MD in OV> 12/27/24 1548 DD/ 47 TD/TT: 12/27/241547 Strike Planning Applications: Pathology Reviewed date:02/01/2025 05:50:01 PM Interpretation: Performing Lab:[facility], [address] [place] [id number] Notes/Report: ------ Name: Kevin Burrell Age/Sex: 64/M : 1960 Unit#: [id number] Attend Dr: Mitchell De Santiago MD Re01/30/25 [place] : [place] [place] [facility] Disch: ------ SPEC : [id number] RECD : 01/30/25 STATUS: [place] PAGE NUM: [id number] DANIEL: 01/30/25 [facility] DR: Mitchell De Santiago MD ENTERED: 01/30/25 03 SP TYPE: Surgical OTHR DR: Rodrigue Mcdonald MD ORDERED: Gross Micro L3 Diagnosis Gallbladder, cholecystectomy: Chronic cholecystitis; cholelithiasis. Clinical History Biliary acute pancre atitis without necrosis Microscopic Description Microscopic sections reviewed. Material Received Gallbladder Gross Description Received in formalin labeled ?gallbladder? is an intact gallbladder measuring 6.2 cm in length with a diamet er ranging from 2.2-2.9 cm. The serosa is blue green and smooth with adherent yellow adip ose tissue. There is a defect in the wall measuring 0.4 cm in diameter for which exerts gre en bile. The cystic duct and artery had been clamped. Opening the specimen reveals pop t the lumen contains torres yellow bile and multiple, rough and irregular black chol eliths ranging from 0.4 to 0.9 cm in greatest dimension. After evacuation of the co ntents the mucosa is green pink with a velvety appearance. Clinical Massage Therapist secti ons of the duct, neck and body of the specimen are submitted for microscopic examinat ion, 3 pieces in cassette A1. ([facility]) This case was review ed intradepartmentally. IHC S/NG Disclaimer NOTE: Unless otherwi se stated, all tissue is formalin-fixed and paraffin-embedded. Some or all of the immunohistochemical tests reported herein may have been developed and their performance characteristics determined by [facility]. They have not been cleared or appr capo by the U.S. Food and Drug Administration (FDA). However, the FDA has determined that such clearance or approval is not necessary. This laboratory is certified under the Clinical Laboratory Improvement Amendments of 1988 (CLIA) as qualified to perform high comp lexity clinical laboratory testing. CONTINUED ON NEXT PAGE ------ Name: Kevin Burrell Age/Sex: 64/M : 1960 Unit#: [id number] Attend Dr: Mitchell De Santiago MD Re01/30/25 [place] : [facility] [place] [facility] Disch: ------ SPEC : [id number] RECD : 01/30/25 STATUS: LOUIS PAGE NUM: [id number] DANIEL: 01/30/25 [facility] DR: Mitchell De Santiago MD ENTERED: 01/30/25 SP TYPE: Surgical OTHR DR: Rodrigue Mcdonald MD ORDERED: Gross Micro L3 Copies To: Rodrigue Mcdonald MD [facility] [address] [address] Mitchell De Santiago MD [facility] [place] [facility] [address] [place] [address] ------ Signed (signature on file) Genaro Mcpherson MD 02/01/25 1452 ------ END OF REPORT Reason For Referral Reason GALL STONE PANCREATI [...] 09:01:30 AM >patient is aware of Tim kowalski Patti A 12/06/2024 03:43:01 PM >[facility] [place] [facility] HAS R/S Tim KOWALSKI Patti A 01/21/2025 09:55:24 AM >OFFICE NOTES RECD Referral Priority Routine Referral Appointment Date 12/31/2024 Medications Medication SIG (Take, Route, Frequency, Duration) Notes Start Date End Date Status Colchicine 0.6 MG 1 tablet Orally twic e a day for 10 days 07/11/2017 Not-Taking Gabapentin 800 MG TAKE 1 TABLET BY ELAINE TH TWICE A DAY for 90 Active Ibuprofen 800 MG 1 tablet with food o r milk as needed Orally every 8 hrs Active Atorvastatin Calcium 40 MG TAKE 1 TABLET BY MOUTH EVERY DAY for 90 Active Lisinopril-hydroCHLOROthi azide 20-12.5 MG TAKE 1 TABLET BY MOUTH EVERY DAY Active predniSONE 20 MG 1 tablet Orally Once a day for 10 days 06/30/2023 Not-Taking Immunizations Vaccine Route Administration Date Status Comme [...] Problem Status W/U Status Risk Notes Problem 842420943 Lumbago with sci atica, right side (M54.41) Active confirmed Problem Disorder of lumbar disc (329631475) Lumbar disc disease (M51.9) Active confirmed Problem 840177982 Elevated LFTs (R79.89) Active confirm ed Problem 444723585 Gastroesophageal reflux disease without esophagitis (K21.9) Active confirmed Problem 96575607 Essential hypert ension (I10) Active confirmed Problem 394526703 Raynauds phenome non without gangrene (I73.00) Active confirmed Problem 24015212 Cervical disc di sease with myelopathy (M50.00) Active confirmed Problem 711915534 Mild aortic sten osis (I35.0) Active confirmed Problem 21336481 Tinea versicolor (B36.0) Active confirmed Problem 4628612247437 Cervical neuropa thy (G54.2) Active confirmed Problem Gallstone (625455167) Gall stones (K80.20) Active confirmed Problem 292790625964831 Sciatica of righ t side (M54.31) Active confirmed Problem 542750447 Pure hypercholesterolemia (E78.00) Active confirmed Problem 959389968 Arthritis of kne e (M17.10) Active confirmed Problem 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) Active confirmed Problem Arthritis of both knees (3984740974649507 ) Arthritis of both knees (M17.0) Active confirmed Problem 433123128 Nonrheumatic mak ral valve regurgitation (I34.0) Active confirmed Problem Raynaud's disease (553150159) Raynaud''s phenomenon without gangrene (I73.00) Active confirmed Vital Signs Blood pressure diastolic 60 mm Hg 01/15/2025 Height 72.50 in 01/15/2025 Blood pressure systolic 122 mm Hg 01/15/2025 Weight 191 lbs 01/15/2025 BMI 25.55 kg/m2 01/15/2025 Encounters Encounter Location Date Provider Diagnosis Rodrigue Mcdonald MD [address] [place] [id number] 05/31/2024 Rodrigue Mcdonald Pure hypercholestero lemia E78.00 Rodrigue Mcdonald MD [address] [place] [address] [id number] 12/11/2024 Rodrigue Mcdonald Pure hypercholestero lemia E78.00 ; Blood tests for routine general physical examination Z00.00 ; Elevated LFTs R79.89 and Essential hypertension I10 Rodrigue Mcdonald MD [address] [place] [id number] 06/07/2024 Rodrigue Mcdonald Pure hypercholestero lemia E78.00 ; Lumbago with sciatica, right side M54.41 and Essential hypertension I10 Rodrigue Mcdonald MD [address] [place] [id number] 11/26/2024 Rodrigue Mcdonald Gall stone pancreati tis K85.10 Rodrigue Mcdonald MD [address] [place] [address] [id number] 12/06/2024 Rodrigue Mcdonald Gall stone pancreati tis K85.10 and Generalized edema R60.1 Rodrigue Mcdonald MD [address] [place] [address] [id number] 12/18/2024 Rodrigue Mcdonald Adult general medica l examination Z00.00 ; Pure hypercholesterolemia E78.00 ; Elevated LFTs R79.89 ; Essential hypertension I10 ; Encounter for administration of vaccine Z23 ; Mild aortic stenosis I35.0 ; Colon cancer screening Z12.11 and Depression screening Z13.31 Rodrigue Mcdonald MD [address] [place] [address] [id number] 01/15/2025 Rodrigue Mcdonald Essential hypertensi on I10 ; Gall stones K80.20 and Lumbar disc disease M51.9 Rodrigue Mcdonald MD [address] [place] [address] [id number] 01/21/2025 Rodrigue Mcdonald MD [address] [place] [address] Drive [address] [place] [address] [id number] 11/26/2024 Rodrigue Mcdonald MD [address] [place] [address] [id number] 11/30/2024 Rodrigue Mcdonald Assessments Encounter Date Diagnosis (ICD Code) Assessment Notes Treatment Notes Treatment Clinical Notes Section Notes 05/31/2024 Pure hypercholesterolemia (ICD-10 - E78.00) 12/11/2024 Pure hypercholesterolemia (ICD-10 - E78.00) 12/11/[address] ine general physical examination (ICD-10 - Z00.00) 06/07/2024 Pure hypercholesterolemia (ICD-10 - E78.00) doing [...] scheduled until dec 31 /APPROVAL NEEDED BY [facility] BEFORE FAXING ORDER TO [facility] [place]. CT 2022 REQUESTED FROM HIM 12/06/2024 Generalized edema (ICD-10 - R60.1) has improved. had us and angio and all negative results and has returned to normal 12/18/2024 Adult general medica l examination (ICD-10 - Z00.00) labs reviewed and discussed with patient 12/18/2024 Pure hypercholesterolemia (ICD-10 - E78.00) doing well on meds, will continue current regiment 01/15/2025 Essential hypertensi on (ICD-10 - I10) well controlled, will continue current regiment 01/15/2025 Gall stones (ICD-10 - K80.20) having surgery 01/3012/11/2024 Elevated LFTs (ICD-1 0 - R79.89) 06/07/2024 Lumbago with sciatic a, right side (ICD-10 - M54.41) awaiting surgery 12/18/2024 Elevated LFTs (ICD-1 0 - R79.89) is from the gall stones. is waiting for surgery 01/15/2025 Lumbar disc disease (ICD-10 - M51.9) having back surgery march 04 mri report last week at [facility]/ Patient is having Dr. JUAREZ office fax us a copy 12/11/2024 Essential hypertensi on (ICD-10 - I10) [...] ECHO 01/29/2025 Next Appt Details Provider Name:Rodrigue Mcpherson ier, 06/14/2025 08:00:00 AM, [address], [place], [place], [phone], Provider Name:Rodrigue Mcpherson ier, 06/18/2025 10:00:00 AM, [address] [place] [address], [address], [place], [place], [phone], Provider Name:Rodrigue Mcpherson ier, 12/13/2025 07:30:00 AM, [address] [place] [address], [address], [place], [place], [phone], Provider Name:Rodrigue Mcpherson ier, 12/20/2025 08:30:00 AM, [address] [place] [address], [address], [place], [place], [phone], Insurance Providers Payer Name Payer Address Payer Phone Subscriber Number Group Number Insured Name Patient Relationship to Insured Coverage Start Date Coverage End Date [address] [facility] [place] [phone] [id number] Kevin Burrell Self - patient is the insured Medical (General) History Medical History History ICD Code 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 Negron - repeat 10 years have to be on diuretic in cooler months and stop in hot months
== END 2025-02-06 13:53 | disposition home or self-care (01) ==
LOC: HO.HGS 13:33
PROVIDERS: PCP Internal Medicine
DX: Z90.49 Acquired absence of other specified parts of digestive tract (principal)
CPT/HCPCS: 99024